=== PATIENT | female | born 1950 | race Caucasian/White ===

== ENCOUNTER → 2019-08-26 12:40 | Outpatient (CLI) | payer MEDICARE, OTHER, SELFPAY ==
[2016-08-26 20:55] VITALS: BMI 71.9
[2019-08-26 14:35] LABS: M R Staph aureus DNA By PCR Negative (Negative); Probe Check PASS; Specimen Processing Control PASS
== END ==
PROVIDERS: PCP Internal Medicine; Referring Provider Nurse Practitioner; Visit Provider Nurse Practitioner
DX: L03.90 Cellulitis, unspecified (principal)
CPT/HCPCS: 87641

== ENCOUNTER → 2019-09-15 09:17 | Outpatient (CLI) | payer MEDICARE, OTHER, SELFPAY ==
[2016-08-26 20:55] VITALS: BMI 71.9
== END ==
PROVIDERS: PCP Internal Medicine; Referring Provider Dermatology; Visit Provider Dermatology
DX: L30.9 Dermatitis, unspecified (principal)
CPT/HCPCS: 36415

== ENCOUNTER → 2020-09-30 11:59 | Outpatient (CLI) | payer MEDICARE, OTHER, SELFPAY ==
[2016-08-26 20:55] VITALS: BMI 71.9
[2020-09-30 12:20] LABS: D-Dimer Quantitative (DVT/PE) 0.31 FEU/ug/m (0.27-0.49)
== END ==
PROVIDERS: PCP Internal Medicine; Referring Provider Internal Medicine; Visit Provider Internal Medicine
DX: R07.9 Chest pain, unspecified (principal)
CPT/HCPCS: 85379

== ENCOUNTER → 2020-09-30 14:11 | Outpatient (CLI) | payer MEDICARE, OTHER, SELFPAY ==
[2016-08-26 20:55] VITALS: BMI 71.9
--- NOTE | 2020-09-30 14:18 | VDLE_ITS ---
Reason For Study: Calf pain RIGHT LEFT GSV is normal. GSV is normal. CFV is compressible, spontaneous, phasic, CFV is compressible, spontaneous, phasic, competent and demonstrates normal competent, and demonstrates normal augmentation. augmentation. FV is compressible, spontaneous, phasic, FV is compressible, spontaneous, phasic, competent and demonstrates normal competent and demonstrates normal augmentation. augmentation. POP V is compressible, spontaneous, phasic, POP V is compressible, spontaneous, phasic, competent and demonstrates normal competent and demonstrates normal augmentation. augmentation. T/P Trunk is compressible. T/P Trunk is compressible. PTV is compressible. PTV is compressible. RT PerV is compressible. LT PerV is compressible. Procedure This is a venous duplex using B-mode, color flow and spectral Doppler. Exam performed in department. A preliminary report was called and/or faxed to [facility]. VL/Venous Duplex US - Filipe Extrem Interpretation Summary Deep veins of the lower extremities are bilaterally patent and compressible seg mentally. There is no evidence of deep vein thrombosis on either side. Valvular competence appears in tact within the proximal deep venous systems bilaterally. The great saphenous veins appear bila terally patent and compressible segmentally. Ordering Physician: Yajaira Resendez Referring Physician: Yajaira Resendez Performed By: Mayte Moore RVT and Student
== END ==
PROVIDERS: PCP Internal Medicine; Referring Provider Internal Medicine; Visit Provider Internal Medicine
DX: M79.661 Pain in right lower leg (principal); R07.9 Chest pain, unspecified
CPT/HCPCS: 85379; 93970

== ENCOUNTER → 2020-12-08 08:26 | Outpatient (CLI) | payer MEDICARE, OTHER, SELFPAY ==
--- NOTE | 2020-12-08 08:36 | BD_ITS ---
STUDY: DUAL ENERGY X-RAY ABSORPTIOMETRY / DXA REASON FOR EXAM: Female, 70 years old. 627.8Menopausal postmenopausalBONE DENSITY REASON FOR EXAM TECHNIQUE: Bone Mineral Density (BMD) measurements of lumbar spine and bilateral hips were obtained. COMPARISON: None. FINDINGS: Lumbar Spine (L1-L4): g/cm2 (0.934) / T-score (-0.4) / Z-score (1.6) Findings are suggestive of normal bone density with a low fracture risk. Left Femur Total: g/cm2 (0.923) / T-score (-0.2) / Z-score (1.3) Left Femoral Neck: g/cm2 (0.669) / T-score (-1.6) / Z-score (0.2) Right Femur Total: g/cm2 (0.872) / T-score (-0.6) / Z-score (0.9) Right Femoral Neck: g/cm2 (0.735) / T-score (-1.0) / Z-score (0.8) BD/Dexa Bone Density Study IMPRESSION: The patient is considered osteopenic as outlined below according to World [employer] Organization (WHO) criteria with a moderate fracture risk. Reference Information: The T-score is the number of standard deviations above or below the standard which is normal for young adults at their peak bone mineral density. The World Health Organization (WHO) interprets the T-scores as follows: Above -1 Normal bone density Between -1 and -2.5 Osteopenia Equal to / or below -2.5 Osteoporosis As a practical clinical guideline, osteopenia may be graded as follows: Mild -1 through -1.5 Moderate -1.6 through -2.0 Severe -2.1 through -2.4 The Z-score is the number of standard deviations above or below age-matched controls. A Z-score of less than -1.5 would be considered abnormal. References: 1. NIH Osteoporosis and Related Bone Diseases www osteo.org 2. International Society for Clinical Densitometry www iscd.org 3. National Osteoporosis Foundation www nof.org Electronically Signed: Choco Moses MD at 9:33 EDT , Service support ,
== END ==
PROVIDERS: PCP Internal Medicine; Referring Provider Internal Medicine; Visit Provider Internal Medicine
DX: Z78.0 Asymptomatic menopausal state (principal)
CPT/HCPCS: 77080

== ENCOUNTER → 2023-07-03 | Outpatient (CLI) | payer MEDICARE, OTHER, SELFPAY ==
[2023-07-03 15:49] LABS: Absolute Lymphocyte Count 3.02 X10^3/uL (0.83-4.51); Absolute Neutrophil Count 3.2 X10^3/uL (2.0-7.7); Basophil# 0.07 X10^3/uL; Eosinophil# 0.16 X10^3/uL; Eosinophils% 2.3 % (0-5); Hematocrit 46.4 % (37-47); Hemoglobin 14.9 g/dL (12.0-15.0); Lymphocyte # 3.02 X10^3/ul (0.83-4.51); Lymphocyte % 42.8 % (19-41); Mean Corp Hgb Conc 32.1 g/dL (32-36); Mean Corpuscular Hgb 28.3 pg (27.0-32.0); Mean Platelet Vol. 9.4 fl (6.2-12.0); Monocyte# 0.54 X10^3/uL; Monocyte% 7.6 % (0-10); NRBC Flagged by Analyzer 0 % (0-5); Neutrophil # 3.24 X10^3/uL (2.7-7.7); Neutrophil % 45.9 % (47-70); Platelet Count 308 K/mm3 (150-450); RBC Distribution Width CV 12.8 % (11.6-14.6); RBC Distribution Width SD 41.5 fl (35.1-43.9); Red Blood Count 5.27 M/mm3 (4.2-5.4); White Blood Count 7.1 K/mm3 (4.4-11.0)
[2023-07-03 15:57] LABS: ALB/GLOB Ratio 1.2 RATIO (0.9-2.4); AST(SGOT) 16 U/L (15-37); Alanine Aminotransfer ALT/SGPT 28 U/L (13-56); Albumin, Serum 3.6 g/dL (3.2-5.0); Alkaline Phosphatase 68 U/L (45-117); Anion Gap 0 (5-15); BUN 11 mg/dL (7-18); BUN/Creat Ratio 13.9 RATIO (10-20); Calcium,Total 8.9 mg/dL (8.5-10.1); Chloride 108 mmol/L (98-107); Creatinine, Serum 0.79 mg/dL (0.55-1.02); EST Glomerular Filtration Rate 76 mL/min (>60); Est Glom Filt Rate - Afr Amer 92 mL/min (>60); Globulin 2.9 g/dL (2.2-4.2); Glucose 102 mg/dL (74-106); Potassium 4.6 mmol/L (3.5-5.1); Protein, Total 6.5 g/dL (6.4-8.2); Sodium Level 140 mmol/L (136-145)
== END | disposition home or self-care (01) ==
LOC: LABSPEC 15:35
PROVIDERS: PCP Internal Medicine; Referring Provider Nurse Practitioner Family; Visit Provider Nurse Practitioner Family
DX: R39.9 Unspecified symptoms and signs involving the genitourinary system (principal)
CPT/HCPCS: 80053; 85025

== ENCOUNTER 2024-01-13 15:09 | Emergency (ER) | payer MEDICARE, OTHER, SELFPAY ==
[2024-01-13 15:09] VITALS: BP 151/86; PULSE 86; RESP 16; TEMP 36.5; O2SAT 99; BMI 29.5
[2024-01-13 15:12] VITALS: BP 151/86; PULSE 86; RESP 16; TEMP 36.7; O2SAT 99
[2024-01-13 15:39] LABS: Mucous, Urine 0 SEEN /hpf (<or=2+)
[2024-01-13 15:42] LABS: Color, Urine Red (Yellow); Glucose, Dipstick Normal (Normal); Ketone-Dipstick Negative (Negative); Leukocyte Esterase-Dipstick 100 /ul (Negative); Nitrite-Dipstick Negative (Negative); Occult Blood-Urine 250 /ul (Negative); Protein-Dipstick 500 mg/dl (Negative); Specific Gravity, Urine 1.015 (1.002-1.030); Urine Bilirubin Dipstick Negative (Negative); Urine Clarity Turbid (Clear); Urine Urobilinogen Normal (Normal)
[2024-01-13 15:50] LABS: Red Blood Cells-Urine > 100 SEEN /hpf (0-5)
[2024-01-13 15:52] LABS: Squamous Epithelial Cells - UA 0-5 SEEN /hpf (5-10); White Blood Cells 10-25 SEEN /hpf (0-5)
[2024-01-13 15:53] LABS: Bacteria 2+ /hpf (None Seen)
[2024-01-13] MEDS: Phenazopyridine 95 MG Tablet 190 MG PO (16:41)
[2024-01-13] MEDS: Nitrofurantoin Macrocrystals 100 MG Capsule PO (16:41)
[2024-01-13 16:43] VITALS: BP 126/69; PULSE 72; RESP 18; TEMP 36.7; O2SAT 97
== END 2024-01-13 16:44 | disposition home or self-care (01) ==
PROVIDERS: Emergency Provider Emergency Medicine; PCP Internal Medicine; Visit Provider Emergency Medicine
DX: N30.91 Cystitis, unspecified with hematuria (principal); R03.0 Elevated blood-pressure reading, without diagnosis of hypertension
CPT/HCPCS: 81001; 87086; 87088; 87186; 99283

== ENCOUNTER → 2024-08-15 | Outpatient (CLI) | payer MEDICARE, OTHER, SELFPAY ==
--- OUTSIDE RECORDS SUMMARY | 2024-08-15 17:58 | XMS RPT_ITS | CCD ---
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 Manager Name Role Phone Yajaira Uribe Attending Unavailable Yajaira Uribe Referring Unavailable Yajaira Uribe Consulting Unavailable Brandi Uribehleen Unavailable Yolanda Ramos Unavailable Ciyudia, Lorena Unavailable Yelena Jones Unavailable Unavailable Slarb, Sandy Unavailable Unavailable Unavailable Unavailable Jerel Newton Unavailable Unavailable Janet Young Unavailable Unavailable Elizabet Flores Unavailable Unavailable Yajaira Uribe DO Unavailable Yolanda Ramos Unavailable Jerel Newton LPN Unavailable Unavailable Ciesa OLIVERIO, Lorena Unavailable Slajett CALLES, Sandy Unavailable Unavailable Unavailable Unavailable Dr. Tino Serna Unavailable Le CALLES, Nilda Unavailable Unavailable Brandi Uribe DOhleen Unavailable Jessica Blake MA Unavailable Unavailable Ciesa, Carly Unavailable Yajaira Uribe DO Primary Care Provider [phone] Edna Birch RN Unavailable Unavailable Gabriella Frederick RN Unavailable Unavailable Rodo CARDONA, PhD, Chele Duff Unavailable Cassie Stevenson Unavailable [phone] Cinthya Medina RN Unavailable Unavailable Jerel Deluna RN Unavailable Unavailable Chema VARGAS, Shelly Unavailable Unavailable Yajaira Uribe DO Primary Care Provider [phone] Edna Birch RN Unavailable Unavailable Gabriella Frederick RN Unavailable Unavailable Rodo CARDONA, PhD, Chele Duff Unavailable [phone] Jean BUSTOSN-GRAVEL INSPECTOR, Cassie L Unavailable [phone] Carol RN, Cinthya Unavailable Unavailable Mikie VARGAS, Jerel Unavailable Unavailable Chema VARGAS, Shelly Unavailable Unavailable Rodo CARDONA, PhD, Chele Duff Unavailable YAJAIRA URIBE Referring Unavailable YAJAIRA URIBE Primary Care Unavailable EDMUNDO CLARK Attending Unavailable EDMUNDO CLARK Attending Unavailable JOJOYAJAIRA MCGRAW K Primary Care Unavailable EDMUNDO CLARK E Referring Unavailable Jojo, Yajaira Primary Care Unavailable Yajaira Uribe Referring Unavailable Giancarlo Grier Attending Unavailable Yajaira Uribe Primary Care Unavailable Janie Hill Attending Unavailable Janie Hill Referring Unavailable Evelio Paul Attending Unavailable Yajaira Uribe Primary Care Unavailable Dr. Yajaira Uribe DO Primary Care Provider Dr. Yajaira Uribe DO Referring Provider [phone] Sarbjit Dinh Attending Provider Allergies Allergy Classification Reported Allergen(s) Allergy Type Date of Onset Reaction(s) Facility Macrolides (antibiotic) (1 source) Clarithromycin; Translations: [BIAXIN, 250MG (Oral Tablet)] Drug [facility] Work Phone: Comment on above: cramps NSAIDs (1 source) Indomethacin; Translations: [INDOCIN SR, 75MG (Oral Capsule Extended Release)] Drug Allergy [facility]; [facility] Work Phone: Penicillins (antibiotic) (1 source) Penicillins; Translations: [Penicillins] Drug Allergy [facility] Work Phone: (11 sources) Clarithromycin; Translations: [BIAXIN, 250MG (Oral Tablet)] Drug Allergy 07-11-19 08 Rash [facility] Work Phone: Comment on above: cramps (9 sources) Indomethacin; Translations: [INDOCIN SR, 75MG (Oral Capsule Extended Release)] Drug Allergy [facility] Work Phone: (17 sources) Penicillins; Translations: [Penicillins] allergy to substance 07-11-19 08 [facility] Work Phone: (5 sources) *Adhesive Tape Propensity to adverse reactions 04-23-19 13 Hives, [facility] (4 sources) Clarithromycin Propensity to adverse reactions to drug 07-11-[address] [facility] (2 sources) Latex Allergy to substance 08-27-19 17 [facility] (2 sources) Adhesive Tape Drug allergy (disorder) 01-13-20 24 [facility] Repository (1 source) Clarithromycin Drug Allergy 01-13-20 [facility] Rep[facility] (1 source) Latex Drug allergy (disorder) 08-27-19 [facility] Rep[facility] Medications Current Medications Medication Drug Class(es) Dates Sig (Normalized) Sig (Original) ciprofloxacin 750 mg oral tablet (12 sources) Quinolone Antimicrobial Start: 04-25-2021 End: 08-04-2021 Ciprofloxacin HCl 750 MG Oral Tablet 1 (one) Tablet daily x3 days for 0 days Quantity: 6 {Tablet} Refills: 0 Ordered: 04-Aug-2021 Jessica Blake MA Start : 25-Apr-2021 End : 04-Aug-2021 Inactive Comments: Ok to dispense #6 Start: 10-05-2011 End: 10-15-2011 take 1 tablet by mouth twice daily CIPRO, 500MG (Oral Tablet) 1 Tablet bid for 10 days Quantity: 20 {Tablet} Refills: 0 Ordered: 05-Oct-2011 Yajaira Uribe DO, DO, Kathleen Start : 05-Oct-2011 End : 15-Oct-2011 Inactive Comment on above: Ok to dispense #6 doxycycline hyclate 100 mg oral capsule (18 sources) Tetracycline-class Drug Start: 08-04-2021 take 1 capsule by mouth twice daily Doxycycline Hyclate 100 MG Oral Capsule 1 (one) Capsule bid for 7 days Quantity: 14 {Capsule} Refills: 0 Ordered: 04-Aug-2021 Yajaira Uribe DO, DO, Kathleen Start : 04-Aug-2021 Active Start: 08-26-2019 End: 09-02-2019 take 1 capsule by mouth twice daily Doxycycline Monohydrate 100 MG Oral Capsule 1 (one) Capsule bid for 7 days Quantity: 14 {Capsule} Refills: 0 Ordered: 26-Aug-2019 Carly Tejada Start : 26-Aug-2019 End : 02-Sep-2019 Inactive Start: 12-11-2014 End: 12-27-2015 take 1 capsule by mouth twice daily Doxycycline Hyclate 100 MG Oral Capsule 1 (one) Capsule bid for 0 days Quantity: 20 {Capsule} Refills: 0 Ordered: 27-Dec-2015 SlaSandy frausto LPN Start : 11-Dec-2014 End : 27-Dec-2015 Discontinued famotidine 40 mg oral tablet (1 source) Histamine-2 Receptor Antagonist Start: 08-04-2021 take 1 tablet by mouth twice daily Famotidine 40 MG Oral Tablet 1 (one) Tablet bid for 0 days Quantity: 20 {Tablet} Refills: 0 Ordered: 04-Aug-2021 Yajaira Uribe DO, DO, Kathleen Start : 04-Aug-2021 Active Comments: allergy to yellow dye -- according to my emr the generic version doesnt have yellow dye Start: 08-04-2021 take 1 tablet by radha th twice daily Famotidine 40 MG Oral Tablet 1 (one) Tablet bid for 0 days Quantity: 20 {Tablet} Refills: 0 Ordered: 04-Aug-2021 Yajaira Uribe DO, DO, Kathleen Start : 04-Aug-2021 Active Comments: allergy to yellow dye -- according to my emr the generic version doesnt have yellow dye Comment on above: allergy to yellow dy e -- according to my emr the generic version doesnt have yellow dye fexofenadine hydrochloride 60 mg oral tablet (1 source) Histamine-1 Receptor Antagonist Start: 08-04-2021 take 1 tablet by mouth twice daily Karrie Allergy 60 MG Oral Tablet 1 (one) Tablet bid for 0 days Quantity: 20 {Tablet} Refills: 0 Ordered: 04-Aug-2021 Yajaira Uribe DO, DO, Kathleen Start : 04-Aug-2021 Active Start: 08-04-2021 take 1 tablet by radha th twice daily Karrie Allergy 60 MG Oral Tablet 1 (one) Tablet bid for 0 days Quantity: 20 {Tablet} Refills: 0 Ordered: 04-Aug-2021 Yajaira Uribe DO, DO, Kathleen Start : 04-Aug-2021 Active nitrofurantoin, macrocrystals 25 mg / nitrofurantoin, monohydrate 75 mg oral capsule (2 sources) Nitrofuran Antibacterial Start: 01-13-2024 End: 08-15-2024 take 1 capsule by mouth every twelve hours at mealtime Nitrofurantoin Monohyd/M-Cryst 100 mg capsule Active 1 NMA PO Q12H 14 August 15, 2024 12:00am August 21, 2024 12:00am administer with a meal/food; swallow whole; do not open, crush, dissolve , or chew phenazopyridine hydrochloride 200 mg oral tablet (12 sources) Start: 01-13-2024 End: 08-15-2024 take 1 tablet by mouth three times daily as needed for pain Phenazopyridine (Pyridium) 200 mg tablet Active 200 mg PO THREE TIMES A DAY as needed for pain August 15, 2024 12:00am Start: 10-28-2007 End: 10-30-2007 take 1 tablet by mouth three times daily PYRIDIUM, 100MG (Oral Tablet) 1 Tablet tid for 2 days Quantity: 6 {Tablet} Refills: 0 Ordered: 28-Oct-2007 Carly Tejada Start : 28-Oct-2007 End : 30-Oct-2007 Inactive predniSONE 20 mg oral tablet (15 sources) Start: 08-04-2021 take 1 tablet by mouth twice daily at mealtime predniSONE 20 MG Oral Tablet 1 (one) Tablet bid for 0 days Quantity: 6 {Tablet} Refills: 0 Ordered: 04-Aug-2021 Yajaira Uribe DO, DO, Kathleen Start : 04-Aug-2021 Active Comments: take with food Start: 10-25-2020 End: 11-01-2020 take 2 tablets by mouth once daily at mealtime predniSONE 10 MG Oral Tablet 2 (two) Tablet daily with food for 7 days Quantity: 14 {Tablet} Refills: 0 Ordered: 25-Oct-2020 Yajaira Uribe DO, DO, Kathleen Start : 25-Oct-2020 End : 01-Nov-2020 Inactive Comments: take with food Start: 08-03-2020 take 3 tablets by mo [facility] once daily at mealtime predniSONE 10 MG Oral Tablet 3 (three) Tablet daily as directed for 7 days Quantity: 21 {Tablet} Refills: 0 Ordered: 03-Aug-2020 Terrell PAYNE Lorena Start : 03-Aug-2020 Active Comments: take with food Start: 04-10-2013 End: 05-08-2013 take 1 tablet by mouth once daily at mealtime PREDNISONE, 20MG (Oral Tablet) 1 (one) Tablet qd for 0 days Quantity: 5 {Tablet} Refills: 0 Ordered: 08-May-2013 Chantal Allen RN Start : 10-Apr-2013 End : 08-May-2013 Inactive Comments: take with food Comment on above: take with food vitamin b12 2.5 mg oral lozenge (2 sources) Vitamin B12 Start: 04-25-2021 End: 08-04-2021 take 1 tablet under the tongue every other day Cyanocobalamin 2500 MCG Sublingual Tablet Sublingual 1 (one) Tablet qod for 0 days Quantity: 60 {Tablet} Refills: 1 Ordered: 04-Aug-2021 Jessica Blake MA Start : 25-Apr-2021 End : 04-Aug-2021 Inactive Completed/Discontinued Medications Medication Drug Class(es) Dates Sig (Normalized) Sig (Original) acetaminophen 500 mg oral tablet (1 source) Start: 01-08-2020 End: 01-02-2022 take 2 tablets by mouth every six hours acetaminophen (TYLENOL) 500 MG tablet Take 2 tablets by mouth every 6 hours for 5 days. 40 tablet 0 01/08/2020 01/02/2022 Discontinued (Therapy completed) acyclovir 800 mg oral tablet (10 sources) Herpesvirus Nucleoside Analog DNA Polymerase Inhibitor, Herpes Simplex Virus Nucleoside Analog DNA Polymerase Inhibitor, Herpes Zoster Virus Nucleoside Analog DNA Polymerase Inhibitor Start: 03-26-2014 End: 04-02-2014 ACYCLOVIR, 800MG (Oral Tablet) 1 (one) Tablet 5 x daily for 7 days Quantity: 35 {Tablet} Refills: 0 Ordered: 26-Mar-2014 Carly Tejada Start : 26-Mar-2014 End : 02-Apr-2014 Inactive [id number] actuat albuterol 0.09 mg/actuat metered dose inhaler (10 sources) beta2-Adrenergic Agonist Start: 04-28-2009 End: 02-19-2012 ALBUTEROL, 90MCG/ACT (Inhalation Aerosol Solution) 2 (two) Aerosol Soln TID prn for 0 days Quantity: 1 {Aerosol_Soln} Refills: 3 Ordered: 28-Apr-2009 Chantal Allen RN Start : 28-Apr-2009 End : 19-Feb-2012 Discontinued Comments: This order discontinued per [facility]. Comment on above: This order discontin ued per [facility]. aspirin 325 mg oral tablet (10 sources) Platelet Aggregation Inhibitor, Nonsteroidal Anti-inflammatory Drug End: 02-19-2012 take 1 tablet by mouth twice daily ASPIRIN, 325MG (Oral Tablet) 1 bid for 0 days Refills: 0 Ordered: 19-Feb-2012 Chantal Allen RN End : 19-Feb-2012 Inactive 24 hr clarithromycin 500 mg extended release oral tablet (10 sources) Macrolide Antimicrobial Start: 12-10-2006 End: 01-29-2007 take 2 tablets by mouth once daily BIAXIN XL PAC, 500MG (Oral Tablet Extended Release 24 Hour) 2 (two) Tablet ER 24HR Daily for 7 days Quantity: 14 {Tablet_ER_24HR} Refills: 0 Ordered: 10-Dec-2006 MARTHA THOMPSON CNP Start : 10-Dec-2006 End : 29-Jan-2007 Inactive Start: 12-10-2006 End: 01-29-2007 take 2 tablets by mouth once daily BIAXIN XL PAC, 500MG (Oral Tablet Extended Release 24 Hour) 2 (two) Tablet ER 24HR Daily for 7 days Quantity: 14 {Tablet_ER_24HR} Refills: 0 Ordered: 10-Dec-2006 MARTHA THOMPSON CNP Start : 10-Dec-2006 End : 29-Jan-2007 Inactive codeine phosphate 2 mg/ml / guaiFENesin 20 mg/ml oral solution (10 sources) Opioid Agonist Start: 12-10-2006 End: 09-09-2007 GUAIATUSSIN AC, 100-10MG/5ML (Oral Syrup) 1-2 Teaspoon(s) q6h prn for 0 days Quantity: 6 {Ounce(s)} Refills: 0 Ordered: 10-Dec-2006 Chantal Allen RN Start : 10-Dec-2006 End : 09-Sep-2007 Inactive cyclobenzaprine hydrochloride 5 mg oral tablet (10 sources) Muscle Relaxant Start: 12-27-2015 End: 08-26-2019 Cyclobenzaprine HCl 5 MG Oral Tablet 1 (one) Tablet once or twice daily prn for muscle spasm for 0 days Quantity: 30 {Tablet} Refills: 0 Ordered: 26-Aug-2019 Jerel Newton LPN Start : 27-Dec-2015 End : 26-Aug-2019 Inactive 24 hr etodolac 400 mg extended release oral tablet (10 sources) Nonsteroidal Anti-inflammatory Drug Start: 01-23-2011 End: 01-23-2011 take 2 tablets by mouth once daily at mealtime ETODOLAC CR, 400MG (Oral Tablet Extended Release 24 Hour) 2 (two) Tablet ER 24HR qd with food for 0 days Quantity: 20 {Tablet_ER_24HR} Refills: 0 Ordered: 23-Jan-2011 Yajaira Uribe DO, DO, Kathleen Start : 23-Jan-2011 End : 23-Jan-2011 Discontinued fluticasone / salmeterol (10 sources) Corticosteroid, beta2-Adrenergic Agonist Start: 04-28-2009 End: 02-19-2012 ADVAIR DISKUS, 100-50MCG/DOSE (Inhalation Aerosol Powder Breath Activated) 1 (one) Misc bid for 0 days Quantity: 1 {diskus} Refills: 3 Ordered: 19-Feb-2012 Chantal Allen RN Start : 28-Apr-2009 End : 19-Feb-2012 Inactive Start: 04-28-2009 End: 02-19-2012 ADVAIR DISKUS, 100-50MCG/DOS E (Inhalation Aerosol Powder Breath Activated) 1 (one) Misc bid for 0 days Quantity: 1 {diskus} Refills: 3 Ordered: 19-Feb-2012 Chantal Allen LPN Start : 28-Apr-2009 End : 19-Feb-2012 Inactive ibuprofen 600 mg oral tablet (1 source) Nonsteroidal Anti-inflammatory Drug Start: 01-08-2020 End: 01-02-2022 take 1 tablet by mouth every six hours ibuprofen 600 MG tablet Take 1 tablet by mouth every 6 hours for 5 days. 20 tablet 0 01/08/2020 01/02/2022 Discontinued levoFLOXacin 500 mg oral tablet (10 sources) Quinolone Antimicrobial Start: 11-01-2007 take 1 tablet by mouth once daily LEVAQUIN, 500MG (Oral Tablet) 1 (one) Tablet Daily for 0 days Quantity: 5 {Tablet} Refills: 0 Ordered: 28-Apr-2009 Ruma Lugo LPN Start : 01-Nov-2007 Inactive metroNIDAZOLE 500 mg oral tablet (9 sources) Nitroimidazole Antimicrobial Start: 06-24-2018 End: 07-04-2018 take 1 tablet by mouth twice daily MetroNIDAZOLE 500 MG Oral Tablet 1 (one) Tablet bid for 10 days Quantity: 20 {Tablet} Refills: 0 Ordered: 24-Jun-2018 Yelena Jones CMA Start : 24-Jun-2018 End : 04-Jul-2018 Inactive montelukast 10 mg oral tablet (10 sources) Leukotriene Receptor Antagonist Start: 09-09-2007 take 1 tablet by mouth once daily SINGULAIR, 10MG (Oral Tablet) 1 (one) Tablet Daily for 0 days Quantity: 30 {Tablet} Refills: 4 Ordered: 28-Apr-2009 Ruma Lugo LPN Start : 09-Sep-2007 Inactive naproxen sodium 220 mg oral tablet (10 sources) Nonsteroidal Anti-inflammatory Drug Start: 05-30-2006 End: 02-19-2012 take 2 tablets by mouth twice daily ALEVE, 220MG (Oral Tablet) 2 (two) Tablet Twice daily for 0 days Refills: 0 Ordered: 19-Feb-2012 Chantal Allen RN Start : 30-May-2006 End : 19-Feb-2012 Inactive oxyCODONE hydrochloride 5 mg oral tablet (1 source) Opioid Agonist Start: 01-08-2020 End: 01-02-2022 take 1 tablet by mouth every eight hours as needed for pain oxyCODONE 5 MG tablet Indications: Acquired absence of both breasts Take 1 tablet by mouth every 8 hours as needed for Severe Pain for up to 2 days. 6 tablet 0 01/08/2020 01/02/2022 Discontinued scopolamine 0.4 mg oral tablet (20 sources) Anticholinergic Start: 04-28-2009 End: 10-27-2011 take 1 tablet by mouth every eight hours as needed SCOPACE, 0.4MG (Oral Tablet) 1 (one) Tablet 1 hr before travel and q8hrs prn for 0 days Quantity: 10 {Tablet} Refills: 0 Ordered: 27-Oct-2011 Chantal Allen RN Start : 28-Apr-2009 End : 27-Oct-2011 Discontinued Comments: This order discontinued per [facility]. Start: 09-16-2007 End: 04-28-2009 SCOPOLAMINE BASE, 1.5MG (Tra nsdermal Patch 72 Hour) 1 (one) Patch 72HR q72 hrs prn for 0 days Quantity: 10 {Patch_72HR} Refills: 0 Ordered: 16-Sep-2007 Parish CALLESRuma Start : 16-Sep-2007 End : 28-Apr-2009 Discontinued Comments: This order discontinued per [facility]. Comment on above: This order discontin ued per [facility]. sulfamethoxazole 800 mg / trimethoprim 160 mg oral tablet (10 sources) Dihydrofolate Reductase Inhibitor Antibacterial, Sulfonamide Antimicrobial Start: 08-27-19 End: 09-03-19 take 1 tablet by mouth twice daily Bactrim DS 800-160 MG Oral Tablet 1 (one) Tablet bid for 7 days Quantity: 14 {Tablet} Refills: 0 Ordered: 27-Aug-2019 Carly Tejada Start : 27-Aug-2019 End : 03-Sep-2019 Inactive Start: 10-30-2007 End: 11-05-2007 take 1 tablet by mouth twice daily BACTRIM DS, 800-160MG (Oral Tablet) 1 (one) Tablet bid for 3 days Quantity: 6 {Tablet} Refills: 0 Ordered: 30-Oct-2007 Chantal Allen LPN Start : 30-Oct-2007 End : 05-Nov-2007 Inactive tiZANidine 4 mg oral tablet (4 sources) Central alpha-2 Adrenergic Agonist Start: 10-28-2020 End: 10-28-2020 take 1 tablet by mouth twice daily tiZANidine HCl 4 MG Oral Tablet 1 (one) Tablet bid for 0 days Quantity: 40 {Tablet} Refills: 0 Ordered: 28-Oct-2020 Yajaira Uribe DO, DO, Kathleen Start : 28-Oct-2020 End : 28-Oct-2020 Inactive Comments: rash Comment on above: rash NEGATED: Highlighted row has not occurred!drug or medication (5 sources) No Known Historical Medications NEGATED: Highlighted row has not occurred!No Known Historical Medications (5 sources) No Known Historical Medications Problems Active Problems Problem Classification Problem Date Documented Da te Episodic/Chronic Abdominal pain (18 sources) Abdominal pain; Translations: [Abdominal pain, colicky] Resolved: 1 06-17-2018 Episodic Allergic reactions (19 sources) Contact dermatitis due to poison irineo; Translations: [Contact dermatitis due to poison irineo] 08-03-2020 Episodic Comment on above: left flank at site o f pain had cream rubbed on it at last OV Asthma (20 sources) Asthma; Translations: [Asthma] 12-28-2015 Chronic Comment on above: stable Asthma (10 sources) Asthma Biliary tract disease (20 sources) Cholelithiasis without obstruction; Translations: [Cholelithiasis without obstruction] Resolved: 2 04-10-2013 Episodic Cancer of breast (20 sources) Malignant neoplasm of breast (female), unspecified; Translations: [Breast ca] Onset: 3 Resolved: 0 12-28-2015 Chronic Comment on above: new dx Cancer of breast (12 sources) History of malignant neoplasm of breast; Translations: [Personal history of malignant neoplasm of breast] Onset: 7 Episodic Chronic obstructive pulmonary disease and bronchiectasis (10 sources) Chronic obstructive pulmonary disease and bronchiectasis Conditions associated with dizziness or vertigo (20 sources) Conditions associated with dizziness or vertigo Disorders of lipid metabolism (20 sources) Hypercholesterolemia; Translations: [Hypercholesterolemia] 12-28-2015 Chronic Diverticulosis and diverticulitis (6 sources) Diverticular disease of colon; Translations: [Diverticulosis of large intestine] 12-28-2015 Chronic E Codes: Natural/environment (1 source) Insect bite - wound; Translations: [Insect bite, multiple] 08-04-2021 Episodic Genitourinary symptoms and ill-defined conditions (20 sources) Blood in urine; Translations: [Dysuria] Onset: 4 Resolved: 9 04-10-2013 Episodic Comment on above: Pt has family histor y of Polycystic Kidney Disease RESOLVED Headache; including migraine (20 sources) Headache; Translations: [Headache] Resolved: 9 12-08-2014 Episodic Intestinal infection (2 sources) Traveler's diarrhea; Translations: [Travelers' diarrhea] 04-25-2021 Episodic Nonspecific chest pain (8 sources) Chest pain; Translations: [Chest pain] Resolved: 1 01-05-2021 Episodic Nutritional deficiencies (4 sources) Cobalamin deficiency; Translations: [Vitamin B12 deficiency] 04-25-2021 Episodic Other bone disease and musculoskeletal deformities (8 sources) Osteopenia; Translations: [Osteopenia] 01-05-2021 Episodic Other circulatory disease (10 sources) Elevated blood-pressure reading without diagnosis of hypertension; Translations: [Elevated blood-pressure reading without diagnosis of hypertension] 12-28-2015 Episodic Other circulatory disease (1 source) Elevated blood pressure; Translations: [Elevated blood-pressure reading, without diagnosis of hypertension] 01-21-2024 Episodic Other connective tissue disease (20 sources) Foot pain; Translations: [Foot pain] Resolved: 9 04-10-2013 Episodic Other connective tissue disease (10 sources) Achilles bursitis or tendinitis Episodic Other connective tissue disease (8 sources) Cramp in lower limb; Translations: [Leg cramp] 01-05-2021 Episodic Comment on above: minerals, mag, stret ch , support stockings during day , stretch and water Other connective tissue disease (8 sources) Pain in calf; Translations: [Calf pain] Resolved: 1 01-05-2021 Episodic Other connective tissue disease (2 sources) Pain in axilla; Translations: [Pain in right upper arm] 12-05-2022 Episodic Other gastrointestinal disorders (20 sources) Diarrhea; Translations: [Diarrhea] Resolved: 1 06-24-2018 Episodic Other injuries and conditions due to external causes (10 sources) Injury of head; Translations: [Head injury due to trauma] 12-28-2015 Episodic Comment on above: > 1 yr ago, but symp toms of loss of taste/smell after covid Other lower respiratory disease (10 sources) Dyspnea Episodic Other nervous system disorders (3 sources) Metallic taste; Translations: [Metallic taste] 03-23-2021 Episodic Comment on above: This began end of 2020 lasting 2 months, had covid in Nov. Other nervous system disorders (3 sources) Disorder of taste; Translations: [Taste disorder] 03-23-2021 Episodic Other non-traumatic joint disorders (20 sources) Knee pain; Translations: [Pain in unspecified knee] 12-28-2015 Episodic Other nutritional; endocrine; and metabolic disorders (20 sources) Obesity; Translations: [Non morbid obesity, unspecified obesity type] Onset: 7 12-28-2015 Chronic Other nutritional; endocrine; and metabolic disorders (10 sources) Obesity, unspecified Chronic Other nutritional; endocrine; and metabolic disorders (20 sources) Body mass index 30+ - obesity; Translations: [BMI 30.0-30.9,adult] 06-17-2018 Chronic Other nutritional; endocrine; and metabolic disorders (8 sources) Body mass index 25-29 - overweight; Translations: [BMI 29.0-29.9,adult] 01-05-2021 Episodic Other screening for suspected conditions (not mental disorders or infectious disease) (8 sources) Patient encounter status; Translations: [Colon cancer screening (Renamed from Encounter for screening for malignant neoplasm of colon)] 01-05-2021 Episodic Comment on above: goes to [facility] with h/o breast cancer Other skin disorders (5 sources) Skin finding; Translations: [Recent skin changes] 08-03-2020 Episodic Comment on above: treating as if shing les Other upper respiratory disease (20 sources) Allergic rhinitis; Translations: [Allergic rhinitis] Resolved: 9 04-10-2013 Chronic Comment on above: allergic vs bacteria l vs viral Other upper respiratory disease (10 sources) Pain in throat Episodic Poisoning by nonmedicinal substances (17 sources) Tick bite; Translations: [Tick bite] Resolved: 1 08-26-2019 Episodic Comment on above: Pt has frequent expo sure to ticks and reports being bitten multiple times. Rashes noted on the L foot and L dorsal knee. No complaint of joint pain, stiffness, fever, or IRWIN. Residual codes; unclassified (20 sources) Family history of diabetes mellitus Episodic Residual codes; unclassified (10 sources) FH: Diabetes mellitus; Translations: [Family history of diabetes mellitus] 12-28-2015 Episodic Residual codes; unclassified (5 sources) Non-smoker; Translations: [Non-smoker] 08-03-2020 Episodic Residual codes; unclassified (4 sources) Postmenopausal state; Translations: [Postmenopausal (Renamed from Postmenopausal status)] 01-05-2021 Episodic Residual codes; unclassified (2 sources) Acquired absence of bilateral breasts and nipples; Translations: [Acquired absence of bilateral breasts and nipples] Onset: 4 Episodic Skin and subcutaneous tissue infections (20 sources) Cellulitis; Translations: [Cellulitis] Resolved: 1 08-27-2019 Episodic Comment on above: Concern for coloniza tion and active MRSA. Pt reports brushig ticks off of her this weekend, but did not have any imbeded, nor did she see one bite her.Pt presents with L foot cellulitis that began 2 weeks ago after suspected bug bite. Then got a bug bite 08/23 on the dorsal side L knee. Spondylosis; intervertebral disc disorders; other back problems (8 sources) Spasm of back muscles; Translations: [Muscle spasm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 of focal pain in the upper outer right mastectomy site. BI-RADS: 2: Benign Recommendation: Clinical correlation/management. Recommendation Laterality: Right OLOGY EXAM: US BREAST LIMI HARMONY UNILATERAL RIGHT, 12/05/2022 15:42 PM CLINICAL INDICATIONS: 72-year-old female who presents for imaging evaluation of pain in the upper outer quadrant of the right mastectomy and right axillary tail. 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 COMPARISON: No post procedure imaging for comparison. TECHNIQUE: Multiple real-time galindo-scale images of the right mastectomy were obtained by the upkeep mechanic. Color Doppler was used to assess vascular flow. FINDINGS: Targeted ultrasound of the marked area of concern located in the upper outer quadrant and axillary tail of the right mastectomy site was performed showing normal-appearing subcutaneous fat and musculature. No cystic or solid mass is identified. Vascularity is normal. RADIOLOGY Lori Bingham DO - 12/05/2022 EXAM: US BREAST LIMITED UNILATERAL RIGHT, 12/05/2022 15:42 PM CLINICAL INDICATIONS: 72-year-old female who presents for imaging evaluation of pain in the upper outer quadrant of the right mastectomy and right axillary tail. 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 COMPARISON: No post procedure imaging for comparison. TECHNIQUE: Multiple real-time galindo-scale images of the right mastectomy were obtained by the upkeep mechanic. Color Doppler was used to assess vascular flow. FINDINGS: Targeted ultrasound of the marked area of concern located in the upper outer quadrant and axillary tail of the right mastectomy site was performed showing normal-appearing subcutaneous fat and musculature. No cystic or solid mass is identified. Vascularity is normal. IMPRESSION IMPRESSION: Normal limited ultrasound of the area of focal pain in the upper outer right mastectomy site. BI-RADS: 2: Benign Recommendation: Clinical correlation/management. Recommendation Laterality: Right [facility] Radiology Study observation (narrative) [facility] US Breast - right limitedOrd ered By: Lori Bingham on 12-05-2022 [facility] Work Phone: METABOLIC PANEL, COMPREHENSI VE ([id number])Ordered By: Physician Office Clin Asst on 03-24-2021 Albumin [Mass/Vol] 4.5 g/dL Normal 3.8-4.8 [facility]; [facility] Work Phone: Comment on above: Test(s) 017777-Aigy, Plasma or Serumwas developed and its performance characteristics determinedby [facility]. It has not been cleared or approved by the Foodand Drug Administration.PATIENT NOT FASTINGPERFORMED BY: [facility] Pbohhv9587 [facility] [id number] BY: Touch-[employer] [id number] Albumin/Globulin [Mass ratio] 2.3 {ratio} Abnormal 1.2-2.2 [facility]; [facility] Work Phone: Comment on above: Test(s) 065773-Nytx, Plasma or Serumwas developed and its performance characteristics determinedby [employer]. It has not been cleared or approved by the Foodand Drug Administration.PATIENT NOT FASTINGPERFORMED BY: [facility] Mykvuc1718 [facility] [id number] BY: Touch[employer] [id number] ALP [Catalytic activity/Vol] 76 U/L Normal 44-121 [facility]; [facility] Work Phone: Comment on above: Test(s) 882084-Cxtm, Plasma or Serumwas developed and its performance characteristics determinedby [employer]. It has not been cleared or approved by the Foodand Drug Administration.PATIENT NOT FASTINGPERFORMED BY: [facility] Ahsrnn4912 [facility] [id number] BY: Touch[employer] [id number] ALT [Catalytic activity/Vol] 11 U/L Normal 0-32 [facility]; [facility] Work Phone: Comment on above: Test(s) 883731-Lrsl, Plasma or Serumwas developed and its performance characteristics determinedby [employer]. It has not been cleared or approved by the Foodand Drug Administration.PATIENT NOT FASTINGPERFORMED BY: [facility] Ubicun7735 [facility] [id number] BY: Touch[employer] [id number] AST [Catalytic activity/Vol] 16 U/L Normal 0-40 [facility]; [facility] Work Phone: Comment on above: Test(s) 540300-Trnx, Plasma or Serumwas developed and its performance characteristics determinedby [employer]. It has not been cleared or approved by the Foodand Drug Administration.PATIENT NOT FASTINGPERFORMED BY: [facility] [id number] [facility] [id number] BY: [facility] HealthResponsys[address] [id number] Bilirubin [Mass/Vol] 0.2 mg/dL Normal 0.0-1.2 [facility]; [facility] Work Phone: Comment on above: Test(s) 072589-Emmd, Plasma or Serumwas developed and its performance characteristics determinedby [employer]. It has not been cleared or approved by the Foodand Drug Administration.PATIENT NOT FASTINGPERFORMED BY: [facility] Iscokk8887 [facility] [id number] BY: Touch-[employer] [id number] Calcium [Mass/Vol] 9.3 mg/dL Normal 8.7-10.3 [facility]; [facility] Work Phone: Comment on above: Test(s) 767004-Iehr, Plasma or Serumwas developed and its performance characteristics determinedby [employer]. It has not been cleared or approved by the Foodand Drug Administration.PATIENT NOT FASTINGPERFORMED BY: [facility] Ugehzq5169 [facility] [id number] BY: Touch-Writer[address] [id number] Chloride [Moles/Vol] 103 mmol/L Normal 96-106 [facility]; [facility] Work Phone: Comment on above: Test(s) 809438-Haca, Plasma or Serumwas developed and its performance characteristics determinedby [employer]. It has not been cleared or approved by the Foodand Drug Administration.PATIENT NOT FASTINGPERFORMED BY: [facility] Crhvsa8897 [facility] [id number] BY: [facility] [id number] CO2 [Moles/Vol] 23 mmol/L Normal 20-29 [facility]; [facility] Work Phone: Comment on above: Test(s) 648940-Tvee, Plasma or Serumwas developed and its performance characteristics determinedby [facility]. It has not been cleared or approved by the Foodand Drug Administration.PATIENT NOT FASTINGPERFORMED BY: [facility] HospitalRespons[facility] [id number] BY: [address] [id number] Creatinine [Mass/Vol] 0.73 mg/dL Normal 0.57-1.00 [facility]; [facility] Work Phone: Comment on above: Test(s) 922288-Vzps, Plasma or Serumwas developed and its performance characteristics determinedby [employer]. It has not been cleared or approved by the Foodand Drug Administration.PATIENT NOT FASTINGPERFORMED BY: Touch-WriterAshley Ville 9127570 [facility] [id number] BY: [facility] [id number] GFR/1.73 sq M.predicted among blacks CKD-EPI (S/P/Bld) [Vol rate/Area] 96 mL/min/1.73 Normal [facility]; [facility] Work Phone: Comment on above: In accordance with recommendations from the NKF-ASN Task force, [facility] is in the process of updating its eGFR calculation to the 2020 CKD-EPI creatinine equation that estimates kidney function without a race variable. Test(s) 447103-Jhnj, Plasma or Serumwas developed and its performance characteristics determinedby [facility]. It has not been cleared or approved by the Foodand Drug Administration.PATIENT NOT FASTINGPERFORMED BY: [facility] HospitalResponsysEast Mountain HospitalDklfpl6261 [facility] [id number] BY: [address] [id number] GFR/1.73 sq M.predicted among non-blacks CKD-EPI (S/P/Bld) [Vol rate/Area] 84 mL/min/1.73 Normal [facility]; [facility] Work Phone: Comment on above: Test(s) 672567-Rgxv, Plasma or Serumwas developed and its performance characteristics determinedby [employer]. It has not been cleared or approved by the Foodand Drug Administration.PATIENT NOT FASTINGPERFORMED BY: YaData70 [facility] [id number] BY: [employer] [address] [id number] Globulin (S) [Mass/Vol] 2.0 g/dL Normal 1.5-4.5 [facility]; [facility] Work Phone: Comment on above: Test(s) 756767-Pplp, Plasma or Serumwas developed and its performance characteristics determinedby [facility]. It has not been cleared or approved by the Foodand Drug Administration.PATIENT NOT FASTINGPERFORMED BY: [employer]6370 [facility] [id number] BY: [employer] [address] [id number] Glucose [Mass/Vol] 71 mg/dL Normal 65-99 [facility]; [facility] Work Phone: Comment on above: Test(s) 539296-Aqof, Plasma or Serumwas developed and its performance characteristics determinedby [facility]. It has not been cleared or approved by the Foodand Drug Administration.PATIENT NOT FASTINGPERFORMED BY: [employer] Xjamlb3224 [facility] [id number] BY: [employer] [address] [id number] Potassium [Moles/Vol] 3.9 mmol/L Normal 3.5-5.2 [facility]; [facility] Work Phone: Comment on above: Test(s) 438865-Ctct, Plasma or Serumwas developed and its performance characteristics determinedby [facility]. It has not been cleared or approved by the Foodand Drug Administration.PATIENT NOT FASTINGPERFORMED BY: [employer] Iogixm4959 [facility] [id number] BY: Touch-Writer[address] [id number] Protein [Mass/Vol] 6.5 g/dL Normal 6.0-8.5 [facility]; [facility] Work Phone: Comment on above: Test(s) 697279-Ljcj, Plasma or Serumwas developed and its performance characteristics determinedby [employer]. It has not been cleared or approved by the Foodand Drug Administration.PATIENT NOT FASTINGPERFORMED BY: [employer]6370 EspinoTalkShoeAtrium Health Anson [id number] BY: [employer] [address] [id number] Sodium [Moles/Vol] 141 mmol/L Normal 134-144 [facility]; [facility] Work Phone: Comment on above: Test(s) 654333-Wlkv, Plasma or Serumwas developed and its performance characteristics determinedby [employer]. It has not been cleared or approved by the Foodand Drug Administration.PATIENT NOT FASTINGPERFORMED BY: Arch Grantsrp Tqlyfl6305 [facility] [id number] BY: Touch-Writer[address] [id number] Urea nitrogen [Mass/Vol] 13 mg/dL Normal 8-27 [facility]; [facility] Work Phone: Comment on above: Test(s) 222505-Eztu, Plasma or Serumwas developed and its performance characteristics determinedby [employer]. It has not been cleared or approved by the Foodand Drug Administration.PATIENT NOT FASTINGPERFORMED BY: Arch Grants Zqflav1188 [address] NextPageDuke Health [id number] BY: Touch-Writer[address] [id number] Urea nitrogen/Creatinine [Mass ratio] 18 mg/mg Normal 12-28 [facility]; [facility] Work Phone: Comment on above: Test(s) 588676-Txvs, Plasma or Serumwas developed and its performance characteristics determinedby [employer]. It has not been cleared or approved by the Foodand Drug Administration.PATIENT NOT FASTINGPERFORMED BY: [employer]6370 TermSyncB[facility]ist Health [facility] [id number] BY: [employer] [address] [id number] VITAMIN B-12 (CYANOCOBALAMIN ) (60784)Ordered By: Physician Office Clin Asst on 03-24-2021 Cobalamin (Vitamin B12) [Mass/Vol] 398 pg/mL Normal 232-1245 [facility]; [facility] Work Phone: Comment on above: Test(s) 359372-Ukxe, Plasma or Serumwas developed and its performance characteristics determinedby [employer]. It has not been cleared or approved by the Foodand Drug Administration.PATIENT NOT FASTINGPERFORMED BY: YaData70 LightPath AppsAtrium Health Anson [id number] BY: [employer] [id number]; OV 2/2 ZINC, BLOOD (27689)Ordered B y: Physician Office Clin Asst on 03-24-2021 Zinc [Mass/Vol] 74 ug/dL Normal 44-115 [facility]; [facility] Work Phone: Comment on above: Detection Limit = 5 Test(s) 368317-Aaqh, Plasma or Serumwas developed and its performance characteristics determinedby [employer]. It has not been cleared or approved by the Foodand Drug Administration.PATIENT NOT FASTINGPERFORMED BY: YaData70 WO FundingDuke Health [id number] BY: [employer] [id number] CBC W/AUTO DIFF WBC (18141)O rdered By: Physician Office Clin Asst on 09-30-2020 Basophils (Bld) [#/Vol] 0.1 10*3/uL Normal 0.0-0.2 [facility]; [facility] Work Phone: Comment on above: PATIENT NOT FASTINGP ERFORMED BY: SIDDHARTHA [facility] Laluev6268 Espino RoadDublin [place] [id number] Basophils/100 WBC (Bld) 1 % Normal [facility]; [facility] Work Phone: Comment on above: PATIENT NOT FASTINGP ERFORMED BY: SIDDHARTHA [facility] Xtewgf9904 Espino RoadDublin [place] [id number] Eosinophils (Bld) [#/Vol] 0.1 10*3/uL Normal 0.0-0.4 [facility]; [facility] Work Phone: Comment on above: PATIENT NOT FASTINGP ERFORMED BY: SIDDHARTHA [facility] Vdnfrv0128 Espino RoadDublin [place] [id number] Eosinophils/100 WBC (Bld) 1 % Normal [facility]; [facility] Work Phone: Comment on above: PATIENT NOT FASTINGP ERFORMED BY: SIDDHARTHA [facility]ries Bllbbi[address] [facility] [id number] Erythrocyte distribution width (RBC) [Ratio] 12.9 % Normal 11.7-15.4 [facility]; [facility] Work Phone: Comment on above: PATIENT NOT FASTINGP ERFORMED BY: SIDDHARTHA [facility] Vnrtfx[address] [facility] [id number] Hematocrit (Bld) [Volume fraction] 47.6 % Abnormal 34.0-46.6 [facility]; [facility] Work Phone: Comment on above: PATIENT NOT FASTINGP ERFORMED BY: SIDDHARTHA [facility] Nxxfwq3061 [address] RoadCritical Access Hospitalin [place] [id number] Hemoglobin (Bld) [Mass/Vol] 15.7 g/dL Normal 11.1-15.9 [facility]; [facility] Work Phone: Comment on above: PATIENT NOT FASTINGP ERFORMED BY: SIDDHARTHA [facility] Svczuf1857 [address]blin [place] [id number] Immature granulocytes (Bld) [#/Vol] 0.0 10*3/uL Normal 0.0-0.1 [facility]; [facility] Medicine Work Phone: Comment on above: PATIENT NOT FASTINGP ERFORMED BY: SIDDHARTHA LabCoamauri CalderónJvvqrx8323 [address] [facility] [place] [id number] Immature granulocytes/100 WBC (Bld) 0 % Normal [facility]; [facility] Work Phone: Comment on above: PATIENT NOT FASTINGP ERFORMED BY: LabCo Yotiiw[address] [facility] [place] [id number] Lymphocytes (Bld) [#/Vol] 2.2 10*3/uL Normal 0.7-3.1 [facility]; [facility] Work Phone: Comment on above: PATIENT NOT FASTINGP ERFORMED BY: LabCo Zsoaqt[address] [facility] [place] [id number] Lymphocytes/100 WBC (Bld) 34 % Normal [facility]; [facility] Work Phone: Comment on above: PATIENT NOT FASTINGP ERFORMED BY: LabCo Thaqqp9[address] [facility] [id number] MCH (RBC) [Entitic mass] 28.9 pg Normal 26.6-33.0 [facility]; [facility] Work Phone: Comment on above: PATIENT NOT FASTINGP ERFORMED BY: LabSinea Kkjhyw[address] [facility] [place] [id number] MCHC (RBC) [Mass/Vol] 33.0 g/dL Normal 31.5-35.7 [facility]; [facility] Work Phone: Comment on above: PATIENT NOT FASTINGP ERFORMED BY: LabCoEast Mountain HospitalUpvpxi[address] [facility]in [place] [id number] MCV (RBC) [Entitic vol] 88 fL Normal 79-97 [facility]; [facility] Work Phone: Comment on above: PATIENT NOT FASTINGP ERFORMED BY: LabCo Ahlbcx1490 [address] [facility] [place] [id number] Monocytes (Bld) [#/Vol] 0.6 10*3/uL Normal 0.1-0.9 [facility]; [facility] Work Phone: Comment on above: PATIENT NOT FASTINGP ERFORMED BY: CB [facility] Chcjbs2853 [address] [place] [id number] Monocytes/100 WBC (Bld) 10 % Normal [facility]; [facility] Work Phone: Comment on above: PATIENT NOT FASTINGP ERFORMED BY: CB [facility] Lomiji6424 [address] RoadDublin [place] [id number] Neutrophils (Bld) [#/Vol] 3.4 10*3/uL Normal 1.4-7.0 [facility]; [facility] Work Phone: Comment on above: PATIENT NOT FASTINGP ERFORMED BY: CB [facility] Tmhepw3426 [address] RoadDublin [place] [id number] Neutrophils/100 WBC (Bld) 54 % Normal [facility]; [facility] Work Phone: Comment on above: PATIENT NOT FASTINGP ERFORMED BY: CB [facility] Ltpunw7168 [address] RoadDublin [place] [id number] Platelets (Bld) [#/Vol] 278 10*3/uL Normal 150-450 [facility]; [facility] Work Phone: Comment on above: PATIENT NOT FASTINGP ERFORMED BY: CB [facility] Ouufko9566 [address] RoadDublin [place] [id number] RBC (Bld) [#/Vol] 5.43 10*6/uL Abnormal 3.77-5.28 Compr ehensive Internal Medicine; [facility] Work Phone: Comment on above: PATIENT NOT FASTINGP ERFORMED BY: CB [facility] Spsxwt5453 [address] RoadDublin [place] [id number] WBC (Bld) [#/Vol] 6.3 10*3/uL Normal 3.4-10.8 Compre [facility]; [facility] Work Phone: Comment on above: PATIENT NOT FASTINGP ERFORMED BY: CB [facility] Raqpot8926 [address] RoadDublin [place] [id number] MAGNESIUM ([id number])Ordered By: Physician Office Clin Asst on 09-30-2020 Magnesium [Mass/Vol] 2.2 mg/dL Normal 1.6-2.3 [facility]; [facility] Work Phone: Comment on above: PATIENT NOT FASTINGP ERFORMED BY: CB [facility] Mahwrd1640 [address] RoadDublin [place] [id number] METABOLIC PANEL, COMPREHENSI VE ([id number])Ordered By: Physician Office Clin Asst on 09-30-2020 Albumin [Mass/Vol] 4.5 g/dL Normal 3.8-4.8 [facility] Internal Medicine; [facility] Work Phone: Comment on above: PATIENT NOT FASTINGP ERFORMED BY: CB [facility] Kajqsc3003 [address] RoadDublin [place] [id number]; ov 8/ Albumin/Globulin [Mass ratio] 2.0 {ratio} Normal 1.2-2.2 [facility]; [facility] Work Phone: Comment on above: PATIENT NOT FASTINGP ERFORMED BY: CB [facility] Mupnzb3188 [address] RoadDublin [place] [id number]; ov 8/19 ALP [Catalytic activity/Vol] 61 U/L Normal 48-121 [facility]; [facility] Work Phone: Comment on above: PATIENT NOT FASTINGP ERFORMED BY: CB [facility] Nsepjk5730 [address] RoadDublin [place] [id number]; ov 8/19 ALT [Catalytic activity/Vol] 18 U/L Normal 0-32 [facility]; [facility] Work Phone: Comment on above: PATIENT NOT FASTINGP ERFORMED BY: CB [facility] Czvkcg6141 [address] RoadDublin [place] [id number]; ov 8/19 AST [Catalytic activity/Vol] 17 U/L Normal 0-40 [facility]; [facility] Work Phone: Comment on above: PATIENT NOT FASTINGP ERFORMED BY: CB [facility] Lloefr0320 [address] RoadDublin [place] [id number]; ov 8/19 Bilirubin [Mass/Vol] 0.3 mg/dL Normal 0.0-1.2 Comp rehensive Internal Medicine; [facility] Work Phone: Comment on above: PATIENT NOT FASTINGP ERFORMED BY: CB [facility] Wrpmfh0993 [address] RoadDublin [place] [id number]; ov 8 Calcium [Mass/Vol] 9.4 mg/dL Normal 8.7-10.3 [facility] Internal Medicine; [facility] Work Phone: Comment on above: PATIENT NOT FASTINGP ERFORMED BY: CB [facility] Qmhbaj2603 [address] RoadDublin [place] [id number]; ov 8 Chloride [Moles/Vol] 104 mmol/L Normal 96-106 Comp rehensive Internal Medicine; [facility] Work Phone: Comment on above: PATIENT NOT FASTINGP ERFORMED BY: CB [facility] Iegyou6748 [address] RoadDublin [place] [id number]; ov 8 CO2 [Moles/Vol] 25 mmol/L Normal 20-29 [facility] Internal Medicine; [facility] Work Phone: Comment on above: PATIENT NOT FASTINGP ERFORMED BY: CB [facility] Mcgfrb6994 [address] RoadDublin [place] [id number]; ov 10/21 Creatinine [Mass/Vol] 0.74 mg/dL Normal 0.57-1.00 [facility]; [facility] Work Phone: Comment on above: PATIENT NOT FASTINGP ERFORMED BY: [facility] Mjgpdq1253 [address] Roadbl[address] [place] [id number]; ov 8 GFR/1.73 sq M.predicted among blacks CKD-EPI (S/P/Bld) [Vol rate/Area] 96 mL/min/1.73 Normal [facility]; [facility] Work Phone: Comment on above: [facility] currently reports eGFR in compliance with the current recommendations of the National Kidney Foundation. [facility] will update reporting as new guidelines are published from the NKF-ASN Task force. PATIENT NOT FASTINGP ERFORMED BY: Lab[facility] Qchzon1331 [address] RoadDublin [place] [id number]; ov 8 GFR/1.73 sq M.predicted among non-blacks CKD-EPI (S/P/Bld) [Vol rate/Area] 83 mL/min/1.73 Normal [facility]; [facility] Work Phone: Comment on above: PATIENT NOT FASTINGP ERFORMED BY: CB [facility] Yjrgle7713 [address] RoadDublin [place] [id number]; ov 8 Globulin (S) [Mass/Vol] 2.2 g/dL Normal 1.5-4.5 [facility]; [facility] Work Phone: Comment on above: PATIENT NOT FASTINGP ERFORMED BY: CB [facility] Lhfhoq0189 [address] RoadDublin [place] [id number]; ov 8 Glucose [Mass/Vol] 92 mg/dL Normal 65-99 [facility] Internal Medicine; [facility] Work Phone: Comment on above: PATIENT NOT FASTINGP ERFORMED BY: CB [facility] Wupxfj5175 [address] RoadDublin [place] [id number]; ov 8/ Potassium [Moles/Vol] 4.7 mmol/L Normal 3.5-5.2 [facility]; [facility] Work Phone: Comment on above: PATIENT NOT FASTINGP ERFORMED BY: CB [facility] Hhykun0302 [address] RoadD[address] [place] [id number]; ov 8/ Protein [Mass/Vol] 6.7 g/dL Normal 6.0-8.5 [facility] Internal Medicine; [facility] Work Phone: Comment on above: PATIENT NOT FASTINGP ERFORMED BY: CB [facility] Enswqd7495 [address] RoadDublin [place] [id number]; ov 8/ Sodium [Moles/Vol] 142 mmol/L Normal 134-144 [facility] Internal Medicine; [facility] Work Phone: Comment on above: PATIENT NOT FASTINGP ERFORMED BY: CB [facility] Aisuqi5478 [address] RoadDublin [place] [id number]; ov 8/ Urea nitrogen [Mass/Vol] 10 mg/dL Normal 8-27 [facility]; [facility] Work Phone: Comment on above: PATIENT NOT FASTINGP ERFORMED BY: Silicon MitusFour Corners Regional Health CenterSrtzrb8251 WO FundingDuke Health [id number]; ov 10/21 Urea nitrogen/Creatinine [Mass ratio] 14 mg/mg Normal 12-28 [facility]; [facility] Work Phone: Comment on above: PATIENT NOT FASTINGP ERFORMED BY: [employer]70 LightPath AppsAtrium Health Anson [id number]; ov 10/21 Lyme Disease Antibody W/ Ref shun ([id number])Ordered By: Physician Office Clin Asst on 08-26-2019 B. burgdorferi IgG+IgM Qn (S) {index_val} Normal 0.00-0.90 [facility] Work Phone: Comment on above: Negative <0.91 Equiv ocal 0.91 - 1.09 Positive >1.09 PATIENT NOT FASTINGP ERFORMED BY: OpenSynergy6370 LightPath AppsAtrium Health Anson [id number] B. burgdorferi IgG+IgM Qn (S) {index_val} Normal 0.00-0.90 [facility]; [facility] Work Phone: Comment on above: Negative <0.91 Equiv ocal 0.91 - 1.09 Positive >1.09 PATIENT NOT FASTINGP ERFORMED BY: OpenSynergy6370 LightPath AppsAtrium Health [facility]son [id number] CHAPO CULTURE-STOOL ([id number])Ord ered By: Physician Office Clin Asst on 06-19-2018 Bacteria identified Cx Nom (Unsp spec) NCI Normal [facility] Work Phone: Comment on above: No Campylobacter spe cies isolated. PERFORMED BY: Digital BloomAtrium Health [facility] [id number] Information: SRC:ST SRC:ST Bacteria identified Cx Nom (Unsp spec) NSS Normal [facility] Work Phone: Comment on above: No Salmonella or Christen gella recovered. PERFORMED BY: Geminare RoadDublin [place] [id number] Information: SRC:ST SRC:ST Campylobacter sp identified Org specific cx Nom (St) Final report Normal Comprehensi ve Internal Medicine Work Phone: Comment on above: PERFORMED BY: Vyyolin6370 [address] RoadDublin [place] [id number] Information: SRC:ST SRC:ST E. coli shiga-like toxin IA Ql (St) Negative Normal [facility] Work Phone: Comment on above: PERFORMED BY: [place] Trjzgw1027 [address] RoadDublin [place] [id number] Information: SRC:ST SRC:ST E. coli shiga-like toxin IA Ql (Stl) Negative Normal [facility]; [facility] Work Phone: Comment on above: PERFORMED BY: Red Tricycle6370 [address]Dublin [place] [id number] Information: SRC:ST SRC:ST Salmonella and Shigella sp identified Org specific cx Nom (St) Final report Normal Comprehensi ve Internal Medicine Work Phone: Comment on above: PERFORMED BY: Vyyolin6370 [address] RoadDublin [place] [id number] Information: SRC:ST SRC:ST C-DIFFICILE, STOOL (95140)Or dered By: Physician Office Clin Asst on 06-19-2018 C. difficile toxin A+B IA Ql (St) Negative Normal [facility] Work Phone: Comment on above: PERFORMED BY: [place] Ooomgv9665 [address] RoadDublin [place] [id number] C. difficile toxin A+B IA Ql (Stl) Negative Normal [facility]; [facility] Work Phone: Comment on above: PERFORMED BY: Vyyolin6370 [address] [place] [id number] LEUKOCYTE COUNT, FECAL (8905 5)Ordered By: Physician Office Clin Asst on 06-19-2018 WBC LM Ql (St) WCM Abnormal Comprehens katerin Internal Medicine Work Phone: Comment on above: Moderate amount of w vanessa blood cells. PERFORMED BY: Red [employer]6370 LightPath Appsblin [place] [id number] WBC LM Ql (St) Final report Abnormal Comprehe nsive Internal Medicine Work Phone: Comment on above: PERFORMED BY: [employer]6370 LightPath Appsblin [place] [id number] OCCULT BLOOD FECES SCREEN (8 [id number])Ordered By: Physician Office Clin Asst on 06-19-2018 Lower GI hemoglobin IA Ql (St) Positive Abnormal [facility] Work Phone: Comment on above: PERFORMED BY: [employer]70 [employer] [place] [id number] Lower GI hemoglobin IA Ql (Stl) Positive Abnormal [facility]; [facility] Work Phone: Comment on above: PERFORMED BY: [employer] [place] [id number] OVA & PARASITE DIR SMEAR (87 177)Ordered By: Physician Office Clin Asst on 06-19-2018 Ova and parasites identified Concentration Nom (St) BHOP Abnormal [facility] Work Phone: Comment on above: Blastocystis hominis organisms presentMany seen PERFORMED BY: DotNetNukein [place] [id number] Ova and parasites identified LM Nom (Unsp spec) Final report Abnormal [facility] Work Phone: Comment on above: These results were o btained using wet preparation(s) and trichromestained smear. This test does not include testing for Cryptosporidiumparvum, Cyclospora, or Microsporidia. PERFORMED BY: Red [employer]ycle6370 TermSyn[employer] [place] [id number] CBC with auto diff ([id number])Or dered By: Physician Office Clin Asst on 06-17-2018 Basophils #/vol (Bld) 0.1 {x10E3/uL} Normal 0.0-0.2 [facility] Work Phone: Comment on above: PATIENT NOT FASTINGP ERFORMED BY: [employer] Moclqi7080 LightPath Appsblin [place] [id number] Basophils (Bld) [#/Vol] 0.1 10*3/uL Normal 0.0-0.2 [facility]; [facility] Work Phone: Comment on above: PATIENT NOT FASTINGP ERFORMED BY: CB [facility] Kjirdy3822 [address] RoadDublin [place] [id number] Basophils/100 WBC (Bld) 1 % Normal [facility] Work Phone: Comment on above: PATIENT NOT FASTINGP ERFORMED BY: CB [facility] Iorqus8533 [address] RoadDublin [place] [id number] Eosinophils #/vol (Bld) 0.2 {x10E3/uL} Normal 0.0-0.4 [facility] Work Phone: Comment on above: PATIENT NOT FASTINGP ERFORMED BY: [facility] Hpojun2013 [address] RoadDuin [place] [id number] Eosinophils (Bld) [#/Vol] 0.2 10*3/uL Normal 0.0-0.4 [facility]; [facility] Work Phone: Comment on above: PATIENT NOT FASTINGP ERFORMED BY: [facility] Eniool7674 [address] RoadDublin [place] [id number] Eosinophils/100 WBC (Bld) 3 % Normal [facility] Work Phone: Comment on above: PATIENT NOT FASTINGP ERFORMED BY: [facility] Mvulgi1357 [address] RoadCritical Access Hospitalin [place] [id number] Erythrocyte distribution width Ratio (RBC) 13.8 % Normal 12.3-15.4 [facility] Work Phone: Comment on above: PATIENT NOT FASTINGP ERFORMED BY: CB [facility] Fkvpph1101 [address] RoadDublin [place] [id number] Hematocrit Volume Fraction (Bld) 43.8 % Normal 34.0-46.6 [facility] Work Phone: Comment on above: PATIENT NOT FASTINGP ERFORMED BY: CB [facility] Anmzqp9435 [address] RoadDuin [place] [id number] Hemoglobin mass conc (Bld) 14.6 g/dL Normal 11.1-15.9 [facility] Work Phone: Comment on above: PATIENT NOT FASTINGP ERFORMED BY: SIDDHARTHA [facility] Qioplb4222 [address] RoadDublin [place] [id number] Immature granulocytes #/vol (Bld) 0.0 {x10E3/uL} Normal 0.0-0.1 [facility] Work Phone: Comment on above: PATIENT NOT FASTINGP ERFORMED BY: [facility] Oqzjaz3394 [address] RoadDublin [place] [id number] Immature granulocytes (Bld) [#/Vol] 0.0 10*3/uL Normal 0.0-0.1 [facility]; [facility] Work Phone: Comment on above: PATIENT NOT FASTINGP ERFORMED BY: [facility] Yxsawf6881 [address] RoadDublin [place] [id number] Immature granulocytes/100 WBC (Bld) 1 % Normal [facility] Work Phone: Comment on above: PATIENT NOT FASTINGP ERFORMED BY: [facility] Ncqawl4124 [address] RoadDublin [place] [id number] Lymphocytes #/vol (Bld) 2.4 {x10E3/uL} Normal 0.7-3.1 [facility] Work Phone: Comment on above: PATIENT NOT FASTINGP ERFORMED BY: LabJefferson Memorial HospitalWcynmc2685 [address] RoadDublin [place] [id number] Lymphocytes (Bld) [#/Vol] 2.4 10*3/uL Normal 0.7-3.1 [facility]; [facility] Work Phone: Comment on above: PATIENT NOT FASTINGP ERFORMED BY: [facility] Eellwe0289 [address] RoadDublin [place] [id number] Lymphocytes/100 WBC (Bld) 30 % Normal [facility] Work Phone: Comment on above: PATIENT NOT FASTINGP ERFORMED BY: [facility] Bpkbok3658 [address] RoadDublin [place] [id number] MCH Entitic mass (RBC) 28.3 pg Normal 26.6-33.0 [facility] Work Phone: Comment on above: PATIENT NOT FASTINGP ERFORMED BY: CB [facility] Enqupr2557 [address] RoadDublin [place] [id number] MCHC mass conc (RBC) 33.3 g/dL Normal 31.5-35.7 Comp [facility] Work Phone: Comment on above: PATIENT NOT FASTINGP ERFORMED BY: CB [facility] Vygize9651 [address] RoadDublin [place] [id number] MCV Entitic volume (RBC) 85 fL Normal 79-97 [facility] Work Phone: Comment on above: PATIENT NOT FASTINGP ERFORMED BY: CB [facility] Qfhrzv0795 [address] RoadDublin [place] [id number] Monocytes #/vol (Bld) 1.0 {x10E3/uL} Abnormal 0.1-0.9 [facility] Work Phone: Comment on above: PATIENT NOT FASTINGP ERFORMED BY: CB [facility] Qdyfxn6546 [address] RoadDublin [place] [id number] Monocytes (Bld) [#/Vol] 1.0 10*3/uL Abnormal 0.1-0.9 [facility]; [facility] Work Phone: Comment on above: PATIENT NOT FASTINGP ERFORMED BY: CB [facility] Cjcefx9712 [address] RoadDublin [place] [id number] Monocytes/100 WBC (Bld) 13 % Normal [facility] Work Phone: Comment on above: PATIENT NOT FASTINGP ERFORMED BY: CB [facility] Eawwwy6036 [address] RoadD[address] [place] [id number] Morphology Interp Jase (Bld) Note: Normal [facility] Work Phone: Comment on above: Verified by microsco pic examination. PATIENT NOT FASTINGP ERFORMED BY: CB [facility] Cqfazc3982 [address] RoadDublin [place] [id number] Neutrophils #/vol (Bld) 4.2 {x10E3/uL} Normal 1.4-7.0 [facility] Work Phone: Comment on above: PATIENT NOT FASTINGP ERFORMED BY: CB [facility] Htkwlw4955 [address]Dublin [place] [id number] Neutrophils (Bld) [#/Vol] 4.2 10*3/uL Normal 1.4-7.0 [facility]; [facility] Work Phone: Comment on above: PATIENT NOT FASTINGP ERFORMED BY: CB [facility] Wxadjl2955 [address] RoadD[address] [place] [id number] Neutrophils/100 WBC (Bld) 52 % Normal [facility] Work Phone: Comment on above: PATIENT NOT FASTINGP ERFORMED BY: CB [facility] Ohpyrz7546 [address] RoadDublin [place] [id number] Platelets #/vol (Bld) 300 {x10E3/uL} Normal 150-379 [facility] Work Phone: Comment on above: Platelets appear clu mped. PATIENT NOT FASTINGP ERFORMED BY: CB [facility] Grznfa7835 [address] RoadDublin [place] [id number] Platelets (Bld) [#/Vol] 300 10*3/uL Normal 150-379 [facility]; [facility] Work Phone: Comment on above: Platelets appear clu mped. PATIENT NOT FASTINGP ERFORMED BY: CB [facility] Gihhku3459 [address] RoadD[address] [place] [id number] RBC #/vol (Bld) 5.16 {x10E6/uL} Normal 3.77-5.28 [facility] Internal Medicine Work Phone: Comment on above: PATIENT NOT FASTINGP ERFORMED BY: CB [facility] Sbixou3215 [address] RoadDublin [place] [id number] RBC (Bld) [#/Vol] 5.16 10*6/uL Normal 3.77-5.28 [facility]; [facility] Work Phone: Comment on above: PATIENT NOT FASTINGP ERFORMED BY: CB [facility] Xwmrsl0544 [address] RoadDublin [place] [id number] WBC #/vol (Bld) 7.9 {x10E3/uL} Normal 3.4-10.8 [facility] Internal Medicine Work Phone: Comment on above: PATIENT NOT FASTINGP ERFORMED BY: SIDDHARTHA Calderón6370 [facility] [id number] WBC (Bld) [#/Vol] 7.9 10*3/uL Normal 3.4-10.8 [facility] Medicine; [facility] Work Phone: Comment on above: PATIENT NOT FASTINGP ERFORMED BY: SIDDHARTHA LabDomingo CruzTaobnx4320 [facility] [id number] Metabolic Panel, Comprehensi ve ([id number])Ordered By: Physician Office Clin Asst on 06-17-2018 Albumin mass conc 4.0 g/dL Normal 3.6-4.8 [facility] Internal Medicine Work Phone: Comment on above: PATIENT NOT FASTINGP ERFORMED BY: SIDDHARTHA Calderón6370 [facility] [id number] Albumin/Globulin mass ratio 1.9 {ratio} Normal 1.2-2.2 [facility] Internal Medicine Work Phone: Comment on above: PATIENT NOT FASTINGP ERFORMED BY: SIDDHARTHA Calderón6370 [facility] [id number] ALP [Catalytic activity/Vol] 60 U/L Normal 39-117 [facility]; [facility] Work Phone: Comment on above: PATIENT NOT FASTINGP ERFORMED BY: SIDDHARTHA Cruzlin6370 [facility] [id number] ALP enzyme act/vol 60 [iU]/L Normal 39-117 [facility] Internal Medicine Work Phone: Comment on above: PATIENT NOT FASTINGP ERFORMED BY: SIDDHARTHA Cruzlin6370 [facility] [id number] ALT [Catalytic activity/Vol] 20 U/L Normal 0-32 [facility]; [facility] Work Phone: Comment on above: PATIENT NOT FASTINGP ERFORMED BY: SIDDHARTHA LabCoamauri Ejread0700 [address] RoadDublin [place] [id number] ALT enzyme act/vol 20 [iU]/L Normal 0-32 [facility] Internal Medicine Work Phone: Comment on above: PATIENT NOT FASTINGP ERFORMED BY: CB [facility] Ayqzrt0932 [address] RoadD[address] [place] [id number] AST [Catalytic activity/Vol] 17 U/L Normal 0-40 [facility]; [facility] Work Phone: Comment on above: PATIENT NOT FASTINGP ERFORMED BY: CB [facility] Wzemog9543 [address] RoadD[address] [place] [id number] AST enzyme act/vol 17 [iU]/L Normal 0-40 [facility] Internal Medicine Work Phone: Comment on above: PATIENT NOT FASTINGP ERFORMED BY: CB [facility] Ikxuzh6363 [address] RoadD[address] [place] [id number] Bilirubin mass conc 0.3 mg/dL Normal 0.0-1.2 Compr ensive Internal Medicine Work Phone: Comment on above: PATIENT NOT FASTINGP ERFORMED BY: CB [facility] Rviowu8550 [address] RoadDublin [place] [id number] Calcium mass conc 9.2 mg/dL Normal 8.7-10.3 Compreh [facility]ive [facility] Medicine Work Phone: Comment on above: PATIENT NOT FASTINGP ERFORMED BY: CB [facility] Oqfjzl9992 [address] RoadDublin [place] [id number] Chloride molar conc 102 mmol/L Normal 96-106 Compr ensive Internal Medicine Work Phone: Comment on above: PATIENT NOT FASTINGP ERFORMED BY: CB [facility] Yxvesm6633 [address] RoadD[address] [place] [id number] CO2 molar conc 24 mmol/L Normal 20-29 Comprehens katerin Internal Medicine Work Phone: Comment on above: PATIENT NOT FASTINGP ERFORMED BY: CB [facility] Aipakd1723 [address] RoadDublin [place] [id number] Creatinine mass conc 0.74 mg/dL Normal 0.57-1.00 [facility] Work Phone: Comment on above: PATIENT NOT FASTINGP ERFORMED BY: CB [facility] Xsqaec9815 [address] RoadDublin [place] [id number] GFR/1.73 sq M predicted among blacks CKD-EPI vol rate/area (S/P/Bld) 97 mL/min/1.73 Normal Comprehensiv e Internal Medicine Work Phone: Comment on above: PATIENT NOT FASTINGP ERFORMED BY: CB [facility] Frdwby3198 Espino RoadCritical Access Hospitalin [place] [id number] GFR/1.73 sq M predicted among non-blacks CKD-EPI vol rate/area (S/P/Bld) 84 mL/min/1.73 Normal [facility] Work Phone: Comment on above: PATIENT NOT FASTINGP ERFORMED BY: SIDDHARTHA [facility] Uxksjv[address] [facility] [id number] Globulin mass conc (S) 2.1 g/dL Normal 1.5-4.5 [facility] Work Phone: Comment on above: PATIENT NOT FASTINGP ERFORMED BY: [facility] Hjlyro[address] [facility] [place] [id number] Glucose mass conc 87 mg/dL Normal 65-99 Compreh ensive Internal Medicine Work Phone: Comment on above: PATIENT NOT FASTINGP ERFORMED BY: [facility] Fxkrxs[address] [facility] [id number] Potassium molar conc 3.9 mmol/L Normal 3.5-5.2 Comp rehensive Internal Medicine Work Phone: Comment on above: PATIENT NOT FASTINGP ERFORMED BY: CB [facility] Uxucer[address] [facility] [place] [id number] Protein mass conc 6.1 g/dL Normal 6.0-8.5 Compreh ensive Internal Medicine Work Phone: Comment on above: PATIENT NOT FASTINGP ERFORMED BY: CB [facility] Qsqnqa[address] [facility] [place] [id number] Sodium molar conc 143 mmol/L Normal 134-144 Compreh ensive Internal Medicine Work Phone: Comment on above: PATIENT NOT FASTINGP ERFORMED BY: [facility] Sbgbnc5680 [facility] [id number] Urea nitrogen mass conc 12 mg/dL Normal 8-27 [facility] Work Phone: Comment on above: PATIENT NOT FASTINGP ERFORMED BY: [facility] Raxsgn5844 [facility]At[facility] [id number] Urea nitrogen/Creatinine mass ratio 16 mg/mg Normal 12-28 [facility] Work Phone: Comment on above: PATIENT NOT FASTINGP ERFORMED BY: [facility] Tnfpdi5787 [facility]At[facility] [id number] Sed Rate Erythrocyte (28151) Ordered By: Physician Office Clin Asst on 06-17-2018 ESR Velocity (Bld) 8 mm/h Normal 0-40 Compre [facility] Internal Medicine Work Phone: Comment on above: PATIENT NOT FASTINGP ERFORMED BY: CB [facility] Dvecsz2522 [facility] [id number] CNOVon 08-27-2017 CNOV Office Visit (UCWSTR) DAMIRCOOKIE BARREL ([id number]) 1950 [facility] Time Provider Department08/27/17 8:45 AM ALIX BAHENA (GRAVEL INSPECTOR) [facility] During your visit today, we recorded the following information about you: Temperature Pulse Respiration Blood pressure 97.2 degrees 70/minute 16/minute 110/72 Weight 86.2 kgAlix Bahena APRN.CNP 08/27/2017 9:05 AM SignedSubjectiveThe history is provided by the patient. No speech language pathologist prn was used.LAURA Vale Bullock is a 67 year old female who presents today for CC of insectbites This started last . She is also having redness tenderness andswelling in area. Symptoms are worsened by nothing. She has tried notreatment or medication Risk factors unsure if it was a tick, she had removedseveral in the past week. PMH not significant.BP 110/72 Pulse 70 Temp 36.2 ?C (97.2 ?F) (Tympanic) Resp 16 Wt86.2 kg (190 lb)ALLERGIESAllergen Reactions- Penicillins Hives, Swelling- Tape [Adhesive Tape* Rash latex tapeACTIVE PROBLEM LISTPersonal History of Malignant Neoplasm of BreastObesityNo family history on file.Social History Marital status: Spouse name: Years of education: Number of children:Social History Main Topics Smoking status: Never Smoker Smokeless tobacco: Never UsedReview of SystemsConstitutional: Negative for chills, fever and malaise/fatigue.Genitouri nary: Negative for dysuria.Musculoskeletal: Negative for joint pain and myalgias.Skin: Negative for rash. Insect biteNeurological: Negative for headaches.ObjectivePhysic al ExamConstitutional: She is oriented to person, place, and time and well-developed,well-roxanne shed, and in no distress. No distress.HENT:Head: Normocephalic and atraumatic.Eyes: Conjunctivae and EOM are normal. Pupils are equal, round, and reactive tolight.Neck: Normal range of motion. Neck supple.Pulmonary/Chest: Effort normal.Neurological: She is alert and oriented to person, place, and time.Skin: Skin is warm and dry. Rash noted. Rash is macular and pustular. There iserythema.Psychiatric: Affect normal.Nursing note and vitals reviewed. ASSESSMENT/PLAN:1. Insect bite, initial encounter - ICD9: 919.4, E906.4, ICD10: W57.XXXA- Keep the area clean and dry-Clean with soap and water .-Tylenol or Ibuprofen for discomfort-Observe area for worsening signs of infection: redness, warmth, foul odor,drainage or increase in discomfort. Call you primary care physician if thisoccurs.-Call your primary care physician's office for a follow up appointment.Benedryl 25 mg or Zyrtec 10 mg By mouth daily at bedtime- DOXYCYCLINE MONOHYDRATE 100 MG CAPSULEDiagnosis and treatment plan were discussed and questions were answered to thepatient's satisfaction. Pt acknowledged understanding of concepts and follow upplan.Specific signs and symptoms that would indicate the need for higher level ofcare were discussed in detail warranting prompt ER evaluation.Alix Bahena APRN.Margaret Bahena APRN.CNP 08/27/2017 8:57 AM SignedASSESSMENT/PLAN:1. Insect bite, initial encounter - ICD9: 919.4, E906.4, ICD10: W57.XXXA- Keep the area clean and dry-Clean with soap and water .-Tylenol or Ibuprofen for discomfort-Observe area for worsening signs of infection: redness, warmth, foul odor,drainage or increase in discomfort. Call you primary care physician if thisoccurs.-Call your primary care physician's office for a follow up appointment.Benedryl 25 mg or Zyrtec 10 mg By mouth daily at bedtime- DOXYCYCLINE MONOHYDRATE 100 MG CAPSULEReferring Provider: SELF [200]Allergies As of Date: 08/27/2017 Noted Allergy ReactionCLARITHROMYCIN 08/27/2017 1 - Mental Status ChangePENICILLINS 08/27/2017 4 - Hives 7 - SwellingTAPE (ADHESIVE TAPE (ROSINS)) 08/27/2017 2 - Rash Comments: latex tapeDate Reviewed: 08/27/2017Reviewed by: Alix (Renzo Bahena - Fully AssessedReason for Visit: Derm Problem [33] Cmt: back of right foot and leg swollen and red, ? insect bite x 3 daysPrimary Visit Diagnosis:Insect bite, initial encounter [W57.XXXA]Order(s):doxycy vera monohydrate (MONODOX) 100 mg capsuleTake 1 capsule by mouth twice daily for 10 days. May substitute doxycycline hyclate for costDisp: 20 capsuleRfl: 0Prescriptions as of 08/27/2017 Sig: DOXYCYCLINE MONOHYDRATE 100 M* Take 1 capsule by mouth twice*Problem List As Of Date 08/27/2017 Noted Resolved Personal history of malignant neoplasm of breas*INVALID FOR* Obesity [E66.9] INVALID FOR* Other instructions from your clinician: ASSESSMENT/PLAN: 1. Insect bite, initial encounter - ICD9: 919.4, E906.4, ICD10: W57.XXXA - Keep the area clean and dry -Clean with soap and water . -Tylenol or Ibuprofen for discomfort -Observe area for worsening signs of infection: redness, warmth, foul odor, drainage or increase in discomfort. Call you primary care physician if this occurs. -Call your primary care physician's office for a follow up appointment. Benedryl 25 mg or Zyrtec 10 mg By mouth daily at bedtime - DOXYCYCLINE MONOHYDRATE 100 MG CAPSULEPrescriptions ordered this encounter Disp Refills Start End DOXYCYCLINE MONOHYDRATE 100 MG CAPSU* 20 c* 0 08/27/2017 09/06/2017 Route: ORAL Sig: Take 1 capsule by mouth twice daily for 10 days. May substitute doxycycline hyclate for costEncounter Number: [id number] Status:Closed by ALIX BAHENA CNP on 08/27/17 [facility] PROGRESSon 08-27-2017 PROGRESS HNO ID: [id number] thor: Alix (Oliverio) Jessicaervice: (none)Author Type: Nurse PractitionerType: Progress NotesFiled: 08/27/2017 9:05 AMNote Text:SubjectiveThe history is provided by the patient. No speech language pathologist prn was used.HPI Vale Bullock is a 67 year old female who presents today for CC ofinsect bites This started last . She is also having rednesstenderness and swelling in area. Symptoms are worsened by nothing. Shehas tried no treatment or medication Risk factors unsure if it was atick, she had removed several in the past week. PMH not significant.BP 110/72 Pulse 70 Temp 36.2 ?C (97.2 ?F) (Tympanic) Resp 16 Wt 86.2 kg (190 lb)ALLERGIESAllergen Reactions- Penicillins Hives, Swelling- Tape [Adhesive Tape* Rash latex tapeACTIVE PROBLEM LISTPersonal History of Malignant Neoplasm of BreastObesityNo family history on file.Social History Marital status: Spouse name: Years of education: Number of children:Social History Main Topics Smoking status: Never Smoker Smokeless tobacco: Never UsedReview of SystemsConstitutional: Negative for chills, fever and malaise/fatigue.Genitouri nary: Negative for dysuria.Musculoskeletal: Negative for joint pain and myalgias.Skin: Negative for rash. Insect biteNeurological: Negative for headaches.ObjectivePhysic al ExamConstitutional: She is oriented to person, place, and time andwell-developed, well-nourished, and in no distress. No distress.HENT:Head: Normocephalic and atraumatic.Eyes: Conjunctivae and EOM are normal. Pupils are equal, round, andreactive to light.Neck: Normal range of motion. Neck supple.Pulmonary/Chest: Effort normal.Neurological: She is alert and oriented to person, place, and time.Skin: Skin is warm and dry. Rash noted. Rash is macular and pustular.There is erythema.Psychiatric: Affect normal.Nursing note and vitals reviewed. ASSESSMENT/PLAN:1. Insect bite, initial encounter - ICD9: 919.4, E906.4, ICD10: W57.XXXA- Keep the area clean and dry-Clean with soap and water .-Tylenol or Ibuprofen for discomfort-Observe area for worsening signs of infection: redness, warmth, foulodor, drainage or increase in discomfort. Call you primary care physicianif this occurs.-Call your primary care physician's office for a follow up appointment.Benedryl 25 mg or Zyrtec 10 mg By mouth daily at bedtime- DOXYCYCLINE MONOHYDRATE 100 MG CAPSULEDiagnosis and treatment plan were discussed and questions were answered tothe patient's satisfaction. Pt acknowledged understanding of concepts andfollow up plan.Specific signs and symptoms that would indicate the need for higher levelof care were discussed in detail warranting prompt ER evaluation.Alix Bahena, TURKEY PICKER.GRAVEL INSPECTOR Normal [facility] Hemoglobin Glyclated (HGB A1 C) ([id number])Ordered By: Physician Office Clin Asst on 02-12-2012 HbA1c (Bld) [Mass fraction] 5.6 % Normal 4.8-5.6 [facility] Work Phone: Comment on above: . Increased risk for diabetes: 5.7 - 6.4 Diabetes: >6.4 Glycemic control for adults with diabetes: <7.0 PATIENT WAS FASTINGP ERFORMED BY: SIDDHARTHA [facility] Fwxeqx7682 [facility] [id number] LIPID PANEL ([id number])Ordered B y: Physician Office Clin Asst on 02-12-2012 Cholesterol [Mass/Vol] 250 mg/dL Abnormal 100-199 [facility] Work Phone: Comment on above: PATIENT WAS FASTINGP ERFORMED BY: CB [facility] Uvgnkj6225 [address] [place] [id number] Cholesterol in HDL [Mass/Vol] 61 mg/dL Normal [facility] Work Phone: Comment on above: According to ATP-III Guidelines, HDL-C >59 mg/dL is considered anegative risk factor for CHD. PATIENT WAS FASTINGP ERFORMED BY: CB [facility] Mhmuui9426 [address]Dublin [place] [id number] Cholesterol in LDL [Mass/Vol] 167 mg/dL Abnormal 0-99 [facility] Work Phone: Comment on above: PATIENT WAS FASTINGP ERFORMED BY: CB [facility] Nxfxsx5793 [address] [place] [id number] Cholesterol in LDL/Cholesterol in HDL [Mass ratio] 2.7 {ratio_units} Normal 0.0-3.2 [facility] Work Phone: Comment on above: PATIENT WAS FASTINGP ERFORMED BY: CB [facility] Bfhrha0558 [address] [place] [id number] Cholesterol in VLDL [Mass/Vol] 22 mg/dL Normal 5-40 [facility] Work Phone: Comment on above: PATIENT WAS FASTINGP ERFORMED BY: CB [facility] Ssdprz0401 [address] [place] [id number] Triglyceride [Mass/Vol] 110 mg/dL Normal 0-149 [facility] Work Phone: Comment on above: PATIENT WAS FASTINGP ERFORMED BY: CB [facility] Ypnbqb1263 [address] [place] [id number] CBCMDOrdered By: Donald west on 10-05-2011 Eosinophils/100 WBC (Bld) 1 % Normal 0-5 [facility] Work Phone: Erythrocyte distribution width (RBC) [Ratio] 13.3 % Normal 11.6-14.6 [facility] Work Phone: Hematocrit (Bld) [Volume fraction] 42.3 % Normal 37-47 [facility] Work Phone: Hemoglobin (Bld) [Mass/Vol] 14.2 g/dL Normal 12.0-16.0 [facility] Work Phone: Lymphocytes/100 WBC (Bld) 39 % Normal 19-41 [facility] Work Phone: MCH (RBC) [Entitic mass] 28.6 pg Normal 27.0-32.0 [facility] Work Phone: MCHC (RBC) [Mass/Vol] 33.6 g/dL Normal 32-36 [facility] Work Phone: MCV (RBC) [Entitic vol] 85.3 fL Normal 81-99 [facility] Work Phone: Neutrophils (Bld) [#/Vol] 3.2 3/uL Normal 2.0-7.7 [facility] Work Phone: Platelets (Bld) [#/Vol] 210 10*3/uL Normal 150-450 [facility] Work Phone: RBC (Bld) [#/Vol] NORM C+C Normal Compreh ensive Internal Medicine Work Phone: RBC (Bld) [#/Vol] 4.96 {M/mm3} Normal 4.2-5.4 [facility] Work Phone: WBC (Bld) [#/Vol] 6.4 10*3/uL Normal 4.4-11.0 Compre hensive Internal Medicine Work Phone: CBCMD 44 % Abnormal 47-70 [facility] Work Phone: CBCMD 100 1 Normal [facility] Work Phone: CBCMD 16 % Abnormal 0-10 [facility] Work Phone: CBCMD ADEQUATE Normal [facility] Work Phone: CMPOrdered By: System Manage r on 10-05-2011 Albumin [Mass/Vol] 3.9 g/dL Normal 3.4-5.0 Compre hensive [facility] Work Phone: Albumin/Globulin [Mass ratio] 1.3 {RATIO} Normal 0.9-2.4 [facility] Work Phone: ALP [Catalytic activity/Vol] 58 U/L Normal 50-136 [facility] Work Phone: ALT [Catalytic activity/Vol] 28 U/L Normal 12-78 [facility] Work Phone: Anion gap [Moles/Vol] 9 mmol/L Normal 5-15 [facility] Work Phone: AST [Catalytic activity/Vol] 20 U/L Normal 15-37 [facility] Work Phone: Bilirubin [Mass/Vol] 0.40 mg/dL Normal 0.00-1.00 Comp rehensive Internal Medicine Work Phone: Calcium [Mass/Vol] 8.6 mg/dL Normal 8.5-10.1 [facility] Internal Medicine Work Phone: Chloride [Moles/Vol] 104 mmol/L Normal 98-107 [facility] Work Phone: CO2 [Moles/Vol] 27.0 mmol/L Normal 21.0-32.0 Comprehe [facility] Internal Medicine Work Phone: Creatinine [Mass/Vol] 0.8 mg/dL Normal 0.6-1.0 [facility] Internal Medicine Work Phone: GFR/1.73 sq M predicted among blacks MDRD (S/P/Bld) [Vol rate/Area] 95 mL/min/{1.73_m2} Normal Comprehensiv e Internal Medicine Work Phone: GFR/1.73 sq M.predicted MDRD (S/P/Bld) [Vol rate/Area] 78 mL/min/{1.73_m2} Normal Comprehensiv e Internal Medicine Work Phone: Globulin (S) [Mass/Vol] 3.0 g/dL Normal 2.7-4.2 [facility] Internal Medicine Work Phone: Glucose [Mass/Vol] 81 mg/dL Normal 70-110 [facility] Internal Medicine Work Phone: Potassium [Moles/Vol] 4.2 mmol/L Normal 3.5-5.1 [facility] Work Phone: Protein [Mass/Vol] 6.9 g/dL Normal 6.4-8.2 [facility] Internal Medicine Work Phone: Sodium [Moles/Vol] 140 mmol/L Normal 136-145 [facility] Internal Medicine Work Phone: Urea nitrogen [Mass/Vol] 14 mg/dL Normal 7-18 [facility] Work Phone: Urea nitrogen/Creatinine [Mass ratio] 17.5 {RATIO} Normal 10-20 [facility] Work Phone: LIPIDOrdered By: System Carolyn west on 10-05-2011 Cholesterol [Mass/Vol] 292 mg/dL Abnormal [facility] Work Phone: Comment on above: <200 mg/dL Desirable 200-240 mg/dL Borderline >240 mg/dL High Risk Cholesterol in HDL [Mass/Vol] 54 mg/dL Normal [facility] Work Phone: Comment on above: Reference Range HDL <40 mg/dL Low HDL Cholesterol HDL >or= 60 mg/dL High HDL Cholesterol Cholesterol in LDL [Mass/Vol] 199 mg/dL Abnormal 0-130 [facility] Work Phone: Cholesterol in VLDL [Mass/Vol] 39 mg/dL Normal 5-40 [facility] Work Phone: Triglyceride [Mass/Vol] 194 mg/dL Normal [facility] Work Phone: Comment on above: Serum Triglycerides Reference Interval Normal <150 mg/dL Borderline high 150 - 199 mg/dL High 200 - 499 mg/dL Very High > or = 500 mg/dL TSHOrdered By: System [employer] r on 10-05-2011 TSH Qn 1.25 {uIU/mL} Normal 0.358-3.74 Comprehensi Internal Medicine Work Phone: [id number] By: System Man leonard on 07-25-2011 PAPIG6 . Normal [facility] Work Phone: PAPIG6 Comment Normal [facility] Work Phone: Comment on above: The Pap smear is a s creening test designed to aid in thedetection of premalignant and malignant conditions of theuterine cervix. It is not a diagnostic procedure andshould not be used as the sole means of detecting cervicalcancer. Both false-positive and false-negative reports dooccur. .The HPV DNA reflex criteria were not met with this specimenresult therefore, no HPV testing was performed. .Performed at: [address] [id number] Director: Lori Ferraro MD, Phone: [phone] NEGATIVE FOR INTRAEP ITHELIAL LESION AND MALIGNANCY.CELLULAR CHANGES ASSOCIATED WITH ATROPHY ARE PRESENT.Satisfactory for evaluation. Endocervical component may not bedistinguished in cases of atrophy.Graciela Fernando, Journeyman Press Operator (ASCP)This liquid based ThinPrep(R) pap test was screened withthe use of an image guided system. HIP, MIN 2 VIEWSOrdered By: Physician Office Clin Asst on 01-16-2011 HIP, MIN 2 VIEWS See Note Normal Comprehe nsive Internal Medicine Work Phone: Comment on above: PROCEDURE: X-RAY - L EFT HIP REASON FOR EXAM: Female, 60 years old. Left hip pain, no injury. TECHNIQUE: Two views of the hip. COMPARISON: None. FINDINGS:Normal femoral head, neck, intertrochanteric region and visualizedproximalfemur. Normal acetabulum. Mild narrowing of the joint space is present. Normal visualized superior and inferior pubic rami and ischialtuberosities. 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 Dictated on 01/16/11 1210 by Stephan Mcmahan MDTranscribed on 01/16/112149 by ITS IMPORTSign by Stephan Mcmahan MD on 01/16/112149 Sign by: Stephan Mcmahan MD CULTURE, WOUNDOrdered By: stem Senior [employer] Programmer on 12-29-2010 Microscopic observation Gram stain Nom (Unsp spec) See Note Normal [facility] Work Phone: Comment on above: GRAM STAIN RARE RED BLOOD CELLS NO ORGANISMS SEEN CULTURE, WOUND See Note Normal Comprehens katerin Internal Medicine Work Phone: Comment on above: AMOUNT GROWTH 1+ ORG ANISM 1: STAPHYLOCOCCUS AUREUS STAPHYLOCOCCUS AUREUS: REACTION BENZYLPENICILLIN - 0.12 R CEFOXITIN SCREEN (NF) $ Neg - CIPROFLOXACIN GP (IV/NF) $$ <=0.5 S CLINDAMYCIN $$ <=0.25 S INDUCIBLE CC RESISTANCE (NF)$ Neg - ERYTHROMYCIN $$ <=0.25 S GENTAMICIN GP $ <=0.5 S LEVOFLOXACIN $ 0.25 S LINEZOLID $$$ 2 S MOXIFLOXICIN (NF) $$ <=0.25 S OXACILLIN $$ 0.5 S TIGECYCLINE (NF) $$$ <=0.12 S QUINUPRISTIN/DALFOPRI (NF) $$$ <=0.25 S RIFAMPIN $ <=0.5 S TETRACYCLINE $ <=1 S TRIMETHOPRIM/SULFAMETHOXAZ $ <=10 S VANCOMYCIN $ 1 S [place], Total Ab Test/ReflexOr dered By: Physician Office Clin Asst on 12-28-2010 Lyme, Total Ab Test/Reflex <0.91 Normal 0.00-0.90 [facility] Work Phone: Comment on above: Negative <0.91 Equiv ocal 0.91 - 1.09 Positive >1.09 Note: The CDC currently advises that Western blot testing be performed following all equivocal or positive EIA results. Final diagnosis should include appropriate clinical findings and a positive EIA which is also positive by Western blot. PERFORMED BY: [employer]6370 LightPath AppsAtrium Health [facility]son [id number] [place], Total Ab Test/Reflex Negative Normal [facility] Work Phone: Comment on above: PERFORMED BY: [employer] [place] [id number] Comp. Metabolic Panel (14)Or dered By: Physician Office Clin Asst on 10-30-2007 Albumin [Mass/Vol] 4.0 g/dL Normal 3.5-5.5 Compre [facility] Internal Medicine Work Phone: Comment on above: PATIENT NOT FASTINGP ERFORMED BY: [employer]70 [address] [place] [id number] Albumin/Globulin [Mass ratio] 1.7 {ratio} Normal 1.1-2.5 [facility] Work Phone: Comment on above: PATIENT NOT FASTINGP ERFORMED BY: CB [facility] Vxheem1737 [address]Dublin [place] [id number] ALP [Catalytic activity/Vol] 78 [iU]/L Normal 25-150 [facility] Work Phone: Comment on above: PATIENT NOT FASTINGP ERFORMED BY: CB [facility] Nquzge5900 [address] [place] [id number] ALT [Catalytic activity/Vol] 22 [iU]/L Normal 0-40 [facility] Work Phone: Comment on above: PATIENT NOT FASTINGP ERFORMED BY: [facility] Qhckvf0773 [address]Dublin [place] [id number] AST [Catalytic activity/Vol] 24 [iU]/L Normal 0-40 [facility] Work Phone: Comment on above: PATIENT NOT FASTINGP ERFORMED BY: [facility] Plcayk6991 [address] RoadDublin [place] [id number] Bilirubin [Mass/Vol] 0.3 mg/dL Normal 0.1-1.2 [facility] Work Phone: Comment on above: PATIENT NOT FASTINGP ERFORMED BY: [facility] Pjfuor0403 [address] RoadDublin [place] [id number] Calcium [Mass/Vol] 8.8 mg/dL Normal 8.5-10.6 [facility] Internal Medicine Work Phone: Comment on above: PATIENT NOT FASTINGP ERFORMED BY: CB [facility] Vluzkv1300 [address] [place] [id number] Chloride [Moles/Vol] 101 mmol/L Normal 97-108 [facility] Work Phone: Comment on above: PATIENT NOT FASTINGP ERFORMED BY: CB [facility] Pcnenz2776 [address]Dublin [place] [id number] CO2 [Moles/Vol] 23 mmol/L Normal 20-32 [facility] Internal Medicine Work Phone: Comment on above: PATIENT NOT FASTINGP ERFORMED BY: SIDDHARTHA [facility] CruzWglzhh0260 [facility] [id number] Creatinine [Mass/Vol] 0.70 mg/dL Normal 0.57-1.00 [facility] Work Phone: Comment on above: Please note refere nce interval change PATIENT NOT FASTINGP ERFORMED BY: SIDDHARTHA [facility]6370 [facility] [id number] GFR/1.73 sq M predicted among blacks MDRD (S/P/Bld) [Vol rate/Area] mL/min/{1.73_m2} Normal 60-128 [facility] Internal Medicine Work Phone: Comment on above: Note: Persistent red uction for 3 months or more in an eGFR<60 mL/min/1.73 m2 defines CKD. Patients with eGFR values>/=60 mL/min/1.73 m2 may also have CKD if evidence of persistentproteinuria is present. Additional information may be found [email or web address]. PATIENT NOT FASTINGP ERFORMED BY: SIDDHARTHA Cruzlin6370 [facility] [id number] GFR/1.73 sq M.predicted MDRD (S/P/Bld) [Vol rate/Area] mL/min/{1.73_m2} Normal 60-128 [facility] Work Phone: Comment on above: PATIENT NOT FASTINGP ERFORMED BY: SIDDHARTHA [facility] Jjuxio0766 [facility] [id number] Globulin (S) [Mass/Vol] 2.3 g/dL Normal 1.5-4.5 [facility] Internal Medicine Work Phone: Comment on above: PATIENT NOT FASTINGP ERFORMED BY: [facility] Xerwka7563 [facility] [id number] Glucose [Mass/Vol] 80 mg/dL Normal 65-99 [facility] Internal Medicine Work Phone: Comment on above: PATIENT NOT FASTINGP ERFORMED BY: SIDDHARTHA [address]lin[address] [facility] [place] [id number] Potassium [Moles/Vol] 3.7 mmol/L Normal 3.5-5.2 [facility] Work Phone: Comment on above: PATIENT NOT FASTINGP ERFORMED BY: SIDDHARTHA Cruzlin6370 [address] RoadDuke Health [id number] Protein [Mass/Vol] 6.3 g/dL Normal 6.0-8.5 [facility] Internal Medicine Work Phone: Comment on above: PATIENT NOT FASTINGP ERFORMED BY: SIDDHARTHA [facility] [id number] RoadCritical Access Hospitalin [place] [id number] Sodium [Moles/Vol] 136 mmol/L Normal 135-145 [facility] Work Phone: Comment on above: PATIENT NOT FASTINGP ERFORMED BY: SIDDHARTHA LabDom[facility] [id number] Espino RoadDuke Health [id number] Urea nitrogen [Mass/Vol] 11 mg/dL Normal 5-26 [facility] Work Phone: Comment on above: PATIENT NOT FASTINGP ERFORMED BY: SIDDHARTHA [id number] [facility] [id number] Urea nitrogen/Creatinine [Mass ratio] 16 mg/mg Normal 8-27 [facility] Work Phone: Comment on above: PATIENT NOT FASTINGP ERFORMED BY: SIDDHARTHA [facility] [id number] [facility] [id number] KIDNEY (HP)Ordered By: Raúl gibbs Senior [employer] Programmer on 10-30-2007 KIDNEY (HP) See Note Normal [facility] Work Phone: Comment on above: Exam Number: [id number] RENAL ULTRASOUND REASON FOR EXAMINATIONHematuria. Ultrasound to assess for urolithiasis. The right and left kidneys measure 12 and 11 cm in longitudinaldimension respectively. There is no hydronephrosis, soft tissue mass,or shadowing calculus on either side. There is minimal prominence ofthe right renal pelvis. This is a nonspecific finding and mayberelated to extrarenal pelvis, pyelonephritis or due to hydronephrosis.No obstructing calculus demonstrated on CT. The urinary bladder is unremarkable as visualized. It is partiallydistended on the study. Incidentally gallbladder is packed with multiple shadowing gallstones.There is no associated wall thickening. Common bile duct is withinnormal limits at 6 mm diameter. IMPRESSION1. Mild prominence of the right renal pelvis, a nonspecific finding. This maybe due to extrarenal pelvis. Please see text for discussion. Please correlate with clinical setting.2. Cholelithiasis. Reported By: RUTHANN PEREZ M.D. Exam Number: [id number] CT ABDOMEN AND PELVIS WITHOUT INTRAVENOUS OR ORAL CONTRAST REASON FOR EXAMINATIONGross hematuria. Abdominal pain worse in the lower abdomen and in theregion of the flanks bilaterally. Flank CT to assess for obstructiveurolithiasis. Patient is post appendectomy and tubal ligation. Unenhanced MDCT is performed with axial reconstructions from hepaticdome through symphysis pubis. COMPARISON STUDYNone. Liver, spleen, pancreas and adrenal glands demonstrate normalunenhanced CT appearance. There are multiple gallstones within thegallbladder lumen. No free fluid in the upper abdomen. There are no calcifications associated with either kidney. There isno abnormal distention of the upper renal collecting system. CT PELVISBladder is adequately distended. There are no bladder calculi. Thereare multiple bilateral pelvic phleboliths. Uterus and adnexalstructures demonstrate the usual nonspecific CT appearance. There isno free fluid in the pelvis. Abdominal and pelvic bowel loops asvisualized are unremarkable except for a few scattered sigmoid colondiverticula with no CT evidence for acute diverticulitis. Terminalileum is normal in caliber. No free fluid in the pelvis. Lung basesare clear. There is no acute osseous abnormality. There is mildmultilevel degenerative spondylosis involving the visualizedthoracolumbar spine. There is mild rotatory dextroscoliosis of thelumbar spine. IMPRESSION1. Negative for obstructive urolithiasis. 2. Cholelithiasis with no CT evidence for acute cholecystitis.3. Bilateral pelvic phleboliths. Reported By: RUTHANN PEREZ M.D. Exam Number: [id number] CT ABDOMEN AND PELVIS WITHOUT INTRAVENOUS OR ORAL CONTRAST REASON FOR EXAMINATIONGross hematuria. Abdominal pain worse in the lower abdomen and in theregion of the flanks bilaterally. Flank CT to assess for obstructiveurolithiasis. Patient is post appendectomy and tubal ligation. Unenhanced MDCT is performed with axial reconstructions from hepaticdome through symphysis pubis. COMPARISON STUDYNone. Liver, spleen, pancreas and adrenal glands demonstrate normalunenhanced CT appearance. There are multiple gallstones within thegallbladder lumen. No free fluid in the upper abdomen. There are no calcifications associated with either kidney. There isno abnormal distention of the upper renal collecting system. CT PELVISBladder is adequately distended. There are no bladder calculi. Thereare multiple bilateral pelvic phleboliths. Uterus and adnexalstructures demonstrate the usual nonspecific CT appearance. There isno free fluid in the pelvis. Abdominal and pelvic bowel loops asvisualized are unremarkable except for a few scattered sigmoid colondiverticula with no CT evidence for acute diverticulitis. Terminalileum is normal in caliber. No free fluid in the pelvis. Lung basesare clear. There is no acute osseous abnormality. There is mildmultilevel degenerative spondylosis involving the visualizedthoracolumbar spine. There is mild rotatory dextroscoliosis of thelumbar spine. IMPRESSION1. Negative for obstructive urolithiasis. 2. Cholelithiasis with no CT evidence for acute cholecystitis.3. Bilateral pelvic phleboliths. Reported By: RUTHANN PEREZ M.D. Urinalysis, Office ([id number])Or dered By: Monserrat Ramirez on 10-30-2007 Bilirubin Ql (U) Negative Normal Compre[facility] Work Phone: Comment on above: waiver signed Bilirubin Ql (U) Negative Normal [facility]; [facility] Work Phone: Comment on above: waiver signed Glucose Test strip (U) [Mass/Vol] Negative Normal [facility] Work Phone: Comment on above: waiver signed Glucose Test strip (U) [Mass/Vol] Negative Normal [facility]; [facility] Work Phone: Comment on above: waiver signed Hemoglobin Ql (U) Hemolyzed Trace Normal Co mprehensive [facility] Work Phone: Comment on above: waiver signed Ketones Ql (U) Negative Normal Comprehens [facility]in [facility] Work Phone: Comment on above: waiver signed Ketones Ql (U) Negative Normal Comprehens [facility]; [facility] Work Phone: Comment on above: waiver signed Leukocyte esterase Test strip Ql (U) Small Normal [facility] Work Phone: Comment on above: waiver signed Nitrite Ql (U) Negative Normal [facility]prehens [facility] Work Phone: Comment on above: waiver signed Nitrite Ql (U) Negative Normal [facility]prehens [facility]; [facility] Work Phone: Comment on above: waiver signed pH (U) 6.0 [pH] Normal [facility] Work Phone: Comment on above: waiver signed Protein Ql (U) 100 mg/dL Normal Comprehens [facility] Work Phone: Comment on above: waiver signed Specific gravity (U) [Rel density] 1.025 1 Normal [facility] Work Phone: Comment on above: waiver signed Urobilinogen (24H U) [Mass/Time] Normal Normal [facility] Work Phone: Comment on above: waiver signed Urinalysis, Office ([id number])Or dered By: Ruma Lugo on 10-28-2007 Bilirubin Ql (U) Negative Normal Compre[facility] Work Phone: Bilirubin Ql (U) Negative Normal Compre[facility]; [facility] Work Phone: Glucose Test strip (U) [Mass/Vol] Negative Normal [facility] Work Phone: Glucose Test strip (U) [Mass/Vol] Negative Normal [facility]; [facility] Work Phone: Hemoglobin Ql (U) Hemolyzed Moderate Normal [facility] Work Phone: Ketones Ql (U) Negative Normal [facility] Work Phone: Ketones Ql (U) Negative Normal [facility]; [facility] Work Phone: Leukocyte esterase Test strip Ql (U) Small Normal [facility] Work Phone: Nitrite Ql (U) Negative Normal [facility] Work Phone: Nitrite Ql (U) Negative Normal [facility]; [facility] Work Phone: pH (U) 6.5 [pH] Normal [facility] Work Phone: Protein Ql (U) 100 mg/dL Normal Comprehens [facility] Work Phone: Specific gravity (U) [Rel density] 1.025 1 Normal [facility] Work Phone: Urobilinogen (24H U) [Mass/Time] 2 mg/dL Normal [facility] Work Phone: Urine Culture,ComprehensiveO rdered By: Physician Office Clin Asst on 10-28-2007 Bacteria identified Cx Nom (U) [id number] Normal [facility] Work Phone: Comment on above: No growth in 36 - 48 hours. PATIENT NOT FASTINGP ERFORMED BY: [employer] [place] [id number] Bacteria identified Cx Nom (U) Final report Normal [facility] Work Phone: Comment on above: PATIENT NOT FASTINGP ERFORMED BY: [facility] [id number] Lipid Panel With LDL/HDL Rat ioOrdered By: Physician Office Clin Asst on 09-09-2007 Cholesterol [Mass/Vol] 219 mg/dL Abnormal 100-199 [facility] Work Phone: Comment on above: PERFORMED BY: [employer] [place] [id number] Cholesterol in HDL [Mass/Vol] 53 mg/dL Normal 40-59 [facility] Work Phone: Comment on above: PERFORMED BY: [employer] [place] [id number] Cholesterol in LDL [Mass/Vol] 129 mg/dL Abnormal 0-99 [facility] Work Phone: Comment on above: PERFORMED BY: [id number] [employer] [place] [id number] Cholesterol in LDL/Cholesterol in HDL [Mass ratio] SPRCS Normal [facility] Work Phone: Comment on above: If initial LDL-marisel sterol result is >100 mg/dL, assess forrisk factors. PERFORMED BY: [email or web address] [place] [id number] Cholesterol in LDL/Cholesterol in HDL [Mass ratio] 2.4 {ratio_units} Normal 0.0-3.2 [facility] Work Phone: Comment on above: PERFORMED BY: [email or web address] [employer] [place] [id number] Cholesterol in VLDL [Mass/Vol] 37 mg/dL Normal 5-40 [facility] Work Phone: Comment on above: PERFORMED BY: [email or web address] [facility] AppsAt[facility] [id number] Triglyceride [Mass/Vol] 187 mg/dL Abnormal 0-149 [facility] Work Phone: Comment on above: PERFORMED BY: [facility]At[facility] [id number] Vital Signs Date Time Vital Sign Value Performing Clinician Facility 08-15-2024 07:03-0400 Body height 162.[address] Yajaira Uribe DO Work Phone: [facility] 08-15-2024 07:03-0400 Body mass index (BMI) [Ratio] 28.8 kg/m2 Dr. Yajaira Uribe DO Work Phone: [facility] 08-15-2024 07:03-0400 Body temperature 97.7 [degF] Dr. Yajaira Uribe DO Work Phone: [facility] 08-15-2024 07:03-0400 Body weight 76.[address] Yajaira Uribe DO Work Phone: [facility] 08-15-2024 07:03-0400 Diastolic blood pressure 80 mm[Hg] Dr. Yajaira Uribe DO Work Phone: [facility] 08-15-2024 07:03-0400 Heart rate 75 /min Dr. Yajaira Uribe DO Work Phone: [facility] 08-15-2024 07:03-0400 Respiratory rate 16 /min Dr. Yajaira Uribe DO Work Phone: [facility] 08-15-2024 07:03-0400 SaO2% (BldA) [Mass fraction] 97 % Dr. Yajaira Uribe DO Work Phone: [facility] 08-15-2024 07:03-0400 Systolic blood pressure 148 mm[Hg] Dr. Yajaira Uribe DO Work Phone: [facility] 12-18-2023 08:22-0400 Body mass index (BMI) [Ratio] 30.05 kg/m2 Edmundo Clark TURKEY PICKER-GRAVEL INSPECTOR Work Phone: [facility] 12-18-2023 08:22-0400 Body temperature 97.7 [degF] Edmundo Clark TURKEY PICKER-GRAVEL INSPECTOR Work Phone: [facility] 12-18-2023 08:22-0400 Body weight 77.56 kg Edmundo Clark APRN-GRAVEL INSPECTOR Work Phone: [facility] 12-18-2023 08:22-0400 Diastolic blood pressure 63 mm[Hg] Edmundo Clark TURKEY PICKER-GRAVEL INSPECTOR Work Phone: [facility] 12-18-2023 08:22-0400 Heart rate 69 /min Edmundo Clark APRN-GRAVEL INSPECTOR Work Phone: [facility] 12-18-2023 08:22-0400 Systolic blood pressure 132 mm[Hg] Edmundo Clark TURKEY PICKER-GRAVEL INSPECTOR Work Phone: [facility] 12-05-2022 14:48-0400 Body mass index (BMI) [Ratio] 30.76 kg/m2 Edmundodarby Clark TURKEY PICKER-GRAVEL INSPECTOR Work Phone: [facility] 12-05-2022 14:48-0400 Body temperature 98.01 [degF] Edmundo Clark TURKEY PICKER-GRAVEL INSPECTOR Work Phone: [facility] 12-05-2022 14:48-0400 Body weight 79.38 kg Edmundodarby Clark TURKEY PICKER-GRAVEL INSPECTOR Work Phone: [facility] 12-05-2022 14:48-0400 Diastolic blood pressure 83 mm[Hg] Edmundo Clark TURKEY PICKER-GRAVEL INSPECTOR Work Phone: [facility] 12-05-2022 14:48-0400 Heart rate 74 /min Edmundo Clark TURKEY PICKER-GRAVEL INSPECTOR Work Phone: [phone] 12-05-2022 14:48-0400 Systolic blood pressure 135 mm[Hg] Edmundo Clark TURKEY PICKER-GRAVEL INSPECTOR Work Phone: [facility] 01-02-2022 12:50-0400 Body height 160.7 cm Edmundo Clark TURKEY PICKER-GRAVEL INSPECTOR Work Phone: [facility] 01-02-2022 12:50-0400 Body mass index (BMI) [Ratio] 30.61 kg/m2 Edmundo Clark [employer]URKEY PICKER[employer]GRAVEL INSPECTOR Work Phone: [facility] 01-02-2022 12:50-0400 Body temperature 97.5 [degF] Edmundo Clark TURKEY PICKER-GRAVEL INSPECTOR Work Phone: [facility] 01-02-2022 12:50-0400 Body weight 79.02 kg Edmundo Clark TURKEY PICKER-GRAVEL INSPECTOR Work Phone: [facility] 01-02-2022 12:50-0400 Diastolic blood pressure 80 mm[Hg] Edmundo Clark TURKEY PICKER-GRAVEL INSPECTOR Work Phone: [facility] 01-02-2022 12:50-0400 Heart rate 72 /min Edmundo Clark TURKEY PICKER-GRAVEL INSPECTOR Work Phone: [facility] 01-02-2022 12:50-0400 Respiratory rate 14 /min Edmundo Clark TURKEY PICKER-GRAVEL INSPECTOR Work Phone: [facility] 01-02-2022 12:50-0400 Systolic blood pressure 135 mm[Hg] Edmundo Clark TURKEY PICKER-GRAVEL INSPECTOR Work Phone: [facility] 08-04-2021 07:06-0400 Body height 162.56 cm Jessica Blake MA [facility]; [facility] Work Phone: 08-04-2021 07:06-0400 Body mass index (BMI) [Ratio] 29.76 kg/m2 Jessica Blake MA [facility]; [facility] Work Phone: 08-04-2021 07:06-0400 Body surface area Derived from formula 1.84 m2 Jessica Blake MA [facility]; [facility] Work Phone: 08-04-2021 07:06-0400 Body temperature 97.1 [degF] Jessica Blake MA [facility]; [facility] Work Phone: Comment on above: Method: Temporal 08-04-2021 07:06-0400 Body weight 78.64 kg Jessica Blake MA [facility]; [facility] Work Phone: 08-04-2021 07:06-0400 Diastolic blood pressure 80 mm[Hg] Jessica Blake MA [facility]; [facility] Work Phone: Comment on above: Patient Position: Sitting; Cuff Location : Left Arm; Cuff Size: Standard 08-04-2021 07:06-0400 Heart rate 74 /min Jessica Blake MA [facility]; [facility] Work Phone: Comment on above: Pattern: Regular 08-04-2021 07:06-0400 Respiratory rate 16 /min Jessica Blake MA [facility]; [facility] Work Phone: Comment on above: Pattern: Unlabored 08-04-2021 07:06-0400 SaO2% (BldA) [Mass fraction] 96 % Jessica Blake MA [facility]; [facility] Work Phone: Comment on above: Room air 08-04-2021 07:06-0400 Systolic blood pressure 112 mm[Hg] Jessica Blake MA [facility]; [facility] Work Phone: Comment on above: Patient Position: Sitting; Cuff Location : Left Arm; Cuff Size: Standard 04-25-2021 10:18-0500 Body height 162.56 cm Sandy Sepulveda LPN [facility]; [facility] Work Phone: 04-25-2021 10:18-0500 Body mass index (BMI) [Ratio] 29.76 kg/m2 Sandy Sepulveda LPN [facility]; [facility] Work Phone: 04-25-2021 10:18-0500 Body surface area Derived from formula 1.84 m2 Sandy Sepulveda LPN [facility]; [facility] Work Phone: 04-25-2021 10:18-0500 Body temperature 97.1 [degF] Sandy Sepulveda LPN [facility]; [facility] Work Phone: 04-25-2021 10:18-0500 Body weight 78.64 kg Sandy Sepulveda LPN [facility]; [facility] Work Phone: 04-25-2021 10:18-0500 Diastolic blood pressure 76 mm[Hg] Sandy Sepulveda LPN [facility]; [facility] Work Phone: Comment on above: Patient Position: Sitting; Cuff Location : Left Arm; Cuff Size: Standard 04-25-2021 10:18-0500 Heart rate 62 /min Sandy Sepulveda LPN [facility]; [facility] Work Phone: Comment on above: Pattern: Regular 04-25-2021 10:18-0500 Respiratory rate 17 /min Sandy Sepulveda [facility]; [facility] Work Phone: Comment on above: Pattern: Unlabored 04-25-2021 10:18-0500 SaO2% (BldA) [Mass fraction] 99 % Sandy Sepulveda [facility]; [facility] Work Phone: Comment on above: Room air 04-25-2021 10:18-0500 Systolic blood pressure 110 mm[Hg] Sandy Sepulveda [facility]; [facility] Work Phone: Comment on above: Patient Position: Sitting; Cuff Location : Left Arm; Cuff Size: Standard 03-23-2021 15:40-0500 Body height 162.56 cm Nilda Lujan [facility]; [facility] Work Phone: Comment on above: virtual, none reported 03-23-2021 15:40-0500 Body mass index (BMI) [Ratio] 29.76 kg/m2 Nilda Lujan [facility]; [facility] Work Phone: Comment on above: virtual, none reported 03-23-2021 15:40-0500 Body surface area Derived from formula 1.84 m2 Nilda Lujan [facility]; [facility] Work Phone: Comment on above: virtual, none reported 03-23-2021 15:40-0500 Body weight 78.64 kg Nilda Lujan [facility]; [facility] Work Phone: Comment on above: virtual, none reported 01-05-2021 09:57-0400 Body height 162.56 cm Jerel Newton REFRIGERATION PERSON [facility]; [facility] Work Phone: 01-05-2021 09:57-0400 Body mass index (BMI) [Ratio] 29.76 kg/m2 Jerel Newton REFRIGERATION PERSON [facility]; [facility] Work Phone: 01-05-2021 09:57-0400 Body surface area Derived from formula 1.84 m2 Jerel Newton [facility]; [facility] Work Phone: 01-05-2021 09:57-0400 Body weight 78.64 kg Jerel Newton [facility]; [facility] Work Phone: 11-01-2020 08:43-0400 Body height 162.56 cm Nilda Lujan [facility]; [facility] Work Phone: 11-01-2020 08:43-0400 Body mass index (BMI) [Ratio] 29.76 kg/m2 Nilda Lujan [facility]; [facility] Work Phone: 11-01-2020 08:43-0400 Body surface area Derived from formula 1.84 m2 Nilda Lujan [facility]; [facility] Work Phone: 11-01-2020 08:43-0400 Body temperature 97.3 [degF] Nilda Lujan [facility]; [facility] Work Phone: Comment on above: Method: Temporal 11-01-2020 08:43-0400 Body weight 78.64 kg Nilda Lujan [facility]; [facility] Work Phone: 11-01-2020 08:43-0400 Diastolic blood pressure 80 mm[Hg] Nilda Lujan [facility]; [facility] Work Phone: Comment on above: Patient Position: Sitting; Cuff Location : Left Arm; Cuff Size: Standard 11-01-2020 08:43-0400 Heart rate 75 /min Nilda Lujan [facility]; [facility] Work Phone: Comment on above: Pattern: Regular 11-01-2020 08:43-0400 Respiratory rate 16 /min Nilda Lujan [facility]; [facility] Work Phone: Comment on above: Pattern: Unlabored 11-01-2020 08:43-0400 SaO2% (BldA) [Mass fraction] 98 % Nilda Lujan [facility]; [facility] Work Phone: Comment on above: Room air 11-01-2020 08:43-0400 Systolic blood pressure 126 mm[Hg] Nilda Lujan LPN [facility]; [facility] Work Phone: Comment on above: Patient Position: Sitting; Cuff Location : Left Arm; Cuff Size: Standard 10-25-2020 14:40-0400 Body height 162.56 cm Yelena Jones [facility]; [facility] Work Phone: 10-25-2020 14:40-0400 Body mass index (BMI) [Ratio] 30.3 kg/m2 Yelena Jones [facility]; [facility] Work Phone: 10-25-2020 14:40-0400 Body surface area Derived from formula 1.85 m2 Yelena Jones [facility]; [facility] Work Phone: 10-25-2020 14:40-0400 Body temperature 97.3 [degF] Yelena Jones [facility]; [facility] Work Phone: Comment on above: Method: Infrared 10-25-2020 14:40-0400 Body weight 80.06 kg Yelena Jonse [facility]; [facility] Work Phone: 10-25-2020 14:40-0400 Diastolic blood pressure 78 mm[Hg] Yelena Jones [facility]; [facility] Work Phone: Comment on above: Patient Position: Sitting; Cuff Location : Left Arm; Cuff Size: Standard 10-25-2020 14:40-0400 Heart rate 63 /min Yelena Jones [facility]; [facility] Work Phone: Comment on above: Pattern: Regular 10-25-2020 14:40-0400 Respiratory rate 16 /min Yelena Jones [facility]; [facility] Work Phone: Comment on above: Pattern: Unlabored 10-25-2020 14:40-0400 SaO2% (BldA) [Mass fraction] 98 % Yelena Jones [facility]; [facility] Work Phone: Comment on above: Room air 10-25-2020 14:40-0400 Systolic blood pressure 116 mm[Hg] Yelena Jones [facility]; [facility] Work Phone: Comment on above: Patient Position: Sitting; Cuff Location : Left Arm; Cuff Size: Standard 10-21-2020 12:01-0400 Body height 162.56 cm Yelena Jones [facility]; [facility] Work Phone: Comment on above: no vs taken as this is phone encounter d ue to covid 10-21-2020 12:01-0400 Body mass index (BMI) [Ratio] 29.95 kg/m2 Yelena Jones [facility]; [facility] Work Phone: Comment on above: no vs taken as this is phone encounter d ue to covid 10-21-2020 12:010400 Body surface area Derived from formula 1.85 m2 Yelena Jones [facility]; [facility] Work Phone: Comment on above: no vs taken as this is phone encounter d ue to covid 10-21-2020 12:01-0400 Body weight 79.15 kg Yelena Jones [facility]; [facility] Work Phone: Comment on above: no vs taken as this is phone encounter d ue to covid 09-30-2020 10:21-0400 Body height 162.56 cm Nilda Lujan LPN [facility]; [facility] Work Phone: 09-30-2020 10:21-0400 Body mass index (BMI) [Ratio] 29.95 kg/m2 Nilda Lujan LPN [facility]; [facility] Work Phone: 09-30-2020 10:21-0400 Body surface area Derived from formula 1.85 m2 Nilda Lujan LPN [facility]; [facility] Work Phone: 09-30-2020 10:21-0400 Body temperature 97.1 [degF] Nilda Lujan LPN [facility]; [facility] Work Phone: Comment on above: Method: Temporal 09-30-2020 10:0400 Body weight 79.15 kg Nilda Le CALLES [facility]; [facility] Work Phone: 09-30-2020 10:21-0400 Diastolic blood pressure 70 mm[Hg] Nildakhalida Lujan MARLI [facility]; [facility] Work Phone: Comment on above: Patient Position: Sitting; Cuff Location : Left Arm; Cuff Size: Standard 09-30-2020 10:21-0400 Heart rate 63 /min Nilda Le LPN [facility]; [facility] Work Phone: Comment on above: Pattern: Regular 09-30-2020 10:-0400 Respiratory rate 16 /min Nilda Le LPN [facility]; [facility] Work Phone: Comment on above: Pattern: Unlabored 09-30-2020 10:21-0400 SaO2% (BldA) [Mass fraction] 97 % Nilda Lujan LPN [facility]; [facility] Work Phone: Comment on above: Room air 09-30-2020 10:-0400 Systolic blood pressure 128 mm[Hg] Nildakhalida Lujan MARLI [facility]; [facility] Work Phone: Comment on above: Patient Position: Sitting; Cuff Location : Left Arm; Cuff Size: Standard 08-03-2020 14:39-0400 Body height 162.56 cm Jerel Newton LPN [facility]; [facility] Work Phone: 08-03-2020 14:39-0400 Body mass index (BMI) [Ratio] 30.22 kg/m2 Jerel Newton LPN [facility]; [facility] Work Phone: 08-03-2020 14:39-0400 Body surface area Derived from formula 1.85 m2 Jerel Newton LPN [facility]; [facility] Work Phone: 08-03-2020 14:39-0400 Body temperature 97.1 [degF] Jerel Newton LPN [facility]; [facility] Work Phone: Comment on above: Method: Infrared 08-03-2020 14:39-0400 Body weight 79.85 kg Jerel Newton LPN [facility]; [facility] Work Phone: 08-03-2020 14:39-0400 Diastolic blood pressure 78 mm[Hg] Jerel Newton LPN [facility]; [facility] Work Phone: Comment on above: Patient Position: Sitting; Cuff Location : Left Arm; Cuff Size: Standard 08-03-2020 14:39-0400 Heart rate 83 /min Jerel Newton LPN [facility]; [facility] Work Phone: Comment on above: Pattern: Regular 08-03-2020 14:39-0400 Respiratory rate 16 /min Jerel Newton LPN [facility]; [facility] Work Phone: Comment on above: Pattern: Unlabored 08-03-2020 14:39-0400 SaO2% (BldA) [Mass fraction] 99 % Jerel Newton LPN [facility]; [facility] Work Phone: Comment on above: Room air 08-03-2020 14:39-0400 Systolic blood pressure 118 mm[Hg] Jerel Newton LPN [facility]; [facility] Work Phone: Comment on above: Patient Position: Sitting; Cuff Location : Left Arm; Cuff Size: Standard 08-26-2019 08:13-0400 BMI (Body Mass Index) 30.22 kg/m2 Jerel Newton LPN [facility] Internal Medicine Work Phone: 08-26-2019 08:13-0400 Body Temperature 96.9 [degF] Jerel Newton LPN [facility] Work Phone: Comment on above: Method: Temporal 08-26-2019 08:13-0400 Body weight 79.85 kg Jerel Newton LPN [facility] Work Phone: 08-26-2019 08:13-0400 BP Diastolic 68 mm[Hg] Jerel Newton LPN [facility] Work Phone: Comment on above: Patient Position: Sitting; Cuff Location : Left Arm; Cuff Size: Standard 08-26-2019 08:13-0400 BP Systolic 110 mm[Hg] Jerel Aman REFRIGERATION PERSON [facility] Internal Medicine Work Phone: Comment on above: Patient Position: Sitting; Cuff Location : Left Arm; Cuff Size: Standard 08-26-2019 08:13-0400 BSA (Body Surface Area) 1.85 m2 Jerel Newton LPN [facility] Work Phone: 08-26-2019 08:13-0400 Height 162.56 cm Jerel Newton REFRIGERATION PERSON [facility] Work Phone: 08-26-2019 08:13-0400 Pulse (Heart Rate) 70 /min Jerel Newton REFRIGERATION PERSON [facility] Internal Medicine Work Phone: Comment on above: Pattern: Regular 08-26-2019 08:13-0400 Pulse Oximetry 98 % Yajaira Jojo [facility] Internal Medicine Work Phone: Comment on above: Room air 08-26-2019 08:13-0400 Respiratory Rate 16 /min Jerel Newton REFRIGERATION PERSON [facility] Work Phone: Comment on above: Pattern: Unlabored 08-26-2019 08:13-0400 SaO2% (BldA) [Mass fraction] 98 % Jerel Newton [facility]; [facility] Work Phone: Comment on above: Room air 06-17-2018 08:47-0400 BMI (Body Mass Index) 30.78 kg/m2 Yelena Jones [facility] Work Phone: Comment on above: orthos sitting 99/74 P 81standing 105/73 P 85laying 106/72 P 75 06-17-2018 08:47-0400 Body Temperature 95.6 [degF] Yelena Jones [facility] Work Phone: Comment on above: Method: Temporal orthos sitting 99/74 P 81standing 105/73 P 85laying 106/72 P 75 06-17-2018 08:47-0400 Body weight 81.34 kg Yelena Jones [facility] Work Phone: Comment on above: orthos sitting 99/74 P 81standing 105/73 P 85laying 106/72 P 75 06-17-2018 08:47-0400 BP Diastolic 80 mm[Hg] Yelena Jones [facility] Internal Medicine Work Phone: Comment on above: Patient Position: Sitting; Cuff Location : Left Arm; Cuff Size: Standard orthos sitting 99/74 P 81standing 105/73 P 85laying 106/72 P 75 06-17-2018 08:47-0400 BP Systolic 108 mm[Hg] Yelena Jones [facility] Internal Medicine Work Phone: Comment on above: Patient Position: Sitting; Cuff Location : Left Arm; Cuff Size: Standard orthos sitting 99/74 P 81standing 105/73 P 85laying 106/72 P 75 06-17-2018 08:47-0400 BSA (Body Surface Area) 1.87 m2 Yelena Jones [facility] Internal Medicine Work Phone: Comment on above: orthos sitting 99/74 P 81standing 105/73 P 85laying 106/72 P 75 06-17-2018 08:47-0400 Height 162.56 cm Yelena Jones [facility] Internal Medicine Work Phone: Comment on above: orthos sitting 99/74 P 81standing 105/73 P 85laying 106/72 P 75 06-17-2018 08:47-0400 Pulse (Heart Rate) 68 /min Yelena Jones [facility] Internal Medicine Work Phone: Comment on above: Pattern: Regular orthos sitting 99/74 P 81standing 105/73 P 85laying 106/72 P 75 06-17-2018 08:47-0400 Pulse Oximetry 98 % Yajaira Uribe [facility] Internal Medicine Work Phone: Comment on above: Room air orthos sitting 99/74 P 81standing 105/73 P 85laying 106/72 P 75 06-17-2018 08:47-0400 Respiratory Rate 18 /min Yelena Jones [facility] Internal Medicine Work Phone: Comment on above: Pattern: Unlabored orthos sitting 99/74 P 81standing 105/73 P 85laying 106/72 P 75 06-17-2018 08:47-0400 SaO2% (BldA) [Mass fraction] 98 % Yelena Jones [employer] [facility]; [facility] Work Phone: Comment on above: Room air orthos sitting 99/74 P 81standing 105/73 P 85laying 106/72 P 75 06-17-2018 08:47-0400 Weight 81.34 kg Yajaira Uribe [facility] Work Phone: Comment on above: orthos sitting 99/74 P 81standing 105/73 P 85laying 106/72 P 75 12-27-2015 10:01-0400 BMI (Body Mass Index) 33.01 kg/m2 Sandy Slarb REFRIGERATION PERSON [facility] Internal Medicine Work Phone: 12-27-2015 10:01-0400 Body Temperature 97.8 [degF] Sandy Slarb REFRIGERATION PERSON [facility] Work Phone: 12-27-2015 10:01-0400 Body weight 87.23 kg Sandy Slarb REFRIGERATION PERSON [facility] Work Phone: 12-27-2015 10:01-0400 BP Diastolic 76 mm[Hg] Sandy Slarb REFRIGERATION PERSON [facility] Work Phone: Comment on above: Patient Position: Sitting; Cuff Location : Left Arm; Cuff Size: Standard 12-27-2015 10:01-0400 BP Systolic 114 mm[Hg] Sandy Slarb REFRIGERATION PERSON [facility] Work Phone: Comment on above: Patient Position: Sitting; Cuff Location : Left Arm; Cuff Size: Standard 12-27-2015 10:01-0400 BSA (Body Surface Area) 1.92 m2 Sandy Slarb REFRIGERATION PERSON [facility] Work Phone: 12-27-2015 10:01-0400 Height 162.56 cm Sandy Slarb REFRIGERATION PERSON [facility] Work Phone: 12-27-2015 10:01-0400 Pulse (Heart Rate) 79 /min Sandy Slarb REFRIGERATION PERSON Comprehens[facility] e Internal Medicine Work Phone: Comment on above: Pattern: Regular 12-27-2015 10:01-0400 Pulse Oximetry 98 % Yajaira Uribe [facility] Work Phone: Comment on above: Room air 12-27-2015 10:01-0400 Respiratory Rate 16 /min Sandy Sepulveda LPN [facility] Work Phone: Comment on above: Pattern: Unlabored 12-27-2015 10:01-0400 SaO2% (BldA) [Mass fraction] 98 % Sandy Sepulveda LPN [facility]; [facility] Work Phone: Comment on above: Room air 12-27-2015 10:01-0400 Weight 87.23 kg Yajaira Uribe [facility] Work Phone: 12-11-2014 08:03-0400 BMI (Body Mass Index) 33.01 kg/m2 Leona Johnson RN [facility] Internal Medicine Work Phone: 12-11-2014 08:03-0400 Body Temperature 97.3 [degF] Leona Johnson RN [facility] Work Phone: Comment on above: Method: Temporal 12-11-2014 08:03-0400 Body weight 87.23 kg Leona Johnson RN [facility] Work Phone: 12-11-2014 08:03-0400 BP Diastolic 76 mm[Hg] Leona Johnson RN [facility] Work Phone: Comment on above: Patient Position: Sitting; Cuff Location : Left Arm; Cuff Size: Standard 12-11-2014 08:03-0400 BP Systolic 128 mm[Hg] Leona Johnson RN [facility] Work Phone: Comment on above: Patient Position: Sitting; Cuff Location : Left Arm; Cuff Size: Standard 12-11-2014 08:03-0400 BSA (Body Surface Area) 1.92 m2 Leona Johnson RN [facility] Work Phone: 12-11-2014 08:03-0400 Height 162.56 cm Leona Johnson RN [facility] Work Phone: 12-11-2014 08:03-0400 Pulse (Heart Rate) 86 /min Leona Johnson RN [facility] Work Phone: Comment on above: Pattern: Regular 12-11-2014 08:03-0400 Pulse Oximetry 96 % Yajaira Uribe [facility] Work Phone: Comment on above: Room air 12-11-2014 08:03-0400 Respiratory Rate 16 /min Leona Johnson RN [facility] Work Phone: Comment on above: Pattern: Unlabored 12-11-2014 08:03-0400 SaO2% (BldA) [Mass fraction] 96 % Leona Johnson RN [facility]; [facility] Work Phone: Comment on above: Room air 12-11-2014 08:03-0400 Weight 87.23 kg Yajaira Uribe [facility] Work Phone: 03-26-2014 13:07-0500 BMI (Body Mass Index) 33.52 kg/m2 Ruma Lugo LPN [facility] Work Phone: 03-26-2014 13:07-0500 Body weight 88.59 kg Ruma Parish CALLES [facility] Work Phone: 03-26-2014 13:07-0500 BP Diastolic 72 mm[Hg] Ruma Parish CALLES [facility] Work Phone: Comment on above: Patient Position: Sitting; Cuff Location : Left Arm; Cuff Size: Standard 03-26-2014 13:07-0500 BP Systolic 126 mm[Hg] Ruma Parish CALLES [facility] Work Phone: Comment on above: Patient Position: Sitting; Cuff Location : Left Arm; Cuff Size: Standard 03-26-2014 13:07-0500 BSA (Body Surface Area) 1.94 m2 Ruma Parish CALLES [facility] Work Phone: 03-26-2014 13:07-0500 Height 162.56 cm Ruma Parish CALLES [facility] Work Phone: 03-26-2014 13:07-0500 Pulse (Heart Rate) 68 /min Ruma Parish CALLES [facility] Work Phone: Comment on above: Pattern: Regular 03-26-2014 13:07-0500 Pulse Oximetry 98 % Yajaira Uribe [facility] Work Phone: Comment on above: Room air 03-26-2014 13:07-0500 Respiratory Rate 16 /min Ruma Lugo MARLI [facility] Work Phone: 03-26-2014 13:07-0500 SaO2% (BldA) [Mass fraction] 98 % Ruma Tyler MARLI [facility]; [facility] Work Phone: Comment on above: Room air 03-26-2014 13:07-0500 Weight 88.59 kg Yajaira Uribe [facility] Work Phone: 05-08-2013 08:46-0500 BMI (Body Mass Index) 33.52 kg/m2 Chantal Allen RN [facility] Work Phone: 05-08-2013 08:46-0500 Body weight 88.59 kg Chantal Allen RN [facility] Work Phone: 05-08-2013 08:46-0500 BP Diastolic 80 mm[Hg] Chantal Allen RN [facility] Work Phone: Comment on above: Patient Position: Sitting; Cuff Location : Left Arm; Cuff Size: Large 05-08-2013 08:46-0500 BP Systolic 122 mm[Hg] Chantal Allen RN [facility] Work Phone: Comment on above: Patient Position: Sitting; Cuff Location : Left Arm; Cuff Size: Large 05-08-2013 08:46-0500 BSA (Body Surface Area) 1.94 m2 Chantal Allen RN [facility] Work Phone: 05-08-2013 08:46-0500 Height 162.56 cm Chantal Allen RN [facility] Work Phone: 05-08-2013 08:46-0500 Pulse (Heart Rate) 65 /min Chantal Allen RN [facility] Work Phone: Comment on above: Pattern: Regular 05-08-2013 08:46-0500 Pulse Oximetry 98 % Yajaira Uribe [facility] Work Phone: Comment on above: Room air 05-08-2013 08:46-0500 Respiratory Rate 18 /min Chantal Allen RN [facility] Work Phone: Comment on above: Pattern: Unlabored 05-08-2013 08:46-0500 SaO2% (BldA) [Mass fraction] 98 % Chantal Allen RN [facility]; [facility] Work Phone: Comment on above: Room air 05-08-2013 08:46-0500 Weight 88.59 kg Yajaira Uribe [facility] Work Phone: 04-10-2013 08:47-0500 BMI (Body Mass Index) 33.52 kg/m2 Chantal Allen RN [facility] Work Phone: 04-10-2013 08:47-0500 Body weight 88.59 kg Chantal Allen RN [facility] Work Phone: 04-10-2013 08:47-0500 BP Diastolic 80 mm[Hg] Chantal Allen RN [facility] Work Phone: Comment on above: Patient Position: Sitting; Cuff Location : Left Arm; Cuff Size: Large 04-10-2013 08:47-0500 BP Systolic 138 mm[Hg] Chantal Allen RN [facility] Work Phone: Comment on above: Patient Position: Sitting; Cuff Location : Left Arm; Cuff Size: Large 04-10-2013 08:47-0500 BSA (Body Surface Area) 1.94 m2 Chantal Allen RN [facility] Work Phone: 04-10-2013 08:47-0500 Height 162.56 cm Chantal Allen RN [facility] Work Phone: 04-10-2013 08:47-0500 Pulse (Heart Rate) 66 /min Chantal Allen RN [facility] Work Phone: Comment on above: Pattern: Regular 04-10-2013 08:47-0500 Pulse Oximetry 98 % Yajaira Uribe [facility] Work Phone: Comment on above: Room air 04-10-2013 08:47-0500 Respiratory Rate 20 /min Chantal Allen RN [facility] Work Phone: Comment on above: Pattern: Unlabored 04-10-2013 08:47-0500 SaO2% (BldA) [Mass fraction] 98 % Chantal Allen RN [facility]; [facility] Work Phone: Comment on above: Room air 04-10-2013 08:47-0500 Weight 88.59 kg Yajaira Uribe [facility] Work Phone: 02-19-2012 08:06-0500 BMI (Body Mass Index) 32.61 kg/m2 Chantal Allen RN [facility] Work Phone: 02-19-2012 08:06-0500 Body Temperature 97.9 [degF] Chantal Allen RN [facility] Work Phone: Comment on above: Method: Oral 02-19-2012 08:06-0500 Body weight 86.18 kg Chantal Allen RN [facility] Work Phone: 02-19-2012 08:06-0500 BP Diastolic 78 mm[Hg] Chantal Allen RN [facility] Work Phone: Comment on above: Patient Position: Sitting; Cuff Location : Left Arm; Cuff Size: Large 02-19-2012 08:06-0500 BP Systolic 138 mm[Hg] Chantal Allen RN [facility] Work Phone: Comment on above: Patient Position: Sitting; Cuff Location : Left Arm; Cuff Size: Large 02-19-2012 08:06-0500 BSA (Body Surface Area) 1.91 m2 Chantal Allen RN [facility] Work Phone: 02-19-2012 08:06-0500 Height 162.56 cm Chantal Allen RN [facility] Work Phone: 02-19-2012 08:06-0500 Pulse (Heart Rate) 72 /min Chantal Allen RN [facility] Work Phone: Comment on above: Pattern: Regular 02-19-2012 08:06-0500 Respiratory Rate 20 /min Chantal Allen RN [facility] Work Phone: Comment on above: Pattern: Unlabored 02-19-2012 08:06-0500 Weight 86.18 kg Yajaira Uribe [facility] Work Phone: 10-27-2011 09:23-0400 BMI (Body Mass Index) 31.98 kg/m2 Chantal Allen RN [facility] Work Phone: 10-27-2011 09:23-0400 Body Temperature 98.2 [degF] Chantal Allen RN [facility] Work Phone: 10-27-2011 09:23-0400 Body weight 84.51 kg Chantal Allne RN [facility] Work Phone: 10-27-2011 09:23-0400 BP Diastolic 82 mm[Hg] Chantal Allen RN [facility] Work Phone: Comment on above: Patient Position: Sitting; Cuff Location : Left Arm; Cuff Size: Standard 10-27-2011 09:23-0400 BP Systolic 118 mm[Hg] Chantal Allen RN [facility] Work Phone: Comment on above: Patient Position: Sitting; Cuff Location : Left Arm; Cuff Size: Standard 10-27-2011 09:23-0400 BSA (Body Surface Area) 1.9 m2 Chantal Allen RN [facility] Work Phone: 10-27-2011 09:23-0400 Height 162.56 cm Chantal Allen RN [facility] Work Phone: 10-27-2011 09:23-0400 Pulse (Heart Rate) 60 /min Chantal Allen RN [facility] Work Phone: Comment on above: Pattern: Regular 10-27-2011 09:23-0400 Respiratory Rate 18 /min Chantal Allen RN [facility] Work Phone: Comment on above: Pattern: Unlabored 10-27-2011 09:23-0400 Weight 84.51 kg Yajaira Uribe [facility] Work Phone: 10-05-2011 08:48-0400 BMI (Body Mass Index) 31.99 kg/m2 Chantal Allen RN [facility] Work Phone: 10-05-2011 08:48-0400 Body weight 84.54 kg Chantal Allen RN [facility] Work Phone: 10-05-2011 08:48-0400 BP Diastolic 80 mm[Hg] Chantal Allen RN [facility] Work Phone: Comment on above: Patient Position: Sitting; Cuff Location : Left Arm; Cuff Size: Standard 10-05-2011 08:48-0400 BP Systolic 134 mm[Hg] Chantal Allen RN [facility] Work Phone: Comment on above: Patient Position: Sitting; Cuff Location : Left Arm; Cuff Size: Standard 10-05-2011 08:48-0400 BSA (Body Surface Area) 1.9 m2 Chantal Allen RN [facility] Work Phone: 10-05-2011 08:48-0400 Height 162.56 cm Chantal Allen RN [facility] Work Phone: 10-05-2011 08:48-0400 Pulse (Heart Rate) 68 /min Chantal Allen RN [facility] Work Phone: Comment on above: Pattern: Regular 10-05-2011 08:48-0400 Respiratory Rate 18 /min Chantal Allen RN [facility] Work Phone: Comment on above: Pattern: Unlabored 10-05-2011 08:48-0400 Weight 84.54 kg Yajaira Uribe [facility] Work Phone: 07-24-2011 13:24-0400 BMI (Body Mass Index) 33.02 kg/m2 Chantal Allen RN [facility] Work Phone: 07-24-2011 13:24-0400 Body weight 87.26 kg Chantal Allen RN [facility] Work Phone: 07-24-2011 13:24-0400 BP Diastolic 82 mm[Hg] Chantal Allen RN [facility] Work Phone: Comment on above: Patient Position: Sitting; Cuff Location : Left Arm; Cuff Size: Large 07-24-2011 13:24-0400 BP Systolic 120 mm[Hg] Chantal Allen RN [facility] Work Phone: Comment on above: Patient Position: Sitting; Cuff Location : Left Arm; Cuff Size: Large 07-24-2011 13:24-0400 BSA (Body Surface Area) 1.92 m2 Chantal Allen RN [facility] Work Phone: 07-24-2011 13:24-0400 Height 162.56 cm Chantal Allen RN [facility] Work Phone: 07-24-2011 13:24-0400 Pulse (Heart Rate) 60 /min Chantal Allen RN [facility] Work Phone: Comment on above: Pattern: Regular 07-24-2011 13:24-0400 Respiratory Rate 16 /min Chantal Allen RN [facility] Work Phone: Comment on above: Pattern: Unlabored 07-24-2011 13:24-0400 Weight 87.26 kg Yajaira Uribe [facility] Work Phone: 01-23-2011 13:52-0500 BMI (Body Mass Index) 32.8 kg/m2 Chantal Allen RN [facility] Work Phone: 01-23-2011 13:52-0500 Body Temperature 98 [degF] Chantal Allen RN [facility] Work Phone: 01-23-2011 13:52-0500 Body weight 86.67 kg Chantal Allen RN [facility] Work Phone: 01-23-2011 13:52-0500 BP Diastolic 70 mm[Hg] Chantal Allen RN [facility] Work Phone: Comment on above: Patient Position: Sitting; Cuff Location : Left Arm; Cuff Size: Large 01-23-2011 13:52-0500 BP Systolic 122 mm[Hg] Chantal Allen RN [facility] Work Phone: Comment on above: Patient Position: Sitting; Cuff Location : Left Arm; Cuff Size: Large 01-23-2011 13:52-0500 BSA (Body Surface Area) 1.92 m2 Chantal Allen RN [facility] Work Phone: 01-23-2011 13:52-0500 Height 162.56 cm Chantal Allen RN [facility] Work Phone: 01-23-2011 13:52-0500 Pulse (Heart Rate) 80 /min Chantal Allen RN [facility] Work Phone: Comment on above: Pattern: Regular 01-23-2011 13:52-0500 Respiratory Rate 20 /min Chantal Allen RN [facility] Work Phone: Comment on above: Pattern: Unlabored 01-23-2011 13:52-0500 Weight 86.67 kg Yajaira Uribe [facility] Work Phone: 01-16-2011 11:08-0500 BMI (Body Mass Index) 32.8 kg/m2 Chantal Allen RN [facility] Work Phone: 01-16-2011 11:08-0500 Body weight 86.67 kg Chantal Allen RN [facility] Work Phone: 01-16-2011 11:08-0500 BP Diastolic 70 mm[Hg] Chantal Allen RN [facility] Work Phone: Comment on above: Patient Position: Sitting; Cuff Location : Left Arm; Cuff Size: Large 01-16-2011 11:08-0500 BP Systolic 110 mm[Hg] Chantal Allen RN [facility] Work Phone: Comment on above: Patient Position: Sitting; Cuff Location : Left Arm; Cuff Size: Large 01-16-2011 11:08-0500 BSA (Body Surface Area) 1.92 m2 Chantal Allen RN [facility] Work Phone: 01-16-2011 11:08-0500 Height 162.56 cm Chantal Allen RN [facility] Work Phone: 01-16-2011 11:08-0500 Pulse (Heart Rate) 60 /min Chantal Allen RN [facility] Work Phone: Comment on above: Pattern: Regular 01-16-2011 11:08-0500 Respiratory Rate 18 /min Chantal Allen RN [facility] Work Phone: Comment on above: Pattern: Unlabored 01-16-2011 11:08-0500 Weight 86.67 kg Yajaira Uribe [facility] Work Phone: 01-11-2011 14:33-0500 BMI (Body Mass Index) 34.25 kg/m2 Ruma Lugo LPN [facility] Work Phone: 01-11-2011 14:33-0500 Body Temperature 97.6 [degF] Ruma Lugo LPN [facility] Work Phone: Comment on above: Method: Oral 01-11-2011 14:33-0500 Body weight 90.52 kg Ruma Lugo LPN [facility] Work Phone: 01-11-2011 14:33-0500 BP Diastolic 72 mm[Hg] Ruma Lugo LPN [facility] Work Phone: Comment on above: Patient Position: Sitting; Cuff Location : Left Arm; Cuff Size: Standard 01-11-2011 14:33-0500 BP Systolic 112 mm[Hg] Ruma Lugo LPN [facility] Work Phone: Comment on above: Patient Position: Sitting; Cuff Location : Left Arm; Cuff Size: Standard 01-11-2011 14:33-0500 BSA (Body Surface Area) 1.95 m2 Ruma Lugo LPN [facility] Work Phone: 01-11-2011 14:33-0500 Height 162.56 cm Ruma Lugo LPN [facility] Work Phone: 01-11-2011 14:33-0500 Pulse (Heart Rate) 76 /min Ruma Lugo LPN [facility] Work Phone: Comment on above: Pattern: Regular 01-11-2011 14:33-0500 Respiratory Rate 17 /min Ruma Lugo LPN [facility] Work Phone: 01-11-2011 14:33-0500 Weight 90.52 kg Yajaira Uribe [facility] Work Phone: 12-28-2010 13:02-0400 BMI (Body Mass Index) 34.25 kg/m2 Ruma Lugo LPN [facility] Work Phone: 12-28-2010 13:02-0400 Body Temperature 98.1 [degF] Ruma Lugo LPN [facility] Work Phone: Comment on above: Method: Oral 12-28-2010 13:02-0400 Body weight 90.52 kg Ruma Lugo LPN [facility] Work Phone: 12-28-2010 13:02-0400 BP Diastolic 70 mm[Hg] Ruma Lugo LPN [facility] Work Phone: Comment on above: Patient Position: Sitting; Cuff Location : Left Arm; Cuff Size: Standard 12-28-2010 13:02-0400 BP Systolic 110 mm[Hg] Ruma Lugo LPN [facility] Work Phone: Comment on above: Patient Position: Sitting; Cuff Location : Left Arm; Cuff Size: Standard 12-28-2010 13:02-0400 BSA (Body Surface Area) 1.95 m2 Ruma Lugo LPN [facility] Work Phone: 12-28-2010 13:02-0400 Height 162.56 cm Ruma Lugo LPN [facility] Work Phone: 12-28-2010 13:02-0400 Pulse (Heart Rate) 70 /min Ruma Lugo LPN [facility] Work Phone: Comment on above: Pattern: Regular 12-28-2010 13:02-0400 Respiratory Rate 15 /min Ruma Lugo LPN [facility] Work Phone: Comment on above: Pattern: Unlabored 12-28-2010 13:02-0400 Weight 90.52 kg Yajaira Uribe [facility] Work Phone: 04-28-2009 10:46-0500 BMI (Body Mass Index) 34.25 kg/m2 uRma Lugo LPN [facility] Work Phone: 04-28-2009 10:46-0500 Body Temperature 97.5 [degF] Ruma Lugo LPN [facility] Work Phone: Comment on above: Method: Oral 04-28-2009 10:46-0500 Body weight 90.52 kg Ruma Lugo LPN [facility] Work Phone: 04-28-2009 10:46-0500 BP Diastolic 74 mm[Hg] Ruma Lugo LPN [facility] Work Phone: Comment on above: Patient Position: Sitting; Cuff Location : Left Arm; Cuff Size: Standard 04-28-2009 10:46-0500 BP Systolic 116 mm[Hg] Ruma Lugo MARLI [facility] Work Phone: Comment on above: Patient Position: Sitting; Cuff Location : Left Arm; Cuff Size: Standard 04-28-2009 10:46-0500 BSA (Body Surface Area) 1.95 m2 Ruma Uribefadumo CALLES [facility] Work Phone: 04-28-2009 10:46-0500 Height 162.56 cm Ruma Lugo MARLI [facility] Work Phone: 04-28-2009 10:46-0500 Pulse (Heart Rate) 64 /min Ruma Lugo MARLI [facility] Work Phone: Comment on above: Pattern: Regular 04-28-2009 10:46-0500 Respiratory Rate 17 /min Ruma Lugo MARLI [facility] Work Phone: Comment on above: Pattern: Unlabored 04-28-2009 10:46-0500 Weight 90.52 kg Yajaira Uribe [facility] Work Phone: 11-01-2007 10:36-0400 BMI (Body Mass Index) 31.13 kg/m2 Chantal Allen RN [facility] Work Phone: 11-01-2007 10:36-0400 Body weight 82.27 kg Chantal Allen RN [facility] Work Phone: 11-01-2007 10:36-0400 BP Diastolic 64 mm[Hg] Chantal Allen RN [facility] Work Phone: Comment on above: Patient Position: Sitting; Cuff Location : Right Arm; Cuff Size: Large 11-01-2007 10:36-0400 BP Systolic 122 mm[Hg] Chantal Allen RN [facility] Work Phone: Comment on above: Patient Position: Sitting; Cuff Location : Right Arm; Cuff Size: Large 11-01-2007 10:36-0400 BSA (Body Surface Area) 1.88 m2 Chantal Allen RN [facility] Work Phone: 11-01-2007 10:36-0400 Head Circumference 0 cm Yajaira Uribe [facility] Work Phone: 11-01-2007 10:36-0400 Head Occipital-frontal circumference 0 cm Chantal Allen RN [facility]; [facility] Work Phone: 11-01-2007 10:36-0400 Height 162.56 cm Chantal Allen RN [facility] Work Phone: 11-01-2007 10:36-0400 Pulse (Heart Rate) 72 /min Chantal Allen RN [facility] Work Phone: Comment on above: Pattern: Regular 11-01-2007 10:36-0400 Respiratory Rate 20 /min Chantal Allen RN [facility] Work Phone: Comment on above: Pattern: Unlabored 11-01-2007 10:36-0400 Weight 82.27 kg Yajaira Uribe [facility] Work Phone: 10-30-2007 11:35-0400 BMI (Body Mass Index) 32.36 kg/m2 [facility] Work Phone: 10-30-2007 11:35-0400 Body Temperature 98.6 [degF] [facility] Work Phone: Comment on above: Method: Oral 10-30-2007 11:35-0400 Body weight 85.5 kg [facility] Work Phone: 10-30-2007 11:35-0400 BP Diastolic 70 mm[Hg] [facility] Work Phone: Comment on above: Patient Position: Sitting; Cuff Location : Left Arm; Cuff Size: Standard 10-30-2007 11:35-0400 BP Systolic 118 mm[Hg] [facility] Work Phone: Comment on above: Patient Position: Sitting; Cuff Location : Left Arm; Cuff Size: Standard 10-30-2007 11:35-0400 BSA (Body Surface Area) 1.91 m2 [facility] Work Phone: 10-30-2007 11:35-0400 Head Circumference 0 cm Yajaira Uribe [facility] Work Phone: 10-30-2007 11:35-0400 Head Occipital-frontal circumference 0 cm Monserrat Ramirez [facility] Work Phone: 10-30-2007 11:35-0400 Height 162.56 cm Monserrat Ramirez [facility] Work Phone: 10-30-2007 11:35-0400 Pulse (Heart Rate) 66 /min Monserrat Ramirez [facility] Work Phone: Comment on above: Pattern: Regular 10-30-2007 11:35-0400 Respiratory Rate 18 /min Monserrat Ramirez [facility] Work Phone: Comment on above: Pattern: Unlabored 10-30-2007 11:35-0400 Weight 85.5 kg Yajaira Uribe [facility] Work Phone: 10-28-2007 08:10-0400 BMI (Body Mass Index) 32.36 kg/m2 Ruma Lugo LPN [facility] Work Phone: 10-28-2007 08:10-0400 Body weight 85.5 kg Ruma Lugo LPN [facility] Work Phone: 10-28-2007 08:10-0400 BP Diastolic 70 mm[Hg] Ruma Lugo [facility] Work Phone: Comment on above: Patient Position: Sitting; Cuff Location : Left Arm; Cuff Size: Standard 10-28-2007 08:10-0400 BP Systolic 118 mm[Hg] Ruma Lugo [employer] PERSON [facility] Work Phone: Comment on above: Patient Position: Sitting; Cuff Location : Left Arm; Cuff Size: Standard 10-28-2007 08:10-0400 BSA (Body Surface Area) 1.91 m2 Ruma Lugo LPN [facility] Work Phone: 10-28-2007 08:10-0400 Head Circumference 0 cm Yajaira Uribe [facility] Work Phone: 10-28-2007 08:10-0400 Head Occipital-frontal circumference 0 cm Ruma Lugo MARLI [facility]; [facility] Work Phone: 10-28-2007 08:10-0400 Height 162.56 cm Ruma Lugo LPN [facility] Work Phone: 10-28-2007 08:10-0400 Pulse (Heart Rate) 64 /min Ruma Lugo LPN [facility] Work Phone: Comment on above: Pattern: Regular 10-28-2007 08:10-0400 Respiratory Rate 17 /min Ruma Lugo LPN [facility] Work Phone: Comment on above: Pattern: Unlabored 10-28-2007 08:10-0400 Weight 85.5 kg Yajaira Uribe [facility] Work Phone: 09-09-2007 13:39-0400 BMI (Body Mass Index) 32.36 kg/m2 Chantal Allen RN [facility] Work Phone: 09-09-2007 13:39-0400 Body weight 85.5 kg Chantal Allen RN [facility] Work Phone: 09-09-2007 13:39-0400 BP Diastolic 70 mm[Hg] Chantal Allen RN [facility] Work Phone: Comment on above: Patient Position: Sitting; Cuff Location : Left Arm; Cuff Size: Standard 09-09-2007 13:39-0400 BP Systolic 124 mm[Hg] Chantal Allen RN [facility] Work Phone: Comment on above: Patient Position: Sitting; Cuff Location : Left Arm; Cuff Size: Standard 09-09-2007 13:39-0400 BSA (Body Surface Area) 1.91 m2 Chantal Allen RN [facility] Work Phone: 09-09-2007 13:39-0400 Head Circumference 0 cm Yajaira Masseyon [facility] Work Phone: 09-09-2007 13:39-0400 Head Occipital-frontal circumference 0 cm Chantal Allen RN [facility]; [facility] Work Phone: 09-09-2007 13:39-0400 Height 162.56 cm Chantal Allen RN [facility] Work Phone: 09-09-2007 13:39-0400 Pulse (Heart Rate) 60 /min Chantal Allen RN [facility] Work Phone: Comment on above: Pattern: Regular 09-09-2007 13:39-0400 Respiratory Rate 18 /min Chantal Allen RN [facility] Work Phone: Comment on above: Pattern: Unlabored 09-09-2007 13:39-0400 Weight 85.5 kg Yajaira Uribe [facility] Work Phone: 12-10-2006 13:36-0400 BMI (Body Mass Index) 33.3 kg/m2 Chantal Allen RN [facility] Work Phone: 12-10-2006 13:36-0400 Body weight 88 kg Chantal Allen RN [facility] Work Phone: 12-10-2006 13:36-0400 BP Diastolic 92 mm[Hg] Chantal Allen RN [facility] Work Phone: Comment on above: Patient Position: Sitting; Cuff Location : Left Arm; Cuff Size: Standard 12-10-2006 13:36-0400 BP Systolic 112 mm[Hg] Chantal Allen RN [facility] Work Phone: Comment on above: Patient Position: Sitting; Cuff Location : Left Arm; Cuff Size: Standard 12-10-2006 13:36-0400 BSA (Body Surface Area) 1.93 m2 Chantal Allen RN [facility] Work Phone: 12-10-2006 13:36-0400 Head Circumference 0 cm Yajaira Uribe [facility] Work Phone: 12-10-2006 13:36-0400 Head Occipital-frontal circumference 0 cm Chantal Allen RN [facility]; [facility] Work Phone: 12-10-2006 13:36-0400 Height 162.56 cm Chantal Allen RN [facility] Work Phone: 12-10-2006 13:36-0400 Pulse (Heart Rate) 88 /min Chantal Allen RN [facility] Work Phone: Comment on above: Pattern: Regular 12-10-2006 13:36-0400 Respiratory Rate 16 /min Chantal Allen RN [facility] Work Phone: Comment on above: Pattern: Unlabored 12-10-2006 13:36-0400 Weight 88 kg Yajaira Uribe [facility] Work Phone: 06-26-2006 08:02-0400 Body Temperature 97.6 [degF] Devi Mendoza [facility] Work Phone: Comment on above: Method: Oral 06-26-2006 08:02-0400 Body weight 0 kg Devi Mendoza [facility] Work Phone: 06-26-2006 08:02-0400 BP Diastolic 68 mm[Hg] Devi Mendoza [facility] Work Phone: Comment on above: Patient Position: Sitting; Cuff Location : Right Arm; Cuff Size: Standard 06-26-2006 08:02-0400 BP Systolic 98 mm[Hg] Devi Mendoza [facility] Work Phone: Comment on above: Patient Position: Sitting; Cuff Location : Right Arm; Cuff Size: Standard 06-26-2006 08:02-0400 Head Circumference 0 cm Yajaira Uribe [facility] Work Phone: 06-26-2006 08:02-0400 Head Occipital-frontal circumference 0 cm Devi Mendoza [facility]; [facility] Work Phone: 06-26-2006 08:02-0400 Height 0 cm Devi Mendoza [facility] Work Phone: 06-26-2006 08:02-0400 Pulse (Heart Rate) 68 /min Devi Mendoza [facility] Work Phone: Comment on above: Pattern: Regular 06-26-2006 08:02-0400 Respiratory Rate 16 /min Devi Mendoza [facility] Work Phone: Comment on above: Pattern: Unlabored 06-26-2006 08:02-0400 Weight 0 kg Yajaira Uribe [facility] Work Phone: 05-30-2006 14:10-0400 Body Temperature 97.3 [degF] Yajaira Uribe [facility] Work Phone: Comment on above: Method: Undefined 05-30-2006 14:10-0400 Body weight 0 kg Yajaira Uribe [facility] Work Phone: 05-30-2006 14:10-0400 BP Diastolic 70 mm[Hg] Yajaira Uribe [facility] Work Phone: Comment on above: Patient Position: Undefined; Cuff Locati on: Undefined; Cuff Size: Undefined 05-30-2006 14:10-0400 BP Systolic 124 mm[Hg] Yajaira Uribe [facility] Work Phone: Comment on above: Patient Position: Undefined; Cuff Locati on: Undefined; Cuff Size: Undefined 05-30-2006 14:10-0400 Head Circumference 0 cm Yajaira Uribe [facility] Work Phone: 05-30-2006 14:10-0400 Head Occipital-frontal circumference 0 cm Yajaira Uribe DO Work Phone: [facility]; [facility] Work Phone: 05-30-2006 14:10-0400 Height 0 cm Yajaira Uribe [facility] Work Phone: 05-30-2006 14:10-0400 Pulse (Heart Rate) 72 /min Yajaira Uribe [facility] Work Phone: Comment on above: Pattern: Regular 05-30-2006 14:10-0400 Respiratory Rate 16 /min Yajaira Uribe [facility] Work Phone: Comment on above: Pattern: Undefined 05-30-2006 14:10-0400 Weight 0 kg Yajaira Uribe [facility] Work Phone: 11-22-2005 11:05-0400 BMI (Body Mass Index) 33.3 kg/m2 Gabi conklin [facility] Work Phone: 11-22-2005 11:05-0400 Body Temperature 97.4 [degF] Gabi Wilkins [facility] Work Phone: Comment on above: Method: Oral 11-22-2005 11:05-0400 Body weight 88 kg Gabi Wilkins [facility] Work Phone: 11-22-2005 11:05-0400 BP Diastolic 80 mm[Hg] Gabi Wilkins [facility] Work Phone: Comment on above: Patient Position: Sitting; Cuff Location : Undefined; Cuff Size: Undefined 11-22-2005 11:05-0400 BP Systolic 120 mm[Hg] Gabi Wilkins [facility] Work Phone: Comment on above: Patient Position: Sitting; Cuff Location : Undefined; Cuff Size: Undefined 11-22-2005 11:05-0400 BSA (Body Surface Area) 1.93 m2 Gabi Wilkins [facility] Work Phone: 11-22-2005 11:05-0400 Head Circumference 0 cm Yajaira Uribe [facility] Work Phone: 11-22-2005 11:05-0400 Head Occipital-frontal circumference 0 cm Gabi Wilkins [facility]; [facility] Work Phone: 11-22-2005 11:05-0400 Height 162.56 cm [facility] Work Phone: 11-22-2005 11:05-0400 Pulse (Heart Rate) 76 /[facility] Work [facility]: Comment on above: Pattern: Regular 11-22-2005 11:05-0400 Respiratory Rate 16 /min Gabi Wilkins [facility] Work Phone: Comment on above: Pattern: Undefined 11-22-2005 11:05-0400 Weight 88 kg Yajaira Uribe [facility] Work Phone: Encounters Encounter Date Encounter Type Care Provider Facility Start: 08-15-2024 End: 08-15-[address] Yajaira Uribe DO Work Phone: [facility] Work Phone: Start: 08-15-2024 End: 08-15-2024 Patient encounter procedure Sarbjit Boudreaux [facility] Work Phone: Start: 02-18-2024 ambulatory Yajaira Uribe Facilit y:[facility] Start: 01-13-2024 End: 01-13-2024 Emergency department patient visit Evelio Paul Facility:[facility] Start: 12-31-2023 End: 12-31-2023 Clinical Support Encounter Yakelin Jonesdaniel Comment on above: Personal history of malignant neoplasm of breast (Primary Dx); Status post bilateral mastectomy Start: 12-31-2023 ambulatory EDMUNDO CLARK Facility :[facility] Start: 12-18-2023 ambulatory YAJAIRA Jareth URIBE Facil ity:[facility] Start: 12-18-2023 End: 12-18-2023 Office outpatient visit 15 minutes Edmundo Clark APRN-GRAVEL INSPECTOR Work Phone: Division of Surgical Oncology Comment on above: Personal history of malignant neoplasm of breast (Primary Dx); Status post bilateral mastectomy Start: 07-03-2023 End: 07-03-2023 ambulatory [facility] Work Phone: Start: 07-03-2023 End: 07-03-2023 Patient encounter procedure [facility]-Laboratory, Specimen Work Phone: Start: 07-03-2023 End: 07-03-2023 ambulatory Yajairamarine Uribe Facility:[facility] Start: 12-05-2022 End: 12-05-2022 Subsequent hospital visit by physician Edmundo Clark APRN-GRAVEL INSPECTOR Work Phone: [facility] Mamm[facility] [place] Start: 12-05-2022 End: 12-05-2022 Office outpatient visit 15 minutes Edmundo Clark APRN-GRAVEL INSPECTOR Work Phone: Division of Surgical Oncology Comment on above: Personal history of malignant neoplasm of breast (Primary Dx); Pain in right axilla Start: 01-02-2022 End: 01-02-2022 Office outpatient visit 15 minutes Vasyl Ayala MD Work Phone: Division of Surgical Oncology Comment on above: Personal history of malignant neoplasm of breast (Primary Dx) Start: 08-04-2021 End: 08-04-2021 Office outpatient visit 10 minutes Yajaira Jojo DO Work Phone: [facility] Start: 04-25-2021 End: 04-25-2021 Office outpatient visit 15 minutes Yajaira Jojo DO Work Phone: [facility] Start: 03-23-2021 End: 03-23-2021 Office outpatient visit 10 minutes Yajaira Jojo DO Work Phone: [facility] Start: 01-05-2021 End: 01-05-2021 Office outpatient visit 10 minutes Yajaira Jojo DO Work Phone: [facility] Start: 11-01-2020 End: 11-01-2020 Office outpatient visit 15 minutes Yajaira Jojo DO Work Phone: [facility] Start: 10-25-2020 End: 10-25-2020 Phone Encounter Yajaira Jojo DO Work Phone: [facility] Start: 10-25-2020 End: 10-25-2020 Office outpatient visit 15 minutes Yajaira Jojo DO Work Phone: [facility] Start: 10-21-2020 End: 10-21-2020 Periodic preventive med est patient 65yrs& older Yajaira Jojo DO Work Phone: [facility] Start: 09-30-2020 End: 10-01-2020 Office outpatient new 30 minutes Yajaira Jojo DO Work Phone: [facility] Start: 08-03-2020 End: 08-03-2020 Office outpatient visit 10 minutes Yajaira Jojo DO Work Phone: [facility] Start: 08-27-2019 End: 08-27-2019 Annotation/Addendum Yajaira Jojo [facility] Start: 08-26-2019 End: 08-27-2019 Office outpatient visit 15 minutes Yajaira Jojo [facility] Start: 06-24-2018 End: 06-24-2018 Phone Encounter Yajaira Mesa Charge Manager al Medicine Start: 06-17-2018 Patient encounter procedure Yajaira Mesa [facility] Start: 06-17-2018 End: 06-17-2018 Office outpatient visit 15 minutes Yajaira Mesa [facility] Start: 08-27-2017 End: 08-29-2017 [facility] Start: 12-28-2015 End: 12-28-2015 Patient encounter procedure Yajaira Jojo [facility] Start: 12-27-2015 End: 12-27-2015 Office outpatient visit 15 minutes Yajaira Uribe [facility] Start: 12-11-2014 End: 12-11-2014 Office outpatient visit 15 minutes Yajaira Uribe [facility] Start: 03-26-2014 End: 03-26-2014 Office outpatient visit 15 minutes Yajaira Uribe [facility] Start: 05-08-2013 End: 05-08-2013 Patient encounter procedure Yajaira Uribe [facility] Start: 04-10-2013 End: 04-10-2013 [facility] Start: 02-19-2012 End: 02-19-2012 Patient encounter procedure Yajaira Uribe [facility] Start: 10-27-2011 End: 10-27-2011 Patient encounter procedure Yajaira Uribe [facility] Start: 10-05-2011 End: 10-05-2011 Patient encounter procedure Yajaira Uribe [facility] Start: 09-14-2011 End: 10-25-2011 Patient encounter procedure Yajaira Uribe [facility] Start: 07-24-2011 End: 07-24-2011 Patient encounter procedure Yajaira Uribe [facility] Start: 01-23-2011 End: 01-23-2011 Patient encounter procedure Yajaira Uribe [facility] Start: 01-16-2011 End: 01-16-2011 Patient encounter procedure Yajaira Uribe [facility] Start: 01-11-2011 End: 01-11-2011 Office outpatient visit 15 minutes Yajaira Mesa [facility] Start: 12-28-2010 End: 12-28-2010 Office outpatient visit 25 minutes Yajaira Uribe [facility] Start: 04-28-2009 End: 04-28-2009 Office outpatient visit 25 minutes Yajaira Uribe [facility] Start: 11-01-2007 End: 11-01-2007 Patient encounter procedure Yajaira Uribe [facility] Start: 10-30-2007 End: 10-30-2007 Office outpatient visit 25 minutes Yajaira Uribe [facility] Start: 10-28-2007 End: 10-28-2007 Patient encounter procedure Yajaira Uribe [facility] Start: 10-28-2007 End: 10-28-2007 Office outpatient visit 15 minutes Yajaira Uribe [facility] Start: 09-16-2007 End: 09-16-2007 Patient encounter procedure Yajaira Uribe [facility] Start: 09-09-2007 End: 09-09-2007 Patient encounter procedure Yajaira rUibe [facility] Start: 04-11-2007 End: 04-11-2007 Historical Summary Yajaira Uribe [facility] Start: 12-10-2006 End: 12-10-2006 Office outpatient visit 25 minutes Yajairakobe Uribe [facility] Start: 06-26-2006 End: 06-26-2006 Patient encounter procedure Yajaira Uribe [facility] Internal Medicine Start: 05-30-2006 End: 05-30-2006 Patient encounter procedure Yajaira Uribe [facility] Start: 11-22-2005 End: 11-22-2005 Office outpatient new 45 minutes Yajairakobe Uribe [facility] Patient encounter procedure Jerel Newton REFRIGERATION PERSON [facility] Work Phone: Patient encounter procedure Nilda Lujan REFRIGERATION PERSON [facility] Work Phone: Patient encounter procedure Sandy Sepulveda [facility] Work Phone: Patient encounter procedure Jessica Blake MA [facility] Work Phone: End: 07-29-2008 Patient encounter status Yakelin Hartman [facility] Work Phone: Comment on above: 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, 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 Yajaira Uribe, Status: REG CLI Study: Dexa Bone Density Study Date of Exam: 12/08/20 Exam# [id number] Ordering Dr: Yajaira Uribe DO STUDY: DUAL ENERGY X-RAY ABSORPTIOMETRY / DXA REASON FOR EXAM: Female, 70 years old. 627.8Menopausal postmenopausalBONE DENSITY REASON FOR EXAM TECHNIQUE: Bone Mineral Density (BMD) measurements of lumbar spine and bilateral hips were obtained. COMPARISON: None. FINDINGS: Lumbar Spine (L1-L4): g/cm2 (0.934) / T-score (-0.4) / Z-score (1.6) Findings are suggestive of normal bone density with a low fracture risk. Left Femur Total: g/cm2 (0.923) / T-score (-0.2) / Z-score (1.3) Left Femoral Neck: g/cm2 (0.669) / T-score (-1.6) / Z-score (0.2) Right Femur Total: g/cm2 (0.872) / T-score (-0.6) / Z-score (0.9) Right Femoral Neck: g/cm2 (0.735) / T-score (-1.0) / Z-score (0.8) BD/Dexa Bone Density Study IMPRESSION: The patient is considered osteopenic as outlined below according to World [employer] Organization (WHO) criteria with a moderate fracture risk. Reference Information: The T-score is the number of standard deviations above or below the standard which is normal for young adults at their peak bone mineral density. The World Health Organization (WHO) interprets the T-scores as follows: Above -1 Normal bone density Between -1 and -2.5 Osteopenia Equal to / or below -2.5 Osteoporosis As a practical clinical guideline, osteopenia may be graded as follows: Mild -1 through -1.5 Moderate -1.6 through -2.0 Severe -2.1 through -2.4 The Z-score is the number of standard deviations above or below age-matched controls. A Z-score of less than -1.5 would be considered abnormal. References: 1. NIH Osteoporosis and Related Bone Diseases www osteo.org 2. International Society for Clinical Densitometry www iscd.org 3. National Osteoporosis Foundation www nof.org Electronically Signed: Choco Moses MD at 9:33 EDT , Service support , CC: Dr. Yajaira Uribe DO Fire Safety Manager: Signed Yajaira Uribe DO Work Phone: Start: 09-30-2020 End: 09-30-2020 Venous Duplex US - Filipe Extrem Comments: See Note; NOTES: [facility] Cardiovascular Services [address] [place] [id number] Venous Duplex US - Filipe Extrem 09/30/20 1447 MR#: [id number] Acct: [id number] Name: VALE BULLOCK Rep #: [id number] : 1950 70 From: Georges Reyes MD Attending Dr: Dr. Yajaira Uribe DO Status: R EG CLI Ordering Dr: Yajaira Uribe DO Date: 09/30/20 Location: [facility] Sex: F C Admitted: Reason For Study: Calf pain RIGHT LEFT GSV is normal. GSV is normal. CFV is compressible, spontaneous, phasic, CFV is compressible, spontaneous, phasic, competent and demonstrates normal competent, and demonstrates normal augmentation. augmentation. FV is compressible, spontaneous, phasic, FV is compressible, spontaneous, phasic, competent and demonstrates normal competent and demonstrates normal augmentation. augmentation. POP V is compressible, spontaneous, phasic, POP V is compressible, spontaneous, phasic, competent and demonstrates normal competent and demonstrates normal augmentation. augmentation. T/P Trunk is compressible. T/P Trunk is compressible. PTV is compressible. PTV is compressible. RT PerV is compressible. LT PerV is compressible. Procedure This is a venous duplex using B-mode, color flow and spectral Doppler. Exam performed in department. A preliminary report was called and/or faxed to [facility]. VL/Venous Duplex US - Filipe Extrem Interpretation Summary Deep veins of the lower extremities are bilaterally patent and compressible segmentally. There is no evidence of deep vein thrombosis on either side. Valvular competence appears intact within the proximal deep venous systems bilaterally. The great saphenous veins appear bilaterally patent and compressible segmentally. _ Ordering Physician: Yajaira Uribe Referring Physician: Yajaira Uribe Performed By: Mayte Moore RVT and Student 09/30/201999 Date Georges Reyes MD CC: Dr. Yajaira Uribe DO Date Dictated: 09/30/20 1447 Date Transcribed: 09/30/201999 Fire Safety Manager: Evan Uribe DO Work Phone: Start: 08-30-2016 End: 08-30-2016 Emergency Department Summary Comments: See Note; NOTES: [facility] Medical Records Department [address] [place] [address] Emergency Department Summary MR#: [id number] Acct: [id number] Name: VALE BULLOCK Rep #: [id number] : 1950 66 From: Guerda Walton MD PCP: Yajaira Uribe DO Status: DEP ER DATE OF SERVICE: 08/26/2016 CHIEF COMPLAINT: Sore on leg. HISTORY OF PRESENT ILLNESS: The patient has what she thinks is a bite on her medial thigh. It has been there about 3 days. She states that that is when she was mowing grass in [facility]. She said today she just noticed it as a soreness and started getting red, so she wanted it checked. She said it is pruritic, not very painful. Immunizations are up-to-date. PHYSICAL EXAMINATION: EXTREMITIES: The patient's left medial thigh has a 2 x 1.5 cm area of medial thigh redness, nonblanching, almost like a bruise with at the center a very small black eschar, does not look like a piece of a tick that she was worried about. Motor, sensory, vascular intact. No adenopathy or streaking. NEUROLOGICAL: Alert and oriented x3. TREATMENT: The patient was given precautions for tick bites including signs and symptoms of Harwick spotted fever and Lyme disease and what the rash is what looked like. She was also advised that most likely it was a spider bite just because the local redness is probably just like a petechiae. She said that she would keep an eye on it, use warm soaks. Anti-inflammatories as needed and any worse redness, swelling, drainage, red streaks, thigh pain, fever, chills, nausea, vomiting, recheck immediately, otherwise for a wound check in about 3-5 days. She is agreeable and stable, voiced understanding. DIAGNOSIS: Acute left proximal thigh spider or tick bite with local inflammation, 3 days prior to arrival. MD Edilia Ron C: Yajaira Uribe DO T: NTS JOB: [id number] 08/30/16 0806 <Electronically signed by Guerda Walton MD> Date Guerda Zaldivarignfadumo Signature (If Indicated): Date CC: Yajaira Uribe DO Date Dictated: 08/27/167 Date Transcribed: 08/27/167 Fire Safety Manager: Signed Yajaira Uribe Start: 04-28-2013 End: 04-28-2013 PT Discharge Summary Comments: See Note; NOTES: [facility] [address] [place] [address] Fax REHABILITATION SERVICES DISCHARGE SUMMARY MR#: [id number] Acct: [id number] Name: VALE BULLOCK Rep #: [id number] : 1950 63 From: Erika Ruano Referring Dr.: Yajaira Uribe DO Status: REG RCR Eval Date: Discharge Date: DATE OF SERVICE: Vale Bullock was referred to our care by Dr. Uribe on the date of April 14, 2013. This patient attended physical therapy for a total of 6 visits. Her plan of care consisted of lower extremity stretching, strengthening, balance, proprioception and functional mobility. SUBJECTIVE: Vale reports being 40% better since beginning physical therapy. At worst she rates her pain 8/10 when descending bleachers, best 0/10, currently 2/10. She does not have any more throbbing at night and she has been icing after performing any physical activity. Aggravated by turning around and twisting motions. Relieved by ice and rest. She plans to continue on with her exercise program at [employer] in [place]. She is going skiing in [place] this weekend. OBJECTIVE: Balance: right single limb stance 10 seconds without upper extremity assist and feeling of instability. Range of motion: 0-127 degrees with pain. Edema: 6 inches superior to mid patella, 22-1/2 inches patella, 16-1/2 inches inferior to mid patella. At this time, she has made progress towards her goals. The patient wishes to discontinue physical therapy secondary to returning to normalized function and continuing with an independent exercise program. My recommendations at this time are discharge the patient from physical therapy. I encouraged the patient to continue with home exercise program and to contact me with any questions or concerns. Sincerely, Linette Johnson, student physical therapist Erika Ruano DPT T: SAIRA JOB: [id number] <Electronically signed by Erika Ruano > 04/28/13 0801 CC: Signed Yajaira Uribe Work Phone: Start: 04-16-2013 End: 04-16-2013 Inital Evaluation - PT Comments: See Note; NOTES: [facility] [address] [place], [place] [address] Fax REHABILITATION SERVICES INITIAL EVALUATION MR#: [id number] Acct: [id number] Name: VALE BULLOCK Rep #: [id number] : 1950 63 From: Erika Ruano Referring Dr.: Yajaira Uribe DO Status: REG RCR Insurance: [employer] [facility] Date: DATE OF SERVICE: 04/14/2013 REASON FOR EVALUATION: Vale is a 63-year-old female referred to physical therapy by Dr. Uribe with a diagnosis of right knee pain. SUBJECTIVE: Vale presents to physical therapy after injuring her right knee while hiking in [place] this past October. She came down on her right leg landing on a rock and felt a pop in her knee. After the injury, she walked to her car and applied ice throughout the remainder of her vacation. She also applied an Vazquez wrap around her knee for stability. She did not do anymore hiking the remainder of her trip. When she returned home, she noticed the swelling had gone down as well as the pain, so she continued walking throughout the summer and fall either on her local track or on a treadmill. Approximately 1 month ago, she noticed her symptoms getting worse after walking on treadmill. She terminated exercises and treadmill walking since then. She usually walks around 2 miles a day. At worst, she rates her pain 7/ 10 and is aggravated by weightbearing, ascending and descending stairs, turning on her right leg. At best 1-2/10, currently 1/10. She describes her pain as a dull ache at rest along the medial and lateral joint line; however, greater medially. She also describes intermittent shooting pain with pivoting on her right leg and feeling of instability. She also reports intermittent sensations of clicking in her knee and denies any numbness and tingling in her lower extremity. She denies any sleep disruption due to the pain; however, she does experience pain up into her lateral hip at night while lying on her left side. She has received an x-rays that showed osteoarthritis of her knee. Her doctor would like her to complete physical therapy before undergoing MRI. She follows up with on April 27. 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 PAST MEDICAL HISTORY: Right mastectomy 1 year ago. MEDICATIONS: Ibuprofen as needed. REVIEW OF SYSTEMS OBJECTIVE: POSTURE: Forward head, rounded shoulders. GAIT: No apparent gait deviations. Stairs: ascending and descending stairs with reciprocal gait pattern without use of the railing. Increased pain with descending and trailing with the right lower extremity. RANGE OF MOTION: Active knee extension 0 degrees, knee flexion 125 degrees without pain. SENSATION: Intact. FLEXIBILITY: Severe restriction right hamstrings with passive range of motion, straight leg raise. IT band: Negative Katy's. STRENGTH: Knee extension are 5/5, flexion 4/5, hip internal and external rotation 3/5 with pain along the medial joint line. Ankle dorsiflexion and plantarflexion 5/ 5. Supine hip flexion and VMO straight leg raise 3/5 with pain along the medial joint line. Side lying hip extension 3/5. BALANCE: Able to single limb stance on the right without upper extremity support 4-5 seconds; however, increased muscle activity and postural sway on the right compared to the left. EDEMA MEASUREMENTS: Patella 16-1/2, 6 inches inferior to mid patella 16 inches, 6 inches superior to mid patella 22-1/2 inches. INITIAL TREATMENT EVALUATION: Educated the patient on diagnosis and plan of care. The patient agreeable to plan of care. Instructed the patient on home exercise program, which included seated quad sets, supine straight leg raise and a hamstring stretch. ASSESSMENT: Vale is a 63-year-old referred to physical therapy with a diagnosis of right knee pain. The patient presents with hypomobility including decreased right lower extremity strength, flexibility, muscular endurance, balance, proprioception and increased pain and tenderness. Rehabilitation potential is fair. The patient will benefit from skilled physical therapy to resolve the following problems and meet the following goals. PROBLEM LIST: 1. Decreased knowledge of home exercise program and progression. 2. Decreased right lower extremity strength. 3. Increased pain. 4. Decreased balance and proprioception. GOALS: 1. The patient will be independent with home exercises program and progression. 2. The patient will demonstrate increased strength of right lower extremity where deficit to 5/5 in order to ease ADLs. 3. The patient will report 0/10 pain with functional activity in order to return to normalized function. 4. The patient will be able to single limb stance on the right for 15 seconds without upper extremity support. PLAN OF CARE: The patient will be seen for 3 times a week for 2 weeks. The patient will be educated on diagnosis, plan of care and home exercise program. Interventions to include therapeutic exercise, therapeutic activity, neuromuscular reeducation, manual therapy, modalities, gait, balance and proprioceptive activities. The patient's anticipated discharge plan is independent with home exercise program and return to normalized activities. Linette Johnson, student physical therapist. Erika Ruano DPT T: NTS JOB: [id number] <Electronically signed by Erika Ruano > 04/16/13 1119 CC: Signed For Medicare only, by signing this I certify the plan of care. Physicians Signature Date Yajaira Uribe Work Phone: Start: 04-16-2013 End: 04-16-2013 PT Letter Comments: See Note; NOTES: [facility] [address] [place] [address]. [address] [place] [id number] Fax Yajaira Uribe, [address] [place] [address]., [address] [place] [address] Uribe: Thank you for the referral of Vlae Bullock to [facility] on the date of April 14, 2013. The patient was evaluated for right knee pain. Throughout my evaluation, this patient presents with decreased right lower extremity strength, flexibility and muscular endurance, balance, proprioception, increased pain and tenderness. I plan on treating this patient 3 times a week for 2 weeks in order to correct deficit observed during evaluation and return the patient prior level of function. Her plan of care will consist of lower extremity stretching, strengthening, balance, proprioception and functional mobility. Anticipate discharge planning is independent with home exercise program. Again, thank you for the referral of your patient to [facility]. If you have any questions or concerns regarding this evaluation, please feel free to contact me at [phone]. Sincerely, Linette Johnson, student physical therapist. Erika Ruano DPT T: SAIRA JOB: [id number] <Electronically signed by Erika Ruano > 04/16/13 1119 CC: Yajaira Uribe Work Phone: Start: 04-10-2013 End: 04-11-2013 Knee 4 or More Views Comments: See Note; NOTES: [facility] Imaging Services [address] [place] [address] Radiology Report MR#: [id number] Acct: [id number] Name: VALE BULLOCK Rep #: [id number] : 1950 F 63 From: Farooq Waggoner PCP: Yajaira Uribe DO Status: REG CLI Study: Knee 4 or More Views Date of Exam: 04/10/13 Exam# [id number] Ordering Dr: Yajaira Uribe DO STUDY: X-RAY - RIGHT KNEE REASON FOR EXAM: Female, 63 years old. Twisted TECHNIQUE: 4 views of the knee. COMPARISON: None. FINDINGS: Normal visualized distal femur. Normal visualized proximal tibia and fibula. Normal proximal tibiofibular articulation. There is mild degenerative arthrosis of the medial femorotibial compartment. Normal lateral femorotibial compartment. Normal patellofemoral articulation. There is NO joint effusion. There is an incidental fabella. The soft tissue structures are unremarkable. IMPRESSION: Mild narrowing of the medial compartment. NO fractures, malalignment or joint effusion identified. Electronically Signed: Farooq Waggoner M.D. at 3:40 EST , Service support [phone], CC: Yajaira Uribe DO Fire Safety Manager: Signed Yajaira Uribe Work Phone: Start: 07-13-2000 Lipid 1996 panel - Serum or Plasma Edmundo Calrk TURKEY PICKER-GRAVEL INSPECTOR Work Phone: History of bilateral mastectomy Status post bilateral mastectomy Edmundo Clark TURKEY PICKER-GRAVEL INSPECTOR Work Phone: History of bilateral mastectomy Status post bilateral mastectomy Yakelin Maco Mastectomy of right breast Jerel Newton Comment on above: 04/11/12 Screening mammography Jerel Newton REFRIGERATION PERSON Comment on above: 04/23/2019 [facility] - biopsy by dr hayley reyes massectomy done on 07/03/[address] vasyl ayala at [facility] Screening mammography Nilda Lujan REFRIGERATION PERSON Comment on above: 04/23/2019 [facility] - biopsy by dr hayley reyes massectomy done on 07/03/[address] vasyl ayala at [facility] Screening mammography Sandy Sepulveda REFRIGERATION PERSON Comment on above: 04/23/2019 [facility] - biopsy by dr hayley reyes massectomy done on 07/03/[address] vasyl ayala at [facility] Screening mammography Jessica Blake MA Comment on above: 04/23/2019 [facility] - biopsy by dr hayley reyes massectomy done on 07/03/[address] 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 04/11/12 Simple mastectomy Sandy Chua rb REFRIGERATION PERSON Comment on above: dr vasyl ayala at [facility] in [place], 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 04/11/12 Simple mastectomy Jessica mak MA Comment on above: dr vasyl ayala at [facility] in [place], 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 04/11/12 Plan of Treatment Date Care Activity Detail Author Start: 12-16-2024 End: 12-16-2024 Patient encounter procedure 12/16/2024 8:00 AM EDT Office Visit Division of Surgical Oncology [address], [address] [place] [address] Edmundo Clark, TURKEY PICKER-GRAVEL INSPECTOR [address] [place] [address] Division of Surgical Oncology Start: 12-31-2023 End: 12-31-2023 Clinical Support Encounter 12/31/2023 9:30 AM EDT Clinical Support Encounter [facility] [address] [place] [address] [facility] [employer] Start: 12-11-2023 End: 12-11-2023 Patient encounter procedure 12/11/2023 8:00 AM EDT Office Visit Division of Surgical Oncology [address], [address] [place] [address] Edmundo Clark, TURKEY PICKER-GRAVEL INSPECTOR [address] [place] [address] Division of Surgical Oncology Start: 01-02-2023 End: 01-02-2023 Patient encounter procedure 01/02/2023 Office Visit Surgical Oncology Edmundo Clark, TURKEY PICKER-GRAVEL INSPECTOR [address] [place] [address] Division of Surgical Oncology Start: 11-03-2022 Influenza vaccination INFLUENZA VACC INE (#1) [facility] Start: 04-08-2022 COVID-19 VACCINE (6 - Pfizer series) COVID-19 VACCINE (6 - Pfizer series) [facility] Start: 03-30-2022 Pneumococcal vaccination [facility] Start: 08-04-2021 Procedure Education Eprescribe d prescriptions (G8553) [facility] Work Phone: Start: 04-25-2021 Procedure Education Eprescribe d prescriptions (G8553) [facility] Work Phone: Start: 04-25-2021 Provider Instruction s for Treatment Follow up if no improvement or if symptoms worsen [facility] Work Phone: Start: 03-23-2021 Assay of zinc ZINC, BLOOD (24039) [facility]; [facility] Work Phone: Start: 03-23-2021 Comprehensive metabo lic panel METABOLIC PANEL, COMPREHENSIVE (57350) [facility] Work Phone: Start: 03-23-2021 Cyanocobalamin vitam in b-12 VITAMIN B-12 (CYANOCOBALAMIN) (50348) [facility]; [facility] Work Phone: Start: 03-23-2021 Procedure Education Eprescribe d prescriptions (G8553) [facility] Work Phone: Start: 01-05-2021 Patient Education Osteoporosis /Osteopeni a [facility]; [facility] Work Phone: Start: 01-05-2021 Procedure Education Eprescribe d prescriptions (G8553) [facility] Work Phone: Start: 01-05-2021 Provider Instruction s for Treatment Follow up if no improvement or if symptoms worsen [facility] Work Phone: Start: 01-05-2021 25 hydroxy includes fractions if performed CALCIFEDIOL (01408) [facility]; [facility] Work Phone: Start: 11-01-2020 Procedure Education Eprescribe d prescriptions (G8553) [facility]; [facility] Work Phone: Start: 11-01-2020 Provider Instruction s for Treatment Follow up if no improvement or if symptoms worsen [facility] Work Phone: Start: 10-25-2020 Urnls dip stick/tabl et rgnt non-auto w/o micrscp Urinalysis, Office (74834) [facility]; [facility] Work Phone: Start: 10-25-2020 Procedure Education Eprescribe d prescriptions (G8553) [facility]; [facility] Work Phone: Start: 10-21-2020 Procedure Education Eprescribe d prescriptions (G8553) [facility]; [facility] Work Phone: Start: 10-21-2020 Provider Instruction s for Treatment [facility]; [facility] Work Phone: Start: 09-30-2020 Procedure Education Eprescribe d prescriptions (G8553) [facility]; [facility] Work Phone: Start: 09-30-2020 Fibrin dgradj produc ts d-dimer quantitative D-Dimer (63652) [facility]; [facility] Work Phone: Start: 08-03-2020 Procedure Education Eprescribe d prescriptions (G8553) [facility]; [facility] Work Phone: Start: 08-03-2020 Provider Instruction s for Treatment [facility]; [facility] Work Phone: Start: 08-26-2019 Procedure Education Eprescribe d prescriptions (G8553) [facility] Work Phone: Start: 08-26-2019 Iadna s aureus ampli fied probe tq MRSAW (96082) [facility] Work Phone: Start: 08-26-2019 Iadna s aureus methicillin resist amp probe tq MRSA Culture (94824) [facility] Work Phone: Start: 06-17-2018 Procedure Education Eprescribe d prescriptions (G8553) [facility] Work Phone: Start: 06-17-2018 Provider Instruction s for Treatment [facility] Work Phone: Start: 06-17-2018 Blood occult peroxid ase actv qual feces 1 deter OCCULT BLOOD FECES SCREEN (68608) [facility] Work Phone: Start: 06-17-2018 Leukocyte assmt feca l qual/semiquantitative LEUKOCYTE COUNT, FECAL (15761) [facility] Work Phone: Start: 06-17-2018 Ova&parasites direct smears concentration & id OVA & PARASITE DIR SMEAR (30374) [facility] Work Phone: Start: 06-17-2018 Cul bact stool aerob ic isol salmonella&shigell CHAPO CULTURE-STOOL (99806) [facility] Work Phone: Start: 06-17-2018 Culture bacterial an y source anaerobic iso&id C-DIFFICILE, STOOL (75326) [facility] Work Phone: Start: 06-17-2018 Sedimentation rate r bc non-automated Sed Rate Erythrocyte (08319) [facility] Work Phone: Start: 06-17-2018 Comprehensive metabo lic panel Metabolic Panel, Comprehensive (30910) [facility] Work Phone: Start: 06-17-2018 Blood count manual c ell count each CBC with auto diff (27266) [facility] Work Phone: Start: 04-05-2017 Tetanus vaccination TETANUS [facility] Start: 12-27-2015 Provider Instruction s for Treatment Follow up tomorrow, as needed [facility] Work Phone: Start: 12-11-2014 Procedure Education Eprescribe d prescriptions (G8553) [facility] Work Phone: Start: 12-11-2014 Iaadiadoo streptococ cus group a Rapid Strep Test, Office (28088) [facility]; [facility] Work Phone: Start: 12-11-2014 S. pyogenes Ag IA Ql (Unsp spec) Rapid Strep Test, Office (63243) [facility] Work Phone: Start: 03-26-2014 Patient Education Shingles (He rpes Zoster) *: rash [facility] Work Phone: Start: 03-26-2014 Provider Instruction s for Treatment Follow up if no improvement or if symptoms worsen [facility] Work Phone: Start: 05-08-2013 Provider Instruction s for Treatment Reviewed Diagnostic Tests [facility] Work Phone: Start: 04-10-2013 Provider Instruction s for Treatment Follow up in 2- 3 weeks [facility] Work Phone: Start: 08-19-2012 Lipid panel LIPID PANEL (71729) [facility] Work Phone: Start: 02-26-2012 Lipid panel LIPID PANEL (95572) [facility] Work Phone: Start: 02-19-2012 Provider Instruction s for Treatment [facility] Work Phone: Start: 10-27-2011 Provider Instruction s for Treatment [facility] Work Phone: Start: 10-05-2011 Patient Education Asthma: Brie f Version *: asthma [facility] Work Phone: Start: 10-05-2011 Provider Instruction s for Treatment [facility] Work Phone: Start: 10-05-2011 Assay of thyroid stimulating hormone tsh TSH (86303) [facility]; [facility] Work Phone: Start: 10-05-2011 Thyrotropin Qn TSH (34383) [facility] Work Phone: Start: 10-05-2011 Comprehensive metabo lic panel METABOLIC PANEL, COMPREHENSIVE (88538) [facility] Work Phone: Start: 10-05-2011 Blood count manual c ell count each CBC WITH MANUAL DIFF (91377) [facility] Work Phone: Start: 10-05-2011 Lipid panel LIPID PANEL (11032) [facility] Work Phone: Start: 07-24-2011 Patient Education Breast Cance r: Early Detection: prevention [facility] Work Phone: Start: 07-24-2011 Provider Instruction s for Treatment [facility] Work Phone: Start: 07-24-2011 Cytp cerv/vag auto t hin layer prep mnl screen Thin prep Pap (26701) [facility] Work Phone: Start: 2011 RSV VACCINE (1 - 1-d ose 60+ series) RSV VACCINE (1 - 1-dose 60+ series) [facility] Start: 01-23-2011 Provider Instruction s for Treatment Reviewed Diagnostic Tests [facility] Work Phone: Start: 01-16-2011 Provider Instruction s for Treatment Follow up in 1 week [facility] Work Phone: Start: 01-11-2011 Antibody borrelia burgdorferi confirmatory tst LYME DISEASE CONFIRMATION TEST (38789) [facility] Work Phone: Comment on above: today and in 2 wks Start: 12-28-2010 Provider Instruction s for Treatment [facility] Work Phone: Start: 12-28-2010 Antibody borrelia burgdorferi confirmatory tst LYME DISEASE CONFIRMATION TEST (75697) [facility] Work Phone: Comment on above: today and in 2 wks Start: 12-28-2010 Cul bact xcpt urine blood/stool aerobic isol CHAPO CULTURE-OTHER (94796) [facility] Work Phone: Start: 11-08-2007 Screening for osteoporosis DEXA SCAN DISCUSSION [facility] Start: 11-01-2007 Provider Instruction s for Treatment [facility] Work Phone: Start: 10-30-2007 Provider Instruction s for Treatment FOLLOW UP IN 1 WEEK [facility] Work Phone: Start: 10-30-2007 Comprehensive metabo lic panel Metabolic Panel, Comprehensive (55951) [facility] Work Phone: Start: 10-28-2007 Patient Education Water in t, brief version [facility] Work Phone: Start: 10-28-2007 Provider Instruction s for Treatment Follow up for recheck urine 1 week after complete antibiotic [facility] Work Phone: Start: 10-28-2007 Culture bacterial quanttative colony count urine URINE CHAPO CULTURE-ANA COL COUNT (87800) [facility] Work Phone: Start: 10-28-2007 Culture bacterial quanttative colony count urine URINE CHAPO CULTURE-ANA COL COUNT (18911) [facility] Work Phone: Start: 10-28-2007 Urinls dip stick/tab let reagnt non-auto micrscpy URINALYSIS W MICROSCOPY (86595) [facility] Work Phone: Start: 10-24-2007 Screening for malign ant neoplasm of cervix CERVICAL CANCER SCREENING DISCUSSION [facility] Start: 09-09-2007 Provider Instruction s for Treatment [facility] Work Phone: Start: 09-09-2007 Lipid panel LIPID PANEL (41250) [facility] Work Phone: Start: 12-10-2006 Provider Instruction s for Treatment [facility] Work Phone: Start: 06-26-2006 Provider Instruction s for Treatment [facility] Work Phone: Start: 11-22-2005 Provider Instruction s for Treatment [facility] Work Phone: Start: 11-22-2005 Lipid panel LIPID PANEL (15002) [facility] Work Phone: Start: 11-22-2005 Glucose mass conc GLUCOSE, PP/ 2 HOUR (10992) [facility] Work Phone: Start: 11-22-2005 Glucose quantitative blood xcpt reagent strip GLUCOSE, PP/2 HOUR (40275) [facility]; [facility] Work Phone: Start: 07-13-2005 Lipid panel LIPID SCREENING [facility] Start: 2001 Zoster vaccine hzv l katerin for subcutaneous use ZOSTER (SHINGLES) VACCINE (1 of 2) [facility] Start: 02-24-1996 Screening for malign ant neoplasm of colon COLORECTAL CANCER SCREENING DISCUSSION [facility] Start: 1970 Third diphtheria, tetanus and acellular pertussis (DTaP) vaccination TDAP (ADULT) [facility] Start: 1950 Hepatitis C screening HEPATITI S C VIRUS SCREENING [facility] Work Phone: [facility] Work Phone: [facility] Work Phone: [facility] Work Phone: [facility] Work Phone[facility] Work Phone[facility] Work Phone: [facility] Work Phone: [facility] Work Phone: [facility] Work Phone: [facility] Work Phone: [facility] Work Phone: [facility] Work Phone: [facility] Work Phone[facility] Work Phone: [facility] Work Phone: [facility] Work Phone: [facility] Work Phone: [facility] Immunizations Immunization Date Immunization Notes Care Provider [address]04-2022 influenza virus vaccine, unspecified formulation Edmundo Clark [facility] Work Phone: [facility] 03-05-2020 COVID-Pfizer (30 MCG/0.3 ML) Yajaira Masseyon DO Work Phone: [facility]; [facility] Work Phone: 03-05-2019 pneumococcal polysaccharide vaccine, 23 valent Yajaira Jojo DO Work Phone: [facility]; [facility] Work Phone: 05-20-2010 typhoid capsular polysaccharide vaccine Edmundo Clark [facility] Work Phone: [facility] 02-10-2008 hepatitis A and hepatitis B vaccine Edmundo Clark [facility] Work Phone: [facility] 08-13-2007 hepatitis A and hepatitis B vaccine Edmundo Clark [facility] Work Phone: [facility] 07-11-2007 hepatitis A and hepatitis B vaccine Edmundo [place] [facility] Work Phone: [facility] 07-11-2007 typhoid capsular polysaccharide vaccine Edmundo [place] [facility] Work Phone: [facility] 04-05-2007 tetanus and diphther ia toxoids, adsorbed, preservative free, for adult use (2 Lf of tetanus toxoid and 2 Lf of diphtheria toxoid) Edmundo Clark [facility] Work Phone: [facility] Payers Date Payer Category Payer Self-pay [id number] 2019 Unknown 2018 Medicare [id number] 2018 Private Health Insurance [id number] 2016 Medicare MEDICARE MEDICAR E A AND B [id number] 2016-Present [address] [place] [address] [id number] 2016 Medicare [id number] 2015 Unknown [id number] 2013 Unknown [id number] 2007 Unknown [id number] 1951 Unknown [id number] 16 1951 Unknown [id number] 1951 Unknown [id number] 94 Unknown [id number] Unknown [id number] 62 Unknown [id number] 62 Unknown [id number] Social History Date Type Detail Facility Start: 12-05-2022 End: 12-18-2023 Alcohol Use Never smoker [facility] Work Phone: Comment on above: [facility] Tobacco use: Never smoker. [facility] Work Phone: Comment on above: 07/24/11 Tobacco use: Tobacco use: [facility] Work Phone: Comment on above: 07/24/11 Start: 01-02-2022 End: 08-15-2024 Tobacco smoking status NHIS Never smoked tobacco [facility] Start: 01-02-2022 Tobacco use and exposure Smokeless tobacco non-user [facility] Start: 01-02-2022 End: 12-18-2023 Alcohol intake Current drinker of alcohol (finding) [facility] Start: 01-02-2022 History SDOH Financial 5 [facility] Start: 01-02-2022 History SDOH Food Worry 1 [facility] Start: 01-02-2022 History SDOH Transport Med 2 [facility] Start: 05-05-2019 Alcohol Comment wine occasionally [facility] Start: 1950 Sex Assigned At Not on file [facility] Start: 12-05-2022 End: 12-18-2023 Tobacco use panel [facility] How hard is it for you to pay for the very basics like food, housing, medical care, and heating Not hard at all [facility] (I/We) worried whether (my/our) food would run out before (I/we) got money to buy more. Never true [facility] Gender identity Identifies as fe male gender (finding) [facility] Start: 08-26-2016 Tobacco smoking status NHIS Unknown if ever smoked [facility] Start: 1950 Sex Assigned At Female [facility] Goals Date Patient Goal Desired Activity /State Personal health goal Comment on above: Formatting of this n ote might be different from the original. STG (To be achieved in 1 visit): 1. Patient to obtain SOZO or girth measurement of left UE in order to obtain a baseline pre-operative limb volume assessment and be educated on effective treatment options to reduce this volume following surgery and improve functional mobility of extremity. 06/30/2019 met 2. Patient will bed educated on risk of lymphedema and the importance of early intervention in the event that she notices signs/symptoms consistent with lymphedema to assist with management and decrease risk of secondary complications associated with lymphedema. 06/30/2019 met Comment on above: Formatting of this n ote might be different from the original. STG (To be achieved in 1 visit): 1. Patient to obtain SOZO or girth measurement of left UE in order to obtain a baseline pre-operative limb volume assessment and be educated on effective treatment options to reduce this volume following surgery and improve functional mobility of extremity. 06/30/2019 met 2. Patient will bed educated on risk of lymphedema and the importance of early intervention in the event that she notices signs/symptoms consistent with lymphedema to assist with management and decrease risk of secondary complications associated with lymphedema. 06/30/2019 met Clinical Notes 01-02-2022 to 12-31-2023 Yakelin Dewey - 12/31/2023 9:30 AM Armida Clark, [facility] - 12/18/2023 8:00 AM Grant Alltop - 12/05/2022 3:30 PM Asuncion Escobar RN - 12/05/2022 2:30 PM EDT Note Date & Type Note Facility 12-31-2023 History of Present illness Narrative NOTE: VERIFY NAME, , ADDRESS FOR CLIENT(UPDATE CATAPULT) Bra Prosthesis Note Vale Bullock is being seen today at [facility] by Yakelin Dewey for a Breast Issue. Her surgery was on 2012 -RT MAST, 2019 -LT MAST. Mastectomy: R__ L__ Bilateral _X_ Lumpectomy: R__ L__ Bilateral__ Reconstruction: Yes__ No _X_ Reconstruction removed Yes__ No__ Orders Orders: Orders reviewed ___X_ Dx code Z85.3, Z90.13 AMBER Measurements Bra Band: 38.75 inches Fullest part of Bust: NA inches Final band size:42 Final cup size:A Prosthesis/Form: Size: ANI 1052X2 07 x2 -12/31/2023. Additional Visit information Client Visit: pre/post op___ routine/annual_X__ refit___ reorder/no fitting___. Goals that were discussed with patient: COMFORT AND SYMMETRY, IT HAS BEEN SEVERAL YRS. THAT VALE HAS NOT WORN PROSTHETICS. I EXPLAINED TO HER SHE SHOULD HAVE THAT WEIGHT ON HER CHEST WALL FOR POSTURE ETC. Reason for replacement of bras: FIRST VISIT SINCE BL MAST. Reason for replacement of prosthesis: FIRST VISIT, AFTER FIRST SURGERY SAID PROSTHESIS WAS HEAVY. Concerns/comments about fitting: VALE was in for first time since having her left mastectomy, she has healed nicely. She tried bra's with ROSA 400 07's and ANI 1052x2 07's, she liked fit of NEMO forms better. She also tried several bra's on, did not care for ROSA Courtney as well as the ABC 525. Also liked ANI 5769x xl but did not take today. She might marlena in first qtr of 2024 to have me bill and send bra's to her. Did you instruct client on don/doffing procedures: Y Did you instruct client of care for pros/bras: Y Did you instruct client of warranty/storage of pros/bras: Y Purchased: ANI 1052X2 07 x2. ABC 525 42A BG. ABC 515 42A BG. ANI 4731X 42A RW. Product ordered: N DID YOU RELEASE CARE INSTRUCTIONS -Y documented in this encounter [facility] 12-18-2023 History of Present illness Narrative Breast Surgical Oncology Clinic Note Patient: Vale Bullock Age: 73 y.o. Attending: Vasyl Ayala Date of Consult: December 18, 2023 Chief Complaint Patient presents with Follow-up One year follow up for HX. IDC , and bilateral Mastectomies. R. 2013, left breast 2020. R. Axilla with tenderness and momentarily shooting pain is reported. Subjective Vale Bullock is a 73 y.o. female who presents for surveillance for history of bilateral breast cancer. History of Present Illness The patient presents for evaluation of right axillary pain. She has been experiencing intermittent pain in her right axilla, which is a chronic issue. The area is consistently tender, but she does not feel any lumps or bumps. There are no noticeable skin changes or rashes. She experiences shooting pains when moving in certain ways. Attempts to strengthen the area through exercise have resulted in a pulling sensation. The pain is position-dependent and subsides upon changing position, lasting only a few seconds. She rates the pain as a 6 on a scale of 1 to 10. She does not take medication for this pain as it is inconsistent. Pressure on the area results in a cramp-like sensation. She reports no new chest pain, shortness of breath, abdominal pain, or bone pain. She is not currently on any medications. Her oncology history is as shown. Oncology History Invasive ductal carcinoma of breast, female, left 04/25/2019 Initial Diagnosis A. Left breast, mass, 11 o'clock-12 o'clock, top hat clip, stereotactic biopsy: Invasive ductal carcinoma with associated microcalcification, grade 2 (score: tubule 3, nuclear 2, mitotic 1), 0.4 cm in greatest length Ductal carcinoma in situ (DCIS), intermediate nuclear grade, solid and cribriform type Invasive tumor: ER positive (100%, strong intensity), NM positive (50%, moderate intensity), HER2 equivocal (2+) by manual quantification at [facility] with HER2 FISH pending Note: Immunostain for E-cadherin shows membranous staining, confirming ductal phenotype. 07/03/2019 Surgery Left mastectomy sentinel lymph node biopsy 07/03/2019 - Cancer Staged Staging form: Breast, AJCC 8th Edition - Pathologic stage from 07/03/2019: Stage IA (pT1a, pN0(sn), cM0, G2, ER+, NM+, HER2-) Review of systems negative for constitutional symptoms, new pain, chest pain, shortness of breath, easy bruising, new masses, new headache, new rash, depressive symptoms. Review of systems positive for None Past Medical History: Diagnosis Date Asthma Breast cancer 02/2012 Right Breast Cat allergies History of recurrent UTIs Invasive ductal carcinoma of breast, left 04/25/2019 Stereotactic bx showing left IDC ER/NM+, Her2-anum negative Migraine age 33 Recurrent sinus infections Ulcer Past Surgical History: Procedure Laterality Date EXCISION LESION SKIN TRUNK Bilateral 01/08/2020 Laterality: Bilateral; Surgeon: Mesfin Concepcion MD; Location: [facility] MA[facility] OR REPAIR WOUND INTERMEDIATE AXILLAE TRUNK Bilateral 01/08/2020 Laterality: Bilateral; Surgeon: Mesfin Concepcion MD; Location: [facility] MAIN OR MASTECTOMY COMPLETE Left 07/03/2019 Laterality: Left; Surgeon: Vasyl Ayala MD; Location: [facility] MAIN OR BX LYMPH NODE AXILLARY DEEP Left 07/03/2019 Laterality: Left; Surgeon: Vasyl Ayala MD; Location: [facility] MAIN OR INJECTION RADIOACTIVE TRACER FOR SENTINEL NODE IDENTIFICATION Left 07/03/2019 Laterality: Left; Surgeon: Vasyl Ayala MD; Location: [facility] MAIN OR IDENTIFICATION SENTINEL NODE INTRAOPERATIVE ADD-ON PX Left 07/03/2019 Laterality: Left; Surgeon: Vasyl Ayala MD; Location: [facility] MA[facility] OR CORE BIOPSY OF THE BREAST Left 04/25/2019 Stereotactic bx showing left IDC ER/NM+, Her2-anum negative MASTECTOMY COMPLETE Right 04/11/2012 Laterality: Right; Surgeon: Yakelin Phelps MD; Location: [facility] MAIN OR BX LYMPH NODE AXILLARY DEEP Right 04/11/2012 Laterality: Right; Surgeon: Yakelin Phelps MD; Location: [facility] MAIN OR INJECTION RADIOACTIVE TRACER FOR SENTINEL NODE IDENTIFICATION Right 04/11/2012 Laterality: Right; Surgeon: Yakelin Phelps MD; Location: [facility] MAIN OR LYMPHADENECTOMY AXILLARY DEEP Right 04/11/2012 Laterality: Right; Surgeon: Yakelin Phelps MD; Location: [facility] MAIN OR MASTECTOMY Right 04/2012 DCIS BREAST BIOPSY 02/21/2012 Right breast DCIS. BREAST BIOPSY 02/13/12 right DCIS with micro invasion, ER+/NM+/Her-2 negative. BX LYMPH NODE Right 2011 APPENDECTOMY TONSILLECTOMY TUBAL LIGATION Family History Problem Relation Age of Onset Breast Cancer Maternal Aunt 65 Other - Specify Father Heart Failure Father Stroke Father Other - Specify Sister polycystic kidney Cancer- Other Brother esophageal Diabetes Mother Heart Failure Mother Lung Cancer Paternal Aunt 82 yrs of age at Ovarian Cancer Neg Hx Uterine Cancer Neg Hx Social History Socioeconomic History Marital status: Spouse name: Not on file Number of children: Not on file Years of education: Not on file Highest education level: Not on file Occupational History Not on file Tobacco Use Smoking status: Never Smokeless tobacco: Never Substance and Sexual Activity Alcohol use: Yes Comment: wine occasionally Drug use: No Sexual activity: Yes Partners: Male control/protection: Pill Other Topics Concern Occupational Exposure No Hobby Hazards No 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 Patient reports taking intermittent control pills in her 20's for 20 years. BREAST (GENERAL): Patient denies performing self-breast exams. Date of patient's first mammogram: 1996 Date of most recent mammogram: 04/23/2019 (s/p bilateral mastectomies). Bra/Cup Size: B BREAST(HISTORICAL BIOPSY/THERAPY/TREATMENT) Patient admits to previous breast biopsy(s). Patient admits to being told they personally have breast cancer or a breast malignancy. Patient denies chemotherapy, hormone therapy or radiation therapy during the last month. Social Determinants of Health Financial Resource Strain: Low Risk (12/18/2023) Overall Financial Resource Strain (CARDIA) Difficulty of Paying Living Expenses: Not hard at all Food Insecurity: No Food Insecurity (12/18/2023) Hunger Vital Sign Worried About Running Out of Food in the Last Year: Never true Ran Out of Food in the Last Year: Never true Transportation Needs: No Transportation Needs (12/18/2023) PRAPARE - Transportation Lack of Transportation (Medical): No Lack of Transportation (Non-Medical): No Physical Activity: Not on file Stress: Not on file Social Connections: Not on file Intimate Partner Violence: Not on file Housing Stability: Not on file Allergies Allergen Reactions Clarithromycin Rash -too long ago to remember clearly Penicillins Rash -too long ago to remember clearly Tape [*Adhesive Tape] Hives and Rash -issues with surgical white tape, lasted for 6 weeks HOME MEDICATIONS: No current outpatient medications on file. Exam Vitals: 12/18/23 0822 BP: 132/63 Pulse: 69 Temp: 97.7 F (36.5 C) Constitutional: Awake, alert, oriented 3 and in no apparent distress. HENT: Normocephalic and atraumatic. Extraocular muscles intact. Ears, nose and mouth are grossly normal. Psychiatric: Patient's mood is within normal limits. Behavior is normal. Judgment normal. Breast: Well healed mastectomy scars bilaterally without evidence of local recurrence. No suspicious skin or contour change. On palpation, there are no discrete or dominant masses identified. No clavicular or axillary adenopathy. Lymphedema is not present. Imaging: None today; Ultrasound of the right axilla in April 2018 showed no abnormalities. Ultrasound of the right axilla in December 2022 showed no abnormalities. Assessment and Plan Assessment 1. Cancer Staging Invasive ductal carcinoma of breast, female, left Staging form: Breast, AJCC 8th Edition - Clinical: Stage IA (cT1a, cN0, cM0, G2, ER+, NM+, HER2: Equivocal) - Pathologic stage from 07/03/2019: Stage IA (pT1a, pN0(sn), cM0, G2, ER+, NM+, HER2-) Surveillance; s/p bilateral mastectomies with no evidence of disease. Intermittent right axillary discomfort. Plan: The patient reports chronic right axillary pain that is tender and position-dependent, with shooting pain rated at about 6/10. The pain is exacerbated by certain movements and upper body exercises but resolves upon changing position. There are no associated skin changes, rashes, or palpable lumps. Previous ultrasounds in April 2018 and December 2022 showed no abnormalities. Izho-yct-thdltms medications are not typically used by the patient for this pain. She has been advised to continue monitoring the symptoms and to avoid activities that exacerbate the pain. I encouraged her to continue with active stretching routine and that PT can be pursued for assistance in management of the tightness/discomfort in this area should she wish to pursue it. If the pain worsens or she would notice associated lump or skin change, further evaluation may be considered. [facility]. She was offered Knitted Knockers for use in the interim should she wish to trial these. She will return to clinic for evaluation in 1 year. Approximately 25 minutes were spent by dc, SANDRA Campbell on 12/18/23 for this visit with >50% of this spent preparing to see the patient, in direct patient care, and in counseling/coordination of the patient's plan of care. documented in this encounter [facility] 12-05-2022 History of Present illness Narrative Patient offered a medical travel service consultant for sensitive exam. Pt declined documented in this encounter [facility] 12-05-2022 History of Present illness Narrative Patient offered a medical travel service consultant for sensitive exam. Patient denies need for medical travel service consultant. Breast Surgical Oncology Clinic Note Patient: Vale Bullock Age: 72 y.o. Attending: Vasyl Ayala Date of Consult: December 05, 2022 Chief Complaint Patient presents with Follow-up 1 year follow up. Hx of bilateral mastectomies. Patient with some pain in the right axilla- pretty constant. Otherwise, no other concerns. x History of Present Illness: Vale Bullock is a 72 y.o. female who returns to breast surgical oncology clinic for surveillance for history of bilateral breast cancer. She is status post bilateral mastectomies. She does note persistent tenderness in the right axilla. She denies any known masses. Patient denies palpable breast mass. Patient denies nipple discharge. Patient denies breast skin changes. Patient denies palpable adenopathy. Her oncology history is as shown. Oncology History Invasive ductal carcinoma of breast, female, left 04/25/2019 Initial Diagnosis A. Left breast, mass, 11 o'clock-12 o'clock, top hat clip, stereotactic biopsy: Invasive ductal carcinoma with associated microcalcification, grade 2 (score: tubule 3, nuclear 2, mitotic 1), 0.4 cm in greatest length Ductal carcinoma in situ (DCIS), intermediate nuclear grade, solid and cribriform type Invasive tumor: ER positive (100%, strong intensity), NM positive (50%, moderate intensity), HER2 equivocal (2+) by manual quantification at [facility] with HER2 FISH pending Note: Immunostain for E-cadherin shows membranous staining, confirming ductal phenotype. 07/03/2019 Surgery Left mastectomy sentinel lymph node biopsy 07/03/2019 - Cancer Staged Staging form: Breast, AJCC 8th Edition - Pathologic stage from 07/03/2019: Stage IA (pT1a, pN0(sn), cM0, G2, ER+, NM+, HER2-) Review of systems negative for constitutional symptoms, new pain, chest pain, shortness of breath, easy bruising, new masses, new headache, new rash, depressive symptoms. Review of systems positive for None Past Medical History: Diagnosis Date Asthma Breast cancer 02/2012 Right Breast Cat allergies History of recurrent UTIs Invasive ductal carcinoma of breast, left 04/25/2019 Stereotactic bx showing left IDC ER/NM+, Her2-anum negative Migraine age 33 Recurrent sinus infections Ulcer Past Surgical History: Procedure Laterality Date EXCISION LESION SKIN TRUNK Bilateral 01/08/2020 Laterality: Bilateral; Surgeon: Mesfin Concepcion MD; Location: [facility] MA[facility] OR REPAIR WOUND INTERMEDIATE AXILLAE TRUNK Bilateral 01/08/2020 Laterality: Bilateral; Surgeon: Mesfin Concepcion MD; Location: [facility] MAIN OR MASTECTOMY COMPLETE Left 07/03/2019 Laterality: Left; Surgeon: Vasyl Ayala MD; Location: [facility] MAIN OR BX LYMPH NODE AXILLARY DEEP Left 07/03/2019 Laterality: Left; Surgeon: Vasyl Ayala MD; Location: [facility] MAIN OR INJECTION RADIOACTIVE TRACER FOR SENTINEL NODE IDENTIFICATION Left 07/03/2019 Laterality: Left; Surgeon: Vasyl Ayala MD; Location: [facility] MAIN OR IDENTIFICATION SENTINEL NODE INTRAOPERATIVE ADD-ON PX Left 07/03/2019 Laterality: Left; Surgeon: Vasyl Ayala MD; Location: [facility] MAIN OR CORE BIOPSY OF THE BREAST Left 04/25/2019 Stereotactic bx showing left IDC ER/NM+, Her2-anum negative MASTECTOMY COMPLETE Right 04/11/2012 Laterality: Right; Surgeon: Yakelin Phelps MD; Location: [facility] MA[facility] OR BX LYMPH NODE AXILLARY DEEP Right 04/11/2012 Laterality: Right; Surgeon: Yakelin Phelps MD; Location: [facility] MAIN OR INJECTION RADIOACTIVE TRACER FOR SENTINEL NODE IDENTIFICATION Right 04/11/2012 Laterality: Right; Surgeon: Yakelin Phelps MD; Location: [facility] MAIN OR LYMPHADENECTOMY AXILLARY DEEP Right 04/11/2012 Laterality: Right; Surgeon: Yakelin Phelps MD; Location: [facility] MAIN OR MASTECTOMY Right 04/2012 DCIS BREAST BIOPSY 02/21/2012 Right breast DCIS. BREAST BIOPSY 02/13/12 right DCIS with micro invasion, ER+/NM+/Her-2 negative. BX LYMPH NODE Right 2011 APPENDECTOMY TONSILLECTOMY TUBAL LIGATION Family History Problem Relation Age of Onset Breast Cancer Maternal Aunt 65 Other - Specify Father Heart Failure Father Stroke Father Other - Specify Sister polycystic kidney Cancer- Other Brother esophageal Diabetes Mother Heart Failure Mother Lung Cancer Paternal Aunt 82 yrs of age at Ovarian Cancer Neg Hx Uterine Cancer Neg Hx Social History Socioeconomic History Marital status: Spouse name: Not on file Number of children: Not on file Years of education: Not on file Highest education level: Not on file Occupational History Not on file Tobacco Use Smoking status: Never Smokeless tobacco: Never Substance and Sexual Activity Alcohol use: Yes Comment: wine occasionally Drug use: No Sexual activity: Yes Partners: Male control/protection: Pill Other Topics Concern Occupational Exposure No Hobby Hazards No 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 Patient reports taking intermittent control pills in her 20's for 20 years. BREAST (GENERAL): Patient denies performing self-breast exams. Date of patient's first mammogram: 1996 Date of most recent mammogram: 04/23/2019 (s/p bilateral mastectomies). Bra/Cup Size: B BREAST(HISTORICAL BIOPSY/THERAPY/TREATMENT) Patient admits to previous breast biopsy(s). Patient admits to being told they personally have breast cancer or a breast malignancy. Patient denies chemotherapy, hormone therapy or radiation therapy during the last month. Social Determinants of Health Financial Resource Strain: Low Risk (01/02/2022) Overall Financial Resource Strain (CARDIA) Difficulty of Paying Living Expenses: Not hard at all Food Insecurity: No Food Insecurity (01/02/2022) Hunger Vital Sign Worried About Running Out of Food in the Last Year: Never true Ran Out of Food in the Last Year: Never true Transportation Needs: No Transportation Needs (01/02/2022) PRAPARE - Transportation Lack of Transportation (Medical): No Lack of Transportation (Non-Medical): No Physical Activity: Not on file Stress: Not on file Social Connections: Not on file Intimate Partner Violence: Not on file Housing Stability: Not on file Allergies Allergen Reactions Clarithromycin Rash -too long ago to remember clearly Penicillins Rash -too long ago to remember clearly Tape [*Adhesive Tape] Hives and Rash -issues with surgical white tape, lasted for 6 weeks HOME MEDICATIONS: No current outpatient medications on file. Exam Vitals: 12/05/22 1448 BP: 135/83 Pulse: 74 Temp: 98 F (36.7 C) Constitutional: Awake, alert, oriented 3 and in no apparent distress. HENT: Normocephalic and atraumatic. Extraocular muscles intact. Ears, nose and mouth are grossly normal. Psychiatric: Patient's mood is within normal limits. Behavior is normal. Judgment normal. Breast: Well healed mastectomy scars bilaterally without evidence of local recurrence. Area of focal tenderness in axillary tail along lateral and superior aspect of mastectomy scar marked for imaging. No suspicious skin or contour change. On palpation, there are no discrete or dominant masses identified. No clavicular or axillary adenopathy. Lymphedema is not present. Imaging: EXAM: US BREAST LIMITED UNILATERAL RIGHT, 12/05/2022 15:42 PM CLINICAL INDICATIONS: 72-year-old female who presents for imaging evaluation of pain in the upper outer quadrant of the right mastectomy and right axillary tail. 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 COMPARISON: No post procedure imaging for comparison. TECHNIQUE: Multiple real-time galindo-scale images of the right mastectomy were obtained by the upkeep mechanic. Color Doppler was used to assess vascular flow. FINDINGS: Targeted ultrasound of the marked area of concern located in the upper outer quadrant and axillary tail of the right mastectomy site was performed showing normal-appearing subcutaneous fat and musculature. No cystic or solid mass is identified. Vascularity is normal. IMPRESSION IMPRESSION: Normal limited ultrasound of the area of focal pain in the upper outer right mastectomy site. BI-RADS: 2: Benign Recommendation: Clinical correlation/management. Recommendation Laterality: Right Assessment and Plan Assessment 1. Cancer Staging Invasive ductal carcinoma of breast, female, left Staging form: Breast, AJCC 8th Edition - Clinical: Stage IA (cT1a, cN0, cM0, G2, ER+, NM+, HER2: Equivocal) - Pathologic stage from 07/03/2019: Stage IA (pT1a, pN0(sn), cM0, G2, ER+, NM+, HER2-) Surveillance; s/p bilateral mastectomies with no evidence of disease. Focal area of tenderness without clinical or imaging correlate. Plan: 1. Her exam and imaging from today shows no evidence of disease. Discussed use of continued use of acetaminophen, warm compress, and topical diclofenac for area of discomfort. She will monitor closely and let me know if symptoms worsen or fail to resolve. 2. Return to clinic in 1 year for clinical exam. Approximately 30 were spent for this visit which includes face to face interaction, the time spent in preparing to see the patient (including review of images, pathology and history), the time spent communicating with other health foster care therapist, and the time spent for care coordination today. documented in this encounter [facility] 01-02-2022 History of Present illness Narrative Patient offered a medical travel service consultant for sensitive exam. Patient declined travel service consultant. Breast Surgical Oncology Clinic Note Patient: Vale Bullock Age: 71 y.o. Attending: Vasyl Aylaa Date of Consult: January 02, 2022 Chief Complaint Patient presents with Follow-up Annual follow-up, history of bilateral breast cancer. No new complaints. History of Present Illness: Vale Bullock is a 71 y.o. female who returns to breast surgical oncology clinic for surveillance for history of bilateral breast cancer. She is status post bilateral mastectomies. Patient denies palpable breast mass. Patient denies nipple discharge. Patient denies breast skin changes. Patient denies palpable adenopathy. Her oncology history is as shown. Oncology History Invasive ductal carcinoma of breast, female, left 04/25/2019 Initial Diagnosis A. Left breast, mass, 11 o'clock-12 o'clock, top hat clip, stereotactic biopsy: Invasive ductal carcinoma with associated microcalcification, grade 2 (score: tubule 3, nuclear 2, mitotic 1), 0.4 cm in greatest length Ductal carcinoma in situ (DCIS), intermediate nuclear grade, solid and cribriform type Invasive tumor: ER positive (100%, strong intensity), NM positive (50%, moderate intensity), HER2 equivocal (2+) by manual quantification at [facility] with HER2 FISH pending Note: Immunostain for E-cadherin shows membranous staining, confirming ductal phenotype. 07/03/2019 Surgery Left mastectomy sentinel lymph node biopsy 07/03/2019 - Cancer Staged Staging form: Breast, AJCC 8th Edition - Pathologic stage from 07/03/2019: Stage IA (pT1a, pN0(sn), cM0, G2, ER+, NM+, HER2-) Review of systems negative for constitutional symptoms, new pain, chest pain, shortness of breath, easy bruising, new masses, new headache, new rash, depressive symptoms. Review of systems positive for None Past Medical History: Diagnosis Date Asthma Breast cancer 02/2012 Right Breast Cat allergies History of recurrent UTIs Invasive ductal carcinoma of breast, left 04/25/2019 Stereotactic bx showing left IDC ER/NM+, Her2-anum negative Migraine age 33 Recurrent sinus infections Ulcer Past Surgical History: Procedure Laterality Date EXCISION LESION SKIN TRUNK Bilateral 01/08/2020 Laterality: Bilateral; Surgeon: Mesfin Concepcion MD; Location: [facility] MAIN OR REPAIR WOUND INTERMEDIATE AXILLAE TRUNK Bilateral 01/08/2020 Laterality: Bilateral; Surgeon: Mesfin Concepcion MD; Location: [facility] MAIN OR MASTECTOMY COMPLETE Left 07/03/2019 Laterality: Left; Surgeon: Vasyl Ayala MD; Location: [facility] MAIN OR BX LYMPH NODE AXILLARY DEEP Left 07/03/2019 Laterality: Left; Surgeon: Vasyl Ayala MD; Location: [facility] MAIN OR INJECTION RADIOACTIVE TRACER FOR SENTINEL NODE IDENTIFICATION Left 07/03/2019 Laterality: Left; Surgeon: Vasyl Ayala MD; Location: [facility] MAIN OR IDENTIFICATION SENTINEL NODE INTRAOPERATIVE ADD-ON PX Left 07/03/2019 Laterality: Left; Surgeon: Vasyl Ayala MD; Location: [facility] MAIN OR CORE BIOPSY OF THE BREAST Left 04/25/2019 Stereotactic bx showing left IDC ER/NM+, Her2-anum negative MASTECTOMY COMPLETE Right 04/11/2012 Laterality: Right; Surgeon: Yakelin Phelps MD; Location: [facility] MAIN OR BX LYMPH NODE AXILLARY DEEP Right 04/11/2012 Laterality: Right; Surgeon: Yakelin Phelps MD; Location: [facility] MAIN OR INJECTION RADIOACTIVE TRACER FOR SENTINEL NODE IDENTIFICATION Right 04/11/2012 Laterality: Right; Surgeon: Yakelin Phelps MD; Location: [facility] MAIN OR LYMPHADENECTOMY AXILLARY DEEP Right 04/11/2012 Laterality: Right; Surgeon: Yakelin Phelps MD; Location: [facility] MAIN OR MASTECTOMY Right 04/2012 DCIS BREAST BIOPSY 02/21/2012 Right breast DCIS. BREAST BIOPSY 02/13/12 right DCIS with micro invasion, ER+/NM+/Her-2 negative. BX LYMPH NODE Right 2011 APPENDECTOMY TONSILLECTOMY TUBAL LIGATION Family History Problem Relation Age of Onset Breast Cancer Maternal Aunt Other - Specify Father Heart Failure Father Stroke Father Other - Specify Sister polycystic kidney Cancer- Other Brother esophageal Diabetes Mother Heart Failure Mother Lung Cancer Paternal Aunt 82 yrs of age at Ovarian Cancer Neg Hx Uterine Cancer Neg Hx Social History Socioeconomic History Marital status: Spouse name: Not on file Number of children: Not on file Years of education: Not on file Highest education level: Not on file Occupational History Not on file Tobacco Use Smoking status: Never Smokeless tobacco: Never Substance and Sexual Activity Alcohol use: Yes Comment: wine occasionally Drug use: No Sexual activity: Yes Partners: Male control/protection: Pill Other Topics Concern Occupational Exposure No Hobby Hazards No 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 Patient reports taking intermittent control pills in her 20's for 20 years. BREAST (GENERAL): Patient denies performing self-breast exams. Date of patient's first mammogram: 1996 Date of most recent mammogram: 04/23/2019 (s/p bilateral mastectomies). Bra/Cup Size: B BREAST(HISTORICAL BIOPSY/THERAPY/TREATMENT) Patient admits to previous breast biopsy(s). Patient admits to being told they personally have breast cancer or a breast malignancy. Patient denies chemotherapy, hormone therapy or radiation therapy during the last month. Social Determinants of Health Financial Resource Strain: Low Risk Difficulty of Paying Living Expenses: Not hard at all Food Insecurity: No Food Insecurity Worried About Running Out of Food in the Last Year: Never true Ran Out of Food in the Last Year: Never true Transportation Needs: No Transportation Needs Lack of Transportation (Medical): No Lack of Transportation (Non-Medical): No Physical Activity: Not on file Stress: Not on file Social Connections: Not on file Intimate Partner Violence: Not on file Housing Stability: Not on file Allergies Allergen Reactions Clarithromycin Rash -too long ago to remember clearly Penicillins Rash -too long ago to remember clearly Tape [*Adhesive Tape] Hives and Rash -issues with surgical white tape, lasted for 6 weeks HOME MEDICATIONS: Current Outpatient Medications: acetaminophen (TYLENOL) 500 MG tablet, Take 2 tablets by mouth every 6 hours for 5 days., Disp: 40 tablet, Rfl: 0 ibuprofen 600 MG tablet, Take 1 tablet by mouth every 6 hours for 5 days., Disp: 20 tablet, Rfl: 0 oxyCODONE 5 MG tablet, Take 1 tablet by mouth every 8 hours as needed for Severe Pain for up to 2 days., Disp: 6 tablet, Rfl: 0 Exam Vitals: 01/02/22 1250 BP: 135/80 Pulse: 72 Resp: 14 Temp: 97.5 F (36.4 C) Constitutional: Awake, alert, oriented 3 and in no apparent distress. HENT: Normocephalic and atraumatic. Extraocular muscles intact. Ears, nose and mouth are grossly normal. Psychiatric: Patient's mood is within normal limits. Behavior is normal. Judgment normal. Breast: Well healed mastectomy scars bilaterally without evidence of local recurrence. No suspicious skin or contour change. On palpation, there are no discrete or dominant masses identified. No clavicular or axillary adenopathy. Lymphedema is not present. Imaging: No new images obtained today. Assessment and Plan Assessment 1. Cancer Staging Invasive ductal carcinoma of breast, female, left Staging form: Breast, AJCC 8th Edition - Clinical: Stage IA (cT1a, cN0, cM0, G2, ER+, NM+, HER2: Equivocal) - Pathologic stage from 07/03/2019: Stage IA (pT1a, pN0(sn), cM0, G2, ER+, NM+, HER2-) Surveillance; s/p bilateral mastectomies with no evidence of disease. Plan: 1. Her exam from today shows no evidence of disease. 2. Discussed completion of genetics referral for family's knowledge of cancer related risk. Placed updated referral and will follow up with their team. 3. Discussed importance of self exam in setting of bilateral mastectomies and reviewed signs and symptoms for which she should call our office. 4. Follow up to clinic 1 year with me in the [facility]. Approximately 20 were spent for this visit which includes face to face interaction, the time spent in preparing to see the patient (including review of images, pathology and history), the time spent communicating with other health foster care therapist, and the time spent for care coordination today. documented in this encounter [facility] Evaluation note Diagnosis Personal history of malignant neoplasm of breast- Primary [facility] Personal history of malignant neoplasm of breast- Primary Pain in right axilla Pain in limb Personal history of malignant neoplasm of breast Pain in right axilla Pain in limb [facility] Personal history of malignant neoplasm of breast Pain in right axilla Pain in limb [facility] information [facility] Work Phone: Evaluation note* Diagnosis Personal history of malignant neoplasm of breast- Primary Status post bilateral mastectomy Acquired absence of breast and nipple [facility] Name Dates Details Patient Instructions Indication:Non-smoker Start:03-Aug-2020 Instruction Type:Provider Instructions for Treatment How to Access Health Informa tion Online using Patient Portal and [employer] Apps Indication:Non-smoker Start:03-Aug-2020 Instruction Type:Patient Education How to access health informa tion online Indication:Non-smoker Start:26-Aug-2019 Instruction Type:Patient Education How to access health informa tion online - Detail Indication:Non-smoker Start:26-Aug-2019 Instruction Type:Patient Education Patient Instructions Indication:Non-smoker Start:26-Aug-2019 Instruction Type:Provider Instructions for Treatment How to access health informa tion online Indication:Non-smoker Start:17-Jun-2018 Instruction Type:Patient Education How to access health informa tion online - Detail Indication:Non-smoker Start:17-Jun-2018 Instruction Type:Patient Education Patient Instructions Indication:Non-smoker Start:17-Jun-2018 Instruction Type:Provider Instructions for Treatment How to access health informa tion online Indication:Acute recurrent sinusitis, unspecified location Start:11-Dec-2014 Instruction Type:Patient Education How to access health informa tion online - Detail Indication:Acute recurrent sinusitis, unspecified location Start:11-Dec-2014 Instruction Type:Patient Education Patient Instructions Indication:Acute recurrent sinusitis, unspecified location Start:11-Dec-2014 Instruction Type:Provider Instructions for Treatment Patient Instructions Indication:Knee pain Start:08-May-2013 Instruction Type:Provider Instructions for Treatment Patient Instructions: aviod white startches, limit sufars to < 30 grams a day , belly button measurement should be < 35 Indication:Hypercholesterolemia Start:27-Oct-2011 Instruction Type:Provider Instructions for Treatment [facility] Work Phone: Instructions* Name Dates Details Patient Instructions Indication:Non-smoker Start:05-Jan-2021 Instruction Type:Provider Instructions for Treatment How to Access Health Informa tion Online using Patient Portal and [employer] Apps Indication:Non-smoker Start:05-Jan-2021 Instruction Type:Patient Education Patient Instructions Indication:BMI 30.0-30.9,adult Start:01-Nov-2020 Instruction Type:Provider Instructions for Treatment How to Access Health Informa tion Online using Patient Portal and [employer]rd [employer] Apps Indication:BMI 30.0-30.9,adult Start:01-Nov-2020 Instruction Type:Patient Education How to Access Health Informa tion Online using Patient Portal and [employer]rd [employer] Apps Indication:BMI 30.0-30.9,adult Start:25-Oct-2020 Instruction Type:Patient Education Patient Instructions Indication:BMI 30.0-30.9,adult Start:25-Oct-2020 Instruction Type:Provider Instructions for Treatment Patient Instructions Indication:Non-smoker Start:21-Oct-2020 Instruction Type:Provider Instructions for Treatment How to Access Health Informa tion Online using Patient Portal and [employer]rd [employer] Apps Indication:Non-smoker Start:21-Oct-2020 Instruction Type:Patient Education Patient Instructions Indication:BMI 29.0-29.9,adult Start:30-Sep-2020 Instruction Type:Provider Instructions for Treatment How to Access Health Informa tion Online using Patient Portal and [employer]rd [employer] Apps Indication:BMI 29.0-29.9,adult Start:30-Sep-2020 Instruction Type:Patient Education Patient Instructions Indication:Non-smoker Start:03-Aug-2020 Instruction Type:Provider Instructions for Treatment How to Access Health Informa tion Online using Patient Portal and [employer]rd [employer] Apps Indication:Non-smoker Start:03-Aug-2020 Instruction Type:Patient Education How to access health informa tion online Indication:Non-smoker Start:26-Aug-2019 Instruction Type:Patient Education How to access health informa tion online - Detail Indication:Non-smoker Start:26-Aug-2019 Instruction Type:Patient Education Patient Instructions Indication:Non-smoker Start:26-Aug-2019 Instruction Type:Provider Instructions for Treatment How to access health informa tion online Indication:Non-smoker Start:17-Jun-2018 Instruction Type:Patient Education How to access health informa tion online - Detail Indication:Non-smoker Start:17-Jun-2018 Instruction Type:Patient Education Patient Instructions Indication:Non-smoker Start:17-Jun-2018 Instruction Type:Provider Instructions for Treatment How to access health informa tion online Indication:Acute recurrent sinusitis, unspecified location Start:11-Dec-2014 Instruction Type:Patient Education How to access health informa tion online - Detail Indication:Acute recurrent sinusitis, unspecified location Start:11-Dec-2014 Instruction Type:Patient Education Patient Instructions Indication:Acute recurrent sinusitis, unspecified location Start:11-Dec-2014 Instruction Type:Provider Instructions for Treatment Patient Instructions Indication:Knee pain Start:08-May-2013 Instruction Type:Provider Instructions for Treatment Patient Instructions: aviod white startches, limit sufars to < 30 grams a day , belly button measurement should be < 35 Indication:Hypercholesterolemia Start:27-Oct-2011 Instruction Type:Provider Instructions for Treatment [facility] Work Phone: Instructions* Name Dates Details Patient Instructions Indication:BMI 29.0-29.9,adult Start:23-Mar-2021 Instruction Type:Provider Instructions for Treatment How to Access Health Informa tion Online using Patient Portal and [employer]rd [employer] Apps Indication:BMI 29.0-29.9,adult Start:23-Mar-2021 Instruction Type:Patient Education Patient Instructions Indication:Non-smoker Start:05-Jan-2021 Instruction Type:Provider Instructions for Treatment How to Access Health Informa tion Online using Patient Portal and [employer]rd [employer] Apps Indication:Non-smoker Start:05-Jan-2021 Instruction Type:Patient Education Patient Instructions Indication:BMI 30.0-30.9,adult Start:01-Nov-2020 Instruction Type:Provider Instructions for Treatment How to Access Health Informa tion Online using Patient Portal and 3rd [employer] Apps Indication:BMI 30.0-30.9,adult Start:01-Nov-2020 Instruction Type:Patient Education How to Access Health Informa tion Online using Patient Portal and 3rd [employer] Apps Indication:BMI 30.0-30.9,adult Start:25-Oct-2020 Instruction Type:Patient Education Patient Instructions Indication:BMI 30.0-30.9,adult Start:25-Oct-2020 Instruction Type:Provider Instructions for Treatment Patient Instructions Indication:Non-smoker Start:21-Oct-2020 Instruction Type:Provider Instructions for Treatment How to Access Health Informa tion Online using Patient Portal and [employer]rd [employer] Apps Indication:Non-smoker Start:21-Oct-2020 Instruction Type:Patient Education Patient Instructions Indication:BMI 29.0-29.9,adult Start:30-Sep-2020 Instruction Type:Provider Instructions for Treatment How to Access Health Informa tion Online using Patient Portal and [employer] Apps Indication:BMI 29.0-29.9,adult Start:30-Sep-2020 Instruction Type:Patient Education Patient Instructions Indication:Non-smoker Start:03-Aug-2020 Instruction Type:Provider Instructions for Treatment How to Access Health Informa tion Online using Patient Portal and [employer] Apps Indication:Non-smoker Start:03-Aug-2020 Instruction Type:Patient Education How to access health informa tion online Indication:Non-smoker Start:26-Aug-2019 Instruction Type:Patient Education How to access health informa tion online - Detail Indication:Non-smoker Start:26-Aug-2019 Instruction Type:Patient Education Patient Instructions Indication:Non-smoker Start:26-Aug-2019 Instruction Type:Provider Instructions for Treatment How to access health informa tion online Indication:Non-smoker Start:17-Jun-2018 Instruction Type:Patient Education How to access health informa tion online - Detail Indication:Non-smoker Start:17-Jun-2018 Instruction Type:Patient Education Patient Instructions Indication:Non-smoker Start:17-Jun-2018 Instruction Type:Provider Instructions for Treatment How to access health informa tion online Indication:Acute recurrent sinusitis, unspecified location Start:11-Dec-2014 Instruction Type:Patient Education How to access health informa tion online - Detail Indication:Acute recurrent sinusitis, unspecified location Start:11-Dec-2014 Instruction Type:Patient Education Patient Instructions Indication:Acute recurrent sinusitis, unspecified location Start:11-Dec-2014 Instruction Type:Provider Instructions for Treatment Patient Instructions Indication:Knee pain Start:08-May-2013 Instruction Type:Provider Instructions for Treatment Patient Instructions: aviod white startches, limit sufars to < 30 grams a day , belly button measurement should be < 35 Indication:Hypercholesterolemia Start:27-Oct-2011 Instruction Type:Provider Instructions for Treatment [facility] Work Phone: Instructions* Name Dates Details How to Access Health Informa tion Online using Patient Portal and [employer]rd [employer] Apps Indication:Non-smoker Start:25-Apr-2021 Instruction Type:Patient Education Patient Instructions Indication:Non-smoker Start:25-Apr-2021 Instruction Type:Provider Instructions for Treatment Patient Instructions Indication:BMI 29.0-29.9,adult Start:23-Mar-2021 Instruction Type:Provider Instructions for Treatment How to Access Health Informa tion Online using Patient Portal and [employer]rd [employer] Apps Indication:BMI 29.0-29.9,adult Start:23-Mar-2021 Instruction Type:Patient Education Patient Instructions Indication:Non-smoker Start:05-Jan-2021 Instruction Type:Provider Instructions for Treatment How to Access Health Informa tion Online using Patient Portal and [employer] Apps Indication:Non-smoker Start:05-Jan-2021 Instruction Type:Patient Education Patient Instructions Indication:BMI 30.0-30.9,adult Start:01-Nov-2020 Instruction Type:Provider Instructions for Treatment How to Access Health Informa tion Online using Patient Portal and [employer]rd [employer] Apps Indication:BMI 30.0-30.9,adult Start:01-Nov-2020 Instruction Type:Patient Education How to Access Health Informa tion Online using Patient Portal and [employer]rd [employer] Apps Indication:BMI 30.0-30.9,adult Start:25-Oct-2020 Instruction Type:Patient Education Patient Instructions Indication:BMI 30.0-30.9,adult Start:25-Oct-2020 Instruction Type:Provider Instructions for Treatment Patient Instructions Indication:Non-smoker Start:21-Oct-2020 Instruction Type:Provider Instructions for Treatment How to Access Health Informa tion Online using Patient Portal and [employer] Apps Indication:Non-smoker Start:21-Oct-2020 Instruction Type:Patient Education Patient Instructions Indication:BMI 29.0-29.9,adult Start:30-Sep-2020 Instruction Type:Provider Instructions for Treatment How to Access Health Informa tion Online using Patient Portal and [employer] Apps Indication:BMI 29.0-29.9,adult Start:30-Sep-2020 Instruction Type:Patient Education Patient Instructions Indication:Non-smoker Start:03-Aug-2020 Instruction Type:Provider Instructions for Treatment How to Access Health Informa tion Online using Patient Portal and [employer] Apps Indication:Non-smoker Start:03-Aug-2020 Instruction Type:Patient Education How to access health informa tion online Indication:Non-smoker Start:26-Aug-2019 Instruction Type:Patient Education How to access health informa tion online - Detail Indication:Non-smoker Start:26-Aug-2019 Instruction Type:Patient Education Patient Instructions Indication:Non-smoker Start:26-Aug-2019 Instruction Type:Provider Instructions for Treatment How to access health informa tion online Indication:Non-smoker Start:17-Jun-2018 Instruction Type:Patient Education How to access health informa tion online - Detail Indication:Non-smoker Start:17-Jun-2018 Instruction Type:Patient Education Patient Instructions Indication:Non-smoker Start:17-Jun-2018 Instruction Type:Provider Instructions for Treatment How to access health informa tion online Indication:Acute recurrent sinusitis, unspecified location Start:11-Dec-2014 Instruction Type:Patient Education How to access health informa tion online - Detail Indication:Acute recurrent sinusitis, unspecified location Start:11-Dec-2014 Instruction Type:Patient Education Patient Instructions Indication:Acute recurrent sinusitis, unspecified location Start:11-Dec-2014 Instruction Type:Provider Instructions for Treatment Patient Instructions Indication:Knee pain Start:08-May-2013 Instruction Type:Provider Instructions for Treatment Patient Instructions: aviod white startches, limit sufars to < 30 grams a day , belly button measurement should be < 35 Indication:Hypercholesterolemia Start:27-Oct-2011 Instruction Type:Provider Instructions for Treatment [facility]; [facility] Work Phone: Instructions* Name Dates Details Patient Instructions Indication:BMI 29.0-29.9,adult Start:04-Aug-2021 Instruction Type:Provider Instructions for Treatment How to Access Health Informa tion Online using Patient Portal and [employer]rd [employer] Apps Indication:BMI 29.0-29.9,adult Start:04-Aug-2021 Instruction Type:Patient Education How to Access Health Informa tion Online using Patient Portal and [employer] Apps Indication:Non-smoker Start:25-Apr-2021 Instruction Type:Patient Education Patient Instructions Indication:Non-smoker Start:25-Apr-2021 Instruction Type:Provider Instructions for Treatment Patient Instructions Indication:BMI 29.0-29.9,adult Start:23-Mar-2021 Instruction Type:Provider Instructions for Treatment How to Access Health Informa tion Online using Patient Portal and [employer]rd [employer] Apps Indication:BMI 29.0-29.9,adult Start:23-Mar-2021 Instruction Type:Patient Education Patient Instructions Indication:Non-smoker Start:05-Jan-2021 Instruction Type:Provider Instructions for Treatment How to Access Health Informa tion Online using Patient Portal and [employer]rd [employer] Apps Indication:Non-smoker Start:05-Jan-2021 Instruction Type:Patient Education Patient Instructions Indication:BMI 30.0-30.9,adult Start:01-Nov-2020 Instruction Type:Provider Instructions for Treatment How to Access Health Informa tion Online using Patient Portal and [employer]rd [employer] Apps Indication:BMI 30.0-30.9,adult Start:01-Nov-2020 Instruction Type:Patient Education How to Access Health Informa tion Online using Patient Portal and [employer] Apps Indication:BMI 30.0-30.9,adult Start:25-Oct-2020 Instruction Type:Patient Education Patient Instructions Indication:BMI 30.0-30.9,adult Start:25-Oct-2020 Instruction Type:Provider Instructions for Treatment Patient Instructions Indication:Non-smoker Start:21-Oct-2020 Instruction Type:Provider Instructions for Treatment How to Access Health Informa tion Online using Patient Portal and [employer]rd [employer] Apps Indication:Non-smoker Start:21-Oct-2020 Instruction Type:Patient Education Patient Instructions Indication:BMI 29.0-29.9,adult Start:30-Sep-2020 Instruction Type:Provider Instructions for Treatment How to Access Health Informa tion Online using Patient Portal and [employer]rd [employer] Apps Indication:BMI 29.0-29.9,adult Start:30-Sep-2020 Instruction Type:Patient Education Patient Instructions Indication:Non-smoker Start:03-Aug-2020 Instruction Type:Provider Instructions for Treatment How to Access Health Informa tion Online using Patient Portal and [employer] Apps Indication:Non-smoker Start:03-Aug-2020 Instruction Type:Patient Education How to access health informa tion online Indication:Non-smoker Start:26-Aug-2019 Instruction Type:Patient Education How to access health informa tion online - Detail Indication:Non-smoker Start:26-Aug-2019 Instruction Type:Patient Education Patient Instructions Indication:Non-smoker Start:26-Aug-2019 Instruction Type:Provider Instructions for Treatment How to access health informa tion online Indication:Non-smoker Start:17-Jun-2018 Instruction Type:Patient Education How to access health informa tion online - Detail Indication:Non-smoker Start:17-Jun-2018 Instruction Type:Patient Education Patient Instructions Indication:Non-smoker Start:17-Jun-2018 Instruction Type:Provider Instructions for Treatment How to access health informa tion online Indication:Acute recurrent sinusitis, unspecified location Start:11-Dec-2014 Instruction Type:Patient Education How to access health informa tion online - Detail Indication:Acute recurrent sinusitis, unspecified location Start:11-Dec-2014 Instruction Type:Patient Education Patient Instructions Indication:Acute recurrent sinusitis, unspecified location Start:11-Dec-2014 Instruction Type:Provider Instructions for Treatment Patient Instructions Indication:Knee pain Start:08-May-2013 Instruction Type:Provider Instructions for Treatment Patient Instructions: aviod white startches, limit sufars to < 30 grams a day , belly button measurement should be < 35 Indication:Hypercholesterolemia Start:27-Oct-2011 Instruction Type:Provider Instructions for Treatment [facility] Work Phone: reason for referral (narrative)* Consultation (Routine) - New Request Specialty Diagnoses / Procedures Referred By Luis A quintero Referred To Contact Genetics Diagnoses Personal history of malignant neoplasm of breast Edmundo Clark APRN-CNP [address] [place] [address] Referral ID Status Reason Start Date Expiration Date V isits Requested Visits Authorized [id number] New Request 01/02/2022 01/27/2023 1 1 [facility] for referral (narrative)No reason for referral information [facility] Work Phone: Summary Purpose Family History Unknown Family Member Name Dates Details Daughter 1 Comments:Asthma Status:Active Father Comments:HTN, CVA, at 7 2, CAD, polycystic kidney Status:Active Maternal Grandmother Comments:DM Status:Active Mother Comments:DM, doed pf CJF at 68 Status:Active Sister 1 Comments:Polycystic kidney Status:Active Sister 2 Comments:Polycystic kidney Status:Active Unknown Family Member Name Dates Details Daughter 1 Comments:Asthma Status:Active Father Comments:HTN, CVA, at 7 2, CAD, polycystic kidney Status:Active Maternal Grandmother Comments:DM Status:Active Mother Comments:DM, doed pf CJF at 68 Status:Active Sister 1 Comments:Polycystic kidney Status:Active Sister 2 Comments:Polycystic kidney Status:Active Unknown Family Member Name Dates Details Daughter 1 Comments:Asthma Status:Active Father Comments:HTN, CVA, at 7 2, CAD, polycystic kidney Status:Active Maternal Grandmother Comments:DM Status:Active Mother Comments:DM, doed pf CJF at 68 Status:Active Sister 1 Comments:Polycystic kidney Status:Active Sister 2 Comments:Polycystic kidney Status:Active Unknown Family Member Name Dates Details Daughter 1 Comments:Asthma Status:Active Father Comments:HTN, CVA, at 7 2, CAD, polycystic kidney Status:Active Maternal Grandmother Comments:DM Status:Active Mother Comments:DM, doed pf CJF at 68 Status:Active Sister 1 Comments:Polycystic kidney Status:Active Sister 2 Comments:Polycystic kidney Status:Active Unknown Family Member Name Dates Details Daughter 1 Comments:Asthma Status:Active Father Comments:HTN, CVA, at 7 2, CAD, polycystic kidney Status:Active Maternal Grandmother Comments:DM Status:Active Mother Comments:DM, doed pf CJF at 68 Status:Active Sister 1 Comments:Polycystic kidney Status:Active Sister 2 Comments:Polycystic kidney Status:Active Unknown Family Member Name Dates Details Daughter 1 Comments:Asthma Status:Active Father Comments:HTN, CVA, at 7 2, CAD, polycystic kidney Status:Active Maternal Grandmother Comments:DM Status:Active Mother Comments:DM, doed pf CJF at 68 Status:Active Sister 1 Comments:Polycystic kidney Status:Active Sister 2 Comments:Polycystic kidney Status:Active Unknown Family Member Name Dates Details Daughter 1 Comments:Asthma Status:Active Father Comments:HTN, CVA, at 7 2, CAD, polycystic kidney Status:Active Maternal Grandmother Comments:DM Status:Active Mother Comments:DM, doed pf CJF at 68 Status:Active Sister 1 Comments:Polycystic kidney Status:Active Sister 2 Comments:Polycystic kidney Status:Active Unknown Family Member Name Dates Details Daughter 1 Comments:Asthma Status:Active Father Comments:HTN, CVA, at 7 2, CAD, polycystic kidney Status:Active Maternal Grandmother Comments:DM Status:Active Mother Comments:DM, doed pf CJF at 68 Status:Active Sister 1 Comments:Polycystic kidney Status:Active Sister 2 Comments:Polycystic kidney Status:Active Unknown Family Member Name Dates Details Daughter 1 Comments:Asthma Status:Active Father Comments:HTN, CVA, at 7 2, CAD, polycystic kidney Status:Active Maternal Grandmother Comments:DM Status:Active Mother Comments:DM, doed pf CJF at 68 Status:Active Sister 1 Comments:Polycystic kidney Status:Active Sister 2 Comments:Polycystic kidney Status:Active Relationship Condition Age at Onset Recorded Date/T aiden Not Specified Coronary artery disease Unknown Cardiac disease Unknown Kidney disorder Unknown Advance Directives Latest Code Status on File Code Status Date Activated Date Inactivated Comments Full Code 04/11/2012 7:39 PM 04/12/2012 1:41 PM Advance Directive Response Recorded Date/ Time Living Will No August 26, 2016 9:04pm 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 No August 26 7 9:04pm Date Activated Date Inactivated Comments 04/11/2012 7:39 PM 04/12/2012 1:41 PM Date Activated Date Inactivated Comments 04/11/2012 7:39 PM 04/12/2012 1:41 PM Instructions Name Dates Details How to access health informa tion online Indication:Non-smoker Start:17-Jun-2018 Instruction Type:Patient Education How to access health informa tion online - Detail Indication:Non-smoker Start:17-Jun-2018 Instruction Type:Patient Education Patient Instructions Indication:Non-smoker Start:17-Jun-2018 Instruction Type:Provider Instructions for Treatment How to access health informa tion online Indication:Acute recurrent sinusitis, unspecified location Start:11-Dec-2014 Instruction Type:Patient Education How to access health informa tion online - Detail Indication:Acute recurrent sinusitis, unspecified location Start:11-Dec-2014 Instruction Type:Patient Education Patient Instructions Indication:Acute recurrent sinusitis, unspecified location Start:11-Dec-2014 Instruction Type:Provider Instructions for Treatment Patient Instructions Indication:Knee pain Start:08-May-2013 Instruction Type:Provider Instructions for Treatment Patient Instructions: aviod white startches, limit sufars to < 30 grams a day , belly button measurement should be < 35 Indication:Hypercholesterolemia Start:27-Oct-2011 Instruction Type:Provider Instructions for Treatment Name Dates Details How to access health informa tion online Indication:Non-smoker Start:26-Aug-2019 Instruction Type:Patient Education How to access health informa tion online - Detail Indication:Non-smoker Start:26-Aug-2019 Instruction Type:Patient Education Patient Instructions Indication:Non-smoker Start:26-Aug-2019 Instruction Type:Provider Instructions for Treatment How to access health informa tion online Indication:Non-smoker Start:17-Jun-2018 Instruction Type:Patient Education How to access health informa tion online - Detail Indication:Non-smoker Start:17-Jun-2018 Instruction Type:Patient Education Patient Instructions Indication:Non-smoker Start:17-Jun-2018 Instruction Type:Provider Instructions for Treatment How to access health informa tion online Indication:Acute recurrent sinusitis, unspecified location Start:11-Dec-2014 Instruction Type:Patient Education How to access health informa tion online - Detail Indication:Acute recurrent sinusitis, unspecified location Start:11-Dec-2014 Instruction Type:Patient Education Patient Instructions Indication:Acute recurrent sinusitis, unspecified location Start:11-Dec-2014 Instruction Type:Provider Instructions for Treatment Patient Instructions Indication:Knee pain Start:08-May-2013 Instruction Type:Provider Instructions for Treatment Patient Instructions: aviod white startches, limit sufars to < 30 grams a day , belly button measurement should be < 35 Indication:Hypercholesterolemia Start:27-Oct-2011 Instruction Type:Provider Instructions for Treatment Name Dates Details How to access health informa tion online Indication:Non-smoker Start:26-Aug-2019 Instruction Type:Patient Education How to access health informa tion online - Detail Indication:Non-smoker Start:26-Aug-2019 Instruction Type:Patient Education Patient Instructions Indication:Non-smoker Start:26-Aug-2019 Instruction Type:Provider Instructions for Treatment How to access health informa tion online Indication:Non-smoker Start:17-Jun-2018 Instruction Type:Patient Education How to access health informa tion online - Detail Indication:Non-smoker Start:17-Jun-2018 Instruction Type:Patient Education Patient Instructions Indication:Non-smoker Start:17-Jun-2018 Instruction Type:Provider Instructions for Treatment How to access health informa tion online Indication:Acute recurrent sinusitis, unspecified location Start:11-Dec-2014 Instruction Type:Patient Education How to access health informa tion online - Detail Indication:Acute recurrent sinusitis, unspecified location Start:11-Dec-2014 Instruction Type:Patient Education Patient Instructions Indication:Acute recurrent sinusitis, unspecified location Start:11-Dec-2014 Instruction Type:Provider Instructions for Treatment Patient Instructions Indication:Knee pain Start:08-May-2013 Instruction Type:Provider Instructions for Treatment Patient Instructions: aviod white startches, limit sufars to < 30 grams a day , belly button measurement should be < 35 Indication:Hypercholesterolemia Start:27-Oct-2011 Instruction Type:Provider Instructions for Treatment Name Dates Details Non-smoker : How to access h ealth information online Indication:Non-smoker Non-smoker : How to access h ealth information online - Detail Indication:Non-smoker Non-smoker : Patient Instruc tions Indication:Non-smoker Acute recurrent sinusitis, u nspecified location : How to access health information online Indication:Acute recurrent sinusitis, unspecified location Acute recurrent sinusitis, u nspecified location : How to access health information online - Detail Indication:Acute recurrent sinusitis, unspecified location Acute recurrent sinusitis, u nspecified location : Patient Instructions Indication:Acute recurrent sinusitis, unspecified location Knee pain : Patient Instruct ions Indication:Knee pain Hypercholesterolemia : Patie nt Instructions: aviod white startches, limit sufars to < 30 grams a day , belly button measurement should be < 35 Indication:Hypercholesterolemia Reason for Referral Specialty Diagnoses / Procedures Referred By Contac t Referred To Contact Diagnoses Personal history of malignant neoplasm of breast Pain in right axilla Procedures US BREAST LIMITED UNILATERAL RIGHT Edmundo Clark APRN-GRAVEL INSPECTOR [address] [place] [address] Referral ID Status Reason Start Date Expiration Date V isits Requested Visits Authorized [id number] New Request 12/05/2022 12/30/2023 1 1 Specialty Diagnoses / Procedures Referred By Contac t Referred To Contact Multispecialty Diagnoses Personal history of malignant neoplasm of breast Status post bilateral mastectomy Edmundo Clark APRN-GRAVEL INSPECTOR [address] [place] [address] Debi King [address] [place] [phone] Referral ID Status Reason Start Date Expiration Date V isits Requested Visits Authorized [id number] New Request 12/18/2023 01/11/2025 1 1 Chief Complaint and Reason for Visit Chief Complaint Admit Date CONCERN FOR UTI August 15, 2024 7:03 am Additional Source Comments INFORMATION SOURCE (unrecogn ized section and content) DATE CREATED AUTHOR 08/29/2017 [facility] DATE CREATED AUTHOR AUTHOR'S ORGANIZ ATION [facility] DATE CREATED AUTHOR AUTHOR'S ORGANIZ ATION 01/02/2024 [facility] DATE CREATED AUTHOR AUTHOR'S ORGANIZ ATION 02/20/2024 [facility] Care Teams (unrecognized sec tion and content) Supply Chain Logistics Manager Relationship Specialty Start Date End Date Yajaira Uribe DO [address] [place] [address] PCP - General Internal Medicine 12/29/11 Edna Birch RN Registered Nurse 02/13/12 Gabriella Frederick, SAM Registered Nurse 04/11/12 Chele Koehler MD, PhD [address] [facility] [address], [address] [place] [address] Oncologist Medical Oncology 05/30/19 Cassie Pena, TURKEY PICKER-GRAVEL INSPECTOR [address] [facility] [address] [place] [address] Nurse Practitioner Medical Oncology 05/30/19 Cinthya Medina, RN Registered Nurse Medical Oncology 05/30/19 Jerel Deluna, RN Registered Nurse Medical Oncology 05/30/19 Shelly Bear, RN Registered Nurse Medical Oncology 05/30/19 Supply Chain Logistics Manager Relationship Specialty Start Date End Date Yajaira Uribe DO [address] [place] [phone] PCP - General Internal Medicine 12/29/11 Edna Birch RN Registered Nurse 02/13/12 Gabriella Frederick, RN Registered Nurse 04/11/12 Chele Koehler MD, PhD [address] [facility] [address], [address] [place] [address] Oncologist Medical Oncology 05/30/19 Cassie Pena, TURKEY PICKER-GRAVEL INSPECTOR [address] [facility] [address] [place] [address] Nurse Practitioner Medical Oncology 05/30/19 Cinthya Medina, RN Registered Nurse Medical Oncology 05/30/19 Jerel Deluna, RN Registered Nurse Medical Oncology 05/30/19 Shelly Bear, RN Registered Nurse Medical Oncology 05/30/19 Supply Chain Logistics Manager Relationship Specialty Start Date End Date Yajaira Uribe DO [address] [place] [address] [address] [place] [phone] PCP - General Internal Medicine 12/29/11 Edna Birch, RN Registered Nurse 02/13/12 Gabriella Frederick, RN Registered Nurse 04/11/12 Chele Koehler MD, PhD [address] [facility] [address], [address] [place] [address] Oncologist Medical Oncology 05/30/19 Cassie Pena, TURKEY PICKER-GRAVEL INSPECTOR [address] [facility] [address] [place] [address] Nurse Practitioner Medical Oncology 05/30/19 Cinthya Medina, RN Registered Nurse Medical Oncology 05/30/19 Jerel Deluna, RN Registered Nurse Medical Oncology 05/30/19 Shelly Bear, RN Registered Nurse Medical Oncology 05/30/19 Team Status: Active Member Role Status Dates Dr. Yajaira Uribe DO Family Provider Active Dr. Yajaira Uribe , DO Primary Care Provider Active Team Status: Inactive Member Role Status Dates Dr. Yajaira Uribe , Primary Care Provider Active Janie Hill , [employer] Attending Provider, Referring Pr ovider Active Supply Chain Logistics Manager Relationship Specialty Start Date End Date Yajaira Uribe DO [address] [place] [phone] PCP - General Internal Medicine 12/29/11 Edna Birch, RN Registered Nurse 02/13/12 Gabriella Frederick, RN Registered Nurse 04/11/12 Chele Koehler MD, PhD Oncologist Medical Oncology 05/30/19 Cassie Pena, TURKEY PICKER-GRAVEL INSPECTOR [address] [place] [address] Nurse Practitioner Medical Oncology 05/30/19 Cinthya Medina, RN Registered Nurse Medical Oncology 05/30/19 Jerel Deluna, RN Registered Nurse Medical Oncology 05/30/19 Shelly Bear, RN Registered Nurse Medical Oncology 05/30/19 Supply Chain Logistics Manager Relationship Specialty Start Date End Date Yajaira Uribe DO [address] [facility] [address] [place] [phone] PCP - General Internal Medicine 12/29/11 Edna Birch, RN Registered Nurse 02/13/12 Gabriella Frederick, RN Registered Nurse 04/11/12 Chele Koehler MD, PhD Oncologist Medical Oncology 05/30/19 Cassie Pena, TURKEY PICKER-GRAVEL INSPECTOR [address] [place] [id number] Nurse Practitioner Medical Oncology 05/30/19 Cinthya Medina, RN Registered Nurse Medical Oncology 05/30/19 Jerel Deluna, RN Registered Nurse Medical Oncology 05/30/19 Shelly Bear, RN Registered Nurse Medical Oncology 05/30/19 Team Status: Inactive Member Role Status Dates Dr. Yajaira Uribe DO Primary Care Provider Active Start: August 15, 2024 End: August 15, 2024 Dr. Yajaira Uribe DO Referring Provider Active Start: August 15, 2024 End: August 15, 2024 EROS Arnold Attending Provider Active Sta rt: August 15, 2024 End: August 15, 2024 Reason for Visit (unrecogniz ed section and content) Reason Comments Breast Problem Specialty Diagnoses / Procedures Referred By Luis A quintero Referred To Contact Multispecialty Diagnoses Personal history of malignant neoplasm of breast Status post bilateral mastectomy Edmundo Clark TURKEY PICKER-GRAVEL INSPECTOR [address] [place] [address] [facility] [address] [place] [phone] Referral ID Status Reason Start Date Expiration Date V isits Requested Visits Authorized [id number] New Request 12/18/2023 01/11/2025 1 1 Reason Comments Follow-up One year follow up f or HX. IDC , and bilateral Mastectomies. R. 2013, left breast 2020. R. Axilla with tenderness and momentarily shooting pain is reported. Specialty Diagnoses / Procedures Referred By Luis A quintero Referred To Contact Diagnoses Personal history of malignant neoplasm of breast Pain in right axilla Procedures US BREAST LIMITED UNILATERAL RIGHT Edmundo Clark, TURKEY PICKER-GRAVEL INSPECTOR [address] [place] [address] Referral ID Status Reason Start Date Expiration Date V isits Requested Visits Authorized [id number] New Request 12/05/2022 12/30/2023 1 1 Reason Comments Follow-up 1 year follow up. Hx of bilateral mastectomies. Patient with some pain in the right axilla- pretty constant. Otherwise, no other concerns. x Goals (unrecognized section and content) Goals may be documented in a n alternate sectionGoals may be documented in an alternate section FOR RECORDS PERTAINING TO PATIENTS WHO ARE OR HAVE BEEN ENROLLED IN A CHEMICAL DEPENDENCY/SUBSTANCEABUSE PROGRAM, SOME INFORMATION MAY BE OMITTED. This clinical summary was aggregated from multiple sources. Caution should be exercised in using it in the provision of clinical care. This summary normalizes information from multiple sources, and as a consequence, information in this document may materially change the coding, format and clinical context of patient data. In addition, data may be omitted in some cases. CLINICAL DECISIONS SHOULD BE BASED ON THE PRIMARY CLINICAL RECORDS. [facility] Independent [employer] [facility]. provides no warranty or guarantee of the accuracy or completeness of information in this document.
== END | disposition home or self-care (01) ==
LOC: LABSPEC 10:10
PROVIDERS: PCP Internal Medicine; Referring Provider Physician Assistant Surgical; Visit Provider Physician Assistant Surgical
DX: R82.90 Unspecified abnormal findings in urine (principal)
CPT/HCPCS: 87077; 87086; 87088; 87186

== ENCOUNTER 2024-09-25 06:50 | Outpatient (CLI) | payer MEDICARE, OTHER, SELFPAY ==
--- OUTSIDE RECORDS SUMMARY | 2024-09-25 06:56 | XMS RPT_ITS | CCD ---
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 Name Role Phone Yajaira Uribe Attending Unavailable Yajaira Uribe Referring Unavailable Yajaira Uribe Consulting Unavailable Jojo, Yajaira Unavailable Yolanda Ramos Unavailable Cishital Lorena Unavailable Yelena Jones Unavailable Unavailable Slarb, Sandy Unavailable Unavailable Unavailable Unavailable Jerel Newton Unavailable Unavailable Janet Young Unavailable Unavailable Elizabet Flores Unavailable Unavailable Brandi Uribe DOhleen Unavailable Yolanda Ramos Unavailable Jerel Newton LPN Unavailable Unavailable Ciesa OLIVERIO, Lorena Unavailable Coco CALLES, Sandy Unavailable Unavailable Unavailable Unavailable Dr. Tino Serna Unavailable Le CALLES, Nilda Unavailable Unavailable Jojo DO Yajaira Unavailable Jessica Blake MA Unavailable Unavailable Ciesa, Carly Unavailable Brandi Uribe DOhleen K Primary Care Provider [phone] Edna Birch RN Unavailable Unavailable Gabriella Frederick RN Unavailable Unavailable Rodo CARDONA, PhD, Chele Duff Unavailable [phone] Cassie Stevenson Unavailable [phone] Cinthya Medina RN Unavailable Unavailable Jerel Deluna RN Unavailable Unavailable Shelly Bear RN Unavailable Unavailable Yajaira Uribe DO Primary Care Provider [phone] Queta RN, Edna Unavailable Unavailable Gabriella Frederick RN Unavailable Unavailable Rodo CARDONA, PhD, Chele Duff Unavailable [phone] Jean BUSTOSN-HELICOPTER TECHNICIAN, Cassie Figueroa Unavailable [phone] Carol RN, Cinthya Unavailable Unavailable Mikie RN, Jerel Unavailable Unavailable Chema RN, Shelly Unavailable Unavailable Rodo CARDONA, PhD, Chele Duff Unavailable [phone] JOJO, YAJAIRA K Referring Unavailable JOJO, YAJAIRA K Primary Care Unavailable CLARK, EDMUNDO E Attending Unavailable CLARK, EDUMNDO E Attending Unavailable JOJO, YAJAIRA K Primary Care Unavailable CLARK, EDMUNDO E Referring Unavailable Jojo DO, Dr. Gates Primary Care Provider Dr. Yajaira Uribe DO Referring Provider Sarbjit Dinh Attending Provider [phone] Sarbjit Dinh Referring Provider Sarbjit Dinh Referring Unavailable Sarbjit Dinh Attending Unavailable Jojo, Yajaira Primary Care Unavailable Jojo, Yajaira Primary Care Unavailable Evelio Paul Attending Unavailable Jojo, Yajaira Referring Unavailable Jojo, Yajaira Attending Unavailable Jojo, Yajaira Primary Care Unavailable Jojo, Ayjaira Referring Unavailable Jojo, Yajaira Primary Care Unavailable Sarbjit Dinh Attending Unavailable Jojo, Yajaira Primary Care Unavailable Giancarlo Grier Attending Unavailable Jojo, Yajaira Referring Unavailable Allergies Allergy Classification Reported Allergen(s) Allergy Type [...] Internal Medicine; [facility] Work Phone: (12 sources) Clarithromycin; Translations: [BIAXIN, 250MG (Oral Tablet)] Drug Allergy 07-11-19 08 [facility] Internal Medicine Work Phone: Comment on above: cramps (9 sources) Indomethacin; Translations: [INDOCIN SR, 75MG (Oral Capsule Extended Release)] Drug Allergy [facility] Internal Medicine Work Phone: (18 sources) Penicillins; Translations: [Penicillins] allergy to substance 07-11-19 08 [facility] Internal Medicine Work Phone: (5 sources) *Adhesive Tape Propensity to adverse reactions 04-23-19 13 Hives, [facility] (4 sources) Clarithromycin Propensity to adverse reactions to drug 07-11-19 08 [facility] (3 sources) Latex Allergy to substance 08-27-19 17 [facility] (3 sources) Adhesive Tape; Translations: [adhesive tape] Propensity to adverse reactions 08-16-19 25 [facility] (1 source) Clarithromycin Drug Allergy 08-16-19 [facility] (1 source) Latex Drug allergy (disorder) 08-16-19 [facility] Medications Current Medications Medication Drug Class(es) [...] Quantity: 20 {Capsule} Refills: 0 Ordered: 27-Dec-2015 Sandy Sepulveda LPN Start : 11-Dec-2014 End : 27-Dec-2015 [...] / nitrofurantoin, monohydrate 75 mg oral capsule (4 sources) Nitrofuran Antibacterial Start: 01-13-2024 End: 08-15-2024 take 1 capsule by mouth every twelve hours at mealtime Nitrofurantoin Monohyd/M-Cryst 100 mg capsule Active 1 NMA PO Q12H 14 August 15, 2024 12:00am August 21, 2024 12:00am administer with a meal/food; swallow whole; do not open, crush, dissolve , or chew phenazopyridine hydrochloride 200 mg oral tablet (14 sources) Start: 01-13-2024 End: 08-15-2024 take 1 [...] Quantity: 6 {Tablet} Refills: 0 Ordered: 28-Oct-2007 Franciscayudiemerson Carly Start : 28-Oct-2007 End : 30-Oct-2007 Inactive [...] Quantity: 14 {Tablet} Refills: 0 Ordered: 25-Oct-2020 Jojo HILLMAN Yajaira Valdez DO Start : 25-Oct-2020 End : 01-Nov-2020 Inactive Comments: take with food Start: 08-03-2020 take 3 tablets by mo uth once daily at mealtime predniSONE 10 MG Oral Tablet 3 (three) Tablet daily as directed for 7 days Quantity: 21 {Tablet} Refills: 0 Ordered: 03-Aug-2020 Carly Tejada CNP Start : 03-Aug-2020 Active Comments: take with [...] Start : 26-Mar-2014 End : 02-Apr-2014 Inactive [id number] actuat albuterol 0.09 mg/actuat metered dose [...] Quantity: 10 {Patch_72HR} Refills: 0 Ordered: 16-Sep-2007 Ruma Lugo LPN Start : 16-Sep-2007 End : 28-Apr-2009 Discontinued Comments: This order discontinued per -Span. Comment on above: This order discontin ued per -Span. sulfamethoxazole 800 mg / trimethoprim 160 mg [...] colicky] Resolved: 1 06-17-2018 Episodic Allergic reactions (20 sources) Contact dermatitis due to poison irineo; [...] of hypertension] 12-28-2015 Episodic Other circulatory disease (2 sources) Elevated blood pressure; Translations: [Elevated blood-pressure reading, [...] bilateral breasts and nipples] Onset: 4 Episodic Residual codes; unclassified (1 source) Family history of ischemic heart disease and other diseases of the circulatory system; Translations: [Family history of ischemic heart disease and other diseases of the circulatory system] Onset: 5 Episodic Skin and subcutaneous tissue infections (20 [...] ACUTE OR CHRONIC (490.) Urinary tract infections (2 sources) Acute hemorrhagic cystitis; Translations: [Acute cystitis with [...] above: 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, 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 Unclassified (20 sources) BMI 30.0-30.9,adult Unclassified (10 [...] Value Interpretation Reference Range Facility Urine Cultureon 08-17-2024 [facility] Escherichia coli [place] Count >100,000 Escherichia coli: REACTION Ampicillin Islt LAUREN <=2 Ampicillin+Sulbac Islt LAUREN <=2 S Cefepime Islt LAUREN <=0.12 S cefTRIAXone Islt LAUREN <=0.25 S Ciprofloxacin Islt LAUREN <=0.06 S B-Lactamase Extended Susc Islt NEG Gentamicin Islt LAUREN <=1 S levoFLOXacin Islt LAUREN <=0.12 S Meropenem Islt LAUREN <=0.25 S Nitrofurantoin Islt LAUREN <=16 S Pip+Tazo Islt LAUREN <=4 S TMP SMX Islt LAUREN <=20 S Normal [facility] Comment on above: Performed By: #### M 100.0685 #### [facility] [address] [place], [address] Urgent Care Visit Reporton 0 08-15-2024 Urgent Care Visit Report [facility] [address], [address] [place], [place] [address] OFFICE VISIT Date of Service: 08/15/24 MR#: [id number] Acct: [id number] Name: VALE BULLOCK Rep #: [id number] : 1950 Provider: EROS Walls Age/Sex: 74/F Location: [facility] Status: Signed Intake Vital Signs 02/18/24 12:30 08/15/24 07:03 Height 5 ft 4 in 5 ft 4 in Weight: 168 lb 2 oz BMI 28.8 BP 148/80 H Blood Pressure Location Lt brachial Position Sitting Respiration 16 Pulse 75 Pulse Source NIBP Temp 97.7 F L Temp Source Oral Pulse Oximetry (%) 97 Oxygen Delivery Method room air Intake Visit Reasons: CONCERN FOR UTI Chief Complaint: dysuria, bladder pressure, blood in urine Head Of Marketing Required: No Is patient in pain?: No Allergies clarithromycin Allergy (Intermediate, Verified 08/15/24 07:07) Rash latex Allergy (Verified 08/15/24 07:07) Rash Penicillins (PCN) Allergy (Verified 08/15/24 07:07) Hives adhesive tape Adverse Reaction (Intermediate, Verified 08/15/24 07:07) Hives Medications ???Medication ???Instructions ???Recorded ???Confirmed ???Type nitrofurantoin 1 cap PO Q12H 7 days #14 caps 08/0308/15/24 Rx monohydrate/macrocrystals 100 mg capsule phenazopyridine 200 mg tablet 200 mg PO TID PRN pain 6 doses #7 08/15/24 08/15/24 Rx (Pyridium) tabs Is last menstrual period known: No Post menopausal: Yes Patient : No Have you fallen in the past year?: No Nurse's Note: dysuria, bladder pressure, blood in urine since this morning. denies fever, back pain. concern for UTI PFSH Medical History (Updated 08/15/24 @ 07:58 by EROS Arnold) Environmental allergies Bilateral breast cancer Surgical History (Updated 01/13/24 @ 15:[address] Evelio Paul, ) Hx of bilateral mastectomy Family History (Updated 08/15/24 @ 07:13 by Olivia Rubio) Other CAD (coronary artery disease) Heart disease Kidney disease Social History (Updated 08/15/24 @ 07:13 by Olivia Rubio) Smoking Status: Never smoker alcohol intake: never substance use type: does not use HPI HPI Chief Complaint: dysuria, bladder pressure, blood in urine Details: VALE BULLOCK, is a 74 F who presents to the office today for complaint of dysuria and hematuria starting this morning. Patient denies pelvic or abdominal pain. No fever, chills, sweats. No nausea, vomiting or diarrhea. No loss of bowel or bladder control. No other associated symptoms or alleviating/aggravating factors. ROS Const Constitutional: No other (6 system ROS completed with pertinent findings in the HPI otherwise normal.) Exam Const General: cooperative and healthy appearing Resp Effort Inspection: normal respiratory effort Auscultation: Bilateral: Clear to Auscultation Cardio Rate: regular rate Rhythm: regular rhythm GI Auscultation: normal bowel sounds General: No CVA tenderness Psych Appearance: grossly normal Mental Status: mental status grossly normal Coding Level of Care Code Off vis,new,level 3 Diagnoses Dysuria R30.0 Assessment and Plan Assessment and Plan (1) Dysuria: Status: Acute Orders: Orders Culture, Urine Today R82.90 - Unspecified abnormal findings in urine Medications: New nitrofurantoin monohyd/m-cryst 100 mg administer with a meal/food; swallow whole; do not open, crush, dissolve , or chew 1 cap PO Q12H 7 days 14 caps 0RF phenazopyridine (Pyridium) 200 mg PO TID PRN 7 tabs 0RF pain Discontinued phenazopyridine (Pyridium) Discontinued Reason: Order Completed 200 mg PO TID 10 tabs 0RF nitrofurantoin monohyd/m-cryst 100 mg Discontinued Reason: Order Completed 100 mg PO Q12 10 CAPSULES 0RF Plan Macrobid and Pyridium as prescribed today. Encouraged to get plenty of rest, drink lots of clear liquids, and use Tylenol or Ibuprofen (unless contraindicated) for fever and comfort. Patient also educated on other symptomatic management techniques. To be seen in 7-10 days if no improvement; sooner if worsening of symptoms. Patient advised of potential red flags and when appropriate to report to the ED. Patient verbalized understanding and agreement with all the above. Clinical Quality Measures Falls Risk Screening/Assistive Devices Have you fallen in the past year?: No 08/15/24 0800 Date Sarbjit Tsai Signature: Date (if applicable) CC: Normal [facility] Urine cultureOrdered By: Sandeep Boudreaux on 08-15-2024 Bacteria identified Cx Nom (U) Escherichia coli Abnormal [facility] Urine Cultureon 01-15-2024 [facility] Presumptive E. coli [place] Count >100,000 Presumptive E. coli: REACTION Ampicillin [...] Islt LAUREN <=1 S TMP SMX Islt LAUREN <=20 S Normal [facility] Comment on above: Performed By: #### M 100.5439 #### [facility] [address] [place], [address] Emergency Department Summary on 01-13-2024 Emergency Department Summary [facility] Department [address] [place] [address] Emergency Department Summary 01/13/24 MR#: [id number] Acct: [id number] Name: VALE BULLOCK Rep #: [id number] : 1950 73 From: Evelio Paul DO PCP: Dr. Yajaira Uribe DO Status:DEP ER Location: ED HPI History of [...] Clarity Turbid Urine pH 8.0 Ur Specific [place] 1.015 Urine Protein 500 H Urine Glucose [...] was instructe (more content not included)... Normal [facility] Urinalysis, Completeon 01-12 BACTERIA 2+ /hpf Normal None Seen [facility] Comment on above: Order Comment: COLOR OF URINE MAY AFFECT DIPSTICK RESULTS. CLEAN CATCH Performed By: #### L 400.0001 #### [facility] [address] [place], [address] EPI,SQUAMOUS 0-5 SEEN Normal 07-12 [facility] Comment on above: Order Comment: COLOR OF URINE MAY AFFECT DIPSTICK RESULTS. CLEAN CATCH Performed By: #### L 400.0001 #### [facility] [address] [place], [address] WBC 10-25 SEEN Normal 0-5 [facility] Comment on above: Order Comment: COLOR OF URINE MAY AFFECT DIPSTICK RESULTS. CLEAN CATCH Performed By: #### L 400.0001 #### [facility] [address] [facility] [address] RBC > 100 SEEN Normal 0-5 [facility] Comment on above: Order Comment: COLOR OF URINE MAY AFFECT DIPSTICK RESULTS. CLEAN CATCH Result Comment: Micr oscopic field is filled. Other elements may be obscured. ACETIC ACID USED FOR FUTHER ANALYSIS Performed By: #### L 400.0001 #### [facility] [address] [place], [address] Mucus Ql (Urine sed) 0 SEEN Normal [facility] Comment on above: Order Comment: COLOR OF URINE MAY AFFECT DIPSTICK RESULTS. CLEAN CATCH Performed By: #### L 400.0001 #### [facility] [address] [place], [address] Absolute lymphocyte countOrd ered By: Janie Hill on 07-03-2023 Lymphocytes Auto (Unsp spec) [#/Vol] 3.02 10*3/uL 0.83-4.51 [facility] Automated lymphocyte count a s percentage of total leukocytesOrdered By: Janie Hill on 07-03-2023 Lymphocytes/100 WBC Auto (Unsp spec) 42.8 % 19-41 [facility] Basophil percentageOrdered B y: Janie Hill on 07-03-2023 Basophils/100 WBC (Bld) 1.0 % 0-1 [facility] Bilirubin [Mass/Vol] 0.30 mg/dL 0.20-1.00 [facility] Comment on above: For patients on eltr ombopag therapy, use of Dimension [place] TBIL is not recommended. Chloride [Moles/Vol] 108 mmol/L 98-107 [facility] Eosinophils/100 WBC (Bld) 2.3 % 0-5 [facility] Glucose [Mass/Vol] 102 mg/dL 74-106 [facility] Comment on above: Fasting Glucose resu lt from 100 to 125 mg/dL suggests IMPAIRED HOMEOSTASIS per A.D.A. criteria. Hemoglobin (Bld) [Mass/Vol] 14.9 g/dL 12.0-15.0 [facility] Monocytes/100 WBC (Bld) 7.6 % 0-10 [facility] Neutrophils (Bld) [#/Vol] 3.2 10*3/uL 2.0-7.7 [facility] Neutrophils/100 WBC (Bld) 45.9 % 47-70 [facility] Potassium [Moles/Vol] 4.6 mmol/L 3.5-5.1 [facility] Protein [Mass/Vol] 6.5 g/dL 6.4-8.2 [facility] Sodium [Moles/Vol] 140 mmol/L 136-145 [facility] WBC (Bld) [#/Vol] 7.1 10*3/uL 4.4-11.0 [facility] Determination of erythrocyte mean corpuscular volume (MCV)Ordered By: Janie Hill on 07-03-2023 MCV (RBC) [Entitic vol] 88.0 fL 81-99 [facility] Erythrocyte distribution wid th ratioOrdered By: Janie Hill on 07-03-2023 Erythrocyte distribution width (RBC) [Ratio] 12.8 % 11.6-14.6 [facility] Erythrocyte distribution wid th standard deviationOrdered By: Janie Hill on 07-03-2023 Erythrocyte distribution width (RBC) [Entitic vol] 41.5 fL 35.1-43.9 [facility] Hematocrit Auto (Bld) [Volum e fraction]Ordered By: Janie Hill on 07-03-2023 Hematocrit (Bld) [Volume fraction] 46.4 % 37-47 [facility] Immature granulocytes/100 WB C Auto (Bld)Ordered By: Janie Hill on 07-03-2023 Immature granulocytes/100 WBC (Bld) 0.400 % 0.0-0.9 [facility] Comment on above: IG% - Immature Granu locytes (promyelocytes, myelocytes and metamyelocytes) > 1% indicates that a LEFT SHIFT is Present. Laboratory - Chemistry and C hemistry - challengeOrdered By: Janie Hill on 07-03-2023 Albumin/Globulin [Mass ratio] 1.2 {ratio} 0.9-2.4 [facility] ALP [Catalytic activity/Vol] 68 U/L 45-117 [facility] ALT [Catalytic activity/Vol] 28 U/L 13-56 [facility] CO2 [Moles/Vol] 32.0 mmol/L 21.0-32.0 [facility] Globulin (S) [Mass/Vol] 2.9 g/dL 2.2-4.2 [facility] Urea nitrogen/Creatinine [Mass ratio] 13.9 mg/mg 10-20 [facility] - Hematology and Cell countsOrdered By: Janie Hill on 07-03-2023 MCH (RBC) [Entitic mass] 28.3 pg 27.0-32.0 [facility] MCHC (RBC) [Mass/Vol] 32.1 g/dL 32-36 [facility] Nucleated RBC/100 WBC (Bld) [Ratio] 0 % 0-5 [facility] Platelet mean volume (Bld) [Entitic vol] 9.4 fL 6.2-12.0 [facility] Platelets (Bld) [#/Vol] 308 10*3/uL 150-450 [facility] No Panel InformationOrdered By: Janie Hill on 07-03-2023 Estimated GFR (MDRD) Amer 92 mL/min >60 [facility] Comment on above: GFR Calc Estimated GFR (MDRD) Non-Af Amer 76 mL/min >60 [facility] Comment on above: Non- GFR Calc RBC Auto (Bld) [#/Vol]Ordere d By: Janie Hill on 07-03-2023 RBC (Bld) [#/Vol] 5.27 10*6/uL 4.2-5.4 [facility] Serum or plasma calcium marina urement (mass/volume)Ordered By: Janie Hill on 07-03-2023 Calcium [Mass/Vol] 8.9 mg/dL 8.5-10.1 [facility] Serum or plasma creatinine m easurement (mass/volume)Ordered By: Janie Hill on 07-03-2023 Creatinine [Mass/Vol] 0.79 mg/dL 0.55-1.02 [facility] Comment on above: The validity of the calculated GFR & GFRAA in patients over 70 years has not been determined. Clinical correlation is essential. Serum or plasma urea nitroge n measurement (mass/volume)Ordered By: Janie Hill on 07-03-2023 Urea nitrogen [Mass/Vol] 11 mg/dL 7-18 [facility] Thin prep Papanicolaou smear with manual screeningOrdered By: Janie Hill on 07-03-2023 Thin prep Papanicolaou smear with manual screening 3.6 g/dL 3.2-5.0 [facility] Thin prep Papanicolaou smear with manual screening 16 U/L 15-37 [facility] Thin prep Papanicolaou smear with manual screening 0 5-15 [facility] US Breast - right limitedon 12-05-2022 IMPRESSION: [...] the right mastectomy were obtained by the instructor tap dancing. Color Doppler was used to assess vascular [...] the right mastectomy were obtained by the instructor tap dancing. Color Doppler was used to assess vascular [...] Benign Recommendation: Clinical correlation/management. Recommendation Laterality: Right [facility] Radiology Study observation (narrative) [facility] US Breast - right limitedOrd ered By: Lori Bingham on 12-05-2022 [facility] Work Phone: METABOLIC PANEL, COMPREHENSI VE ([phone])Ordered By: Fleet Technician on 03-24-2021 Albumin [Mass/Vol] 4.5 g/dL Normal 3.8-4.8 [facility]; [facility] Work Phone: Comment on above: Test(s) 871806-Gzmt, Plasma or Serumwas developed and its performance characteristics determinedby [employer]. It has not been cleared or approved by the Foodand Drug Administration.PATIENT NOT FASTINGPERFORMED BY: CB [facility] [id number] [facility] [id number] BY: [facility] [address] [id number] Albumin/Globulin [Mass ratio] 2.3 {ratio} Abnormal 1.2-2.2 [facility]; [facility] Work Phone: Comment on above: Test(s) 777295-Hqwf, Plasma or Serumwas developed and its performance characteristics determinedby [employer]. It has not been cleared or approved by the Foodand Drug Administration.PATIENT NOT FASTINGPERFORMED BY: [facility] [id number] [facility] [id number] BY: [facility] CenterCube Biotech[address] [id number] ALP [Catalytic activity/Vol] 76 U/L Normal 44-121 [facility]; [facility] Work Phone: Comment on above: Test(s) 042825-Cgun, Plasma or Serumwas developed and its performance characteristics determinedby [employer]. It has not been cleared or approved by the Foodand Drug Administration.PATIENT NOT FASTINGPERFORMED BY: [facility] [id number] [facility] [id number] BY: [employer] [id number] ALT [Catalytic activity/Vol] 11 U/L Normal 0-32 [facility]; [facility] Work Phone: Comment on above: Test(s) 661078-Usom, Plasma or Serumwas developed and its performance characteristics determinedby [employer]. It has not been cleared or approved by the Foodand Drug Administration.PATIENT NOT FASTINGPERFORMED BY: [facility] [id number] [facility] [id number] BY: [employer] [id number] AST [Catalytic activity/Vol] 16 U/L Normal 0-40 [facility]; [facility] Work Phone: Comment on above: Test(s) 931305-Uhlz, Plasma or Serumwas developed and its performance characteristics determinedby [employer]. It has not been cleared or approved by the Foodand Drug Administration.PATIENT NOT FASTINGPERFORMED BY: [facility] [id number] [facility] [id number] BY: [employer] [id number] Bilirubin [Mass/Vol] 0.2 mg/dL Normal 0.0-1.2 [facility]; [facility] Work Phone: Comment on above: Test(s) 910823-Ejpr, Plasma or Serumwas developed and its performance characteristics determinedby [employer]. It has not been cleared or approved by the Foodand Drug Administration.PATIENT NOT FASTINGPERFORMED BY: CB [facility] [id number] [facility] [id number] BY: [employer] [id number] Calcium [Mass/Vol] 9.3 mg/dL Normal 8.7-10.3 [facility]; [facility] Work Phone: Comment on above: Test(s) 447056-Iehr, Plasma or Serumwas developed and its performance characteristics determinedby [employer]. It has not been cleared or approved by the Foodand Drug Administration.PATIENT NOT FASTINGPERFORMED BY: [employer] [id number] [facility] [id number] BY: [employer] [id number] Chloride [Moles/Vol] 103 mmol/L Normal 96-106 [facility]; [facility] Work Phone: Comment on above: Test(s) 031830-Xeku, Plasma or Serumwas developed and its performance characteristics determinedby [employer]. It has not been cleared or approved by the Foodand Drug Administration.PATIENT NOT FASTINGPERFORMED BY: [employer] [id number] [facility] [id number] BY: [employer] [id number] CO2 [Moles/Vol] 23 mmol/L Normal 20-29 [facility]; [facility] Work Phone: Comment on above: Test(s) 556255-Dwii, Plasma or Serumwas developed and its performance characteristics determinedby [employer]. It has not been cleared or approved by the Foodand Drug Administration.PATIENT NOT FASTINGPERFORMED BY: [place] Mailing [facility] Fihguk9289 [facility] [id number] BY: [employer] [id number] Creatinine [Mass/Vol] 0.73 mg/dL Normal 0.57-1.00 [facility]; [facility] Work Phone: Comment on above: Test(s) 944387-Ipen, Plasma or Serumwas developed and its performance characteristics determinedby [employer]. It has not been cleared or approved by the Foodand Drug Administration.PATIENT NOT FASTINGPERFORMED BY: Safer MinicabsBrenda Ville [id number] [facility] [id number] BY: Ur[employer] [id number] GFR/1.73 sq M.predicted among blacks CKD-EPI (S/P/Bld) [Vol rate/Area] 96 mL/min/1.73 Normal [facility]; [facility] Work Phone: Comment on above: In accordance with recommendations from the NKF-ASN Task force, [employer] is in the process of updating its eGFR calculation to the 2020 CKD-EPI creatinine equation that estimates kidney function without a race variable. Test(s) 017614-Zqmu, Plasma or Serumwas developed and its performance characteristics determinedby [employer]. It has not been cleared or approved by the Foodand Drug Administration.PATIENT NOT FASTINGPERFORMED BY: Safer MinicabsSaint Clare's Hospital at DoverQyapoe1078 [facility] [id number] BY: UrtheCast[address] [id number] GFR/1.73 sq M.predicted among non-blacks CKD-EPI (S/P/Bld) [Vol rate/Area] 84 mL/min/1.73 Normal [facility]; [facility] Work Phone: Comment on above: Test(s) 284663-Sttx, Plasma or Serumwas developed and its performance characteristics determinedby [employer]. It has not been cleared or approved by the Foodand Drug Administration.PATIENT NOT FASTINGPERFORMED BY: Safer MinicabsBrenda Ville [id number] [facility] [id number] BY: Urthe[employer] [id number] Globulin (S) [Mass/Vol] 2.0 g/dL Normal 1.5-4.5 [facility]; [facility] Work Phone: Comment on above: Test(s) 009255-Xhhi, Plasma or Serumwas developed and its performance characteristics determinedby [employer]. It has not been cleared or approved by the Foodand Drug Administration.PATIENT NOT FASTINGPERFORMED BY: [employer]70 [facility] [id number] BY: [employer] [id number] Glucose [Mass/Vol] 71 mg/dL Normal 65-99 [facility]; [facility] Work Phone: Comment on above: Test(s) 505727-Xyre, Plasma or Serumwas developed and its performance characteristics determinedby [employer]. It has not been cleared or approved by the Foodand Drug Administration.PATIENT NOT FASTINGPERFORMED BY: [employer]70 [facility] [id number] BY: [employer] [id number] Potassium [Moles/Vol] 3.9 mmol/L Normal 3.5-5.2 [facility]; [facility] Work Phone: Comment on above: Test(s) 747435-Ojre, Plasma or Serumwas developed and its performance characteristics determinedby [employer]. It has not been cleared or approved by the Foodand Drug Administration.PATIENT NOT FASTINGPERFORMED BY: Savvy ServicesSaint Clare's Hospital at DoverUbhbic9928 [facility] [id number] BY: [employer] [id number] Protein [Mass/Vol] 6.5 g/dL Normal 6.0-8.5 [facility]; [facility] Work Phone: Comment on above: Test(s) 557609-Wvwb, Plasma or Serumwas developed and its performance characteristics determinedby [employer]. It has not been cleared or approved by the Foodand Drug Administration.PATIENT NOT FASTINGPERFORMED BY: [employer]6370 [facility] [id number] BY: [employer] [id number] Sodium [Moles/Vol] 141 mmol/L Normal 134-144 [facility]; [facility] Work Phone: Comment on above: Test(s) 392031-Opbx, Plasma or Serumwas developed and its performance characteristics determinedby [employer]. It has not been cleared or approved by the Foodand Drug Administration.PATIENT NOT FASTINGPERFORMED BY: [employer]6370 [facility] [id number] BY: [employer] [address] [id number] Urea nitrogen [Mass/Vol] 13 mg/dL Normal 8-27 [facility]; [facility] Work Phone: Comment on above: Test(s) 069974-Jtij, Plasma or Serumwas developed and its performance characteristics determinedby [employer]. It has not been cleared or approved by the Foodand Drug Administration.PATIENT NOT FASTINGPERFORMED BY: [employer]6370 [address] [facility] [id number] BY: [employer] [id number] Urea nitrogen/Creatinine [Mass ratio] 18 mg/mg Normal 12-28 [facility]; [facility] Work Phone: Comment on above: Test(s) 468455-Seta, Plasma or Serumwas developed and its performance characteristics determinedby [employer]. It has not been cleared or approved by the Foodand Drug Administration.PATIENT NOT FASTINGPERFORMED BY: PWRF Aytjoy1058 [facility] [id number] BY: [employer] [id number] VITAMIN B-12 (CYANOCOBALAMIN ) (56686)Ordered By: Fleet Technician on 03-24-2021 Cobalamin (Vitamin B12) [Mass/Vol] 398 pg/mL Normal 232-1245 [facility]; [facility] Work Phone: Comment on above: Test(s) 956594-Wcfh, Plasma or Serumwas developed and its performance characteristics determinedby [employer]. It has not been cleared or approved by the Foodand Drug Administration.PATIENT NOT FASTINGPERFORMED BY: [employer]6370 [facility] [id number] BY: [employer] [id number]; OV 2/2 ZINC, BLOOD (08494)Ordered B y: Fleet Technician on 03-24-2021 Zinc [Mass/Vol] 74 ug/dL Normal 44-115 [facility] Internal [facility]; [facility] Work Phone: Comment on above: Detection Limit = 5 Test(s) 353194-Trmz, Plasma or Serumwas developed and its performance characteristics determinedby [employer]. It has not been cleared or approved by the Foodand Drug Administration.PATIENT NOT FASTINGPERFORMED BY: [employer]6370 [facility] [id number] BY: [employer] [id number] CBC W/AUTO DIFF WBC (62697)O rdered By: Fleet Technician on 09-30-2020 Basophils (Bld) [#/Vol] 0.1 10*3/uL Normal 0.0-0.2 [facility]; [facility] Work Phone: Comment on above: PATIENT NOT FASTINGP ERFORMED BY: Junar6370 [facility] [id number] Basophils/100 WBC (Bld) 1 % Normal [facility]; [facility] Work Phone: Comment on above: PATIENT NOT FASTINGP ERFORMED BY: Junar6370 [facility] [id number] Eosinophils (Bld) [#/Vol] 0.1 10*3/uL Normal 0.0-0.4 [facility]; [facility] Work Phone: Comment on above: PATIENT NOT FASTINGP ERFORMED BY: Junar6[address] [facility] Centerin [place] [id number] Eosinophils/100 WBC (Bld) 1 % Normal [facility]; [facility] Work Phone: Comment on above: PATIENT NOT FASTINGP ERFORMED BY: SIDDHARTHA Calderón6[address] [facility] [id number] Erythrocyte distribution width (RBC) [Ratio] 12.9 % Normal 11.7-15.4 [facility]; [facility] Work Phone: Comment on above: PATIENT NOT FASTINGP ERFORMED BY: SIDDHARTHA Cruzlin6[address] [facility] [id number] Hematocrit (Bld) [Volume fraction] 47.6 % Abnormal 34.0-46.6 [facility]; [facility] Work Phone: Comment on above: PATIENT NOT FASTINGP ERFORMED BY: SIDDHARTHA Cruzlin6[address] [facility] [id number] Hemoglobin (Bld) [Mass/Vol] 15.7 g/dL Normal 11.1-15.9 [facility]; [facility] Work Phone: Comment on above: PATIENT NOT FASTINGP ERFORMED BY: SIDDHARTHA Calderón6[address] [facility] [id number] Immature granulocytes (Bld) [#/Vol] 0.0 10*3/uL Normal 0.0-0.1 [facility]; [facility] Work Phone: Comment on above: PATIENT NOT FASTINGP ERFORMED BY: SIDDHARTHA Jeffries Hiimij3070 [address] [facility]in [place] [id number] Immature granulocytes/100 WBC (Bld) 0 % Normal [facility]; [facility] Work Phone: Comment on above: PATIENT NOT FASTINGP ERFORMED BY: SIDDHARTHA Cruzlin6[address] [facility] [id number] Lymphocytes (Bld) [#/Vol] 2.2 10*3/uL Normal 0.7-3.1 [facility]; [facility] Work Phone: Comment on above: PATIENT NOT FASTINGP ERFORMED BY: SIDDHARTHA LabCoamauri CruzNtmgko6842 [address] RoadDublin [place] [id number] Lymphocytes/100 WBC (Bld) 34 % Normal [facility]; [facility] Work Phone: Comment on above: PATIENT NOT FASTINGP ERFORMED BY: SIDDHARTHA LabCoamauri CruzAinhct0377 [address] RoadDublin [place] [id number] MCH (RBC) [Entitic mass] 28.9 pg Normal 26.6-33.0 [facility]; [facility] Work Phone: Comment on above: PATIENT NOT FASTINGP ERFORMED BY: CB [facility] Dsdigo8233 [address] RoadDublin [place] [id number] MCHC (RBC) [Mass/Vol] 33.0 g/dL Normal 31.5-35.7 [facility]; [facility] Work Phone: Comment on above: PATIENT NOT FASTINGP ERFORMED BY: SIDDHARTHA LabCoamauri CruzLsnlqm6873 [address] RoadDuin [place] [id number] MCV (RBC) [Entitic vol] 88 fL Normal 79-97 [facility]; [facility] Work Phone: Comment on above: PATIENT NOT FASTINGP ERFORMED BY: SIDDHARTHA Calderón6370 [address] RoadDublin [place] [id number] Monocytes (Bld) [#/Vol] 0.6 10*3/uL Normal 0.1-0.9 [facility]; [facility] Work Phone: Comment on above: PATIENT NOT FASTINGP ERFORMED BY: SIDDHARTHA [facility] Vnieiq4057 [address] RoadDublin [place] [id number] Monocytes/100 WBC (Bld) 10 % Normal [facility]; [facility] Work Phone: Comment on above: PATIENT NOT FASTINGP ERFORMED BY: SIDDHARTHA LabDomingo CruzSyvslr6417 [address] RoadDublin [place] [id number] Neutrophils (Bld) [#/Vol] 3.4 10*3/uL Normal 1.4-7.0 [facility]; [facility] Work Phone: Comment on above: PATIENT NOT FASTINGP ERFORMED BY: SIDDHARTHA [facility] Vgqxtq6561 [address] RoadDublin [place] [id number] Neutrophils/100 WBC (Bld) 54 % Normal [facility]; [facility] Work Phone: Comment on above: PATIENT NOT FASTINGP ERFORMED BY: CB [facility] Wjwnuy1892 [address] RoadDublin [place] [id number] Platelets (Bld) [#/Vol] 278 10*3/uL Normal 150-450 [facility]; [facility] Work Phone: Comment on above: PATIENT NOT FASTINGP ERFORMED BY: CB [facility] Oeengm6864 [address] RoadDublin [place] [id number] RBC (Bld) [#/Vol] 5.43 10*6/uL Abnormal 3.77-5.28 [facility] Centerensive [facility]; [facility] Work Phone: Comment on above: PATIENT NOT FASTINGP ERFORMED BY: CB [facility] Pcsqtj0563 [address] RoadDublin [place] [id number] WBC (Bld) [#/Vol] 6.3 10*3/uL Normal 3.4-10.8 [facility]; [facility] Work Phone: Comment on above: PATIENT NOT FASTINGP ERFORMED BY: SIDDHARTHA [facility] Hezjqt0989 [address] RoadDublin [place] [id number] MAGNESIUM ([id number])Ordered By: Fleet Technician on 09-30-2020 Magnesium [Mass/Vol] 2.2 mg/dL Normal 1.6-2.3 [facility] Internal [facility]; [facility] Work Phone: Comment on above: PATIENT NOT FASTINGP ERFORMED BY: CB [facility] Huitih6987 [address] RoadDublin [place] [id number] METABOLIC PANEL, COMPREHENSI VE (49868)Ordered By: Fleet Technician on 09-30-2020 Albumin [Mass/Vol] 4.5 g/dL Normal 3.8-4.8 [facility]; [facility] Work Phone: Comment on above: PATIENT NOT FASTINGP ERFORMED BY: CB [facility] Etmhtu0720 [address] RoadDublin [place] [id number]; ov 8 Albumin/Globulin [Mass ratio] 2.0 {ratio} Normal 1.2-2.2 [facility]; [facility] Work Phone: Comment on above: PATIENT NOT FASTINGP ERFORMED BY: CB [facility] Sicbbp2313 [address] RoadDublin [place] [id number]; ov 8/ ALP [Catalytic activity/Vol] 61 U/L Normal 48-121 [facility]; [facility] Work Phone: Comment on above: PATIENT NOT FASTINGP ERFORMED BY: CB [facility] Qldeux9864 [address] RoadDublin [place] [id number]; ov 8 ALT [Catalytic activity/Vol] 18 U/L Normal 0-32 [facility]; [facility] Work Phone: Comment on above: PATIENT NOT FASTINGP ERFORMED BY: CB [facility] Dejknv7926 [address] RoadDublin [place] [id number]; ov 8/ AST [Catalytic activity/Vol] 17 U/L Normal 0-40 [facility]; [facility] Work Phone: Comment on above: PATIENT NOT FASTINGP ERFORMED BY: CB [facility] Nbstie9415 [address] RoadDublin [place] [id number]; ov 8 Bilirubin [Mass/Vol] 0.3 mg/dL Normal 0.0-1.2 Comp [facility]; [facility] Work Phone: Comment on above: PATIENT NOT FASTINGP ERFORMED BY: CB [facility] Dibfga5110 [address] RoadDublin [place] [id number]; ov 8/ Calcium [Mass/Vol] 9.4 mg/dL Normal 8.7-10.3 Compre [facility] Internal Medicine; [facility] Work Phone: Comment on above: PATIENT NOT FASTINGP ERFORMED BY: CB [facility] Duutfp6466 [address] RoadDublin [place] [id number]; ov 8/19 Chloride [Moles/Vol] 104 mmol/L Normal 96-106 Comp rehensive Internal Medicine; [facility] Work Phone: Comment on above: PATIENT NOT FASTINGP ERFORMED BY: CB [facility] Ofcmge1858 [address] RoadDublin [place] [id number]; ov 8 CO2 [Moles/Vol] 25 mmol/L Normal 20-29 Comprehen [facility]; [facility] Work Phone: Comment on above: PATIENT NOT FASTINGP ERFORMED BY: CB [facility] Ipkcsi6621 [address] RoadCone Health Med[facility] Pointin [place] [id number]; ov 10/21 Creatinine [Mass/Vol] 0.74 mg/dL Normal 0.57-1.00 [facility]; [facility] Work Phone: Comment on above: PATIENT NOT FASTINGP ERFORMED BY: CB [facility] Pzwpfi4548 [address] [facility] [id number]; ov 10/21 GFR/1.73 sq M.predicted among blacks CKD-EPI (S/P/Bld) [Vol rate/Area] 96 mL/min/1.73 Normal [facility]; [facility] Work Phone: Comment on above: [facility] currently reports eGFR in compliance with the current recommendations of the National Kidney Foundation. [facility] will update reporting as new guidelines are published from the NKF-ASN Task force. PATIENT NOT FASTINGP ERFORMED BY: CB [facility] Stwkqn8746 [address] [facility] [id number]; ov 10/21 GFR/1.73 sq M.predicted among non-blacks CKD-EPI (S/P/Bld) [Vol rate/Area] 83 mL/min/1.73 Normal [facility]; [facility] Work Phone: Comment on above: PATIENT NOT FASTINGP ERFORMED BY: CB [facility] Goudgu83[address] [facility] [id number]; ov 10/21 Globulin (S) [Mass/Vol] 2.2 g/dL Normal 1.5-4.5 [facility]; [facility] Work Phone: Comment on above: PATIENT NOT FASTINGP ERFORMED BY: CB [facility] Zipnpi4799 [address] RoadDublin [place] [id number]; ov 8/ Glucose [Mass/Vol] 92 mg/dL Normal 65-99 [facility] Internal [facility]; [facility] Work Phone: Comment on above: PATIENT NOT FASTINGP ERFORMED BY: CB [facility] Vewkoa6922 [address] RoadDublin [place] [id number]; ov 8/ Potassium [Moles/Vol] 4.7 mmol/L Normal 3.5-5.2 [facility]; [facility] Work Phone: Comment on above: PATIENT NOT FASTINGP ERFORMED BY: CB [facility] Noniyd4272 [address] RoadDublin [place] [id number]; ov 8 Protein [Mass/Vol] 6.7 g/dL Normal 6.0-8.5 [facility]; [facility] Work Phone: Comment on above: PATIENT NOT FASTINGP ERFORMED BY: CB [facility] Imfdcy8384 [address] RoadDublin [place] [id number]; ov 8/ Sodium [Moles/Vol] 142 mmol/L Normal 134-144 [facility]; [facility] Work Phone: Comment on above: PATIENT NOT FASTINGP ERFORMED BY: CB [facility] Gcuipn1343 [address] RoadDublin [place] [id number]; ov 8/ Urea nitrogen [Mass/Vol] 10 mg/dL Normal 8-27 [facility]; [facility] Work Phone: Comment on above: PATIENT NOT FASTINGP ERFORMED BY: CB [facility] Hvptbh5592 [address] RoadDublin [place] [id number]; ov 8/ Urea nitrogen/Creatinine [Mass ratio] 14 mg/mg Normal 12-28 [facility]; [facility] Work Phone: Comment on above: PATIENT NOT FASTINGP ERFORMED BY: CB [facility] Vugtae2359 [address] RoadDublin [place] [id number]; ov 8/ Lyme Disease Antibody W/ Ref shun (77950)Ordered By: Fleet Technician on 08-26-2019 B. burgdorferi IgG+IgM Qn (S) {index_val} Normal 0.00-0.90 [facility] Work Phone: Comment on above: Negative <0.91 Equiv ocal 0.91 - 1.09 Positive >1.09 PATIENT NOT FASTINGP ERFORMED BY: Junar6[address] [place] [id number] B. burgdorferi IgG+IgM Qn (S) {index_val} Normal 0.00-0.90 [facility]; [facility] Work Phone: Comment on above: Negative <0.91 Equiv ocal 0.91 - 1.09 Positive >1.09 PATIENT NOT FASTINGP ERFORMED BY: [employer] [place] [id number] CHAPO CULTURE-STOOL ([id number])Ord ered By: Fleet Technician on 06-19-2018 Bacteria identified Cx Nom (Unsp spec) NCI Normal [facility] Work Phone: Comment on above: No Campylobacter spe cies isolated. PERFORMED BY: [employer] [place] [id number] Information: SRC:ST SRC:ST Bacteria identified Cx Nom (Unsp spec) NSS Normal [facility] Work Phone: Comment on above: No Salmonella or Christen gella recovered. PERFORMED BY: InContext SolutionsC[facility] [id number] Information: SRC:ST SRC:ST Campylobacter sp identified Org specific cx Nom (St) Final report Normal Comprehensi ve Internal Medicine Work Phone: Comment on above: PERFORMED BY: [employer] [place] [id number] Information: SRC:ST SRC:ST E. coli shiga-like toxin IA Ql (St) Negative Normal [facility] Work Phone: Comment on above: PERFORMED BY: InContext SolutionsMezmeriz [place] [id number] Information: SRC:ST SRC:ST E. coli shiga-like toxin IA Ql (Stl) Negative Normal [facility]; [facility] Work Phone: Comment on above: PERFORMED BY: PreApps6[address] Vatlerbl[place] [id number] Information: SRC:ST SRC:ST Salmonella and Shigella sp identified Org specific cx Nom (St) Final report Normal Comprehensi ve Internal Medicine Work Phone: Comment on above: PERFORMED BY: InContext Solutionsblin [place] [id number] Information: SRC:ST SRC:ST C-DIFFICILE, STOOL (23414)Or dered By: Fleet Technician on 06-19-2018 C. difficile toxin A+B IA Ql (St) Negative Normal [facility] Work Phone: Comment on above: PERFORMED BY: [employer]in [place] [id number] C. difficile toxin A+B IA Ql (Stl) Negative Normal [facility]; [facility] Work Phone: Comment on above: PERFORMED BY: [employer] [place] [id number] LEUKOCYTE COUNT, FECAL (8905 5)Ordered By: Fleet Technician on 06-19-2018 WBC LM Ql (St) WCM Abnormal Comprehens katerin Internal Medicine Work Phone: Comment on above: Moderate amount of w vanessa blood cells. PERFORMED BY: Pre[employer]6[address] Vatlerbl[place] [id number] WBC LM Ql (St) Final report Abnormal Comprehe nsive Internal Medicine Work Phone: Comment on above: PERFORMED BY: PreApps6370 Memoirblin [place] [id number] OCCULT BLOOD FECES SCREEN ([id number] [id number])Ordered By: Fleet Technician on 06-19-2018 Lower GI hemoglobin IA Ql (St) Positive Abnormal [facility] Work Phone: Comment on above: PERFORMED BY: [employer]70 [facility] [id number] Lower GI hemoglobin IA Ql (Stl) Positive Abnormal [facility]; [facility] Work Phone: Comment on above: PERFORMED BY: Pre[employer]s6370 [facility] [id number] OVA & PARASITE DIR SMEAR (87 177)Ordered By: Fleet Technician on 06-19-2018 Ova and parasites identified Concentration Nom (St) BHOP Abnormal [facility] Work Phone: Comment on above: Blastocystis hominis organisms presentMany seen PERFORMED BY: PreApps6370 [facility] [id number] Ova and parasites identified LM Nom (Unsp spec) Final report Abnormal [facility] Work Phone: Comment on above: These results were o btained using wet preparation(s) and trichromestained smear. This test does not include testing for Cryptosporidiumparvum, Cyclospora, or Microsporidia. PERFORMED BY: Pre[employer]6370 [facility] [id number] CBC with auto diff ([id number])Or dered By: Fleet Technician on 06-17-2018 Basophils #/vol (Bld) 0.1 {x10E3/uL} Normal 0.0-0.2 [facility] Work Phone: Comment on above: PATIENT NOT FASTINGP ERFORMED BY: [employer]70 [facility] [id number] Basophils (Bld) [#/Vol] 0.1 10*3/uL Normal 0.0-0.2 [facility]; [facility] Work Phone: Comment on above: PATIENT NOT FASTINGP ERFORMED BY: [employer]70 [facility] [id number] Basophils/100 WBC (Bld) 1 % Normal [facility] Work Phone: Comment on above: PATIENT NOT FASTINGP ERFORMED BY: Return PathC[facility] [id number] Eosinophils #/vol (Bld) 0.2 {x10E3/uL} Normal 0.0-0.4 [facility] Work Phone: Comment on above: PATIENT NOT FASTINGP ERFORMED BY: SIDDHARTHA [facility] Btjnvv0996 [address] RoadDublin [place] [id number] Eosinophils (Bld) [#/Vol] 0.2 10*3/uL Normal 0.0-0.4 [facility]; [facility] Work Phone: Comment on above: PATIENT NOT FASTINGP ERFORMED BY: CB [facility] Kadupx0078 [address] RoadDublin [place] [id number] Eosinophils/100 WBC (Bld) 3 % Normal [facility] Work Phone: Comment on above: PATIENT NOT FASTINGP ERFORMED BY: SIDDHARTHA LabCoamauri CruzSnzpbu0542 [address] RoadCone Health Medcenter [place] Pointin [place] [id number] Erythrocyte distribution width Ratio (RBC) 13.8 % Normal 12.3-15.4 [facility] Work Phone: Comment on above: PATIENT NOT FASTINGP ERFORMED BY: SIDDHARTHA [facility] Swuoja7189 [address] RoadCone Health Medcenter [place] Pointin [place] [id number] Hematocrit Volume Fraction (Bld) 43.8 % Normal 34.0-46.6 [facility] Work Phone: Comment on above: PATIENT NOT FASTINGP ERFORMED BY: SIDDHARTHA [facility] Fuhdhu4708 [address] RoadCone [facility] [place] [place] [id number] Hemoglobin mass conc (Bld) 14.6 g/dL Normal 11.1-15.9 [facility] Work Phone: Comment on above: PATIENT NOT FASTINGP ERFORMED BY: CB [facility] Xpsalz4381 [address] RoadDuin [place] [id number] Immature granulocytes #/vol (Bld) 0.0 {x10E3/uL} Normal 0.0-0.1 [facility] Work Phone: Comment on above: PATIENT NOT FASTINGP ERFORMED BY: CB [facility] Jfufjm2396 [address]Dublin [place] [id number] Immature granulocytes (Bld) [#/Vol] 0.0 10*3/uL Normal 0.0-0.1 [facility]; [facility] Work Phone: Comment on above: PATIENT NOT FASTINGP ERFORMED BY: SIDDHARTHA [facility] Yuplas0360 [address] [facility] [id number] Immature granulocytes/100 WBC (Bld) 1 % Normal [facility] Work Phone: Comment on above: PATIENT NOT FASTINGP ERFORMED BY: SIDDHARTHA [facility] Xodbra5835 [address] [facility] [place] [id number] Lymphocytes #/vol (Bld) 2.4 {x10E3/uL} Normal 0.7-3.1 [facility] Work Phone: Comment on above: PATIENT NOT FASTINGP ERFORMED BY: SIDDHARTHA [facility] Zxcrlo5935 [address] [facility] [id number] Lymphocytes (Bld) [#/Vol] 2.4 10*3/uL Normal 0.7-3.1 [facility]; [facility] Work Phone: Comment on above: PATIENT NOT FASTINGP ERFORMED BY: SIDDHARTHA [facility] Qwvibe9689 [address] [facility] [id number] Lymphocytes/100 WBC (Bld) 30 % Normal [facility] Work Phone: Comment on above: PATIENT NOT FASTINGP ERFORMED BY: SIDDHARTHA [facility] Odxnua7595 [address] [facility] [id number] MCH Entitic mass (RBC) 28.3 pg Normal 26.6-33.0 [facility] Work Phone: Comment on above: PATIENT NOT FASTINGP ERFORMED BY: CB [facility] Njfoge8996 [address] [facility] [place] [id number] MCHC mass conc (RBC) 33.3 g/dL Normal 31.5-35.7 Comp [facility] Internal Medicine Work Phone: Comment on above: PATIENT NOT FASTINGP ERFORMED BY: SIDDHARTHA [facility] Tlfvms9496 [address] [facility] [id number] MCV Entitic volume (RBC) 85 fL Normal 79-97 [facility] Work Phone: Comment on above: PATIENT NOT FASTINGP ERFORMED BY: CB [facility] Dtwbou6350 [address] RoadDublin [place] [id number] Monocytes #/vol (Bld) 1.0 {x10E3/uL} Abnormal 0.1-0.9 [facility] Work Phone: Comment on above: PATIENT NOT FASTINGP ERFORMED BY: CB [facility] Vjwznp7729 [address] [place] [id number] Monocytes (Bld) [#/Vol] 1.0 10*3/uL Abnormal 0.1-0.9 [facility]; [facility] Work Phone: Comment on above: PATIENT NOT FASTINGP ERFORMED BY: CB [facility] Unpnbj3259 [address] RoadDublin [place] [id number] Monocytes/100 WBC (Bld) 13 % Normal [facility] Work Phone: Comment on above: PATIENT NOT FASTINGP ERFORMED BY: CB [facility] Tsguut8908 [address] RoadDublin [place] [id number] Morphology Interp Jase (Bld) Note: Normal [facility] Work Phone: Comment on above: Verified by microsco pic examination. PATIENT NOT FASTINGP ERFORMED BY: CB [facility] Etyxse3784 [address] RoadDublin [place] [id number] Neutrophils #/vol (Bld) 4.2 {x10E3/uL} Normal 1.4-7.0 [facility] Work Phone: Comment on above: PATIENT NOT FASTINGP ERFORMED BY: CB [facility] Lnjbqt7195 [address] RoadDublin [place] [id number] Neutrophils (Bld) [#/Vol] 4.2 10*3/uL Normal 1.4-7.0 [facility]; [facility] Work Phone: Comment on above: PATIENT NOT FASTINGP ERFORMED BY: CB [facility] Wsscpu7741 [address] [place] [id number] Neutrophils/100 WBC (Bld) 52 % Normal [facility] Work Phone: Comment on above: PATIENT NOT FASTINGP ERFORMED BY: CB [facility] Kcrkfw0585 [address] RoadDublin [place] [id number] Platelets #/vol (Bld) 300 {x10E3/uL} Normal 150-379 [facility] Work Phone: Comment on above: Platelets appear clu mped. PATIENT NOT FASTINGP ERFORMED BY: CB [facility] Zbnlau3826 [address] RoadDublin [place] [id number] Platelets (Bld) [#/Vol] 300 10*3/uL Normal 150-379 [facility]; [facility] Work Phone: Comment on above: Platelets appear clu mped. PATIENT NOT FASTINGP ERFORMED BY: CB [facility] Hkyhcr1147 [address] RoadDublin [place] [id number] RBC #/vol (Bld) 5.16 {x10E6/uL} Normal 3.77-5.28 Comp [facility] Work Phone: Comment on above: PATIENT NOT FASTINGP ERFORMED BY: CB [facility] Nfnass5325 [address] RoadDublin [place] [id number] RBC (Bld) [#/Vol] 5.16 10*6/uL Normal 3.77-5.28 Compr ensive Internal Medicine; [facility] Work Phone: Comment on above: PATIENT NOT FASTINGP ERFORMED BY: CB [facility] Oyxtxg5742 [address] RoadDublin [place] [id number] WBC #/vol (Bld) 7.9 {x10E3/uL} Normal 3.4-10.8 Compr ensive Internal Medicine Work Phone: Comment on above: PATIENT NOT FASTINGP ERFORMED BY: CB [facility] Sbyaza5110 [address] RoadDublin [place] [id number] WBC (Bld) [#/Vol] 7.9 10*3/uL Normal 3.4-10.8 [facility] Internal [facility]; [facility] Work Phone: Comment on above: PATIENT NOT FASTINGP ERFORMED BY: CB [facility] Hlsbws3419 [address] RoadDublin [place] [id number] Metabolic Panel, Comprehensi ve (22992)Ordered By: Fleet Technician on 06-17-2018 Albumin mass conc 4.0 g/dL Normal 3.6-4.8 Compreh [facility] Internal Medicine Work Phone: Comment on above: PATIENT NOT FASTINGP ERFORMED BY: CB [facility] Irbftm6623 [address] RoadDublin [place] [id number] Albumin/Globulin mass ratio 1.9 {ratio} Normal 1.2-2.2 [facility] Work Phone: Comment on above: PATIENT NOT FASTINGP ERFORMED BY: CB [facility] Vyaxeb5065 [address] RoadDublin [place] [id number] ALP [Catalytic activity/Vol] 60 U/L Normal 39-117 [facility]; [facility] Work Phone: Comment on above: PATIENT NOT FASTINGP ERFORMED BY: CB [facility] Difppo9774 [address] RoadDublin [place] [id number] ALP enzyme act/vol 60 [iU]/L Normal 39-117 [facility] Internal Medicine Work Phone: Comment on above: PATIENT NOT FASTINGP ERFORMED BY: CB [facility] Bnvtab6091 [address] RoadDublin [place] [id number] ALT [Catalytic activity/Vol] 20 U/L Normal 0-32 [facility]; [facility] Work Phone: Comment on above: PATIENT NOT FASTINGP ERFORMED BY: CB [facility] Mxbqno1919 [address] RoadDublin [place] [id number] ALT enzyme act/vol 20 [iU]/L Normal 0-32 [facility] Internal Medicine Work Phone: Comment on above: PATIENT NOT FASTINGP ERFORMED BY: CB [facility] Njluxb4510 [address] RoadDublin [place] [id number] AST [Catalytic activity/Vol] 17 U/L Normal 0-40 [facility]; [facility] Work Phone: Comment on above: PATIENT NOT FASTINGP ERFORMED BY: CB [facility] Qexvlt5698 [address] RoadDublin [place] [id number] AST enzyme act/vol 17 [iU]/L Normal 0-40 Compre [facility] sur[facility] countyive Internal Medicine Work Phone: Comment on above: PATIENT NOT FASTINGP ERFORMED BY: SIDDHARTHA LabCoamauri CalderónQormpo8153 [address] [facility] [place] [id number] Bilirubin mass conc 0.3 mg/dL Normal 0.0-1.2 Compr ehensive Internal Medicine Work Phone: Comment on above: PATIENT NOT FASTINGP ERFORMED BY: SIDDHARTHA [facility] Hzgftk5342 [address] [facility] [id number] Calcium mass conc 9.2 mg/dL Normal 8.7-10.3 Compreh ensive Internal Medicine Work Phone: Comment on above: PATIENT NOT FASTINGP ERFORMED BY: SIDDHARTHA LabDomingo CruzRniigy2763 [address] [facility] [id number] Chloride molar conc 102 mmol/L Normal 96-106 Compr [facility] Internal Medicine Work Phone: Comment on above: PATIENT NOT FASTINGP ERFORMED BY: SIDDHARTHA LabCoamauri CruzJgmmoc8857 [facility] [id number] CO2 molar conc 24 mmol/L Normal 20-29 Comprehens katerin Internal Medicine Work Phone: Comment on above: PATIENT NOT FASTINGP ERFORMED BY: SIDDHARTHA LabDomingo CruzKiqzuj1261 [facility] [id number] Creatinine mass conc 0.74 mg/dL Normal 0.57-1.00 Comp [facility] Work Phone: Comment on above: PATIENT NOT FASTINGP ERFORMED BY: SIDDHARTHA [facility] Lvffab3353 [address] [facility] [place] [id number] GFR/1.73 sq M predicted among blacks CKD-EPI vol rate/area (S/P/Bld) 97 mL/min/1.73 Normal Comprehensiv e Internal Medicine Work Phone: Comment on above: PATIENT NOT FASTINGP ERFORMED BY: CB [facility] Spwons6521 [address] [facility] [place] [id number] GFR/1.73 sq M predicted among non-blacks CKD-EPI vol rate/area (S/P/Bld) 84 mL/min/1.73 Normal [facility] Work Phone: Comment on above: PATIENT NOT FASTINGP ERFORMED BY: SIDDHARTHA [facility] Ktxznd9747 [address] RoadDublin [place] [id number] Globulin mass conc (S) 2.1 g/dL Normal 1.5-4.5 [facility] Work Phone: Comment on above: PATIENT NOT FASTINGP ERFORMED BY: SIDDHARTHA [facility] Hrgvcu0010 [address]bl[address] [place] [id number] Glucose mass conc 87 mg/dL Normal 65-99 Compreh ensive Internal Medicine Work Phone: Comment on above: PATIENT NOT FASTINGP ERFORMED BY: SIDDHARTHA LabCoamauri CruzKjhmzt5555 [address] RoadCone [facility] [place] [id number] Potassium molar conc 3.9 mmol/L Normal 3.5-5.2 Comp rehensive Internal Medicine Work Phone: Comment on above: PATIENT NOT FASTINGP ERFORMED BY: SIDDHARTHA [facility] Rawbum3842 [address] RoadCone [facility] [place] [id number] Protein mass conc 6.1 g/dL Normal 6.0-8.5 Compreh ensive Internal Medicine Work Phone: Comment on above: PATIENT NOT FASTINGP ERFORMED BY: SIDDHARTHA LabCoamauri CruzDmquic2697 [address] [facility] [place] [id number] Sodium molar conc 143 mmol/L Normal 134-144 Compreh ensive Internal Medicine Work Phone: Comment on above: PATIENT NOT FASTINGP ERFORMED BY: SIDDHARTHA [facility] Onemvy1487 [address] RoadDublin [place] [id number] Urea nitrogen mass conc 12 mg/dL Normal 8-27 [facility] Work Phone: Comment on above: PATIENT NOT FASTINGP ERFORMED BY: SIDDHARTHA [facility] Zhsyzq6381 [address] RoadDublin [place] [id number] Urea nitrogen/Creatinine mass ratio 16 mg/mg Normal 12-28 [facility] Work Phone: Comment on above: PATIENT NOT FASTINGP ERFORMED BY: SIDDHARTHA [facility] Tlhpvr3815 [facility] [id number] Sed Rate Erythrocyte (41911) Ordered By: Fleet Technician on 06-17-2018 ESR Velocity (Bld) 8 mm/h Normal 0-40 [facility] Internal Medicine Work Phone: Comment on above: PATIENT NOT FASTINGP ERFORMED BY: [employer] Hrlown8075 [facility] [id number] CNOVon 08-27-2017 CNOV Office Visit (UCWSTR) VALE BULLOCK ([id number]) 1950 FDate Time Provider Department08/27/17 8:45 AM ALIX BAHENA (HELICOPTER TECHNICIAN) [facility] During your visit today, we recorded the following information about you: Temperature Pulse Respiration Blood pressure 97.2 degrees 70/minute 16/minute 110/72 Weight 86.2 kgAlix Bahena APRN.CNP 08/27/2017 9:05 AM SignedSubjectiveThe history is provided by the patient. No biblical languages professor was used.HPI Vale Bullock is a 67 [...] warranting prompt ER evaluation.Alix Bahena APRN.Margaret Bahena APRN.OLIVERIO 08/27/2017 8:57 AM SignedASSESSMENT/PLAN:1. Insect bite, initial [...] Comments: latex tapeDate Reviewed: 08/27/2017Reviewed by: Alix ([facility]) Josef - Fully AssessedReason for Visit: Derm Problem [...] May substitute doxycycline hyclate for costEncounter Number: [id number] Status:Closed by ALIX BAHENA CNP on 08/27/17 Normal [facility] PROGRESSon 08-27-2017 PROGRESS HNO ID: [id number] thor: Alix (Oliverio) Jessicaervice: (none)Author Type: Nurse PractitionerType: Progress NotesFiled: 08/27/2017 9:05 AMNote Text:SubjectiveThe history is provided by the patient. No biblical languages professor was used.HPI Vale Bullock is a 67 [...] in detail warranting prompt ER evaluation.Alix Bahena, JOSEPH.HELICOPTER TECHNICIAN Normal [facility] Hemoglobin Glyclated (HGB A1 C) (17629)Ordered By: Fleet Technician on 02-12-2012 HbA1c (Bld) [Mass fraction] 5.6 % Normal 4.8-5.6 [facility] Work Phone: Comment on above: . Increased risk for diabetes: 5.7 - 6.4 Diabetes: >6.4 Glycemic control for adults with diabetes: <7.0 PATIENT WAS FASTINGP ERFORMED BY: SIDDHARTHA RADSONE70 [facility] [id number] LIPID PANEL ([id number])Ordered B y: Fleet Technician on 02-12-2012 Cholesterol [Mass/Vol] 250 mg/dL Abnormal 100-199 [facility] Work Phone: Comment on above: PATIENT WAS FASTINGP ERFORMED BY: [facility] [id number] Cholesterol in HDL [Mass/Vol] 61 mg/dL Normal [facility] Work Phone: Comment on above: According to ATP-III Guidelines, HDL-C >59 mg/dL is considered anegative risk factor for CHD. PATIENT WAS FASTINGP ERFORMED BY: MathZee70 [facility] [id number] Cholesterol in LDL [Mass/Vol] 167 mg/dL Abnormal 0-99 [facility] Work Phone: Comment on above: PATIENT WAS FASTINGP ERFORMED BY: CB [facility] Oiymlm2616 [address] [employer] [facility] [id number] Cholesterol in LDL/Cholesterol in HDL [Mass ratio] 2.7 {ratio_units} Normal 0.0-3.2 [facility] Work Phone: Comment on above: PATIENT WAS FASTINGP ERFORMED BY: CB [facility] Wgduph0479 [address] [employer] [facility] [id number] Cholesterol in VLDL [Mass/Vol] 22 mg/dL Normal 5-40 [facility] Work Phone: Comment on above: PATIENT WAS FASTINGP ERFORMED BY: CB [facility] Oqjtwm9578 [facility] [id number] Triglyceride [Mass/Vol] 110 mg/dL Normal 0-149 [facility] Work Phone: Comment on above: PATIENT WAS FASTINGP ERFORMED BY: CB [facility] Mntjvy0583 [facility] [id number] CBCMDOrdered By: Donald west on 10-05-2011 Eosinophils/100 [...] (Bld) [#/Vol] 4.96 {M/mm3} Normal 4.2-5.4 Compr [facility] Internal Medicine Work Phone: WBC (Bld) [#/Vol] 6.4 10*3/uL Normal 4.4-11.0 Compre [facility] Internal Medicine Work Phone: CBCMD 44 % Abnormal 47-70 [facility] Work Phone: CBCMD 100 1 Normal [facility] Work Phone: CBCMD 16 % Abnormal 0-10 [facility] Work Phone: CBCMD ADEQUATE Normal [facility] Work Phone: CMPOrdered By: System Manage r on 10-05-2011 Albumin [Mass/Vol] 3.9 g/dL Normal 3.4-5.0 Compre hensmount[facility] Internal Medicine Work Phone: Albumin/Globulin [Mass ratio] [...] Phone: Bilirubin [Mass/Vol] 0.40 mg/dL Normal 0.00-1.00 [facility] rehensive Internal Medicine Work Phone: Calcium [Mass/Vol] 8.6 mg/dL Normal 8.5-10.1 [facility] Internal Medicine Work Phone: Chloride [Moles/Vol] 104 mmol/L Normal 98-107 [facility] Work Phone: CO2 [Moles/Vol] 27.0 mmol/L Normal 21.0-32.0 [facility] Internal Medicine Work Phone: Creatinine [Mass/Vol] 0.8 mg/dL Normal 0.6-1.0 [facility] Internal Medicine Work Phone: GFR/1.73 sq M predicted among blacks MDRD (S/P/Bld) [Vol rate/Area] 95 mL/min/{1.73_m2} Normal Comprehensiv e Internal Medicine Work Phone: GFR/1.73 sq M.predicted MDRD (S/P/Bld) [Vol rate/Area] 78 mL/min/{1.73_m2} Normal Comprehensiv e Internal Medicine Work Phone: Globulin (S) [Mass/Vol] 3.0 g/dL Normal 2.7-4.2 [facility] Internal Medicine Work Phone: Glucose [Mass/Vol] 81 mg/dL Normal 70-110 [facility] Internal Medicine Work Phone: Potassium [Moles/Vol] 4.2 mmol/L Normal 3.5-5.1 [facility] Internal Medicine Work Phone: Protein [Mass/Vol] 6.9 g/dL Normal 6.4-8.2 [facility] Internal Medicine Work Phone: Sodium [Moles/Vol] 140 mmol/L Normal 136-145 [facility] Internal Medicine Work Phone: Urea nitrogen [Mass/Vol] 14 mg/dL Normal 7-18 [facility] Internal Medicine Work Phone: Urea nitrogen/Creatinine [Mass ratio] 17.5 {RATIO} Normal 10-20 [facility] Work Phone: LIPIDOrdered By: System Carolyn brett on 10-05-2011 Cholesterol [Mass/Vol] 292 mg/dL Abnormal [...] or = 500 mg/dL TSHOrdered By: System Manage r on 10-05-2011 TSH Qn 1.25 {uIU/mL} Normal 0.358-3.74 Comprehensi Internal Medicine Work Phone: [id number] By: System Quantivo kathr on 07-25-2011 PAPIG6 . Normal [facility] [...] no HPV testing was performed. .Performed at: [address] [id number] Director: Lori Ferraro MD, Phone: [phone] NEGATIVE FOR INTRAEP ITHELIAL LESION AND MALIGNANCY.CELLULAR CHANGES ASSOCIATED WITH ATROPHY ARE PRESENT.Satisfactory for evaluation. Endocervical component may not bedistinguished in cases of atrophy.Graciela Fernando, Juice Standardizer (ASCP)This liquid based ThinPrep(R) pap test was screened withthe use of an image guided system. HIP, MIN 2 VIEWSOrdered By: Fleet Technician on 01-16-2011 HIP, MIN 2 VIEWS See [...] by: Stephan Mcmahan MD CULTURE, WOUNDOrdered By: Bashir stem Pouncer Machine on 12-29-2010 Microscopic observation Gram stain Nom [...] S Lyme, Total Ab Test/ReflexOr dered By: Fleet Technician on 12-28-2010 Lyme, Total Ab Test/Reflex <0.91 [...] also positive by Western blot. PERFORMED BY: [employer] [place] [id number] Lyme, Total Ab Test/Reflex Negative Normal [facility] Work Phone: Comment on above: PERFORMED BY: [employer] SolutionsMezmer[employer] [place] [id number] Comp. Metabolic Panel (14)Or dered By: Fleet Technician on 10-30-2007 Albumin [Mass/Vol] 4.0 g/dL Normal 3.5-5.5 [facility] Internal Medicine Work Phone: Comment on above: PATIENT NOT FASTINGP ERFORMED BY: [id number] [facility] [id number] Albumin/Globulin [Mass ratio] 1.7 {ratio} Normal 1.1-2.5 [facility] Work Phone: Comment on above: PATIENT NOT FASTINGP ERFORMED BY: MathZee70 [facility] [id number] ALP [Catalytic activity/Vol] 78 [iU]/L Normal 25-150 [facility] Work Phone: Comment on above: PATIENT NOT FASTINGP ERFORMED BY: [facility] [id number] ALT [Catalytic activity/Vol] 22 [iU]/L Normal 0-40 [facility] Work Phone: Comment on above: PATIENT NOT FASTINGP ERFORMED BY: SIDDHARTHA [facility] Awmkvc1005 [address] [place] [id number] AST [Catalytic activity/Vol] 24 [iU]/L Normal 0-40 [facility] Work Phone: Comment on above: PATIENT NOT FASTINGP ERFORMED BY: CB [facility] Vrwvpp3656 [address] [place] [id number] Bilirubin [Mass/Vol] 0.3 mg/dL Normal 0.1-1.2 Comp rehensive Internal Medicine Work Phone: Comment on above: PATIENT NOT FASTINGP ERFORMED BY: CB [facility] Ibvzpy2222 [address] RoadC[facility] [place] [place] [id number] Calcium [Mass/Vol] 8.8 mg/dL Normal 8.5-10.6 [facility] Internal Medicine Work Phone: Comment on above: PATIENT NOT FASTINGP ERFORMED BY: CB [facility] Pwyxdy9323 [address] [facility] [place] [id number] Chloride [Moles/Vol] 101 mmol/L Normal 97-108 Comp [facility] Internal [facility] Work Phone: Comment on above: PATIENT NOT FASTINGP ERFORMED BY: [facility] Owzjhy3085 [address] [facility] [place] [id number] CO2 [Moles/Vol] 23 mmol/L Normal 20-32 Comprehen [facility] Internal Medicine Work Phone: Comment on above: PATIENT NOT FASTINGP ERFORMED BY: CB [facility] Ctlnzq4957 [address] [place] [id number] Creatinine [Mass/Vol] 0.70 mg/dL Normal 0.57-1.00 [facility] Internal Medicine Work Phone: Comment on above: Please note refere nce interval change PATIENT NOT FASTINGP ERFORMED BY: CB [facility] Keclhs3944 [address] [place] [id number] GFR/1.73 sq M predicted among blacks MDRD [...] found [email or web address]. PATIENT NOT FASTINGP ERFORMED BY: CB [facility] Tkgmiq3972 [address] [employer] [facility] [id number] GFR/1.73 sq M.predicted MDRD (S/P/Bld) [Vol rate/Area] mL/min/{1.73_m2} Normal 60-128 [facility] Work Phone: Comment on above: PATIENT NOT FASTINGP ERFORMED BY: [facility] Dslvoj9485 [address] [employer] A/[facility] [id number] Globulin (S) [Mass/Vol] 2.3 g/dL Normal 1.5-4.5 [facility] Work Phone: Comment on above: PATIENT NOT FASTINGP ERFORMED BY: CB [facility] Tfroiv4664 [facility] [id number] Glucose [Mass/Vol] 80 mg/dL Normal 65-99 [facility] Internal Medicine Work Phone: Comment on above: PATIENT NOT FASTINGP ERFORMED BY: CB [facility] Hkxyzv3212 [facility] [id number] Potassium [Moles/Vol] 3.7 mmol/L Normal 3.5-5.2 [facility] Work Phone: Comment on above: PATIENT NOT FASTINGP ERFORMED BY: CB [facility] Wtmond7388 [facility] [id number] Protein [Mass/Vol] 6.3 g/dL Normal 6.0-8.5 [facility] Internal Medicine Work Phone: Comment on above: PATIENT NOT FASTINGP ERFORMED BY: CB [facility] Gvdfcg9207 [address] [facility] [place] [id number] Sodium [Moles/Vol] 136 mmol/L Normal 135-145 [facility] Internal Medicine Work Phone: Comment on above: PATIENT NOT FASTINGP ERFORMED BY: CB [facility] Aaqwfe7094 [address] [employer] A/SC[facility] [place] [place] [id number] Urea nitrogen [Mass/Vol] 11 mg/dL Normal 5- [facility] Work Phone: Comment on above: PATIENT NOT FASTINGP ERFORMED BY: CB [facility] Ytcoxn6400 [address] [facility] [id number] Urea nitrogen/Creatinine [Mass ratio] 16 mg/mg Normal 8- [facility] Work Phone: Comment on above: PATIENT NOT FASTINGP ERFORMED BY: CB [facility] Nbqdyo8374 [facility] [id number] KIDNEY (HP)Ordered By: Raúl Pandey on 10-30-2007 KIDNEY (HP) See Note Normal [facility] Work Phone: Comment on above: Exam Number: [id number] RENAL ULTRASOUND REASON FOR EXAMINATIONHematuria. Ultrasound [...] Reported By: RUTHANN PEREZ M.D. Exam Number: [id number] CT ABDOMEN AND PELVIS WITHOUT INTRAVENOUS [...] Reported By: RUTHANN PEREZ M.D. Exam Number: [id number] CT ABDOMEN AND PELVIS WITHOUT INTRAVENOUS [...] Reported By: RUTHANN PEREZ M.D. Urinalysis, Office ([id number])Or dered By: Monserrat Ramirez on 10-30-2007 Bilirubin [...] Hemoglobin Ql (U) Hemolyzed Trace Normal [facility] Internal Medicine Work Phone: Comment on above: [...] Comment on above: waiver signed Urinalysis, Office (70457)Or dered By: Ruma Luog on 10-28-2007 Bilirubin Ql (U) Negative Normal [...] Medicine Work Phone: Urine Culture,ComprehensiveO rdered By: Fleet Technician on 10-28-2007 Bacteria identified Cx Nom (U) NG36 Normal [facility] Work Phone: Comment on above: No growth in 36 - 48 hours. PATIENT NOT FASTINGP ERFORMED BY: [employer] [place] [id number] Bacteria identified Cx Nom (U) Final report Normal [facility] Work Phone: Comment on above: PATIENT NOT FASTINGP ERFORMED BY: [employer] [place] [id number] Lipid Panel With LDL/HDL Rat ioOrdered By: Fleet Technician on 09-09-2007 Cholesterol [Mass/Vol] 219 mg/dL Abnormal 100-199 [facility] Work Phone: Comment on above: PERFORMED BY: [employer]70 [facility] [id number] Cholesterol in HDL [Mass/Vol] 53 mg/dL Normal 40-59 [facility] Work Phone: Comment on above: PERFORMED BY: [id number] [place] [id number] Cholesterol in LDL [Mass/Vol] 129 mg/dL Abnormal 0-99 [facility] Work Phone: Comment on above: PERFORMED BY: [employer] [place] [id number] Cholesterol in LDL/Cholesterol in HDL [Mass ratio] SPRCS Normal [facility] Work Phone: Comment on above: If initial LDL-marisel sterol result is >100 mg/dL, assess forrisk factors. PERFORMED BY: [employer] [place] [id number] Cholesterol in LDL/Cholesterol in HDL [Mass ratio] 2.4 {ratio_units} Normal 0.0-3.2 [facility] Work Phone: Comment on above: PERFORMED BY: [email or web address] [facility] [id number] Cholesterol in VLDL [Mass/Vol] 37 mg/dL Normal 5-40 [facility] Work Phone: Comment on above: PERFORMED BY: [email or web address] [facility] [id number] Triglyceride [Mass/Vol] 187 mg/dL Abnormal 0-149 [facility] Work Phone: Comment on above: PERFORMED BY: [email or web address] [facility] [id number] Vital Signs Date Time Vital Sign Value Performing Clinician Facility 08-15-2024 07:03-0400 Body height 162.[address] Yajaira Uribe DO Work Phone: [facility] 08-15-2024 07:03-0400 Body mass index (BMI) [Ratio] 28.8 kg/m2 Dr. Yajaira Uribe DO Work Phone: [facility] 08-15-2024 07:03-0400 Body temperature 97.7 [degF] Dr. Yajaira Uribe DO Work Phone: [facility] 08-15-2024 07:03-0400 Body weight 76.[address] Yajaira Uribe DO Work Phone: [facility] 08-15-2024 07:03-0400 Diastolic blood pressure 80 mm[Hg] Dr. Yajaira Uribe DO Work Phone: [facility] 08-15-2024 07:03-0400 Heart rate 75 /min Dr. Yajaira Uribe DO Work Phone: [facility] 08-15-2024 07:03-0400 Respiratory rate 16 /min Dr. Yajaira Uribe DO Work Phone: [facility] 08-15-2024 07:03-0400 SaO2% (BldA) [Mass fraction] 97 % Dr. Yajaira Uribe DO Work Phone: [facility] 08-15-2024 07:03-0400 Systolic blood pressure 148 mm[Hg] Dr. Yajaira Uribe DO Work Phone: [facility] 12-18-2023 08:22-0400 Body mass index (BMI) [Ratio] 30.05 kg/m2 Edmundo Clark SYSTEM DESIGNER-HELICOPTER TECHNICIAN Work Phone: [facility] 12-18-2023 08:22-0400 Body temperature 97.7 [degF] Edmundo Clark SYSTEM DESIGNER-HELICOPTER TECHNICIAN Work Phone: [facility] 12-18-2023 08:22-0400 Body weight 77.56 kg Edmundo Clark SYSTEM DESIGNER-HELICOPTER TECHNICIAN Work Phone: [facility] 12-18-2023 08:22-0400 Diastolic blood pressure 63 mm[Hg] Edmundo Clark SYSTEM DESIGNER-HELICOPTER TECHNICIAN Work Phone: [facility] 12-18-2023 08:22-0400 Heart rate 69 /min Edmundo Clark SYSTEM DESIGNER-HELICOPTER TECHNICIAN Work Phone: [facility] 12-18-2023 08:22-0400 Systolic blood pressure 132 mm[Hg] Edmundo Clark SYSTEM DESIGNER-HELICOPTER TECHNICIAN Work Phone: [facility] 12-05-2022 14:48-0400 Body mass index (BMI) [Ratio] 30.76 kg/m2 Edmundo Clark SYSTEM DESIGNER-HELICOPTER TECHNICIAN Work Phone: [facility] 12-05-2022 14:48-0400 Body temperature 98.01 [degF] Edmundo Clark SYSTEM DESIGNER-HELICOPTER TECHNICIAN Work Phone: [facility] 12-05-2022 14:48-0400 Body weight 79.38 kg Edmundo Clark SYSTEM DESIGNER-HELICOPTER TECHNICIAN Work Phone: [facility] 12-05-2022 14:48-0400 Diastolic blood pressure 83 mm[Hg] Edmundo Clark SYSTEM DESIGNER-HELICOPTER TECHNICIAN Work Phone: [facility] 12-05-2022 14:48-0400 Heart rate 74 /min Edmundo Clark SYSTEM DESIGNER-HELICOPTER TECHNICIAN Work Phone: [facility] 12-05-2022 14:48-0400 Systolic blood pressure 135 mm[Hg] Edmundo Clark SYSTEM DESIGNER-HELICOPTER TECHNICIAN Work Phone: [phone] [address] 01-02-2022 12:50-0400 Body height 160.7 cm Edmundo Clark SYSTEM DESIGNER-HELICOPTER TECHNICIAN Work Phone: [phone] [address] 01-02-2022 12:50-0400 Body mass index (BMI) [Ratio] 30.61 kg/m2 Edmundo Clark SYSTEM DESIGNER-HELICOPTER TECHNICIAN Work Phone: [phone] [place] [address] 01-02-2022 12:50-0400 Body temperature 97.5 [degF] Edmundo Clark SYSTEM DESIGNER-HELICOPTER TECHNICIAN Work Phone: 0(091)[phone] [address] 01-02-2022 12:50-0400 Body weight 79.02 kg Edmundo Clark SYSTEM DESIGNER-HELICOPTER TECHNICIAN Work Phone: [facility] 01-02-2022 12:50-0400 Diastolic blood pressure 80 mm[Hg] Edmundo Clark SYSTEM DESIGNER-HELICOPTER TECHNICIAN Work Phone: 0(288)[phone] [address] 01-02-2022 12:50-0400 Heart rate 72 /min Edmundo Clark SYSTEM DESIGNER-HELICOPTER TECHNICIAN Work Phone: [facility] 01-02-2022 12:50-0400 Respiratory rate 14 /min Edmundo Clark SYSTEM DESIGNER-HELICOPTER TECHNICIAN Work Phone: [facility] 01-02-2022 12:50-0400 Systolic blood pressure 135 mm[Hg] Edmundo Clark SYSTEM DESIGNER-HELICOPTER TECHNICIAN Work Phone: [facility] 08-04-2021 07:06-0400 Body height 162.56 cm [...] 08-04-2021 07:06-0400 Diastolic blood pressure 80 mm[Hg] Jessiac Blake MA [facility]; [facility] [...] 04-25-2021 10:18-0500 Body height 162.56 cm Sandy Slarb SEWER DIGGER [facility]; [facility] Work Phone: 04-25-2021 10:18-0500 Body mass index (BMI) [Ratio] 29.76 kg/m2 Sandy Slarb SEWER DIGGER [facility]; [facility] Work Phone: 04-25-2021 10:18-0500 Body surface area Derived from formula 1.84 m2 Sandy Slarb SEWER DIGGER [facility]; [facility] Work Phone: 04-25-2021 10:18-0500 Body temperature 97.1 [degF] Sandy Slarb SEWER DIGGER [facility]; [facility] Work Phone: 04-25-2021 10:18-0500 Body weight 78.64 kg Sandy Slarb SEWER DIGGER [facility]; [facility] Work Phone: 04-25-2021 10:18-0500 Diastolic blood pressure 76 mm[Hg] Sandy Slarb SEWER DIGGER [facility]; [facility] Work Phone: Comment on above: Patient Position: Sitting; Cuff Location : Left Arm; Cuff Size: Standard 04-25-2021 10:18-0500 Heart rate 62 /min Sandy Slarb SEWER DIGGER [facility]; [facility] Work Phone: Comment on above: Pattern: Regular 04-25-2021 10:18-0500 Respiratory rate 17 /min Sandy Slarb SEWER DIGGER [facility]; [facility] Work Phone: Comment on above: Pattern: Unlabored 04-25-2021 10:18-0500 SaO2% (BldA) [Mass fraction] 99 % Sandy Slarb SEWER DIGGER [facility]; [facility] Work Phone: Comment on above: Room air 04-25-2021 10:18-0500 Systolic blood pressure 110 mm[Hg] Sandy Slarb SEWER DIGGER [facility]; [facility] Work Phone: Comment on above: Patient Position: Sitting; Cuff Location : Left Arm; Cuff Size: Standard 03-23-2021 15:40-0500 Body height 162.[address] [facility]; [facility] Work Phone: Comment on above: virtual, none reported 03-23-2021 15:40-0500 Body mass index (BMI) [Ratio] 29.76 kg/m2 Nilda Le LPN [facility]; [facility] Work Phone: Comment on above: virtual, none reported 03-23-2021 15:40-0500 Body surface area Derived from formula 1.84 m2 [facility]; [facility] Work Phone: Comment on above: virtual, none reported 03-23-2021 15:40-0500 Body weight 78.[address] [facility]; [facility] Work Phone: Comment on above: virtual, none reported 01-05-2021 09:57-0400 Body height 162.[address] [facility]; [facility] Work Phone: 01-05-2021 09:57-0400 Body mass index (BMI) [Ratio] 29.76 kg/m2 Jerel Newton SEWER DIGGER [facility]; [facility] Work Phone: 01-05-2021 09:57-0400 Body surface area Derived from formula 1.84 m2 Jerel Newton SEWER DIGGER [facility]; [facility] Work Phone: 01-05-2021 09:57-0400 Body weight 78.[address] [facility]; [facility] Work Phone: 11-01-2020 08:43-0400 Body height 162.[address] [facility]; [facility] Work Phone: 11-01-2020 08:43-0400 Body mass index (BMI) [Ratio] 29.76 kg/m2 Nilda Le [facility]; [facility] Work Phone: 11-01-2020 08:43-0400 Body surface area Derived from formula 1.84 m2 Nilda Lujan LPN [facility]; [facility] Work Phone: 11-01-2020 08:43-0400 Body temperature 97.3 [degF] Nilda Lujan LPN [facility]; [facility] Work Phone: Comment on above: Method: Temporal 11-01-2020 08:43-0400 Body weight 78.64 kg Nilda Lujan LPN [facility]; [facility] Work Phone: 11-01-2020 08:43-0400 Diastolic blood pressure 80 mm[Hg] Nilda Lujan LPN [facility]; [facility] Work Phone: Comment on above: Patient Position: Sitting; Cuff Location : Left Arm; Cuff Size: Standard 11-01-2020 08:43-0400 Heart rate 75 /min Nilda Lujan LPN [facility]; [facility] Work Phone: Comment on above: Pattern: Regular 11-01-2020 08:43-0400 Respiratory rate 16 /min Nilda Lujan LPN [facility]; [facility] Work Phone: Comment on above: Pattern: Unlabored 11-01-2020 08:43-0400 SaO2% (BldA) [Mass fraction] 98 % Nilda Lujan LPN [facility]; [facility] Work Phone: Comment on above: Room air 11-01-2020 08:43-0400 Systolic blood pressure 126 mm[Hg] Nilda Lujan LPN [facility]; [facility] Work Phone: Comment on above: Patient Position: Sitting; Cuff Location : Left Arm; Cuff Size: Standard 10-25-2020 14:40-0400 Body height 162.56 cm Yelena Jones [facility]; [facility] Work Phone: 10-25-2020 14:40-0400 Body mass index (BMI) [Ratio] 30.3 kg/m2 Yelena Nevesius [facility]; [facility] Work Phone: 10-25-2020 14:40-0400 Body surface area Derived from formula 1.85 m2 Yelena Jones [facility]; [facility] Work Phone: 10-25-2020 14:40-0400 Body temperature 97.3 [degF] Yelena Jones CMA [facility]; [facility] Work Phone: Comment on above: Method: Infrared 10-25-2020 14:40-0400 Body weight 80.06 kg Yelena Jones [facility]; [facility] Work Phone: 10-25-2020 14:40-0400 Diastolic blood pressure 78 mm[Hg] Yelena Jones [facility]; [facility] Work Phone: Comment on above: Patient Position: Sitting; Cuff Location : Left Arm; Cuff Size: Standard 10-25-2020 14:40-0400 Heart rate 63 /min Yelena Jones [facility]; [facility] Work Phone: Comment on above: Pattern: Regular 10-25-2020 14:40-0400 Respiratory rate 16 /min Yelena Jones [facility]; [facility] Work Phone: Comment on above: Pattern: Unlabored 10-25-2020 14:40-0400 SaO2% (BldA) [Mass fraction] 98 % Yelena Jones [facility]; [facility] Work Phone: Comment on above: Room air 10-25-2020 14:40-0400 Systolic blood pressure 116 mm[Hg] Yelena Jones [facility]; [facility] Work Phone: Comment on above: Patient Position: Sitting; Cuff Location : Left Arm; Cuff Size: Standard 10-21-2020 12:01-0400 Body height 162.56 cm Yelena Jones [facility]; [facility] Work Phone: Comment on above: no vs taken as this is phone encounter d ue to covid 10-21-2020 12:01-0400 Body mass index (BMI) [Ratio] 29.95 kg/m2 Yelena Jones [employer] [facility]; [facility] Work Phone: Comment on above: no vs taken as this is phone encounter d ue to covid 10-21-2020 12:010400 Body surface area Derived from formula 1.85 m2 Yelena Jones [facility]; [facility] Work Phone: Comment on above: no vs taken as this is phone encounter d ue to covid 10-21-2020 12:010400 Body weight 79.15 kg Yelena Jones [facility]; [facility] Work Phone: Comment on above: no vs taken as this is phone encounter d ue to covid 09-30-2020 10:210400 Body height 162.56 cm Nilda Lujan LPN [facility]; [facility] Work Phone: 09-30-2020 10:21-0400 Body mass index (BMI) [Ratio] 29.95 kg/m2 Nilda Lujan LPN [facility]; [facility] Work Phone: 09-30-2020 10:21-0400 Body surface area Derived from formula 1.85 m2 Nilda Lujan LPN [facility]; [facility] Work Phone: 09-30-2020 10:21-040 Body temperature 97.1 [degF] Nilda Lujan LPN [facility]; [facility] Work Phone: Comment on above: Method: Temporal 09-30-2020 10:210400 Body weight 79.15 kg Nilda Lujan LPN [facility]; [facility] Work Phone: 09-30-2020 10:21-0400 Diastolic blood pressure 70 mm[Hg] Nilda Lujan LPN [facility]; [facility] Work Phone: Comment on above: Patient Position: Sitting; Cuff Location : Left Arm; Cuff Size: Standard 09-30-2020 10:21-0400 Heart rate 63 /min Nilda Lujan LPN [facility]; [facility] Work Phone: Comment on above: Pattern: Regular 09-30-2020 10:21-0400 Respiratory rate 16 /min Nilda Lujan LPN [facility]; [facility] Work Phone: Comment on above: Pattern: Unlabored 09-30-2020 10:21-0400 SaO2% (BldA) [Mass fraction] 97 % Nilda Le LPN [facility]; [facility] Work Phone: Comment on above: Room air 09-30-2020 10:21-0400 Systolic blood pressure 128 mm[Hg] Nildakhalida Gonzalesrae CALLES [facility]; [facility] [...] Mass Index) 30.22 kg/m2 Jerel Newton LPN [facility] Work Phone: 08-26-2019 08:13-0400 Body [...] 08-26-2019 08:13-0400 BP Systolic 110 mm[Hg] Jerel Newton LPN [facility] Work Phone: Comment on above: Patient Position: Sitting; Cuff Location : Left Arm; Cuff Size: Standard 08-26-2019 08:13-0400 BSA (Body Surface Area) 1.85 m2 Jerel Newton LPN [facility] Work Phone: 08-26-2019 08:13-0400 Height 162.56 cm Jerel Newton LPN [facility] Work Phone: 08-26-2019 08:13-0400 Pulse (Heart Rate) 70 /min Jerel Newton LPN [facility] Work Phone: Comment on above: Pattern: Regular 08-26-2019 08:13-0400 Pulse Oximetry 98 % Yajaira Uribe [facility] Work Phone: Comment on above: Room air 08-26-2019 08:13-0400 Respiratory Rate 16 /min Jerel Newton [facility] Work Phone: Comment on above: Pattern: Unlabored 08-26-2019 08:13-0400 SaO2% (BldA) [Mass fraction] 98 % Jerel Newton [facility]; [facility] Work Phone: Comment on above: Room air 06-17-2018 08:47-0400 BMI (Body Mass Index) 30.78 kg/m2 Yelena Jones [facility] Work Phone: Comment on above: orthos sitting 99/74 P 81standing 105/73 P 85laying 106/72 P 75 06-17-2018 08:47-0400 Body Temperature 95.6 [degF] Yelena Jones [facility] Work Phone: Comment on above: Method: Temporal orthos sitting 99/74 P 81standing 105/73 P 85laying 106/72 P 75 06-17-2018 08:47-0400 Body weight 81.34 kg Yelena Jones [facility] Work Phone: Comment on above: orthos sitting 99/74 P 81standing 105/73 P 85laying 106/72 P 75 06-17-2018 08:47-0400 BP Diastolic 80 mm[Hg] Yelena Jones [facility] Work Phone: Comment on above: Patient Position: Sitting; Cuff Location : Left Arm; Cuff Size: Standard orthos sitting 99/74 P 81standing 105/73 P 85laying 106/72 P 75 06-17-2018 08:47-0400 BP Systolic 108 mm[Hg] Yelena Jones [facility] Work Phone: Comment on above: Patient Position: Sitting; Cuff Location : Left Arm; Cuff Size: Standard orthos sitting 99/74 P 81standing 105/73 P 85laying 106/72 P 75 06-17-2018 08:47-0400 BSA (Body Surface Area) 1.87 m2 Yelena Jones [facility] Work Phone: Comment on above: orthos sitting 99/74 P 81standing 105/73 P 85laying 106/72 P 75 06-17-2018 08:47-0400 Height 162.56 cm Yelena Jones [facility] Work Phone: Comment on above: orthos sitting 99/74 P 81standing 105/73 P 85laying 106/72 P 75 06-17-2018 08:47-0400 Pulse (Heart Rate) 68 /min Yelena Jones [facility] Work Phone: Comment on above: Pattern: Regular orthos sitting 99/74 P 81standing 105/73 P 85laying 106/72 P 75 06-17-2018 08:47-0400 Pulse Oximetry 98 % [facility] Work Phone: Comment on above: Room air orthos sitting 99/74 P 81standing 105/73 P 85laying 106/72 P 75 06-17-2018 08:47-0400 Respiratory Rate 18 /min Yelena Jones [facility] Work Phone: Comment on above: Pattern: Unlabored orthos sitting 99/74 P 81standing 105/73 P 85laying 106/72 P 75 06-17-2018 08:47-0400 SaO2% (BldA) [Mass fraction] 98 % Yelena Jones [facility]; [facility] Work Phone: Comment on above: Room air orthos sitting 99/74 P 81standing 105/73 P 85laying 106/72 P 75 06-17-2018 08:47-0400 Weight 81.34 kg Yajaira Uribe [facility] Work Phone: Comment on above: orthos sitting 99/74 P 81standing 105/73 P 85laying 106/72 P 75 12-27-2015 10:01-0400 BMI (Body Mass Index) 33.01 kg/m2 Sandy Ruiz [facility] Medicine Work Phone: 12-27-2015 10:01-0400 Body Temperature 97.8 [degF] Sandy Sepulveda SEWER DIGGER [facility] Work Phone: 12-27-2015 10:01-0400 Body weight 87.23 kg Sandy Sepulveda SEWER DIGGER [facility] Work Phone: 12-27-2015 10:01-0400 BP Diastolic 76 mm[Hg] Sandy Tomarb SEWER DIGGER [facility] Work Phone: Comment on above: Patient Position: Sitting; Cuff Location : Left Arm; Cuff Size: Standard 12-27-2015 10:01-0400 BP Systolic 114 mm[Hg] Sandy Tomarb SEWER DIGGER [facility] Work Phone: Comment on above: Patient Position: Sitting; Cuff Location : Left Arm; Cuff Size: Standard 12-27-2015 10:01-0400 BSA (Body Surface Area) 1.92 m2 Sandy Tomarb SEWER DIGGER [facility] Work Phone: 12-27-2015 10:01-0400 Height 162.56 cm Sandy Sepulveda SEWER DIGGER [facility] Work Phone: 12-27-2015 10:01-0400 Pulse (Heart Rate) 79 /min Sandy Sepulveda LPN [facility] Work Phone: Comment on above: Pattern: Regular 12-27-2015 10:01-0400 Pulse Oximetry 98 % Yajaira Uribe [facility] Work Phone: Comment on above: Room air 12-27-2015 10:01-0400 Respiratory Rate 16 /min Sandy Sepulveda SEWER DIGGER [facility] Work Phone: Comment on above: Pattern: Unlabored 12-27-2015 10:01-0400 SaO2% (BldA) [Mass fraction] 98 % Sandy Slarb SEWER DIGGER [facility]; [facility] Work Phone: Comment on above: Room air 12-27-2015 10:01-0400 Weight 87.23 kg Yajaira Uribe [facility] Work Phone: 12-11-2014 08:03-0400 BMI (Body Mass Index) 33.01 kg/m2 Leona Johnson RN [facility] Internal Medicine Work Phone: 12-11-2014 08:03-0400 Body [...] 12-11-2014 08:03-0400 Pulse Oximetry 96 % Yajaira Jojo [facility] Work Phone: Comment on [...] 03-26-2014 13:07-0500 Body weight 88.59 kg Ruma Lugo LPN [facility] Work Phone: 03-26-2014 13:07-0500 BP Diastolic 72 mm[Hg] Ruma Lugo LPN [facility] Work Phone: Comment on above: Patient Position: Sitting; Cuff Location : Left Arm; Cuff Size: Standard 03-26-2014 13:07-0500 BP Systolic 126 mm[Hg] Ruma Lugo LPN [facility] Work Phone: Comment on above: Patient Position: Sitting; Cuff Location : Left Arm; Cuff Size: Standard 03-26-2014 13:07-0500 BSA (Body Surface Area) 1.94 m2 Ruma Lugo LPN [facility] Work Phone: 03-26-2014 13:07-0500 Height 162.56 cm Ruma Lugo LPN [facility] Work Phone: 03-26-2014 13:07-0500 Pulse (Heart Rate) 68 /min Ruma Lugo LPN [facility] Work Phone: Comment on above: Pattern: Regular 03-26-2014 13:07-0500 Pulse Oximetry 98 % Yajaira Uribe [facility] Work Phone: Comment on above: Room air 03-26-2014 13:07-0500 Respiratory Rate 16 /min Ruma Lugo LPN [facility] Work Phone: 03-26-2014 13:07-0500 SaO2% (BldA) [Mass fraction] 98 % Ruma Lugo LPN [facility]; [facility] [...] air 04-10-2013 08:47-0500 Weight 88.59 kg Yajaira Jojo [facility] Work Phone: 02-19-2012 08:06-0500 [...] 10-27-2011 09:23-0400 Body weight 84.51 kg Chantal Allen RN [facility] [...] Surface Area) 1.95 m2 Ruma Lugo LPN [facility] Internal Medicine Work Phone: 01-11-2011 14:33-0500 Height 162.56 cm Ruma Lugo SEWER DIGGER [facility] Internal Medicine Work Phone: 01-11-2011 14:33-0500 Pulse (Heart Rate) 76 /min Ruma Lugo LPN [facility] Internal Medicine Work Phone: Comment on above: Pattern: Regular 01-11-2011 14:33-0500 Respiratory Rate 17 /min Ruma Lugo LPN [facility] Internal Medicine Work Phone: 01-11-2011 14:33-0500 Weight 90.52 kg Yajaira Uribe [facility] Internal Medicine Work Phone: 12-28-2010 13:02-0400 BMI (Body Mass Index) 34.25 kg/m2 Ruma Lugo [facility] Internal Medicine Work Phone: 12-28-2010 13:02-0400 Body Temperature 98.1 [degF] Ruma Lugo LPN [facility] Internal Medicine Work Phone: Comment on above: Method: Oral 12-28-2010 13:02-0400 Body weight 90.52 kg Ruma Lugo SEWER DIGGER [facility] Internal Medicine Work Phone: 12-28-2010 13:02-0400 BP Diastolic 70 mm[Hg] Ruma Lugo SEWER DIGGER [facility] Internal Medicine Work Phone: Comment on above: Patient Position: Sitting; Cuff Location : Left Arm; Cuff Size: Standard 12-28-2010 13:02-0400 BP Systolic 110 mm[Hg] Ruma Lugo [facility] Internal Medicine Work Phone: Comment on [...] 10:46-0500 BMI (Body Mass Index) 34.25 kg/m2 Ruma [...] 10:46-0500 BP Systolic 116 mm[Hg] Ruma Lugo LPN [facility] Work Phone: Comment on above: Patient Position: Sitting; Cuff Location : Left Arm; Cuff Size: Standard 04-28-2009 10:46-0500 BSA (Body Surface Area) 1.95 m2 Ruma Lugo LPN [facility] Work Phone: 04-28-2009 10:46-0500 Height 162.56 cm Ruma Lugo LPN [facility] Work Phone: 04-28-2009 10:46-0500 Pulse (Heart Rate) 64 /min Ruma Lugo LPN [facility] Work Phone: Comment on above: Pattern: Regular 04-28-2009 10:46-0500 Respiratory Rate 17 /min Ruma Lugo LPN [...] 10:36-0400 Head Circumference 0 cm Yajaira Uribe [facility] Work Phone: 11-01-2007 10:36-0400 Head Occipital-frontal circumference 0 cm Chantal Allen RN [facility]; [facility] Work Phone: 11-01-2007 10:36-0400 Height 162.56 cm Chantal Allen RN [facility] Work Phone: 11-01-2007 10:36-0400 Pulse (Heart Rate) 72 /min Chantal Allen RN [facility] Work Phone: Comment on above: Pattern: Regular 11-01-2007 10:36-0400 Respiratory Rate 20 /min Chantal Allen RN [facility] Internal Medicine Work Phone: Comment on above: Pattern: Unlabored 11-01-2007 10:36-0400 Weight 82.27 kg Yajaira Uribe [facility] Internal Medicine Work Phone: 10-30-2007 11:35-0400 BMI (Body Mass Index) 32.36 kg/m2 Monserrat Ramirez [facility] Internal Medicine Work Phone: 10-30-2007 11:35-0400 Body Temperature 98.6 [degF] Monserrat [facility] Internal Medicine Work Phone: Comment on above: Method: Oral 10-30-2007 11:35-0400 Body weight 85.5 kg Monserrat [facility] Work Phone: 10-30-2007 11:35-0400 BP Diastolic 70 mm[Hg] Monserrat [facility] Internal Medicine Work Phone: Comment on above: Patient Position: Sitting; Cuff Location : Left Arm; Cuff Size: Standard 10-30-2007 11:35-0400 BP Systolic 118 mm[Hg] Monserrat [facility] Internal Medicine Work Phone: Comment on above: Patient Position: Sitting; Cuff Location : Left Arm; Cuff Size: Standard 10-30-2007 11:35-0400 BSA (Body Surface Area) 1.91 m2 Monserrat [facility] Internal Medicine Work Phone: 10-30-2007 11:35-0400 Head Circumference 0 cm Yajaira Uribe [facility] Internal Medicine Work Phone: 10-30-2007 11:35-0400 Head Occipital-frontal circumference [address] [facility] Medicine; [facility] Internal Medicine Work Phone: 10-30-2007 11:35-0400 Height 162.56 cm Monserrat [facility] Internal Medicine Work Phone: 10-30-2007 11:35-0400 Pulse (Heart Rate) 66 /min Monserrat [facility]le [facility] Internal Medicine Work Phone: Comment on above: Pattern: Regular 10-30-2007 11:35-0400 Respiratory Rate 18 /min Monserrat Ramirez [facility] Work Phone: Comment on above: Pattern: Unlabored 10-30-2007 11:35-0400 Weight 85.5 kg Yajaira Uribe [facility] Work Phone: 10-28-2007 08:10-0400 BMI (Body Mass Index) 32.36 kg/m2 Ruma Lugo LPN [facility] Work Phone: 10-28-2007 08:10-0400 Body weight 85.5 kg Ruma Lugo LPN [facility] Work Phone: 10-28-2007 08:10-0400 BP Diastolic 70 mm[Hg] Ruma Lugo LPN [facility] Work Phone: Comment on above: Patient Position: Sitting; Cuff Location : Left Arm; Cuff Size: Standard 10-28-2007 08:10-0400 BP Systolic 118 mm[Hg] Ruma Lugo LPN [facility] Work Phone: Comment on above: Patient Position: Sitting; Cuff Location : Left Arm; Cuff Size: Standard 10-28-2007 08:10-0400 BSA (Body Surface Area) 1.91 m2 Ruma Lugo LPN [facility] Work Phone: 10-28-2007 08:10-0400 Head Circumference 0 cm Yajaira Uribe [facility] Work Phone: 10-28-2007 08:10-0400 Head Occipital-frontal circumference 0 cm Ruma Lugo LPN [facility]; [facility] Work Phone: 10-28-2007 08:10-0400 Height 162.56 cm Ruma Lugo LPN [facility] Work Phone: 10-28-2007 08:10-0400 Pulse (Heart Rate) 64 /min Ruma Lugo LPN [facility] Work Phone: Comment on above: Pattern: Regular 10-28-2007 08:10-0400 Respiratory Rate 17 /min Ruma Lugo MARLI [...] 09-09-2007 13:39-0400 Head Circumference 0 cm Yajaira Uribe [facility] [...] 12-10-2006 13:36-0400 Weight 88 kg Yajaira Uribe [facility] Work Phone: 06-26-2006 08:02-0400 Body Temperature 97.6 [degF] Devi Mendoza [facility] Work Phone: Comment on above: Method: Oral 06-26-2006 08:02-0400 Body weight 0 kg Devi Mendoza [facility] Internal Medicine Work Phone: 06-26-2006 08:02-0400 BP Diastolic 68 mm[Hg] Devi Mendoza [facility] Internal Medicine Work Phone: Comment on above: Patient Position: Sitting; Cuff Location : Right Arm; Cuff Size: Standard 06-26-2006 08:02-0400 BP Systolic 98 mm[Hg] Devi Mendoza [facility] Internal Medicine Work Phone: Comment on above: Patient Position: Sitting; Cuff Location : Right Arm; Cuff Size: Standard 06-26-2006 08:02-0400 Head Circumference 0 cm Yajaira Uribe [facility] Internal Medicine Work Phone: 06-26-2006 08:02-0400 Head Occipital-frontal circumference 0 cm Devi Mendoza [facility] Internal [facility]; [facility] Work Phone: 06-26-2006 08:02-0400 Height 0 cm Devi Mendoza [facility] Internal Medicine Work Phone: 06-26-2006 08:02-0400 Pulse (Heart Rate) 68 /min Devi Mendoza [facility] Internal Medicine Work Phone: Comment on above: Pattern: Regular 06-26-2006 08:02-0400 Respiratory Rate 16 /min Devi Mendoza [facility] Internal Medicine Work Phone: Comment on above: Pattern: Unlabored 06-26-2006 08:02-0400 Weight 0 kg Yajaira Uribe [facility] Internal Medicine Work Phone: 05-30-2006 14:10-0400 Body Temperature 97.3 [degF] Yajaira Uribe [facility] Internal Medicine Work Phone: Comment on above: Method: Undefined 05-30-2006 14:10-0400 Body weight 0 kg Yajaira Uribe [facility] Internal Medicine Work Phone: 05-30-2006 14:10-0400 BP Diastolic 70 mm[Hg] Yajaira Uribe [facility] Internal Medicine Work Phone: Comment on above: Patient Position: Undefined; Cuff Locati on: Undefined; Cuff Size: Undefined 05-30-2006 14:10-0400 BP Systolic 124 mm[Hg] Yajaira Uribe [facility] Internal Medicine Work Phone: Comment on above: Patient Position: Undefined; Cuff Locati on: Undefined; Cuff Size: Undefined 05-30-2006 14:10-0400 Head Circumference 0 cm Yajaira Uribe [facility] Internal Medicine Work Phone: 05-30-2006 14:10-0400 Head Occipital-frontal circumference 0 cm Yajaira Uribe DO Work Phone: [facility]; [facility] Internal Medicine Work Phone: 05-30-2006 14:10-0400 Height 0 cm Yajaira Uribe [facility] Internal Medicine Work Phone: 05-30-2006 14:10-0400 Pulse (Heart Rate) 72 /min Yajaira Uribe [facility] Internal Medicine Work Phone: Comment on above: Pattern: Regular 05-30-2006 14:10-0400 Respiratory Rate 16 /min Yajaira Uribe [facility] Internal Medicine Work Phone: Comment on above: Pattern: Undefined 05-30-2006 14:10-0400 Weight 0 kg Yajaira Uribe [facility] Internal Medicine Work Phone: 11-22-2005 11:05-0400 BMI (Body Mass Index) 33.3 kg/m2 [facility] Internal Medicine Work Phone: 11-22-2005 11:05-0400 Body Temperature 97.4 [degF] [facility] Internal Medicine Work Phone: Comment on above: Method: Oral 11-22-2005 11:05-[address] [facility] Internal Medicine Work Phone: 11-22-2005 11:05-0400 BP Diastolic 80 mm[Hg] [facility] Internal Medicine Work Phone: Comment on above: Patient Position: Sitting; Cuff Location : Undefined; Cuff Size: Undefined 11-22-2005 11:05-0400 BP Systolic 120 mm[Hg] Gabi Wilkins [facility] Internal Medicine Work Phone: Comment on above: Patient Position: Sitting; Cuff Location : Undefined; Cuff Size: Undefined 11-22-2005 11:05-0400 BSA (Body Surface Area) 1.93 m2 Gabi Lyongs [facility] Work Phone: 11-22-2005 11:05-0400 Head Circumference 0 cm Yajaira Uribe [facility] Internal Medicine Work Phone: 11-22-2005 11:05-0400 Head Occipital-frontal circumference 0 cm Gabi Wilkins [facility]; [facility] Work Phone: 11-22-2005 11:05-0400 Height 162.56 cm Gabi Wilkins [facility] Work Phone: 11-22-2005 11:05-0400 Pulse (Heart Rate) 76 /min [facility]: Comment on above: Pattern: Regular 11-22-2005 11:05-0400 Respiratory Rate 16 /min Gabi Wilkins [facility] Internal Medicine Work Phone: Comment on above: Pattern: Undefined 11-22-2005 11:05-0400 Weight 88 kg Yajaira Uribe [facility] Internal Medicine Work Phone: Encounters Encounter Date Encounter Type Care Provider Facility Start: 09-25-2024 ambulatory Yajaira Uribe Facilit y:[facility] Start: 08-15-2024 End: 08-15-[address] Yajaira Uribe DO Work Phone: [facility] Work Phone: Start: 08-15-2024 End: 08-15-2024 Patient encounter procedure Sarbjit COONEY -Laboratory Specimen Work Phone: Start: 08-15-2024 End: 08-15-2024 Patient encounter procedure Sarbjit COONE[facility] Work Phone: Start: 08-15-2024 End: 08-15-[address] Yajaira Uribe DO Work Phone: [facility] Work Phone: Start: 08-15-2024 End: 08-15-2024 ambulatory Sarbjit COONEY Facility:[facility] Start: 02-18-2024 ambulatory Yajaira Schmitz y:[facility] Start: 01-13-2024 End: 01-13-2024 Emergency department patient visit Yajaira Uribe Facility:[facility] Start: 12-31-2023 End: 12-31-2023 Clinical Support Encounter Yakelin Linds Christine Comment on above: Personal history of malignant neoplasm of breast (Primary Dx); Status post bilateral mastectomy Start: 12-31-2023 ambulatory EDMUNDO CLARK Facility :[facility] Start: 12-18-2023 ambulatory YAJAIRA URIBE Facil ity:[facility] Start: 12-18-2023 End: 12-18-2023 Office outpatient visit 15 minutes Edmundo Clark SYSTEM DESIGNER-HELICOPTER TECHNICIAN Work Phone: Division of Surgical Oncology Comment on above: Personal history of malignant neoplasm of breast (Primary Dx); Status post bilateral mastectomy Start: 07-03-2023 End: 07-03-2023 ambulatory [facility] Work Phone: Start: 07-03-2023 End: 07-03-2023 Patient encounter procedure [facility]-Laboratory, Specimen Work Phone: Start: 12-05-2022 End: 12-05-2022 Subsequent hospital visit by physician Edmundo Clark SYSTEM DESIGNER-HELICOPTER TECHNICIAN Work Phone: [facility] Start: 12-05-2022 End: 12-05-2022 Office outpatient visit 15 minutes Edmundo Clark SYSTEM DESIGNER-HELICOPTER TECHNICIAN Work Phone: Division of Surgical Oncology Comment [...] 08-27-2019 End: 08-27-2019 Annotation/Addendum Yajaira Jojo [facility] Start: 08-26-2019 End: 08-27-2019 Office outpatient visit 15 minutes Yajaira Jojo [facility] Start: 06-24-2018 End: 06-24-2018 Phone Encounter Yajaira Uribe [facility] Start: 06-17-2018 Patient encounter procedure Yajaira [facility]jod[facility] Start: 06-17-2018 End: 06-17-2018 Office outpatient visit 15 minutes Y[facility]aira [facility] Start: 08-27-2017 End: 08-29-2017 [facility] Start: 12-28-2015 End: 12-28-2015 Patient encounter procedure Yajaira Masseydiana [facility] Start: 12-27-2015 End: 12-27-2015 Office outpatient visit 15 minutes Yajaira Jojo [facility] Start: 12-11-2014 End: 12-11-2014 Office outpatient visit 15 minutes Yajaira Jojo [facility] Start: 03-26-2014 End: 03-26-2014 Office outpatient visit 15 minutes Yajaira [facility] Start: 05-08-2013 End: 05-08-2013 Patient encounter procedure Yajaira Jojo [facility] Start: 04-10-2013 End: 04-10-2013 Patient encounter procedure [facility] Start: 02-19-2012 End: 02-19-2012 Patient encounter procedure Yajaira Jojo [facility] Start: 10-27-2011 End: 10-27-2011 Patient encounter procedure Yajaira Jojo [facility] Start: 10-05-2011 End: 10-05-2011 Patient encounter procedure Yajaira Jojo [facility] Start: 09-14-2011 End: 10-25-2011 Patient encounter procedure Yajaira Jojo [facility] Start: 07-24-2011 End: 07-24-2011 Patient encounter procedure Yajaira Jojo [facility] Start: 01-23-2011 End: 01-23-2011 Patient encounter procedure Yajaira Jojo [facility] Start: 01-16-2011 End: 01-16-2011 Patient encounter procedure Yajaira Jojo [facility] Start: 01-11-2011 End: 01-11-2011 Office outpatient visit 15 minutes Yajaira [facility] Start: 12-28-2010 End: 12-28-2010 Office outpatient visit 25 minutes Yajaira [facility] Start: 04-28-2009 End: 04-28-2009 Office outpatient visit 25 minutes Yajaira [facility] Start: 11-01-2007 End: 11-01-2007 Patient encounter procedure Yajaira Uribe [facility] Start: 10-30-2007 End: 10-30-2007 Office outpatient visit 25 minutes Yajaira Masseyon [facility] Start: 10-28-2007 End: 10-28-2007 Patient encounter procedure Yajaira Masseyon [facility] Start: 10-28-2007 End: 10-28-2007 Office outpatient visit 15 minutes Yajaira Uribe [facility] Start: 09-16-2007 End: 09-16-2007 Patient encounter procedure Yajaira Masseyon [facility] Start: 09-09-2007 End: 09-09-2007 Patient encounter procedure Yajaira Uribe [facility] Start: 04-11-2007 End: 04-11-2007 Historical Summary Yajairakobe Masseyon [facility] Start: 12-10-2006 End: 12-10-2006 Office outpatient visit 25 minutes Yajaira Jojo [facility] Start: 06-26-2006 End: 06-26-2006 Patient encounter procedure Yajaira Masseyon [facility] Start: 05-30-2006 End: 05-30-2006 Patient encounter procedure Yajairakobe Masseyon [facility] Start: 11-22-2005 End: 11-22-2005 Office outpatient new 45 minutes Yajairakobe Masseyon [facility] Patient encounter procedure Jerel Newton SEWER DIGGER [facility]; [facility] Work Phone: Patient encounter procedure Nilda Lujan SEWER DIGGER [facility]; [facility] Work Phone: Patient encounter procedure Sandy Sepulveda SEWER DIGGER [facility]; [facility] Work Phone: Patient encounter procedure Jessica Blake MA [facility]; [facility] Work Phone: End: 07-29-2008 Patient encounter status Yakelin Hartman [facility]; [facility] Work Phone: Comment on above: 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 Zeeshan Uribe DO Work Phone: Start: 12-05-2022 breast uni real time with image limited Edmundo Clark SYSTEM DESIGNER-HELICOPTER TECHNICIAN Work Phone: Start: 12-08-2020 End: 12-15-2020 Dexa Bone Density Study Comments: See Note; NOTES: [facility] Imaging Services [address] [place] [address] Dexa Bone Density Study MR#: [id number] Acct: [id number] Name: VALE BULLOCK Rep #: [id number] : 1950 F 70 From: Choco meza MD PCP: Dr. Yajaira Uribe, Status: REG CLI Study: Dexa Bone Density Study Date of Exam: 12/08/20 Exam# [id number] Ordering Dr: Yajaira Uribe DO STUDY: DUAL [...] support , CC: Dr. Yajaira Uribe DO Tar Processing Technician: Signed Yajaira Uribe DO Work Phone: Start: 09-30-2020 End: 09-30-2020 Venous Duplex US - Filipe Extrem Comments: See Note; NOTES: [facility] Cardiovascular Services [address] [place] [address]. [place] [address] Venous Duplex US - Filipe Extrem 09/30/20 1447 MR#: [id number] Acct: [id number] Name: VALE BULLOCK Rep #: [id number] : 1950 70 From: Georges Reyes MD Attending Dr: Dr. Yajaira Uribe, Status: R EG CLI Ordering Dr: Yajaira Uribe DO Date: 09/30/20 Location: [facility] Sex: F C Admitted: Reason For [...] Date Dictated: 09/30/20 1447 Date Transcribed: 09/30/201999 Tar Processing Technician: Evan Uribe DO Work Phone: Start: 08-30-2016 End: 08-30-2016 Emergency Department Summary Comments: See Note; NOTES: [facility] Medical Records Department [address] [place] [address] Emergency Department Summary MR#: [id number] Acct: [id number] Name: VALE BULLOCK Rep #: [id number] : 1950 66 From: Guerda Walton MD PCP: Yajaira Uribe DO Status: [facility] ER DATE OF SERVICE: 08/26/2016 CHIEF COMPLAINT: Sore on leg. HISTORY OF PRESENT ILLNESS: The patient has what she thinks is a bite on her medial thigh. It has been there about 3 days. She states that that is when she was mowing grass in [facility]. She said today she just noticed [...] tick bites including signs and symptoms of Von Ormy spotted fever and Lyme disease and what [...] Edilia Ron C: Yajaira Uribe DO T: [facility] JOB: [id number] 08/30/16 0806 <Electronically signed by Guerda Walton MD> Date Guerda Walton MD Cosigner Signature (If Indicated): Date CC: Yajaira Uribe DO Date Dictated: 08/27/167 Date Transcribed: 08/27/167 Tar Processing Technician: Signed Yajaira Uribe Start: 04-28-2013 End: 04-28-2013 PT Discharge Summary Comments: See Note; NOTES: [facility] Physical Therapy [facility] [address] [place], [place] [address] Fax REHABILITATION SERVICES DISCHARGE SUMMARY MR#: [id number] Acct: [id number] Name: VALE BULLOCK Rep #: [id number] : 1950 63 From: Erika Ruano Referring [...] continue on with her exercise program at [employer] in [place]. She is going skiing in [place] this [...] therapist Erika Ruano DPT T: [facility] JOB: [id number] <Electronically signed by Erika Ruano > 04/28/13 0801 CC: Signed Yajaira Uribe Work Phone: Start: 04-16-2013 End: 04-16-2013 Inital Evaluation - PT Comments: See Note; NOTES: [facility] [address] [place], [place] [address] Fax REHABILITATION SERVICES INITIAL EVALUATION MR#: [id number] Acct: [id number] Name: VALE BULLOCK Rep #: [id number] : 1950 63 From: Erika Ruano Referring Dr.: Yajaira Uribe DO Status: REG RCR Insurance: [facility] Date: DATE OF SERVICE: 04/14/2013 REASON FOR EVALUATION: Vale is a 63-year-old female referred to physical therapy by Dr. Uribe with a diagnosis of right knee pain. SUBJECTIVE: Vale presents to physical therapy after injuring her right knee while hiking in [place] this past October. She came down [...] therapist. Erika Ruano DPT T: [facility] JOB: [id number] <Electronically signed by Erika Ruano > 04/16/13 1119 CC: Signed For Medicare only, by signing this I certify the plan of care. Physicians Signature Date Yajaira Uribe Work Phone: Start: 04-16-2013 End: 04-16-2013 PT Letter Comments: See Note; NOTES: [facility] [address] [place] [address] Fax Yajaira Uribe DO [address] [place] [address] Uribe: Thank you for the referral of Vale Kobe to [email or web address] on the date of April [...] for the referral of your patient to [facility]. If you have any questions or concerns regarding this evaluation, please feel free to contact me at [phone]. Sincerely, Linette Johnson, student physical therapist. Erika Ruano DPT T: [facility] JOB: [id number] <Electronically signed by Erika Ruano > 04/16/13 1119 CC: Yajaira Uribe Work Phone: Start: 04-10-2013 End: 04-11-2013 Knee 4 or More Views Comments: See Note; NOTES: [facility] Imaging Services [address] [place] [address] Radiology Report MR#: [id number] Acct: [id number] Name: VALE BULLOCK Rep #: [id number] : 1950 F 63 From: Farooq Waggoner PCP: Yajaira Uribe DO Status: REG CLI Study: Knee 4 or More Views Date of Exam: 04/10/13 Exam# [id number] Ordering Dr: Yajaira Uribe DO STUDY: X-RAY [...] M.D. at 3:40 EST , Service support [phone], CC: Yajaira Uribe DO Tar Processing Technician: Signed Yajaira Uribe Work Phone: Start: 07-13-2000 Lipid 1996 panel - Serum or Plasma Edmundo Clark SYSTEM DESIGNER-HELICOPTER TECHNICIAN Work Phone: History of bilateral mastectomy Status post bilateral mastectomy Edmundo Clark SYSTEM DESIGNER-HELICOPTER TECHNICIAN Work Phone: History of bilateral mastectomy Status post bilateral mastectomy Yakelin Maco Mastectomy of right breast Jerel Newton Comment on above: 04/11/12 Screening mammography Jerel Newton SEWER DIGGER Comment on above: 04/23/2019 [facility] - biopsy by dr hayley reyes massectomy done on 07/03/[address] vasyl ayala at [facility] in [place] Screening mammography Nilda Lujan SEWER DIGGER Comment on above: 04/23/2019 [facility] - biopsy by dr hayley reyes massectomy done on 07/03/[address] vasyl ayala at [facility] Screening mammography Sandy Sepulveda SEWER DIGGER Comment on above: 04/23/2019 [facility] - biopsy by dr hayley reyes massectomy done on 07/03/[address] vasyl ayala at [facility] in [place] Screening mammography Jessica Blake MA Comment on above: 04/23/2019 [facility] - biopsy by dr hayley reyes massectomy done on 07/03/[address] 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 04/11/12 Simple mastectomy Sandy Chua rb SEWER DIGGER Comment on above: dr vasyl ayala at [facility] in [place], 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 04/11/12 Simple mastectomy Jessica mak MA Comment on above: dr vasyl ayala at [facility] in [place], 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 04/11/12 Plan of Treatment Date Care Activity Detail Author Start: 12-16-2024 End: 12-16-2024 Patient encounter procedure 12/16/2024 8:00 AM EDT Office Visit Division of Surgical Oncology [address], [address] [place] [address] Edmundo Clark, SYSTEM DESIGNER-HELICOPTER TECHNICIAN [address] [place] [address] Division of Surgical Oncology Start: 12-31-2023 End: 12-31-2023 Clinical Support Encounter 12/31/2023 9:30 AM EDT Clinical Support Encounter [facility] [address] [place] [address] Yakelin Dewey's Christine Start: 12-11-2023 End: 12-11-2023 Patient encounter procedure 12/11/2023 8:00 AM EDT Office Visit Division of Surgical Oncology [address] [facility] 3rd Floor, [address] [place] [address] Edmundo Clark, SYSTEM DESIGNER-HELICOPTER TECHNICIAN [address] [place] [address] Division of Surgical Oncology Start: 01-02-2023 End: 01-02-2023 Patient encounter procedure 01/02/2023 Office Visit Surgical Oncology Edmundo Clark, SYSTEM DESIGNER[facility] [address] [place] [address] Division of Surgical Oncology Start: 11-03-2022 Influenza vaccination INFLUENZA VACC INE (#1) [facility] Start: 04-08-2022 COVID-19 VACCINE (6 - Pfizer series) COVID-19 VACCINE (6 - Pfizer series) [facility] Start: 03-30-2022 Pneumococcal vaccination [facility] Start: 08-04-2021 Procedure Education Eprescribe d [...] Start: 03-23-2021 Assay of zinc ZINC, BLOOD (64547) [facility]; [facility] Work Phone: Start: 03-23-2021 Comprehensive metabo lic panel METABOLIC PANEL, COMPREHENSIVE (85312) [facility]; [facility] Work Phone: Start: 03-23-2021 Cyanocobalamin vitam in b-12 VITAMIN B-12 (CYANOCOBALAMIN) (29043) [facility]; [facility] Work [...] 25 hydroxy includes fractions if performed CALCIFEDIOL (10996) [facility]; [facility] Work Phone: Start: 11-01-2020 Procedure Education Eprescribe d prescriptions (G8553) [facility]; [facility] Work Phone: Start: 11-01-2020 Provider Instruction s for Treatment Follow up if no improvement or if symptoms worsen [facility]; [facility] Work Phone: Start: 10-25-2020 Urnls dip stick/tabl et rgnt non-auto w/o micrscp Urinalysis, Office (68140) [facility]; [facility] Work [...] Fibrin dgradj produc ts d-dimer quantitative D-Dimer (46856) [facility]; [facility] Work Phone: Start: 08-03-2020 Procedure Education Eprescribe d prescriptions (G8553) [facility]; [facility] Work Phone: Start: 08-03-2020 Provider Instruction s for Treatment [facility]; [facility] Work Phone: Start: 08-26-2019 Procedure Education Eprescribe d prescriptions (G8553) [facility] Work Phone: Start: 08-26-2019 Iadna s aureus ampli fied probe tq MRSAW (67869) [facility] Work Phone: Start: 08-26-2019 Iadna s aureus methicillin resist amp probe tq MRSA Culture (90431) [facility] Work Phone: Start: 06-17-2018 Procedure Education Eprescribe d prescriptions (G8553) [facility] Work Phone: Start: 06-17-2018 Provider Instruction s for Treatment [facility] Work Phone: Start: 06-17-2018 Blood occult peroxid ase actv qual feces 1 deter OCCULT BLOOD FECES SCREEN (39376) [facility] Work Phone: Start: 06-17-2018 Leukocyte assmt feca l qual/semiquantitative LEUKOCYTE COUNT, FECAL (59019) [facility] Work Phone: Start: 06-17-2018 Ova&parasites direct smears concentration & id OVA & PARASITE DIR SMEAR (15949) [facility] Work Phone: Start: 06-17-2018 Cul bact stool aerob ic isol salmonella&shigell CHAPO CULTURE-STOOL (68458) [facility] Work Phone: Start: 06-17-2018 Culture bacterial an y source anaerobic iso&id C-DIFFICILE, STOOL (04515) [facility] Work Phone: Start: 06-17-2018 Sedimentation rate r bc non-automated Sed Rate Erythrocyte (54790) [facility] Work Phone: Start: 06-17-2018 Comprehensive metabo lic panel Metabolic Panel, Comprehensive (88105) [facility] Work Phone: Start: 06-17-2018 Blood count manual c ell count each CBC with auto diff (85524) [facility] Work Phone: Start: 04-05-2017 [facility] Start: 12-27-2015 Provider Instruction s for Treatment Follow up tomorrow, as needed [facility] Work Phone: Start: 12-11-2014 Procedure Education Eprescribe d prescriptions (G8553) [facility] Work Phone: Start: 12-11-2014 Iaadiadoo streptococ cus group a Rapid Strep Test, Office (12305) [facility]; [facility] Work Phone: Start: 12-11-2014 S. pyogenes Ag IA Ql (Unsp spec) Rapid Strep Test, Office (58186) [facility] Work Phone: Start: 03-26-2014 [...] Phone: Start: 08-19-2012 Lipid panel LIPID PANEL (88937) [facility] Work Phone: Start: 02-26-2012 Lipid panel LIPID PANEL (85298) [facility] Work Phone: Start: 02-19-2012 Provider Instruction s for Treatment [facility] Work Phone: Start: 10-27-2011 Provider Instruction s for Treatment [facility] Work Phone: Start: 10-05-2011 Patient Education Asthma: Jo-Ann herrera Version *: asthma [facility] Work Phone: Start: 10-05-2011 Provider Instruction s for Treatment [facility] Work Phone: Start: 10-05-2011 Assay of thyroid stimulating hormone tsh TSH (09805) [facility]; [facility] Work Phone: Start: 10-05-2011 Thyrotropin Qn TSH (04226) [facility]pre[facility] ns[facility] Work Phone: Start: 10-05-2011 Comprehensive metabo lic panel METABOLIC PANEL, COMPREHENSIVE (03681) [facility] Work Phone: Start: 10-05-2011 Blood count manual c ell count each CBC WITH MANUAL DIFF (71978) [facility] Work Phone: Start: 10-05-2011 Lipid panel LIPID PANEL (36113) [facility] prehensive Internal Medicine Work Phone: Start: 07-24-2011 Patient Education Breast Cance r: Early Detection: prevention [facility] Work Phone: Start: 07-24-2011 Provider Instruction s for Treatment [facility] Work Phone: Start: 07-24-2011 Cytp cerv/vag auto t hin layer prep mnl screen Thin prep Pap (52199) [facility] Work Phone: Start: 2011 RSV VACCINE (1 - 1-d ose 60+ series) RSV VACCINE (1 - 1-dose 60+ series) [facility] Start: 01-23-2011 Provider Instruction s for Treatment Reviewed Diagnostic Tests [facility] Work Phone: Start: 01-16-2011 Provider Instruction s for Treatment Follow up in 1 week [facility] Work Phone: Start: 01-11-2011 Antibody borrelia burgdorferi confirmatory tst LYME DISEASE CONFIRMATION TEST (78667) [facility] Work Phone: Comment on above: today and in 2 wks Start: 12-28-2010 Provider Instruction s for Treatment [facility] Work Phone: Start: 12-28-2010 Antibody borrelia burgdorferi confirmatory tst LYME DISEASE CONFIRMATION TEST (10598) [facility] Work Phone: Comment on above: today and in 2 wks Start: 12-28-2010 Cul bact xcpt urine blood/stool aerobic isol CHAPO CULTURE-OTHER (52081) [facility] Work Phone: Start: 11-08-2007 Screening for osteoporosis DEXA SCAN DISCUSSION [facility] Start: 11-01-2007 Provider Instruction s for Treatment [facility] Work Phone: Start: 10-30-2007 Provider Instruction s for Treatment FOLLOW UP IN 1 WEEK [facility] Work Phone: Start: 10-30-2007 Comprehensive metabo lic panel Metabolic Panel, Comprehensive (47156) [facility] Work Phone: Start: 10-28-2007 Patient Education Water in t, brief version [facility] Work Phone: Start: 10-28-2007 Provider Instruction s for Treatment Follow up for recheck urine 1 week after complete antibiotic [facility] Work Phone: Start: 10-28-2007 Culture bacterial quanttative colony count urine URINE CHAPO CULTURE-ANA COL COUNT (53304) [facility] Work Phone: Start: 10-28-2007 Culture bacterial quanttative colony count urine URINE CHAPO CULTURE-ANA COL COUNT (28703) [facility] Work Phone: Start: 10-28-2007 Urinls dip stick/tab let reagnt non-auto micrscpy URINALYSIS W MICROSCOPY (51455) [facility] Work Phone: Start: 10-24-2007 Screening for malign ant neoplasm of cervix CERVICAL CANCER SCREENING DISCUSSION [facility] Start: 09-09-2007 Provider Instruction s for Treatment [facility] Work Phone: Start: 09-09-2007 Lipid panel LIPID PANEL (78307) [facility] Work Phone: Start: 12-10-2006 Provider Instruction s for Treatment [facility] Work Phone: Start: 06-26-2006 Provider Instruction s for Treatment [facility] Work Phone: Start: 11-22-2005 Provider Instruction s for Treatment [facility] Work Phone: Start: 11-22-2005 Lipid panel LIPID PANEL (06354) [facility] Work Phone: Start: 11-22-2005 Glucose mass conc GLUCOSE, PP/ 2 HOUR (30074) [facility] Work Phone: Start: 11-22-2005 Glucose quantitative blood xcpt reagent strip GLUCOSE, PP/2 HOUR (76400) [facility]; [facility] Work Phone: Start: 07-13-2005 Lipid panel LIPID SCREENING [facility] Start: 2001 Zoster vaccine hzv l katerin for subcutaneous use ZOSTER (SHINGLES) VACCINE (1 of 2) [facility] Start: 02-24-1996 Screening for malign ant neoplasm of colon COLORECTAL CANCER SCREENING DISCUSSION [facility] Start: 1970 Third diphtheria, tetanus and acellular pertussis (DTaP) vaccination TDAP (ADULT) [facility] Start: 1950 Hepatitis C screening HEPATITI S C VIRUS SCREENING [facility] Medicine Work Phone: [...] nternal Medicine; [facility] Work Phone: [facility] Immunizations Immunization Date Immunization Notes Care Provider Ernestine egan 10-04-2022 influenza virus vaccine, unspecified formulation Edmundodarby Clark [facility] Work Phone: [facility] 03-05-2020 COVID-Pfizer (30 MCG/0.3 ML) Yajaira Uribe DO Work Phone: [facility]; [facility] Work Phone: 03-05-2019 pneumococcal polysaccharide vaccine, 23 valent Yajaira Uribe DO Work Phone: [facility]; [facility] Work Phone: 05-20-2010 typhoid capsular polysaccharide vaccine Edmundo [facility] Work Phone: [facility] 02-10-2008 hepatitis A and hepatitis B vaccine Edmundo [facility] Work Phone: [facility] 08-13-2007 hepatitis A and hepatitis B vaccine Edmundo [facility] Work Phone: [facility] 07-11-2007 hepatitis A and hepatitis B vaccine Edmundo [facility] Work Phone: [facility] 07-11-2007 typhoid capsular polysaccharide vaccine Edmundo [facility] Work Phone: [facility] 04-05-2007 tetanus and diphther ia toxoids, adsorbed, preservative free, for adult use (2 Lf of tetanus toxoid and 2 Lf of diphtheria toxoid) Edmundo [facility] Work Phone: [facility] Payers Date Payer Category Payer Self-pay [id number] 2019 Unknown 2018 Medicare [id number] 2018 Private Health Insurance [id number] 2016 Medicare MEDICARE MEDICAR E A AND B [id number] 2016-Present [address] [place] [address] [id number] 2016 Medicare [id number] 2015 Unknown [id number] 2013 Unknown [id number] 2007 Unknown [id number] 1951 Unknown [id number] 16 1951 Unknown [id number] 94 1951 Unknown [id number] 94 Unknown [id number] Unknown [id number] 62 Unknown [id number] 62 Unknown [id number] 62 Unknown [id number] 62 Unknown [id number] 62 Social History Date Type Detail Facility Start: 12-05-2022 End: 12-18-2023 Alcohol Use Never smoker [facility] Work Phone: Comment on above: Walking QD Massotherapist, [facility] Tobacco use: Never smoker. [facility] Work Phone: Comment on above: 07/24/11 Tobacco use: Tobacco use: [facility]; [facility] Work Phone: Comment on above: 07/24/11 Start: 01-02-2022 End: 08-15-2024 Tobacco smoking status NHIS Never smoked tobacco [facility] Start: 01-02-2022 Tobacco use and exposure Smokeless tobacco non-user [facility] Start: 01-02-2022 End: 12-18-2023 Alcohol intake Current drinker of alcohol (finding) [facility] Start: 01-02-2022 History SDOH Financial 5 [facility] Start: 01-02-2022 History SDOH Food Worry 1 [facility] Start: 01-02-2022 History SDOH Transport Med 2 [facility] Start: 05-05-2019 Alcohol Comment wine occasionally [facility] Start: 1950 Sex Assigned At Not on file [facility] Start: 12-05-2022 End: 12-18-2023 Tobacco use panel [facility] How hard is it for you to pay for the very basics like food, housing, medical care, and heating Not hard at all [facility] (I/We) worried whether (my/our) food would run out before (I/we) got money to buy more. Never true [facility] Gender identity Identifies as fe male gender (finding) [facility] Start: 08-26-2016 Tobacco smoking status NHIS Unknown if ever smoked [facility] Start: 1950 Sex Assigned At Female [facility] Goals Date Patient Goal Desired Activity /State [...] lymphedema. 06/30/2019 met Clinical Notes 01-02-2022 to 08-15-2024 Note Date & Type Note Facility 08-15-2024 Evaluation note Diagnosis Onset Date Resolution Dysuria acute August 15 7:03am [facility] Work Phone: 1(363) 790-280610-28-2024 History of Present illness Narrative* Yakelin Dewey - 12/31/2023 9:30 AM EDT NOTE: VERIFY NAME, , ADDRESS FOR CLIENT(UPDATE CATAPULT) Bra Prosthesis Note Vale Bullock is being seen today at [facility] by Yakelin Dewey for a Breast Issue. Her surgerywas on 2012 -RT MAST, 2019 -LT MAST. Mastectomy: R__ L__ Bilateral _X_ Lumpectomy: R__ L__ Bilateral__ Reconstruction: Yes__ No _X_ Reconstruction removed Yes__ No__ Orders Orders: Orders reviewed ___X_ Dx code Z85.3, Z90.13 HULL Measurements Bra Band: 38.75 inches Fullest part [...] first time since having her left mastectomy, shehas healed nicely. She tried bra's with ROSA 400 07's and ANI 1052x2 07's, she liked fit of NEMO forms better. She also tried several bra's on, did not care for ROSA Courtney as well as the ABC 525. Alsoliked ANI 5769x xl but did not take [...] RELEASE CARE INSTRUCTIONS -Y documented [facility] History of Present illness Narrative* Edmundo Clark, JOSEPH-HELICOPTER TECHNICIAN - 12/18/2023 8:00 AM EDT Breast Surgical Oncology Clinic Note Patient: Vale [...] axilla, which is a chronic issue. The areais consistently tender, but she does not feel any lumps or bumps. There are no noticeable skin changes or rashes. She experiences shooting pains when moving in certain ways. Attempts to strengthen the area through exercise have resulted in a pulling sensation. The pain is position- dependent and subsides upon changing position, lasting only [...] Invasive tumor: ER positive (100%, strong intensity), WY positive (50%, moderate intensity), HER2 equivocal (2+) by manual quantification at [facility] with HER2 FISH pending Note: Immunostain for E-cadherin shows membranous staining, confirming ductal phenotype. 07/03/2019 Surgery Left mastectomy sentinel lymph node biopsy 07/03/2019 - Cancer Staged Staging form: Breast, AJCC 8th Edition - Pathologic stage from 07/03/2019: Stage IA (pT1a, pN0(sn), cM0, G2, ER+, WY+, HER2-) Review of systems negative for constitutional symptoms, new pain, chest pain, shortness of breath, easy bruising, new masses, new headache, new rash, depressive symptoms. Review of systems positive for None Past Medical History: Diagnosis Date Asthma Breast cancer 02/2012 Right Breast Cat allergies History of recurrent UTIs Invasive ductal carcinoma of breast, left 04/25/2019 Stereotactic bx showing left IDC ER/WY+, Her2-anum negative Migraine age 33 Recurrent sinus [...] Left; Surgeon: Vasyl Ayala MD; [facility] IDENTIFICATION SENTINEL NODE INTRAOPERATIVE ADD-ON PX Left 07/03/2019 Laterality: Left; Surgeon: Vasyl Ayala MD; [facility] CORE BIOPSY OF THE BREAST Left 04/25/2019 Stereotactic bx showing left IDC ER/WY+, Her2-anum negative MASTECTOMY COMPLETE Right 04/11/2012 Laterality: [...] BIOPSY 02/13/12 right DCIS with micro invasion, ER+/WY+/Her-2 negative. 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 Intermittent right axillary discomfort. Plan: The patient reports chronic right axillary pain that is tender and position- dependent, with shooting pain rated at about 6/10. The pain is exacerbated by certain movements and upper body exercises but resolves upon changing position. There are no associated skin changes, rashes, or palpable lumps. Previous ultrasounds in April 2018 and December 2022 showed no abnormalities. Nrjk-gun-kkxvoob medications are not typically used by the [...] may be considered. [facility] bra and prosthesis. She was offered Knitted Knockers for use in the interim should she wish to trial these. She will return to clinic for evaluation in 1 year. Approximately 25 minutes were spent by la, SANDRA Campbell on 12/18/23 for this visit with>50% of this spent preparing to see the patient, in direct patient care, and in counseling/coordination of the patient's plan of care. [facility] History of Present illness Narrative* Deepti Tanner - 12/05/2022 3:30 PM EDT Patient offered a medical international flight attendant for sensitive exam. Pt declined documented in [facility]OS[facility] History of Present illness Narrative* Daylin Escobar RN - 12/05/2022 2:30 PM EDT Patient offered a medical international flight attendant for sensitive exam. Patient denies need for medical international flight attendant. * Edmundo Renato Clark, SYSTEM DESIGNER-HELICOPTER TECHNICIAN - 12/05/2022 2:30 PM EDT Breast Surgical Oncology Clinic Note Patient: Vale [...] Invasive tumor: ER positive (100%, strong intensity), WY positive (50%, moderate intensity), HER2 equivocal (2+) by manual quantification at [facility] with HER2 FISH pending Note: Immunostain for E-cadherin shows membranous staining, confirming ductal phenotype. 07/03/2019 Surgery Left mastectomy sentinel lymph node biopsy 07/03/2019 - Cancer Staged Staging form: Breast, AJCC 8th Edition - Pathologic stage from 07/03/2019: Stage IA (pT1a, pN0(sn), cM0, G2, ER+, WY+, HER2-) Review of systems negative for constitutional symptoms, new pain, chest pain, shortness of breath, easy bruising, new masses, new headache, new rash, depressive symptoms. 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 BX LYMPH NODE Right 2011 APPENDECTOMY [...] No Hobby Hazards No Social History Narrative FIELD GEOLOGIST: Patient is postmenopausal Last PAP: 2009 Para: [...] the right mastectomy were obtained by the instructor tap dancing. Color Doppler was used to assess vascular [...] Stage IA (cT1a, cN0, cM0, G2, ER+, WY+, HER2: Equivocal) - Pathologic stage from 07/03/2019: Stage IA (pT1a, pN0(sn), cM0, G2, ER+, WY+, HER2-) Surveillance; s/p bilateral mastectomies with no [...] the time spent communicating with other health health care marketing specialist, and the time spent for care coordination today. documented in this encounterOhio[facility]22 History of Present illness Narrative* Jill Cornell RN - 01/02/2022 1:00 PM EDT Patient offered a medical international flight attendant for sensitive exam. Patient declined international flight attendant. * SANDRA Campbell - 01/02/2022 1:00 PM EDT Breast Surgical Oncology Clinic Note Patient: Vale Bullock Age: 71 y.o. Attending: Vasyl Ayala Date of Consult: January 02, 2022 Chief [...] Invasive tumor: ER positive (100%, strong intensity), WY positive (50%, moderate intensity), HER2 equivocal (2+) by manual quantification at [facility] with HER2 FISH pending Note: Immunostain for E-cadherin shows membranous staining, confirming ductal phenotype. 07/03/2019 Surgery Left mastectomy sentinel lymph node biopsy 07/03/2019 - Cancer Staged Staging form: Breast, AJCC 8th Edition - Pathologic stage from 07/03/2019: Stage IA (pT1a, pN0(sn), cM0, G2, ER+, WY+, HER2-) Review of systems negative for constitutional symptoms, new pain, chest pain, shortness of breath, easy bruising, new masses, new headache, new rash, depressive symptoms. 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 BX LYMPH NODE Right 2011 APPENDECTOMY [...] No Hobby Hazards No Social History Narrative FIELD GEOLOGIST: Patient is postmenopausal Last PAP: 2009 Para: [...] Stage IA (cT1a, cN0, cM0, G2, ER+, WY+, HER2: Equivocal) - Pathologic stage from 07/03/2019: Stage IA (pT1a, pN0(sn), cM0, G2, ER+, WY+, HER2-) Surveillance; s/p bilateral mastectomies with no [...] clinic 1 year with me in the [facility] clinic. Approximately 20 were spent for this visit which includes face to face interaction, the time spent in preparing to see the patient (including review of images, pathology and history), the time spent communicating with other health health care marketing specialist, and the time spent for care coordination today. [facility]* Diagnosis Personal history of malignant neoplasm of breast- Primary [facility] Personal history of malignant neoplasm of breast- Primary Pain in right axilla Pain in limb Personal history of malignant neoplasm of breast Pain in right axilla Pain in limb [facility] Diagnosis Personal history of malignant neoplasm of breast Pain in right axilla Pain in limb documented [facility] this encounter [facility] assessment information available [facility] Work Phone: Evaluation note* Diagnosis Personal history of malignant neoplasm of breast- Primary Status post bilateral mastectomy Acquired absence of breast and nipple [facility] Name Dates Details Patient Instructions Indication:Non-smoker Start:03-Aug-2020 Instruction Type:Provider Instructions for Treatment How to Access Health Informa tion Online using Patient Portal and [employer] Apps Indication:Non-smoker Start:03-Aug-2020 Instruction Type:Patient Education How [...] tion Online using Patient Portal and [employer]rd [employer] Apps Indication:Non-smoker Start:05-Jan-2021 Instruction Type:Patient Education Patient Instructions Indication:BMI 30.0-30.9,adult Start:01-Nov-2020 Instruction Type:Provider Instructions for Treatment How to Access Health Informa tion Online using Patient Portal and 3rd [employer] Apps Indication:BMI 30.0-30.9,adult Start:01-Nov-2020 Instruction Type:Patient Education How to Access Health Informa tion Online using Patient Portal and 3rd [employer] Apps Indication:BMI 30.0-30.9,adult Start:25-Oct-2020 Instruction Type:Patient Education Patient Instructions Indication:BMI 30.0-30.9,adult Start:25-Oct-2020 Instruction Type:Provider Instructions for Treatment Patient Instructions Indication:Non-smoker Start:21-Oct-2020 Instruction Type:Provider Instructions for Treatment How to Access Health Informa tion Online using Patient Portal and 3rd [employer] Apps Indication:Non-smoker Start:21-Oct-2020 Instruction Type:Patient Education Patient Instructions Indication:BMI 29.0-29.9,adult Start:30-Sep-2020 Instruction Type:Provider Instructions for Treatment How to Access Health Informa tion Online using Patient Portal and 3rd [employer] Apps Indication:BMI 29.0-29.9,adult Start:30-Sep-2020 Instruction Type:Patient Education Patient Instructions Indication:Non-smoker Start:03-Aug-2020 Instruction Type:Provider Instructions for Treatment How to Access Health Informa tion Online using Patient Portal and 3rd [employer] Apps Indication:Non-smoker Start:03-Aug-2020 Instruction Type:Patient Education How [...] tion Online using Patient Portal and [employer]rd [employer] Apps Indication:BMI 29.0-29.9,adult Start:23-Mar-2021 Instruction Type:Patient Education Patient Instructions Indication:Non-smoker Start:05-Jan-2021 Instruction Type:Provider Instructions for Treatment How to Access Health Informa tion Online using Patient Portal and 3rd [employer] Apps Indication:Non-smoker Start:05-Jan-2021 Instruction Type:Patient Education Patient Instructions Indication:BMI 30.0-30.9,adult Start:01-Nov-2020 Instruction Type:Provider Instructions for Treatment How to Access Health Informa tion Online using Patient Portal and 3rd [employer] Apps Indication:BMI 30.0-30.9,adult Start:01-Nov-2020 Instruction Type:Patient Education How to Access Health Informa tion Online using Patient Portal and 3rd [employer] Apps Indication:BMI 30.0-30.9,adult Start:25-Oct-2020 Instruction Type:Patient Education Patient Instructions Indication:BMI 30.0-30.9,adult Start:25-Oct-2020 Instruction Type:Provider Instructions for Treatment Patient Instructions Indication:Non-smoker Start:21-Oct-2020 Instruction Type:Provider Instructions for Treatment How to Access Health Informa tion Online using Patient Portal and 3rd [employer] Apps Indication:Non-smoker Start:21-Oct-2020 Instruction Type:Patient Education Patient Instructions Indication:BMI 29.0-29.9,adult Start:30-Sep-2020 Instruction Type:Provider Instructions for Treatment How to Access Health Informa tion Online using Patient Portal and 3rd [employer] Apps Indication:BMI 29.0-29.9,adult Start:30-Sep-2020 Instruction Type:Patient Education Patient Instructions Indication:Non-smoker Start:03-Aug-2020 Instruction Type:Provider Instructions for Treatment How to Access Health Informa tion Online using Patient Portal and 3rd [employer] Apps Indication:Non-smoker Start:03-Aug-2020 Instruction Type:Patient Education How [...] tion Online using Patient Portal and 3rd [employer] Apps Indication:Non-smoker Start:25-Apr-2021 Instruction Type:Patient Education Patient Instructions Indication:Non-smoker Start:25-Apr-2021 Instruction Type:Provider Instructions for Treatment Patient Instructions Indication:BMI 29.0-29.9,adult Start:23-Mar-2021 Instruction Type:Provider Instructions for Treatment How to Access Health Informa tion Online using Patient Portal and [employer] Apps Indication:BMI 29.0-29.9,adult Start:23-Mar-2021 Instruction Type:Patient Education Patient Instructions Indication:Non-smoker Start:05-Jan-2021 Instruction Type:Provider Instructions for Treatment How to Access Health Informa tion Online using Patient Portal and [employer] Apps Indication:Non-smoker Start:05-Jan-2021 Instruction Type:Patient Education Patient Instructions Indication:BMI 30.0-30.9,adult Start:01-Nov-2020 Instruction Type:Provider Instructions for Treatment How to Access Health Informa tion Online using Patient Portal and 3rd [employer] Apps Indication:BMI 30.0-30.9,adult Start:01-Nov-2020 Instruction Type:Patient Education How to Access Health Informa tion Online using Patient Portal and [employer] Apps Indication:BMI 30.0-30.9,adult Start:25-Oct-2020 Instruction Type:Patient Education Patient Instructions Indication:BMI 30.0-30.9,adult Start:25-Oct-2020 Instruction Type:Provider Instructions for Treatment Patient Instructions Indication:Non-smoker Start:21-Oct-2020 Instruction Type:Provider Instructions for Treatment How to Access Health Informa tion Online using Patient Portal and [employer]rd [employer] Apps Indication:Non-smoker Start:21-Oct-2020 Instruction Type:Patient Education Patient Instructions Indication:BMI 29.0-29.9,adult Start:30-Sep-2020 Instruction Type:Provider Instructions for Treatment How to Access Health Informa tion Online using Patient Portal and [employer] Apps Indication:BMI 29.0-29.9,adult Start:30-Sep-2020 Instruction Type:Patient Education Patient Instructions Indication:Non-smoker Start:03-Aug-2020 Instruction Type:Provider Instructions for Treatment How to Access Health Informa tion Online using Patient Portal and [employer] Apps Indication:Non-smoker Start:03-Aug-2020 Instruction Type:Patient Education How [...] tion Online using Patient Portal and [employer]rd [employer] Apps Indication:BMI 29.0-29.9,adult Start:04-Aug-2021 Instruction Type:Patient Education How to Access Health Informa tion Online using Patient Portal and [employer]rd [employer] Apps Indication:Non-smoker Start:25-Apr-2021 Instruction Type:Patient Education Patient Instructions Indication:Non-smoker Start:25-Apr-2021 Instruction Type:Provider Instructions for Treatment Patient Instructions Indication:BMI 29.0-29.9,adult Start:23-Mar-2021 Instruction Type:Provider Instructions for Treatment How to Access Health Informa tion Online using Patient Portal and [employer]rd [employer] Apps Indication:BMI 29.0-29.9,adult Start:23-Mar-2021 Instruction Type:Patient Education Patient Instructions Indication:Non-smoker Start:05-Jan-2021 Instruction Type:Provider Instructions for Treatment How to Access Health Informa tion Online using Patient Portal and [employer]rd [employer] Apps Indication:Non-smoker Start:05-Jan-2021 Instruction Type:Patient Education Patient Instructions Indication:BMI 30.0-30.9,adult Start:01-Nov-2020 Instruction Type:Provider Instructions for Treatment How to Access Health Informa tion Online using Patient Portal and [employer]rd [employer] Apps Indication:BMI 30.0-30.9,adult Start:01-Nov-2020 Instruction Type:Patient Education How to Access Health Informa tion Online using Patient Portal and [employer]rd [employer] Apps Indication:BMI 30.0-30.9,adult Start:25-Oct-2020 Instruction Type:Patient Education Patient Instructions Indication:BMI 30.0-30.9,adult Start:25-Oct-2020 Instruction Type:Provider Instructions for Treatment Patient Instructions Indication:Non-smoker Start:21-Oct-2020 Instruction Type:Provider Instructions for Treatment How to Access Health Informa tion Online using Patient Portal and [employer]rd [employer] Apps Indication:Non-smoker Start:21-Oct-2020 Instruction Type:Patient Education Patient Instructions Indication:BMI 29.0-29.9,adult Start:30-Sep-2020 Instruction Type:Provider Instructions for Treatment How to Access Health Informa tion Online using Patient Portal and 3rd [employer] Apps Indication:BMI 29.0-29.9,adult Start:30-Sep-2020 Instruction Type:Patient Education Patient Instructions Indication:Non-smoker Start:03-Aug-2020 Instruction Type:Provider Instructions for Treatment How to Access Health Informa tion Online using Patient Portal and [employer]rd [employer] Apps Indication:Non-smoker Start:03-Aug-2020 Instruction Type:Patient Education How [...] malignant neoplasm of breast Edmundo Clark APRN-CNP [address] [place] [address] Referral ID Status Reason Start Date Expiration Date V isits Requested Visits Authorized [id number] New Request 01/02/2022 01/27/2023 1 1 [facility] for [facility] (narrative)No reason for referral information availableSt. [facility] Work Phone: Summary Purpose Family History No Family History Records FoundUnknown Family Member Name Dates Details Daughter 1 [...] disease Unknown Kidney disorder Unknown Advance Directives No Advanced Directives Records FoundLatest Code Status on File Code Status Date Activated Date Inactivated Comments Full Code 04/11/2012 7:39 PM 04/12/2012 1:41 PM Advance Directive Response Recorded Date/ Time Living Will No August 26, 2016 9:04pm Power of Tower Hand No August 26 7 9:04pm Date Activated [...] axilla Procedures US BREAST LIMITED UNILATERAL RIGHT Amy, Edmundo Gross, SYSTEM DESIGNER-HELICOPTER TECHNICIAN [address] [place] [address] Referral ID Status Reason Start Date Expiration Date V isits Requested Visits Authorized [id number] New Request 12/05/2022 12/30/2023 1 1 Specialty Diagnoses / Procedures Referred By Luis A quintero Referred To Contact Multispecialty Diagnoses Personal history of malignant neoplasm of breast Status post bilateral mastectomy Edmundo Clark, SYSTEM DESIGNER-HELICOPTER TECHNICIAN [address] [place] [address] [facility] [address] [facility] [address] [place] [address] Referral ID Status Reason Start Date Expiration Date V isits Requested Visits Authorized [id number] New Request 12/18/2023 01/11/2025 1 1 Chief Complaint and Reason for Visit Chief Complaint Admit Date CONCERN FOR UTI August 15, 2024 7:03 am Reason for Visit Admit Date Dysuria August 15, 2024 7:03 am Additional Source Comments INFORMATION SOURCE (unrecogn ized section and content) DATE CREATED AUTHOR 08/29/2017 [facility] DATE CREATED AUTHOR AUTHOR'S ORGANIZ ATION 06/17/2018 [facility] DATE CREATED AUTHOR AUTHOR'S ORGANIZ ATION 01/02/2024 [facility] DATE CREATED AUTHOR AUTHOR'S ORGANIZ ATION 09/25/2024 [facility] Care Teams (unrecognized sec tion and content) Earth Boring Machine Operator Relationship Specialty Start Date End Date Yajaira Uribe, [address] [place] [address] PCP - General Internal Medicine 12/29/11 Edna Birch, SAM Registered Nurse 02/13/12 Gabriella Frederick, SAM Registered Nurse 04/11/12 Chele Koehler MD, PhD [address], [address] [place] [address] Oncologist Medical Oncology 05/30/19 Cassie Pena, SYSTEM DESIGNER-HELICOPTER TECHNICIAN [address] [place] [address] Nurse Practitioner Medical Oncology 05/30/19 Cinthya Medina, RN Registered Nurse Medical Oncology 05/30/19 Jerel Deluna, RN Registered Nurse Medical Oncology 05/30/19 Shelly Bear, RN Registered Nurse Medical Oncology 05/30/19 Earth Boring Machine Operator Relationship Specialty Start Date End Date Yajaira Uribe DO [address] [place] [address] PCP - General Internal Medicine 12/29/11 Edna Birch, RN Registered Nurse 02/13/12 Gabriella Frederick, RN Registered Nurse 04/11/12 Chele Koehler MD, PhD [address], [address] [place] [address] Oncologist Medical Oncology 05/30/19 Cassie Pena, SYSTEM DESIGNER-HELICOPTER TECHNICIAN [address] [place] [address] Nurse Practitioner Medical Oncology 05/30/19 Cinthya Medina, SAM Registered Nurse Medical Oncology 05/30/19 Jerel Deluna, RN Registered Nurse Medical Oncology 05/30/19 Shelly Bear, SAM Registered Nurse Medical Oncology 05/30/19 Earth Boring Machine Operator Relationship Specialty Start Date End Date Yajaira Uribe DO [address] [place] [address] PCP - General Internal Medicine 12/29/11 Edna Birch, SAM Registered Nurse 02/13/12 Gabriella Frederick, RN Registered Nurse 04/11/12 Chele Koehler MD, PhD [address], [address] [place] [address] Oncologist Medical Oncology 05/30/19 Cassie Pena, SYSTEM DESIGNER-HELICOPTER TECHNICIAN [address] [place] [id number] Nurse Practitioner Medical Oncology 05/30/19 Cinthya Medina, RN Registered Nurse Medical Oncology 05/30/19 Jerel Deluna, RN Registered Nurse Medical Oncology 05/30/19 Shelly Bear, SAM Registered Nurse Medical Oncology 05/30/19 Team Status: Active Member Role Status Dates Dr. Yajaira Uribe , DO Family Provider Active Dr. Yajaira Uribe , DO Primary Care Provider Active Team Status: Inactive Member Role Status Dates Dr. Yajaira Uribe , DO Primary Care Provider Active Janie Hill , DYE TUB OPERATOR-C Attending Provider, Referring Pr ovider Active Earth Boring Machine Operator Relationship Specialty Start Date End Date Yajaira Uribe DO [address] [place] [address] PCP - General Internal Medicine 12/29/11 Edna Birch, RN Registered Nurse 02/13/12 Gabriella Frederick, RN Registered Nurse 04/11/12 Chele Koehler MD, PhD Oncologist Medical Oncology 05/30/19 Cassie Pena, SYSTEM DESIGNER-HELICOPTER TECHNICIAN [address] [place] [id number] Nurse Practitioner Medical Oncology 05/30/19 Cinthya Medina, RN Registered Nurse Medical Oncology 05/30/19 Jerel Deluna, RN Registered Nurse Medical Oncology 05/30/19 Shelly Bear, SAM Registered Nurse Medical Oncology 05/30/19 Earth Boring Machine Operator Relationship Specialty Start Date End Date Yajaira Uribe DO [address] [place] [id number] PCP - General Internal Medicine 12/29/11 Edna Birch, RN Registered Nurse 02/13/12 Gabriella Frederick, RN Registered Nurse 04/11/12 Chele Koehler MD, PhD Oncologist Medical Oncology 05/30/19 Cassie Pena, SYSTEM DESIGNER-HELICOPTER TECHNICIAN [address] [place] [address] Nurse Practitioner Medical Oncology 05/30/19 Cinthya Medina, [...] August 15, 2024 End: August 15, 2024 Team Status: Inactive Member Role Status Dates Dr. Yajaira Uribe DO Primary Care Provider Active Start: August 15, 2024 End: August 15, 2024 EROS Arnold Attending Provider Active Sta rt: August 15, 2024 End: August 15, 2024 EROS Arnold Referring Provider Active Sta rt: August 15, 2024 End: August 15, 2024 Reason for Visit (unrecogniz ed section and content) Reason Comments Breast Problem Specialty Diagnoses / Procedures Referred By Contac t Referred To Contact Multispecialty Diagnoses Personal history of malignant neoplasm of breast Status post bilateral mastectomy Edmundo Clark, SYSTEM DESIGNER-HELICOPTER TECHNICIAN [address] [place] [address] Debi King [address] [facility] [place] [address] Referral ID Status Reason Start Date Expiration Date V isits Requested Visits Authorized [id number] New Request 12/18/2023 01/11/2025 1 1 Reason Comments Follow-up One year follow up f or HX. IDC , and bilateral Mastectomies. R. 2013, left breast 2020. R. Axilla with tenderness and momentarily shooting pain is reported. Specialty Diagnoses / Procedures Referred By Luis A t Referred To Contact Diagnoses Personal history of malignant neoplasm of breast Pain in right axilla Procedures US BREAST LIMITED UNILATERAL RIGHT Edmundo Clark, SYSTEM DESIGNER-HELICOPTER TECHNICIAN [address] [place] [address] Referral ID Status Reason Start Date Expiration Date V isits Requested Visits Authorized [id number] New Request 12/05/2022 12/30/2023 1 1 Reason Comments Follow-up 1 year follow up. Hx of bilateral mastectomies. Patient with some pain in the right axilla- pretty constant. Otherwise, no other concerns. x Goals (unrecognized section and content) Goals may be documented in a n alternate sectionGoals may be documented in an alternate sectionGoals may be documented in an [...] BE BASED ON THE PRIMARY CLINICAL RECORDS. [employer] provides no warranty or guarantee of the accuracy or completeness of information in this document.
--- NOTE | 2024-09-25 07:00 | CT_ITS ---
PROCEDURE: LIMITED CHEST CT CARDIAC ONLY 09/25/2024 REASON FOR EXAM: FAMILY HISTORY OF ISCHEMIC HEART DISEASE AND OTHER DISEASES TECHNIQUE: CT performed for coronary artery calcification. One or more dose reduction techniques were used (e.g., Automated exposure control, adjustment of the mA and/or kV according to patient size, use of iterative reconstruction technique). RADIATION DOSE SUMMARY: CTDlvol: 12.19 mGy DLP: 195.04 mGycm COMPARISON: None. CT/Limited Chest CT Cardiac Only IMPRESSION: Limited imaging of the lungs demonstrates no acute process. No pleural effusion or pneumothorax is seen in visualized areas. No adenopathy is noted. The visualized upper abdomen demonstrates no significant abnormality. Reading Location: [place] [address]
--- NOTE | 2024-09-25 07:10 | BD_ITS ---
PROCEDURE: DEXA BONE DENSITY STUDY 09/25/2024 REASON FOR EXAM: F, age 74 y/o . Postmenopausal. TECHNIQUE: DEXA BONE DENSITY STUDY COMPARISON: None FINDINGS: BMD and T-SCORES Lumbar spine: 1.101 g/cm2, T-score 0.8 Levels: L1 through L4 Left femoral neck: 0.627 g/cm2, T-score -2.0 Femoral neck comparison data not recommended for monitoring change. Left total hip: 0.884 g/cm2, T-score -0.5 . Right femoral neck: 0.657 g/cm2, T-score -1.7 Femoral neck comparison data not recommended for monitoring change. Right total hip: 0.825 g/cm2, T-score -1.0 The World Health Organization has defined the following categories based on bone density: Normal bone density: T-score equal to or greater than -1.0 Osteopenia: T-score between -1.0 and -2.5 Osteoporosis: T-score equal to or less than -2.5 The patient does meet the pharmacological treatment recommendations for prevention of osteoporosis. BD/Dexa Bone Density Study IMPRESSION: OSTEOPENIA. Recommend follow-up as clinically warranted. Reading Location: [place]
--- NOTE | 2024-09-27 11:41 | CA.SCORE ---
Calcium Scoring Date of Study:: 09/25/24 Indications Indications: Family history Coronary Calcium Scoring: High-resolution Computed Tomographic imaging of the chest was performed on [09/25/2024], with particular attention paid to the coronary arteries. Images from the examination were analyzed for the presence and extent of coronary artery calcification , using coronary calcium quantification software. The patient tolerated the procedure well and there were no complications. The results of the coronary calcification analysis are provided below. Findings Coronary Artery Left Main (LM): 0 Left Anterior Descending (LAD): 0 Left Circumflex (LCX): 0 Right Coronary Artery (RCA): 13.5 Total Agatston Score: 13.5 Percentile Rankin- 50th percentile Calcium Scoring Interpretation: Different methods to categorize the overall amount of coronary plaque. Overall amount CAC SIS Visual of coronary plaque P1 Mild -100 <2 1-2 vessels with mild amount of plaque P2 Moderate 101-300 3-4 1-2 vessels with moderate amount, 3 vessels with mild amount of plaque P3 Severe 301-999 5-7 3 vessels with moderate amount, 1 vessel with severe amount of plaque P4 Extensive >1000 >8 2-3 vessels with severe amount of plaque Calcium Score: Mild: 1-2 vessels w/mild amount of plaque Conclusion: Mild focal atherosclerotic plaquing
== END 2024-09-25 23:59 | disposition home or self-care (01) ==
PROVIDERS: PCP Internal Medicine; Referring Provider Internal Medicine; Visit Provider Internal Medicine
DX: Z78.0 Asymptomatic menopausal state (principal); Z82.49 Family history of ischemic heart disease and other diseases of the circulatory system
CPT/HCPCS: 75571; 76380; 77080

== ENCOUNTER → 2024-10-27 | Outpatient (CLI) | payer MEDICARE, OTHER, SELFPAY ==
[2024-10-27 17:45] LABS: Hepatitis C Antibody Nonreactive (Nonreactive)
== END | disposition home or self-care (01) ==
LOC: LAB 14:14
PROVIDERS: PCP Internal Medicine; Referring Provider Internal Medicine; Visit Provider Internal Medicine
DX: R73.9 Hyperglycemia, unspecified (principal); Z11.59 Encounter for screening for other viral diseases
CPT/HCPCS: 36415; 83036; 86803